=== PATIENT | male | born 1940 | race Caucasian/White ===

== ENCOUNTER 2016-06-04 16:02 | Inpatient (IN) | payer MEDICARE, OTHER ==
[2016-06-04 17:02] LABS: Glucose,Whole Blood 306 mg/dL (75-99)
[2016-06-04 17:02] LABS: Basophils # (A) 0.1 k/uL (0-0.2); Basophils % (A) 1 %; CH 31.4; CHCM 34.2; Eosinophils # (A) 0.1 k/uL (0-0.7); Eosinophils % (A) 1 %; HDW 2.76; HGB 11.5 gm/dL (13.0-17.5); Luc # (Auto) 0.08; Luc % (Auto) 2; Lymphocytes # (A) 1.4 k/uL (1.0-4.8); Lymphocytes % (A) 27 %; MCH 30.3 pg (25.0-35.0); MCHC 32.9 g/dL (31.0-37.0); MCV 92.1 fL (80.0-100.0); Mean Platelet Volume 7.9; Monocytes # (A) 0.3 k/uL (0-1.0); Monocytes % (A) 6 %; Neutrophils # (A) 3.3 k/uL (1.3-7.7); Neutrophils % (A) 63 %; RBC 3.79 m/uL (4.30-5.90); RDW 14.4 % (11.5-15.5); WBC 5.3 k/uL (3.8-10.6); WBC (Perox) 5.52
--- NOTE | 2016-06-04 17:07 | XR ---
EXAMINATION TYPE: XR chest 1V portable DATE OF EXAM: 06/04/2016 5:02 PM COMPARISON: 05/07/2016 HISTORY: Altered mental status TECHNIQUE: Single frontal view of the chest is obtained. FINDINGS: The heart is enlarged and there is postoperative change and cardiac device. Tiny left effu oli suspected. No pneumothorax or interstitial edema. Arthropathy of the shoulders noted. IMPRESSION: 1. Tiny left pleural effusion.
[2016-06-04 17:13] LABS: Calcium 9.6 mg/dL (8.4-10.2); Potassium 4.7 mmol/L (3.5-5.1); Total Bilirubin 0.5 mg/dL (0.2-1.3)
[2016-06-04] MEDS ORDERED: SODIUM CHLORIDE 0.9% 1,000 ML IV ONE ×3 (17:23→19:10)
[2016-06-04] MEDS ORDERED: LEVOFLOXACIN 750MG-D5W PMX 750 MG in DEXTROSE/WATER 1 150ML.BAG IVPB STA (17:25)
[2016-06-04 18:54] LABS: Appearance,Urine Clear (Clear); Bilirubin,Urine Negative (Negative); Glucose,Urine (UA) 2+ (Negative); Ketones,Urine Negative (Negative); Leukocyte Esterase,Urine Negative (Negative); Nitrite,Urine Negative (Negative); PH, Urine 7.5 (5.0-8.0); Protein,Urine Negative (Negative); Specific Gravity,Urine 1.007 (1.001-1.035); UA Billing (MACRO vs. MICRO) CHEM; Urobilinogen,Urine <2.0 mg/dL (<2.0)
[2016-06-04] MEDS ORDERED: NALOXONE 0.4 MG/ML 1 ML VIAL IV PRN (20:14)
[2016-06-04] MEDS ORDERED: ACETAMINOPHEN TAB 325 MG TAB PO PRN ×2 (20:14→20:17)
--- NOTE | 2016-06-04 20:51 | ED ---
Altered Mental Status HPI - General Chief Complaint: Altered Mental Status Stated Complaint: ALTERED MENTAL STATUS Time Seen by Provider: 06/04/16 16:35 Source: EMS Mode of arrival: EMS Limitations: altered mental status (There is some underlying dementia) - History of Present Illness Initial Comments: This patient is 76-year-old man brought in to be evaluated by his . She states that he has seemed to be somewhat agitated and this is been going on for nearly 24 hours. She states that he has not been sleeping. She could not get the patient to eat anything or drink much in way of liquid at all today. She states that the last time he was like this he had an infection. The patient is denying any complaints. When asked how he is feeling, he states he feels well and that he just wants to go home to see his dog. MD Complaint: altered mental status Onset/Timin -: days(s) - Related Data Home Medications Medication Instructions Recorded Confirmed Montelukast [Singulair] 10 mg PO HS 11/07/14 06/04/16 Tamsulosin [Flomax] 0.4 mg PO DAILY 10/04/15 06/04/16 Albuterol Inhaler [Ventolin Hfa 2 puff INHALATION RT-Q4H PRN 11/15/15 06/04/16 Inhaler] Apixaban [Eliquis] 5 mg PO BID 11/15/15 06/04/16 Digoxin [Digitek] 125 mcg PO DAILY 11/15/15 06/04/16 Mirtazapine [Remeron] 7.5 mg PO HS 11/15/15 06/04/16 Memantine [Namenda] 5 mg PO DAILY 02/10/16 06/04/16 Atorvastatin [Lipitor] 40 mg PO HS 05/07/16 06/04/16 Clopidogrel [Plavix] 75 mg PO DAILY 05/07/16 06/04/16 Furosemide [Lasix] 20 mg PO TID 05/07/16 06/04/16 Insuln Asp Prt/Insulin Aspart 10 unit SQ BID 05/07/16 06/04/16 [NovoLOG MIX 70-30 VIAL] Spironolactone [Aldactone] 25 mg PO DAILY 05/07/16 06/04/16 ALPRAZolam [Xanax] 0.25 mg PO TID PRN 06/04/16 06/04/16 Acetaminophen Tab [Tylenol Tab] 650 mg PO Q4H PRN 06/04/16 06/04/16 Aspirin 81 mg PO DAILY 06/04/16 06/04/16 Collagenase [Santyl] 1 applic TOPICAL HS 06/04/16 06/04/16 Lisinopril [Zestril] 2.5 mg PO HS 06/04/16 06/04/16 Previous Rx's Medication Instructions Recorded ALPRAZolam [Xanax] 0.25 mg PO BID #60 tab 05/10/16 Metoprolol Tartrate [Lopressor] 25 mg PO HS tab 05/10/16 Metoprolol Tartrate [Lopressor] 50 mg PO DAILY tab 05/10/16 Allergies Allergy/AdvReac Type Severity Reaction Status Date / Time No Known Allergies Allergy Verified 06/04/16 16:22 Review of Systems ROS Statement: Those systems with pertinent positive or pertinent negative responses have been documented in the HPI. ROS Other: All systems not noted in ROS Statement are negative. Limitations: ROS unobtainable due to patients medical condition (Some underlying dementia) Constitutional: Denies: fever Respiratory: Denies: cough, dyspnea Cardiovascular: Denies: chest pain, syncope Gastrointestinal: Denies: abdominal pain, vomiting Genitourinary: Denies: hematuria Musculoskeletal: Denies: back pain Skin: Denies: rash Neurological: Denies: headache, weakness Psychiatric: Reports: anxiety Past Medical History Past Medical History: Atrial Fibrillation, Asthma, Coronary Artery Disease (CAD) , Heart Failure, COPD, Dementia, Diabetes Mellitus, Deep Vein Thrombosis (DVT), Hyperlipidemia, Hypertension, Myocardial Infarction (ND), Osteoarthritis (OA), Renal Disease, Respiratory Disorder, Sleep Apnea/CPAP/BIPAP, Vascular Disorder Additional Past Medical History / Comment(s): metabolic encephalopathy, DVT L leg 2007, PAD, bronchitis, MAY no device, neuropathy bilateral feet, BPH, Chronic kidney disease diverticulosis. Last Myocardial Infarction Date:: unknown History of Any Multi-Drug Resistant Organisms: MRSA Date of last positivie culture/infection: august 2015 per from [facility] MDRO Source:: foot Past Surgical History: Coronary Bypass/CABG, Heart Catheterization, Orthopedic Surgery, Pacemaker Additional Past Surgical History / Comment(s): AICD 2007, DFT 2014, CABG-2 vessel 2000, L wrist surgery, R foot hammer toe repair, bilateral great toenails removed, bunionectomies bilateral feet, arch/aortagram, L femoral artery thromboendartectomy, Ccaths x possible 2, cataract removal bilaterally, colonoscopy, circumcism. R great toe amputation Past Anesthesia/Blood Transfusion Reactions: No Reported Reaction Type of Cardiac Device: AICD Device Placement Date:: 2007 Past Psychological History: Depression Additional Psychological History / Comment(s): Pt resides with his spouse. She has a walker that he uses if he is going to walk far. He does not drive-his spouse is his electronic specialist and she drives him. He is a . He has memory problems. Smoking Status: Never smoker Past Alcohol Use History: None Reported Additional Past Alcohol Use History / Comment(s): Pt smoked cigars starting in 1962 and quit in 1999. Past Drug Use History: None Reported - Past Family History Mother Family Medical History: Myocardial Infarction (ND) Additional Family Medical History / Comment(s): Mother of a ND in her 50's Brother(s) Family Medical History: Deep Vein Thrombosis (DVT) Additional Family Medical History / Comment(s): POSS DVT. Father Family Medical History: CVA/TIA Additional Family Medical History / Comment(s): Father of a CVA at unknown age. General Exam Limitations: altered mental status General appearance: alert, in no apparent distress Head exam: Present: atraumatic, normocephalic Eye exam: Present: normal appearance ENT exam: Present: mucous membranes dry Neck exam: Present: normal inspection Respiratory exam: Present: normal lung sounds bilaterally. Absent: respiratory distress, wheezes, rales, rhonchi, stridor Cardiovascular Exam: Present: irregular rhythm, normal heart sounds. Absent: systolic murmur, diastolic murmur, rubs, gallop GI/Abdominal exam: Present: soft. Absent: tenderness, guarding, rebound Extremities exam: Present: normal inspection, normal capillary refill, other ( Patient does have right great toe amputation. The surgical site looks relatively clean. There is no drainage. There is no warmth. There is a trace of erythema at 1 and of the incision but this looks like only some local inflammation and does not look like recurrent wound infection.). Absent: tenderness, pedal edema, calf tenderness Back exam: Present: normal inspection. Absent: CVA tenderness (R), CVA tenderness (L) Neurological exam: Present: alert, normal gait. Absent: oriented X3 (Patient is oriented to person and recognizes he is at the hospital, does not know the date), motor sensory deficit Psychiatric exam: Present: anxious Skin exam: Present: warm, dry, normal color, other (See extremity exam) Course Vital Signs 06/04/16 06/04/16 06/04/16 16:03 17:39 19:16 Temperature 96.9 F L Pulse Rate 51 L 83 77 Respiratory 18 18 18 Rate Blood Pressure 116/60 107/56 112/58 O2 Sat by Pulse 96 100 99 Oximetry 06/04/16 19:56 Temperature 96.9 F L Pulse Rate 72 Respiratory 18 Rate Blood Pressure 137/65 O2 Sat by Pulse 100 Oximetry Medical Decision Making - Medical Decision Making Patient is 76-year-old man with underlying dementia brought in for was reported being altered mental status. He does look mildly dehydrated by the exam. The labs do show an elevation of his lactic acid level. Case discussed with Dr. Honeycutt who is on-call for his physician. The patient be admitted for rehydration and to discuss a long-term placement. Cultures are pending. - Lab Data Result diagrams: 06/04/16 16:20 06/04/16 16:20 Lab Results 06/04/16 06/04/16 06/04/16 Range/Units 16:20 16:20 16:20 WBC 5.3 (3.8-10.6) k/uL RBC 3.79 L (4.30-5.90) m/uL Hgb 11.5 L (13.0-17.5) gm/dL Hct 35.0 L (39.0-53.0) % MCV 92.1 (80.0-100.0) fL MCH 30.3 (25.0-35.0) pg MCHC 32.9 (31.0-37.0) g/dL RDW 14.4 (11.5-15.5) % Plt Count 163 (150-450) k/uL Neutrophils % 63 % Lymphocytes % 27 % Monocytes % 6 % Eosinophils % 1 % Basophils % 1 % Neutrophils # 3.3 (1.3-7.7) k/uL Lymphocytes # 1.4 (1.0-4.8) k/uL Monocytes # 0.3 (0-1.0) k/uL Eosinophils # 0.1 (0-0.7) k/uL Basophils # 0.1 (0-0.2) k/uL Sodium 138 (137-145) mmol/L Potassium 4.7 (3.5-5.1) mmol/L Chloride 99 (98-107) mmol/L Carbon Dioxide 22 (22-30) mmol/L Anion Gap 17 mmol/L BUN 25 H (9-20) mg/dL Creatinine 1.58 H (0.66-1.25) mg/dL Est GFR (MDRD) Af Amer 52 (>60 ml/min/1.73 sqM) Est GFR (MDRD) Non-Af 43 (>60 ml/min/1.73 sqM) Glucose 298 H (74-99) mg/dL POC Glucose (mg/dL) (75-99) mg/dL POC Glu Braille Coder ID Plasma Lactic Acid Amol (0.7-2.0) mmol/L Calcium 9.6 (8.4-10.2) mg/dL Total Bilirubin 0.5 (0.2-1.3) mg/dL AST 19 (17-59) U/L ALT 27 (21-72) U/L Alkaline Phosphatase 96 (38-126) U/L Troponin I 0.013 (0.000-0.034) ng/mL Total Protein 7.0 (6.3-8.2) g/dL Albumin 4.1 (3.5-5.0) g/dL Urine Color Urine Appearance (Clear) Urine pH (5.0-8.0) Ur Specific Lyndon (1.001-1.035) Urine Protein (Negative) Urine Glucose (UA) (Negative) Urine Ketones (Negative) Urine Blood (Negative) Urine Nitrate (Negative) Urine Bilirubin (Negative) Urine Urobilinogen (<2.0) mg/dL Ur Leukocyte Esterase (Negative) 06/04/16 06/04/16 06/04/16 Range/Units 16:20 17:01 18:45 WBC (3.8-10.6) k/uL RBC (4.30-5.90) m/uL Hgb (13.0-17.5) gm/dL Hct (39.0-53.0) % MCV (80.0-100.0) fL MCH (25.0-35.0) pg MCHC (31.0-37.0) g/dL RDW (11.5-15.5) % Plt Count (150-450) k/uL Neutrophils % % Lymphocytes % % Monocytes % % Eosinophils % % Basophils % % Neutrophils # (1.3-7.7) k/uL Lymphocytes # (1.0-4.8) k/uL Monocytes # (0-1.0) k/uL Eosinophils # (0-0.7) k/uL Basophils # (0-0.2) k/uL Sodium (137-145) mmol/L Potassium (3.5-5.1) mmol/L Chloride (98-107) mmol/L Carbon Dioxide (22-30) mmol/L Anion Gap mmol/L BUN (9-20) mg/dL Creatinine (0.66-1.25) mg/dL Est GFR (MDRD) Af Amer (>60 ml/min/1.73 sqM) Est GFR (MDRD) Non-Af (>60 ml/min/1.73 sqM) Glucose (74-99) mg/dL POC Glucose (mg/dL) 306 H (75-99) mg/dL POC Glu Braille Coder ID Vera Harris Plasma Lactic Acid Amol 3.6 H* (0.7-2.0) mmol/L Calcium (8.4-10.2) mg/dL Total Bilirubin (0.2-1.3) mg/dL AST (17-59) U/L ALT (21-72) U/L Alkaline Phosphatase (38-126) U/L Troponin I (0.000-0.034) ng/mL Total Protein (6.3-8.2) g/dL Albumin (3.5-5.0) g/dL Urine Color Yellow Urine Appearance Clear (Clear) Urine pH 7.5 (5.0-8.0) Ur Specific Lyndon 1.007 (1.001-1.035) Urine Protein Negative (Negative) Urine Glucose (UA) 2+ H (Negative) Urine Ketones Negative (Negative) Urine Blood Negative (Negative) Urine Nitrate Negative (Negative) Urine Bilirubin Negative (Negative) Urine Urobilinogen <2.0 (<2.0) mg/dL Ur Leukocyte Esterase Negative (Negative) 01/12/17 Range/Units 19:20 WBC (3.8-10.6) k/uL RBC (4.30-5.90) m/uL Hgb (13.0-17.5) gm/dL Hct (39.0-53.0) % MCV (80.0-100.0) fL MCH (25.0-35.0) pg MCHC (31.0-37.0) g/dL RDW (11.5-15.5) % Plt Count (150-450) k/uL Neutrophils % % Lymphocytes % % Monocytes % % Eosinophils % % Basophils % % Neutrophils # (1.3-7.7) k/uL Lymphocytes # (1.0-4.8) k/uL Monocytes # (0-1.0) k/uL Eosinophils # (0-0.7) k/uL Basophils # (0-0.2) k/uL Sodium (137-145) mmol/L Potassium (3.5-5.1) mmol/L Chloride (98-107) mmol/L Carbon Dioxide (22-30) mmol/L Anion Gap mmol/L BUN (9-20) mg/dL Creatinine (0.66-1.25) mg/dL Est GFR (MDRD) Af Amer (>60 ml/min/1.73 sqM) Est GFR (MDRD) Non-Af (>60 ml/min/1.73 sqM) Glucose (74-99) mg/dL POC Glucose (mg/dL) (75-99) mg/dL POC Glu Braille Coder ID Plasma Lactic Acid Amol 2.4 H* (0.7-2.0) mmol/L Calcium (8.4-10.2) mg/dL Total Bilirubin (0.2-1.3) mg/dL AST (17-59) U/L ALT (21-72) U/L Alkaline Phosphatase (38-126) U/L Troponin I (0.000-0.034) ng/mL Total Protein (6.3-8.2) g/dL Albumin (3.5-5.0) g/dL Urine Color Urine Appearance (Clear) Urine pH (5.0-8.0) Ur Specific Lyndon (1.001-1.035) Urine Protein (Negative) Urine Glucose (UA) (Negative) Urine Ketones (Negative) Urine Blood (Negative) Urine Nitrate (Negative) Urine Bilirubin (Negative) Urine Urobilinogen (<2.0) mg/dL Ur Leukocyte Esterase (Negative) Disposition Clinical Impression: Dementia, Lactic acidosis, Hyperglycemia, Dehydration Disposition: ADMITTED IP TO THIS HOSP Condition: Poor Referrals: Neville Miles MD [Primary Care Provider] - 1-2 days
[2016-06-04] MEDS ORDERED: LORazepam 2 MG/ML SYRINGE IV STA (20:55)
[2016-06-04] MEDS ORDERED: HEPARIN SODIUM,PORCINE 5,000 UNIT/ML 1 ML VIAL SQ SCH (21:00)
[2016-06-04 21:07] LABS: Hemoglobin A1C 6.4 % (4.2-6.1)
[2016-06-04 22:38] LABS: Glucose,Whole Blood 152 mg/dL (75-99)
[2016-06-04] MEDS: SODIUM CHLORIDE 0.9% 1,000 ML IV SCH (22:38)
[2016-06-04] MEDS: INSULN ASP PRT/INSULIN ASPART 100 UNIT/ML 10 ML VIAL SQ SCH (22:39)
[2016-06-04 23:22] VITALS: BMI 25.7
[2016-06-04] MEDS: MIRTAZAPINE 15 MG TAB PO SCH (23:26)
[2016-06-04] MEDS: MONTELUKAST 10 MG TAB PO SCH (23:26)
[2016-06-04] MEDS: ATORVASTATIN 40 MG TAB PO SCH (23:26)
[2016-06-04] MEDS: LISINOPRIL 2.5 MG TAB PO SCH (23:27)
[2016-06-04] MEDS: METOPROLOL TARTRATE 25 MG TAB PO SCH (23:27)
[2016-06-04] MEDS: INSULIN LISPRO (humaLOG) 300 UNIT/3 ML VIAL SQ SCH (23:27)
[2016-06-04] MEDS: APIXABAN 5 MG TAB PO SCH (23:27)
[2016-06-05 07:38] LABS: Basophils % (A) 1 %; CH 31.2; CHCM 34.3; Eosinophils # (A) 0.1 k/uL (0-0.7); Eosinophils % (A) 1 %; HCT 30.6 % (39.0-53.0); HDW 2.84; HGB 10.1 gm/dL (13.0-17.5); Luc # (Auto) 0.07; Luc % (Auto) 1; Lymphocytes # (A) 1.2 k/uL (1.0-4.8); Lymphocytes % (A) 19 %; MCH 30.2 pg (25.0-35.0); MCHC 33.1 g/dL (31.0-37.0); MCV 91.2 fL (80.0-100.0); Mean Platelet Volume 7.5; Monocytes # (A) 0.4 k/uL (0-1.0); Monocytes % (A) 7 %; Neutrophils # (A) 4.6 k/uL (1.3-7.7); Neutrophils % (A) 72 %; RBC 3.36 m/uL (4.30-5.90); RDW 14.4 % (11.5-15.5); WBC 6.4 k/uL (3.8-10.6); WBC (Perox) 6.94
[2016-06-05 07:50] LABS: Glucose,Whole Blood 111 mg/dL (75-99)
[2016-06-05 08:05] LABS: Anion Gap 12 mmol/L; Blood Urea Nitrogen 16 mg/dL (9-20); Calcium 8.6 mg/dL (8.4-10.2); Carbon Dioxide 20 mmol/L (22-30); Chloride 110 mmol/L (98-107); Glucose 110 mg/dL (74-99); Non-African American GFR(MDRD) 57 (>60 ml/min/1.73 sqM); Potassium 4.1 mmol/L (3.5-5.1); Sodium 142 mmol/L (137-145)
[2016-06-05] MEDS: INSULIN LISPRO (humaLOG) 300 UNIT/3 ML VIAL SQ SCH ×4 (08:44→20:16)
[2016-06-05] MEDS: APIXABAN 5 MG TAB PO SCH ×2 (08:49→20:03)
[2016-06-05] MEDS: ASPIRIN 81 MG CHEW PO SCH (08:57)
[2016-06-05] MEDS: INSULN ASP PRT/INSULIN ASPART 100 UNIT/ML 10 ML VIAL SQ SCH ×2 (08:57→20:20)
[2016-06-05] MEDS: ALPRAZolam 0.25 MG TAB PO PRN ×2 (11:50→20:16)
[2016-06-05] MEDS: CLOPIDOGREL 75 MG TAB PO SCH (11:50)
[2016-06-05] MEDS: MEMANTINE 5 MG TAB PO SCH (11:50)
[2016-06-05] MEDS: DIGOXIN 125 MCG TAB PO SCH (11:50)
[2016-06-05] MEDS: SPIRONOLACTONE 25 MG TAB PO SCH (11:51)
[2016-06-05] MEDS: METOPROLOL TARTRATE 50 MG TAB PO SCH (11:51)
[2016-06-05] MEDS: TAMSULOSIN 0.4 MG CAP.ER.24H PO SCH (11:51)
[2016-06-05 12:11] LABS: Glucose,Whole Blood 108 mg/dL (75-99)
[2016-06-05] MEDS ORDERED: ALBUTEROL NEBULIZED 2.5 MG/3 ML INHALATION PRN (14:38)
--- NOTE | 2016-06-05 14:45 | P.HPIM ---
<Felisha Hernandez A - Last Filed: 06/05/16 14:35> History of Present Illness H&P Date: 06/05/16 Chief Complaint: Altered mental status This is a 76-year-old male patient of Dr. Miles with medical history significant for coronary artery disease status post coronary artery bypass graft for 2 vessels in 1999 with ischemic cardiomyopathy status post AICD, chronic atrial fibrillation, chronic kidney disease stage II, benign prostatic hypertrophy, diabetes mellitus type 2 insulin requiring, hypertension and hypertensive cardiovascular disease, hyperlipidemia, vascular dementia, history of DVT in the past, history of PAD, infection to the right groin following heart catheterization for which he was treated at [facility] in 2016, osteomyelitis of the right great toe status post amputation in October [address] Simon. He has had frequent admissions for sepsis, wound infections, metabolic encephalopathy. He was brought in to the hospital by EMS. His gives history that the patient was having difficulty most of this week. He was awake all Wednesday night and did not allow her to get any sleep. He then started to not eat or drink anything and did not have anything yesterday at all. He has been very antsy and crying out when he goes to the bathroom. She also states that his dementia worsened and he was more confused. He barely did not have any abdominal pain. She contacted Dr. Miles's office and attempts were made to call her back but there was no answer. Patient was then brought into [facility] emergency center for evaluation. Chest x-ray showed tiny left pleural effusion. Urinalysis was clear, nitrite and leukoesterase negative. Initial blood sugar was 298, BUN 25 and creatinine 1.58, WBC 5.3 and hemoglobin 11.5. Hemoglobin A1c 6.4. Initial lactic acid was 3.6. Repeat lactic acid 2.4 and 2.2. Patient was admitted to the hospital for lactic acidosis, hyperglycemia and dehydration. Staff state that they did see some blood on his brief when he was changed earlier today. Patient and do not know about any rectal bleeding. Review of Systems All systems: negative Constitutional: Denies chills, Denies fever Eyes: denies blurred vision, denies pain Ears, nose, mouth and throat: Denies headache, Denies sore throat Cardiovascular: Denies chest pain, Denies shortness of breath Respiratory: Denies cough Gastrointestinal: Denies abdominal pain, Denies diarrhea, Denies nausea, Denies vomiting Musculoskeletal: Denies myalgias Integumentary: Denies pruritus, Denies rash Neurological: Reports confusion, Denies numbness, Denies weakness Psychiatric: Denies anxiety, Denies depression Endocrine: Denies fatigue, Denies weight change Past Medical History Past Medical History: Atrial Fibrillation, Asthma, Coronary Artery Disease (CAD) , Heart Failure, COPD, Dementia, Diabetes Mellitus, Deep Vein Thrombosis (DVT), Hyperlipidemia, Hypertension, Myocardial Infarction (CT), Osteoarthritis (OA), Renal Disease, Respiratory Disorder, Sleep Apnea/CPAP/BIPAP, Vascular Disorder Additional Past Medical History / Comment(s): metabolic encephalopathy, DVT L leg 2008, PAD, bronchitis, MAY no device, neuropathy bilateral feet, BPH, Chronic kidney disease diverticulosis. Last Myocardial Infarction Date:: unknown History of Any Multi-Drug Resistant Organisms: MRSA Date of last positivie culture/infection: august 2015 per from [facility] MDRO Source:: foot Past Surgical History: Coronary Bypass/CABG, Heart Catheterization, Orthopedic Surgery, Pacemaker Additional Past Surgical History / Comment(s): AICD 2007, DFT 2014, CABG-2 vessel 1999, L wrist surgery, R foot hammer toe repair, bilateral great toenails removed, bunionectomies bilateral feet, arch/aortagram, L femoral artery thromboendartectomy, Ccaths x possible 2, cataract removal bilaterally, colonoscopy, circumcism. R great toe amputation Past Anesthesia/Blood Transfusion Reactions: No Reported Reaction Type of Cardiac Device: AICD Device Placement Date:: 2007 Past Psychological History: Depression Additional Psychological History / Comment(s): Pt resides with his spouse. She has a walker that he uses if he is going to walk far. He does not drive-his spouse is his address change clerk and she drives him. He is a . He has memory problems. Smoking Status: Never smoker Past Alcohol Use History: None Reported Additional Past Alcohol Use History / Comment(s): Pt smoked cigars starting in 2 and quit in 1999. Past Drug Use History: None Reported - Past Family History Mother Family Medical History: Myocardial Infarction (CT) Additional Family Medical History / Comment(s): Mother of a CT in her 50's Brother(s) Family Medical History: Deep Vein Thrombosis (DVT) Additional Family Medical History / Comment(s): POSS DVT. Father Family Medical History: CVA/TIA Additional Family Medical History / Comment(s): Father of a CVA at unknown age. Medications and Allergies Home Medications Medication Instructions Recorded Confirmed Type Montelukast [Singulair] 10 mg PO HS 11/07/14 06/04/16 History Tamsulosin [Flomax] 0.4 mg PO DAILY 10/04/15 06/04/16 History Albuterol Inhaler [Ventolin Hfa 2 puff INHALATION RT-Q4H PRN 11/15/15 06/04/16 History Inhaler] Apixaban [Eliquis] 5 mg PO BID 11/15/15 06/04/16 History Digoxin [Digitek] 125 mcg PO DAILY 11/15/15 06/04/16 History Mirtazapine [Remeron] 7.5 mg PO HS 11/15/15 06/04/16 History Memantine [Namenda] 5 mg PO DAILY 02/10/16 06/04/16 History Atorvastatin [Lipitor] 40 mg PO HS 05/07/16 06/04/16 History Clopidogrel [Plavix] 75 mg PO DAILY 05/07/16 06/04/16 History Furosemide [Lasix] 20 mg PO TID 05/07/16 06/04/16 History Insuln Asp Prt/Insulin Aspart 10 unit SQ BID 05/07/16 06/04/16 History [NovoLOG MIX 70-30 VIAL] Spironolactone [Aldactone] 25 mg PO DAILY 05/07/16 06/04/16 History ALPRAZolam [Xanax] 0.25 mg PO TID PRN 06/04/16 06/04/16 History Acetaminophen Tab [Tylenol Tab] 650 mg PO Q4H PRN 06/04/16 06/04/16 History Aspirin 81 mg PO DAILY 06/04/16 06/04/16 History Collagenase [Santyl] 1 applic TOPICAL HS 06/04/16 06/04/16 History Lisinopril [Zestril] 2.5 mg PO HS 06/04/16 06/04/16 History Allergies Allergy/AdvReac Type Severity Reaction Status Date / Time No Known Allergies Allergy Verified 06/04/16 16:22 Physical Exam Vitals: Vital Signs Temp Pulse Pulse Resp BP BP Pulse Ox 06/05/16 08:00 54 L 06/05/16 07:00 97.5 F L 93 18 120/91 92 L 06/04/16 22:20 96.6 F L 54 L 17 110/53 100 06/04/16 21:33 98.0 F 85 18 135/67 97 Intake and Output 06/04/16 06/05/16 06/05/16 22:59 06:59 14:59 Intake Total 260 Output Total 243 Balance 17 Intake: IV 160 Sodium Chloride 0.9% 1, 160 000 ml @ 20 mls/hr IV . Q24H [facility] Rx#:[id number] Oral 100 Output: Urine 200 Post Void Residual 43 Other: Voiding Method Diaper Diaper Incontinent Incontinent Weight 83.915 kg General appearance: average body habitus, cooperative, no acute distress - EENT Eyes: Reports anicteric sclerae, Reports EOMI, Reports PERRLA, Reports dentition normal ENT: Reports hearing grossly normal, Reports NA/AT, Reports normal oropharynx - Neck Neck: Reports normal ROM, Denies lymphadenopathy, Denies other, Denies rigidity , Denies stridor, Denies thyromegaly Thyroid: bilateral: normal size - Respiratory Respiratory: bilateral: CTA, diminished - Cardiovascular Rhythm: irregular Heart sounds: normal: S1, S2, systolic murmur - Gastrointestinal General gastrointestinal: Reports normal bowel sounds, Reports soft - Integumentary Integumentary: Reports normal, Reports normal turgor - Neurologic Neurologic: CNII-XII intact - Musculoskeletal Musculoskeletal: Reports strength equal bilaterally. Healing wound to the right great toe amputation site, no significant erythema, drainage, swelling. Eschar to the distal second toe. - Psychiatric Psychiatric: Reports A&O x's2, at baseline, Reports appropriate affect, Reports intact judgment & insight (Short-term memory loss) Results CBC & Chem 7: 06/05/16 07:16 06/05/16 07:16 Labs: Abnormal Lab Results - Last 24 Hours (Table) 06/04/16 06/04/16 06/05/16 Range/Units 22:36 23:59 07:15 RBC (4.30-5.90) m/uL Hgb (13.0-17.5) gm/dL Hct (39.0-53.0) % Plt Count (150-450) k/uL Chloride (98-107) mmol/L Carbon Dioxide (22-30) mmol/L Glucose (74-99) mg/dL POC Glucose (mg/dL) 152 H 111 H (75-99) mg/dL Plasma Lactic Acid Amol 2.2 H* (0.7-2.0) mmol/L 06/05/16 06/05/16 06/05/16 Range/Units 07:16 07:16 12:00 RBC 3.36 L (4.30-5.90) m/uL Hgb 10.1 L (13.0-17.5) gm/dL Hct 30.6 L (39.0-53.0) % Plt Count 123 L (150-450) k/uL Chloride 110 H (98-107) mmol/L Carbon Dioxide 20 L (22-30) mmol/L Glucose 110 H (74-99) mg/dL POC Glucose (mg/dL) 108 H (75-99) mg/dL Plasma Lactic Acid Amol (0.7-2.0) mmol/L Thrombosis Risk Factor Assmnt - DVT/VTE Prophylaxis DVT/VTE Prophylaxis: Pharmacologic Prophylaxis ordered - Choose All That Apply Any of the Below Risk Factors Present?: Yes Each Factor Represents 1 point: Abnormal pulmonary function (COPD), Obesity ( BMI >25) Other Risk Factors: Yes Each Risk Factor Represents 2 Points: Age 61-74 years Thrombosis Risk Factor Assessment Total Risk Factor Score: 4 Thrombosis Risk Factor Assessment Level: Moderate Risk Assessment and Plan Plan: 1. Metabolic encephalopathy and dehydration with elevated lactic acid without signs of infection. Chest x-ray did not show any infiltrate. Urinalysis negative. No skin or wound infections noted. On salt with Dr. Scruggs for history of wound infection and lactic acidosis. Lasix is currently on hold. Resume Lasix tomorrow. 2. Chronic wound to the right foot and at site of great toe amputation. No signs of active infection. Consult with Dr. Scruggs. Patient did receive dose of Levaquin in the emergency center. Continue Santyl dressing. 3. Chronic A. fib. Continue eliquis and Lopressor 50 mg the morning 25 mg in the evening, digoxin 125 g daily. 4. COPD, stable without exacerbation: Continue inhaler. 5. Advanced ischemic cardiomyopathy post AICD. Continue Lipitor, eliquis, Plavix, Lanoxin, lisinopril, Lopressor, Aldactone. 6. Severe PAD status post right great toe amputation with history of MRSA. 7. BPH. Continue tamsulosin 0.4 mg daily. 8. Hyperlipidemia. Continue Lipitor 40 mg daily. 9. Diabetes mellitus type II, insulin requiring. Continue NovoLog 70 3010 units twice daily and Humalog scale before meals and at bedtime. 10. Vascular dementia. No longer on Namenda and Remeron. 11. Chronic kidney disease stage III with history of acute kidney injury 12. GI prophylaxis: On Pepcid 20 mg daily. 13. DVT prophylaxis. Patient is on eliquis. CODE STATUS: Full code. Discharge plan: Return home with homecare Impression and plan of care have been directed as dictated by the signing physician. Felisha Hernandez nurse practitioner acting as scribe for signing physician. Time with Patient: Greater than 30 <Jacques Honeycutt - Last Filed: 06/07/16 07:52> Physical Exam Vitals: Vital Signs Temp Pulse Resp BP Pulse Ox 06/06/16 22:35 97.1 F L 55 L 18 118/62 100 06/06/16 15:00 98 F 61 122/60 98 Intake and Output 06/06/16 06/07/16 06/07/16 22:59 06:59 14:59 Other: Voiding Method Diaper Diaper # Voids 1 1 # Bowel Movements 1 Results CBC & Chem 7: 06/06/16 07:26 06/06/16 07:26 Labs: Abnormal Lab Results - Last 24 Hours (Table) 06/06/16 06/06/16 06/06/16 Range/Units 07:26 07:26 20:05 RBC 3.28 L (4.30-5.90) m/uL Hgb 10.0 L (13.0-17.5) gm/dL Hct 30.7 L (39.0-53.0) % Plt Count 132 L (150-450) k/uL Chloride 110 H (98-107) mmol/L Carbon Dioxide 20 L (22-30) mmol/L POC Glucose (mg/dL) 100 H (75-99) mg/dL AST 15 L (17-59) U/L Total Protein 5.7 L (6.3-8.2) g/dL Albumin 3.0 L (3.5-5.0) g/dL Microbiology - Last 24 Hours (Table) 06/05/16 12:32 Blood Culture - Preliminary Blood No Growth after 24 hours Assessment and Plan Plan: change on salt to consult
--- NOTE | 2016-06-05 14:53 | P.CONS ---
History of Present Illness - Reason for Consult Consult date: 06/05/16 History of wound infection, lactic acidosis - History of Present Illness 76-year-old male known to infectious disease. Earlier last year he has significant difficulty with his right groin area. He had undergone cardiac catheterization and developed a significant infection to his right groin. Record transfer to outside hospital for further surgical intervention with concerns to a necrotizing infection. Fortunately he improved. He continued to have severe peripheral vascular disease. On November 17, Dr. Simon performed the right great toe amputation. Since that time it's been an ongoing ulceration was followed in the wound healing center with Dr. Simon. He is currently at home with his and local wound care is in the form of Santyl. Patient has had ongoing difficulties this week according to his . He was awake all Wednesday night and did not allow her to get any sleep. He then left eating and drinking and did not have intake yesterday at all. He has been very antsy and crying out when he goes to the bathroom. She also states that his dementia worsened and he was more confused. He did not have any abdominal pain. Patient was brought into [facility] emergency center for evaluation. Chest x-ray showed tiny left pleural effusion. Urinalysis was clear, nitrite and leukoesterase negative. Initial blood sugar was 298, BUN 25 and creatinine 1.58, WBC 5.3 and hemoglobin 11.5. Hemoglobin A1c 6.4. Initial lactic acid was 3.6. Repeat lactic acid 2.4 and 2.2. Patient was admitted to the hospital for lactic acidosis, hyperglycemia and dehydration. Staff state that they did see some blood on his brief when he was changed earlier today. Patient and do not know about any rectal bleeding. Patient's mental status appears to be back to baseline. Patient did receive 1 dose of Levaquin in the emergency center. Review of Systems All systems: negative Constitutional: Reports weakness, Denies chills, Denies fever Eyes: denies blurred vision, denies pain Ears, nose, mouth and throat: Denies headache, Denies sore throat Cardiovascular: Denies chest pain, Denies shortness of breath Respiratory: Denies cough Gastrointestinal: Denies abdominal pain, Denies diarrhea, Denies nausea, Denies vomiting Musculoskeletal: Denies myalgias Integumentary: Denies pruritus, Denies rash Neurological: Reports confusion, Denies numbness, Denies weakness Psychiatric: Denies anxiety, Denies depression Endocrine: Denies fatigue, Denies weight change Past Medical History Past Medical History: Atrial Fibrillation, Asthma, Coronary Artery Disease (CAD) , Heart Failure, COPD, Dementia, Diabetes Mellitus, Deep Vein Thrombosis (DVT), Hyperlipidemia, Hypertension, Myocardial Infarction (IA), Osteoarthritis (OA), Renal Disease, Respiratory Disorder, Sleep Apnea/CPAP/BIPAP, Vascular Disorder Additional Past Medical History / Comment(s): metabolic encephalopathy, DVT L leg 2008, PAD, bronchitis, MAY no device, neuropathy bilateral feet, BPH, Chronic kidney disease diverticulosis. Last Myocardial Infarction Date:: unknown History of Any Multi-Drug Resistant Organisms: MRSA Year Discovered:: august 2015 per from [facility] MDRO Source:: foot Past Surgical History: Coronary Bypass/CABG, Heart Catheterization, Orthopedic Surgery, Pacemaker Additional Past Surgical History / Comment(s): AICD 2007, DFT 2014, CABG-2 vessel 1999, L wrist surgery, R foot hammer toe repair, bilateral great toenails removed, bunionectomies bilateral feet, arch/aortagram, L femoral artery thromboendartectomy, Ccaths x possible 2, cataract removal bilaterally, colonoscopy, circumcism. R great toe amputation Past Anesthesia/Blood Transfusion Reactions: No Reported Reaction Type of Cardiac Device: AICD Device Placement Date:: 2007 Past Psychological History: Depression Additional Psychological History / Comment(s): Pt resides with his spouse. She has a walker that he uses if he is going to walk far. He does not drive-his spouse is his flake drier and she drives him. He is a . He has memory problems. Smoking Status: Never smoker Past Alcohol Use History: None Reported Additional Past Alcohol Use History / Comment(s): Pt smoked cigars starting in 1962 and quit in 1999. Past Drug Use History: None Reported - Past Family History Mother Family Medical History: Myocardial Infarction (IA) Additional Family Medical History / Comment(s): Mother of a IA in her 50's Brother(s) Family Medical History: Deep Vein Thrombosis (DVT) Additional Family Medical History / Comment(s): POSS DVT. Father Family Medical History: CVA/TIA Additional Family Medical History / Comment(s): Father of a CVA at unknown age. Medications and Allergies Home Medications Medication Instructions Recorded Confirmed Type RX: Montelukast [Singulair] 10 mg PO HS 11/07/14 06/04/16 History RX: Tamsulosin [Flomax] 0.4 mg PO DAILY 10/04/15 06/04/16 History RX: Albuterol Inhaler [Ventolin 2 puff INHALATION RT-Q4H PRN 11/15/15 06/04/16 History Hfa Inhaler] RX: Apixaban [Eliquis] 5 mg PO BID 11/15/15 06/04/16 History RX: Digoxin [Digitek] 125 mcg PO DAILY 11/15/15 06/04/16 History RX: Mirtazapine [Remeron] 7.5 mg PO HS 11/15/15 06/04/16 History RX: Memantine [Namenda] 5 mg PO DAILY 02/10/16 06/04/16 History RX: Atorvastatin [Lipitor] 40 mg PO HS 05/07/16 06/04/16 History RX: Clopidogrel [Plavix] 75 mg PO DAILY 05/07/16 06/04/16 History RX: Furosemide [Lasix] 20 mg PO TID 05/07/16 06/04/16 History RX: Insuln Asp Prt/Insulin Aspart 10 unit SQ BID 05/07/16 06/04/16 History [NovoLOG MIX 70-30 VIAL] RX: Spironolactone [Aldactone] 25 mg PO DAILY 05/07/16 06/04/16 History Acetaminophen Tab [Tylenol Tab] 650 mg PO Q4H PRN 06/04/16 06/04/16 History RX: ALPRAZolam [Xanax] 0.25 mg PO TID PRN 06/04/16 06/04/16 History RX: Aspirin 81 mg PO DAILY 06/04/16 06/04/16 History RX: Collagenase [Santyl] 1 applic TOPICAL HS 06/04/16 06/04/16 History RX: Lisinopril [Zestril] 2.5 mg PO HS 06/04/16 06/04/16 History Allergies Allergy/AdvReac Type Severity Reaction Status Date / Time No Known Allergies Allergy Verified 06/04/16 16:22 Physical Exam Vitals: Vital Signs Temp Pulse Pulse Resp BP BP Pulse Ox 06/05/16 08:00 54 L 06/05/16 07:00 97.5 F L 93 18 120/91 92 L 06/04/16 22:20 96.6 F L 54 L 17 110/53 100 06/04/16 21:33 98.0 F 85 18 135/67 97 Intake and Output 06/04/16 06/05/16 06/05/16 22:59 06:59 14:59 Intake Total 260 160 Output Total 243 Balance 17 160 Intake: IV 160 160 Sodium Chloride 0.9% 1, 160 160 000 ml @ 20 mls/hr IV . Q24H [facility] Rx#:[id number] Oral 100 Output: Urine 200 Post Void Residual 43 Other: Voiding Method Diaper Diaper Incontinent Incontinent Weight 83.915 kg General appearance: average body habitus, cooperative, no acute distress - EENT Eyes: Reports anicteric sclerae, Reports EOMI, Reports PERRLA, Reports dentition normal ENT: Reports hearing grossly normal, Reports NA/AT, Reports normal oropharynx - Neck Neck: Reports normal ROM, Denies lymphadenopathy, Denies other, Denies rigidity , Denies stridor, Denies thyromegaly Thyroid: bilateral: normal size - Respiratory Respiratory: bilateral: CTA, diminished - Cardiovascular Rhythm: irregular Heart sounds: normal: S1, S2, systolic murmur - Gastrointestinal General gastrointestinal: Reports normal bowel sounds, Reports soft - Integumentary Integumentary: Reports normal, Reports normal turgor - Neurologic Neurologic: CNII-XII intact - Musculoskeletal Musculoskeletal: Reports strength equal bilaterally. Healing wound to the right great toe amputation site, no significant erythema, drainage, swelling. Eschar to the distal second toe. Superficial wounds noted to the left hand at the second proximal phalanx, third proximal phalanx and fourth proximal phalanx. - Psychiatric Psychiatric: Reports A&O x's2, at baseline, Reports appropriate affect, Denies intact judgment & insight (Short-term memory loss) Results Results: Laboratory Results WBC 6.4 k/uL (3.8-10.6) 06/05/16 07:16 RBC 3.36 m/uL (4.30-5.90) L 06/05/16 07:16 Hgb 10.1 gm/dL (13.0-17.5) L 06/05/16 07:16 Hct 30.6 % (39.0-53.0) L 06/05/16 07:16 MCV 91.2 fL (80.0-100.0) 06/05/16 07:16 MCH 30.2 pg (25.0-35.0) 06/05/16 07:16 MCHC 33.1 g/dL (31.0-37.0) 06/05/16 07:16 RDW 14.4 % (11.5-15.5) 06/05/16 07:16 Plt Count 123 k/uL (150-450) L 06/05/16 07:16 Neutrophils % 72 % 06/05/16 07:16 Lymphocytes % 19 % 06/05/16 07:16 Monocytes % 7 % 06/05/16 07:16 Eosinophils % 1 % 06/05/16 07:16 Basophils % 1 % 06/05/16 07:16 Neutrophils # 4.6 k/uL (1.3-7.7) 06/05/16 07:16 Lymphocytes # 1.2 k/uL (1.0-4.8) 06/05/16 07:16 Monocytes # 0.4 k/uL (0-1.0) 06/05/16 07:16 Eosinophils # 0.1 k/uL (0-0.7) 06/05/16 07:16 Basophils # 0.0 k/uL (0-0.2) 06/05/16 07:16 Sodium 142 mmol/L (137-145) 06/05/16 07:16 Potassium 4.1 mmol/L (3.5-5.1) 06/05/16 07:16 Chloride 110 mmol/L (98-107) H 06/05/16 07:16 Carbon Dioxide 20 mmol/L (22-30) L 06/05/16 07:16 Anion Gap 12 mmol/L 06/05/16 07:16 BUN 16 mg/dL (9-20) 06/05/16 07:16 Creatinine 1.24 mg/dL (0.66-1.25) 06/05/16 07:16 Est GFR (MDRD) Af Amer >60 (>60 ml/min/1.73 sqM) 06/05/16 07:16 Est GFR (MDRD) Non-Af 57 (>60 ml/min/1.73 sqM) 06/05/16 07:16 Glucose 110 mg/dL (74-99) H 06/05/16 07:16 POC Glucose (mg/dL) 108 mg/dL (75-99) H 06/05/16 12:00 POC Glu Dry Charge Process Attendant ID Simin Larson 06/05/16 12:[address] Glu mg/dL 137 mg/dL 06/04/16 16:20 Hemoglobin A1c 6.4 % (4.2-6.1) H 06/04/16 16:20 Plasma Lactic Acid Amol 2.2 mmol/L (0.7-2.0) H* 06/04/16 23:59 Calcium 8.6 mg/dL (8.4-10.2) 06/05/16 07:16 Total Bilirubin 0.5 mg/dL (0.2-1.3) 06/04/16 16:20 AST 19 U/L (17-59) 06/04/16 16:20 ALT 27 U/L (21-72) 06/04/16 16:20 Alkaline Phosphatase 96 U/L (38-126) 06/04/16 16:20 Troponin I 0.013 ng/mL (0.000-0.034) 06/04/16 16:20 Total Protein 7.0 g/dL (6.3-8.2) 06/04/16 16:20 Albumin 4.1 g/dL (3.5-5.0) 06/04/16 16:20 Urine Color Yellow 06/04/16 18:45 Urine Appearance Clear (Clear) 06/04/16 18:45 Urine pH 7.5 (5.0-8.0) 06/04/16 18:45 Ur Specific [place] 1.007 (1.001-1.035) 06/04/16 18:45 Urine Protein Negative (Negative) 06/04/16 18:45 Urine Glucose (UA) 2+ (Negative) H 06/04/16 18:45 Urine Ketones Negative (Negative) 06/04/16 18:45 Urine Blood Negative (Negative) 06/04/16 18:45 Urine Nitrate Negative (Negative) 06/04/16 18:45 Urine Bilirubin Negative (Negative) 06/04/16 18:45 Urine Urobilinogen <2.0 mg/dL (<2.0) 06/04/16 18:45 Ur Leukocyte Esterase Negative (Negative) 06/04/16 18:45 CBC & Chem 7: 06/08/16 07:00 06/08/16 07:00 Labs: Abnormal Lab Results - Last 24 Hours (Table) 06/04/16 06/04/16 06/05/16 Range/Units 22:36 23:59 07:15 RBC (4.30-5.90) m/uL Hgb (13.0-17.5) gm/dL Hct (39.0-53.0) % Plt Count (150-450) k/uL Chloride (98-107) mmol/L Carbon Dioxide (22-30) mmol/L Glucose (74-99) mg/dL POC Glucose (mg/dL) 152 H 111 H (75-99) mg/dL Plasma Lactic Acid Amol 2.2 H* (0.7-2.0) mmol/L 06/05/16 06/05/16 06/05/16 Range/Units 07:16 07:16 12:00 RBC 3.36 L (4.30-5.90) m/uL Hgb 10.1 L (13.0-17.5) gm/dL Hct 30.6 L (39.0-53.0) % Plt Count 123 L (150-450) k/uL Chloride 110 H (98-107) mmol/L Carbon Dioxide 20 L (22-30) mmol/L Glucose 110 H (74-99) mg/dL POC Glucose (mg/dL) 108 H (75-99) mg/dL Plasma Lactic Acid Amol (0.7-2.0) mmol/L Assessment and Plan Plan: This is a 76-year-old male who is well-known to ID services. He presented to the hospital with dehydration and mental status changes and lactic acidosis of unclear etiology. Chest x-ray was negative for infiltrate. Urinalysis was negative for UTI. Urine culture in process. Wound is healing with no signs of infection at this time. Continue local wound care with Santyl. Superficial wounds noted to the left hand and local wound care will be addressed. Initial blood cultures showing gram-positive cocci in clusters. Repeat blood culture has been requested. Continue supportive care. Further recommendations as patient progresses. The above dictated assessment and findings were discussed with Dr. Scruggs. The impression and plan of care have been directed as dictated. Felisha Hernandez nurse practitioner acting as scribe for Dr. Scruggs. Time with Patient: Greater than 30
[2016-06-05 17:30] LABS: Glucose,Whole Blood 91 mg/dL (75-99)
[2016-06-05] MEDS: ATORVASTATIN 40 MG TAB PO SCH (20:03)
[2016-06-05] MEDS: LISINOPRIL 2.5 MG TAB PO SCH (20:03)
[2016-06-05 20:10] LABS: Glucose,Whole Blood 98 mg/dL (75-99)
[2016-06-05] MEDS: COLLAGENASE 250 UNIT/GM OINTMENT 30 GM TUBE TOPICAL SCH (20:16)
[2016-06-05] MEDS: MONTELUKAST 10 MG TAB PO SCH (20:16)
[2016-06-05] MEDS: MIRTAZAPINE 15 MG TAB PO SCH (20:16)
[2016-06-05] MEDS: METOPROLOL TARTRATE 25 MG TAB PO SCH (20:17)
--- NOTE | 2016-06-05 21:45 | P.CON ---
Consult Note - . Consult date: 06/05/16 Assessment/Plan:: 76-year-old male known to infectious disease. Earlier last year he has significant difficulty with his right groin area. He had undergone cardiac catheterization and developed a significant infection to his right groin. Record transfer to outside hospital for further surgical intervention with concerns to a necrotizing infection. Fortunately he improved. He continued to have severe peripheral vascular disease. On November 17, Dr. Simon performed the right great toe amputation. Since that time it's been an ongoing ulceration was followed in the wound healing center with Dr. Simon. He is currently at home with his and local wound care is in the form of Santyl. Patient has had ongoing difficulties this week according to his . He was awake all Wednesday night and did not allow her to get any sleep. He then left eating and drinking and did not have intake yesterday at all. He has been very antsy and crying out when he goes to the bathroom. She also states that his dementia worsened and he was more confused. He did not have any abdominal pain. Patient was brought into [facility] emergency center for evaluation. Chest x-ray showed tiny left pleural effusion. Urinalysis was clear, nitrite and leukoesterase negative. Initial blood sugar was 298, BUN 25 and creatinine 1.58, WBC 5.3 and hemoglobin 11.5. Hemoglobin A1c 6.4. Initial lactic acid was 3.6. Repeat lactic acid 2.4 and 2.2. Patient was admitted to the hospital for lactic acidosis, hyperglycemia and dehydration. Staff state that they did see some blood on his brief when he was changed earlier today. Patient and do not know about any rectal bleeding. Patient's mental status appears to be back to baseline. Patient did receive 1 dose of Levaquin in the emergency center. Is definitely with some ongoing agitation. Please see the consult note as dictated by nurse practitioner Mrs. Felisha Hernandez. Exam reveals this 72-year-old gentleman and with advanced dementia who is agitated. He believes his has not been present although she is left recently. He continues to be concerned that she is coming to visit him and she is off doing fun things without him. He wants to go home. When asked where he lives in what his address is he is not able to relate what it is. For this, walking the streets until he finds is home. At this time the patient cannot be reasoned with. The exam that was quite benign. We will follow lactic acid to make sure normalizes. If he normalizes with current therapy with complete a week's worth of therapy. If lactic acid remains elevated he would then need a computed tomography scan of his abdomen and pelvis with the findings with elevated lactic acid with concerns to a bowel source for infection or bleeding even potentially from a ischemic colitis. The patient is such a poor historian and is very difficult to obtain full history. I agree with evaluation, assessment and plan as dictated by nurse practitioner Mrs. Felisha Hernandez.
[2016-06-05] MEDS: FUROSEMIDE 20 MG TAB PO SCH (23:13)
[2016-06-06 07:17] LABS: Glucose,Whole Blood 85 mg/dL (75-99)
[2016-06-06 08:19] LABS: ALT 26 U/L (21-72); AST 15 U/L (17-59); Alkaline Phosphatase 93 U/L (38-126); Anion Gap 12 mmol/L; Blood Urea Nitrogen 12 mg/dL (9-20); Calcium 8.6 mg/dL (8.4-10.2); Carbon Dioxide 20 mmol/L (22-30); Chloride 110 mmol/L (98-107); Glucose 82 mg/dL (74-99); Non-African American GFR(MDRD) >60 (>60 ml/min/1.73 sqM); Sodium 142 mmol/L (137-145); Total Bilirubin 0.7 mg/dL (0.2-1.3); Total Protein 5.7 g/dL (6.3-8.2)
[2016-06-06 08:37] LABS: CH 30.8; HCT 30.7 % (39.0-53.0); HDW 2.81; MCH 30.6 pg (25.0-35.0); MCHC 32.6 g/dL (31.0-37.0); MCV 93.7 fL (80.0-100.0); Mean Platelet Volume 7.1; RBC 3.28 m/uL (4.30-5.90); WBC 7.4 k/uL (3.8-10.6)
[2016-06-06] MEDS: SODIUM CHLORIDE 0.9% 1,000 ML IV SCH (09:36)
[2016-06-06] MEDS: INSULIN LISPRO (humaLOG) 300 UNIT/3 ML VIAL SQ SCH ×4 (09:38→20:45)
[2016-06-06] MEDS: ASPIRIN 81 MG CHEW PO SCH (09:39)
[2016-06-06] MEDS: FUROSEMIDE 20 MG TAB PO SCH ×3 (09:39→23:46)
[2016-06-06] MEDS: SPIRONOLACTONE 25 MG TAB PO SCH (09:40)
[2016-06-06] MEDS: MEMANTINE 5 MG TAB PO SCH (09:40)
[2016-06-06] MEDS: TAMSULOSIN 0.4 MG CAP.ER.24H PO SCH (09:40)
[2016-06-06] MEDS: DIGOXIN 125 MCG TAB PO SCH (09:40)
[2016-06-06] MEDS: APIXABAN 5 MG TAB PO SCH ×2 (09:41→20:44)
[2016-06-06] MEDS: CLOPIDOGREL 75 MG TAB PO SCH (09:41)
[2016-06-06] MEDS: METOPROLOL TARTRATE 50 MG TAB PO SCH (09:42)
[2016-06-06] MEDS: ALPRAZolam 0.25 MG TAB PO PRN ×2 (09:46→20:46)
[2016-06-06] MEDS: INSULN ASP PRT/INSULIN ASPART 100 UNIT/ML 10 ML VIAL SQ SCH ×2 (09:46→20:45)
[2016-06-06 11:33] LABS: Glucose,Whole Blood 82 mg/dL (75-99)
[2016-06-06] MEDS ORDERED: IV VANCOMYCIN PER PHARMACY 1 EACH MISC MISCELLANE PRN (15:25)
[2016-06-06] MEDS ORDERED: VANCOMYCIN 1,500 MG in SODIUM CHLORIDE 0.9% 250 ML IVPB STA (15:30)
[2016-06-06] MEDS: CEFTAROLINE FOSAMIL 600 MG in SODIUM CHLORIDE 0.9% 250 ML IVPB SCH ×2 (16:12→23:46)
--- NOTE | 2016-06-06 16:46 | P.PN ---
Subjective This is a 76-year-old male patient of Dr. Miles with medical history significant for coronary artery disease status post coronary artery bypass graft for 2 vessels in 1999 with ischemic cardiomyopathy status post AICD, chronic atrial fibrillation, chronic kidney disease stage II, benign prostatic hypertrophy, diabetes mellitus type 2 insulin requiring, hypertension and hypertensive cardiovascular disease, hyperlipidemia, vascular dementia, history of DVT in the past, history of PAD, infection to the right groin following heart catheterization for which he was treated at [facility] in 2015, osteomyelitis of the right great toe status post amputation in October [address] Simon. He has had frequent admissions for sepsis, wound infections, metabolic encephalopathy. He was brought in to the hospital by EMS. His gives history that the patient was having difficulty most of this week. He was awake all Wednesday night and did not allow her to get any sleep. He then started to not eat or drink anything and did not have anything yesterday at all. He has been very antsy and crying out when he goes to the bathroom. She also states that his dementia worsened and he was more confused. He barely did not have any abdominal pain. She contacted Dr. Miles's office and attempts were made to call her back but there was no answer. Patient was then brought into [facility] emergency center for evaluation. Chest x-ray showed tiny left pleural effusion. Urinalysis was clear, nitrite and leukoesterase negative. Initial blood sugar was 298, BUN 25 and creatinine 1.58, WBC 5.3 and hemoglobin 11.5. Hemoglobin A1c 6.4. Initial lactic acid was 3.6. Repeat lactic acid 2.4 and 2.2. Patient was admitted to the hospital for lactic acidosis, hyperglycemia and dehydration. Staff state that they did see some blood on his brief when he was changed earlier today. Patient and do not know about any rectal bleeding. 06/06:. Blood cultures are called in to be presumptive MRSA. Vancomycin was started. Dr. Scruggs has been made aware. Patient remains to be pleasantly confused as his usual baseline he always wanted to go home to be with the . Objective - Vital Signs Vital signs: Vital Signs Temp 97.4 F L 06/06/16 07:00 Pulse 59 L 06/06/16 07:00 Resp 18 06/06/16 07:00 BP 120/64 06/06/16 07:00 Pulse Ox 100 06/06/16 07:00 Intake & Output 06/05/16 06/06/16 06/06/16 18:59 06:59 18:59 Intake Total 160 160 160 Balance 160 160 160 Intake: IV 160 160 160 Sodium Chloride 0.9% 1, 160 160 160 000 ml @ 20 mls/hr IV . Q24H [facility] Rx#:[id number] Other: Voiding Method Diaper Diaper Diaper Incontinent Incontinent # Voids 0 - Constitutional General appearance: Present: average body habitus, cooperative, no acute distress - EENT Eyes: Present: anicteric sclerae, EOMI, fundus normal, scleral icterus ENT: Present: hearing grossly normal, NA/AT, normal oropharynx - Neck Neck: Present: normal ROM. Absent: lymphadenopathy, other, rigidity, stridor, thyromegaly - Respiratory Respiratory: bilateral: CTA, negative: diminished, dullness, rales, rhonchi, wheezing - Cardiovascular Rhythm: regular Heart sounds: normal: S1, S2 Abnormal Heart Sounds: Absent: systolic murmur, diastolic murmur, rub, S3 Gallop , S4 Gallop, click, other - Gastrointestinal General gastrointestinal: Present: normal bowel sounds, soft - Integumentary Integumentary: Present: normal, normal turgor - Neurologic Neurologic: Present: CNII-XII intact - Musculoskeletal Musculoskeletal: Present: strength equal bilaterally - Psychiatric Psychiatric: Present: A&O x's 3 (axox2), appropriate affect - Labs CBC & Chem 7: 06/06/16 07:26 06/06/16 07:26 Labs: Abnormal Lab Results - Last 24 Hours (Table) 06/05/16 06/06/16 06/06/16 Range/Units 21:52 07:26 07:26 RBC 3.28 L (4.30-5.90) m/uL Hgb 10.0 L (13.0-17.5) gm/dL Hct 30.7 L (39.0-53.0) % Plt Count 132 L (150-450) k/uL Chloride 110 H (98-107) mmol/L Carbon Dioxide 20 L (22-30) mmol/L Plasma Lactic Acid Amol 2.5 H* (0.7-2.0) mmol/L AST 15 L (17-59) U/L Total Protein 5.7 L (6.3-8.2) g/dL Albumin 3.0 L (3.5-5.0) g/dL Microbiology - Last 24 Hours (Table) 06/05/16 12:32 Blood Culture - Preliminary Blood No Growth after 24 hours Microbiology 06/05/16 12:32 Blood Blood Culture - Preliminary No Growth after 24 hours 06/04/16 16:20 Blood Blood Culture - Preliminary 06/04/16 16:20 Blood Blood Culture Gram Stain - Preliminary 06/04/16 16:20 Blood Blood Culture - Preliminary Presumptive MRSA 06/04/16 18:45 Urine,Clean Catch Urine Culture - Preliminary Assessment and Plan Plan: 1. Metabolic encephalopathy and dehydration with elevated lactic acid. Presumptive MRSA noted on blood cultures. IV antibiotics started vancomycin with repeat blood cultures Chest x-ray did not show any infiltrate. Urinalysis negative. No skin or wound infections noted. On salt with Dr. Scruggs for history of wound infection and lactic acidosis. Lasix is currently on hold. Resume Lasix tomorrow. 2. Chronic wound to the right foot and at site of great toe amputation, 4 areas identified today, dorsum shallow ulcer of the foot, the fissure in the toe amputation dehiscence, right lateral metatarsals shallow ulcer, and second toe tip gangrene. No signs of active infection. Consult with Dr. Scruggs. Patient did receive dose of Levaquin in the emergency center. Continue Santyl dressing. 3. Chronic A. fib. Continue eliquis and Lopressor 50 mg the morning 25 mg in the evening, digoxin 125 g daily. 4. COPD, stable without exacerbation: Continue inhaler. 5. Advanced ischemic cardiomyopathy post AICD. Continue Lipitor, eliquis, Plavix, Lanoxin, lisinopril, Lopressor, Aldactone. 6. Severe PAD status post right great toe amputation with history of MRSA. 7. BPH. Continue tamsulosin 0.4 mg daily. 8. Hyperlipidemia. Continue Lipitor 40 mg daily. 9. Diabetes mellitus type II, insulin requiring. Continue NovoLog 70 3010 units twice daily and Humalog scale before meals and at bedtime. 10. Vascular dementia. No longer on Namenda and Remeron. 11. Chronic kidney disease stage III with history of acute kidney injury 12. Bacteremia with presumptive MRSA, sepsis 12. GI prophylaxis: On Pepcid 20 mg daily. 13. DVT prophylaxis. Patient is on eliquis. CODE STATUS: Full code. Discharge plan: Return home with homecare
[2016-06-06 17:17] LABS: Glucose,Whole Blood 92 mg/dL (75-99)
[2016-06-06 20:32] LABS: Glucose,Whole Blood 100 mg/dL (75-99)
[2016-06-06] MEDS: METOPROLOL TARTRATE 25 MG TAB PO SCH (20:44)
[2016-06-06] MEDS: ATORVASTATIN 40 MG TAB PO SCH (20:44)
[2016-06-06] MEDS: MONTELUKAST 10 MG TAB PO SCH (20:44)
[2016-06-06] MEDS: MIRTAZAPINE 15 MG TAB PO SCH (20:45)
[2016-06-06] MEDS: LISINOPRIL 2.5 MG TAB PO SCH (20:45)
[2016-06-06] MEDS: COLLAGENASE 250 UNIT/GM OINTMENT 30 GM TUBE TOPICAL SCH (20:47)
--- NOTE | 2016-06-06 22:43 | P.PN ---
Subjective Principal diagnosis: altered mental status and fev 76-year-old male known to infectious disease. Earlier last year he has significant difficulty with his right groin area. He had undergone cardiac catheterization and developed a significant infection to his right groin. Record transfer to outside hospital for further surgical intervention with concerns to a necrotizing infection. Fortunately he improved. He continued to have severe peripheral vascular disease. On November 17, Dr. Simon performed the right great toe amputation. Since that time it's been an ongoing ulceration was followed in the wound healing center with Dr. Simon. He is currently at home with his and local wound care is in the form of Santyl. Patient has had ongoing difficulties this week according to his . He was awake all Wednesday night and did not allow her to get any sleep. He then left eating and drinking and did not have intake yesterday at all. He has been very antsy and crying out when he goes to the bathroom. She also states that his dementia worsened and he was more confused. He did not have any abdominal pain. Patient was brought into [facility] emergency center for evaluation. Chest x-ray showed tiny left pleural effusion. Urinalysis was clear, nitrite and leukoesterase negative. Initial blood sugar was 298, BUN 25 and creatinine 1.58, WBC 5.3 and hemoglobin 11.5. Hemoglobin A1c 6.4. Initial lactic acid was 3.6. Repeat lactic acid 2.4 and 2.2. Patient was admitted to the hospital for lactic acidosis, hyperglycemia and dehydration. Staff state that they did see some blood on his brief when he was changed earlier today. Patient and do not know about any rectal bleeding. Patient's mental status appears to be back to baseline. Patient did receive 1 dose of Levaquin in the emergency center. the patient is much more calm today Much less agitated. Laboratories called positive blood culture Objective - Vital Signs Vital signs: Vital Signs Temp 97.1 F L 06/06/16 22:35 Pulse 55 L 06/06/16 22:35 Resp 18 06/06/16 22:35 BP 118/62 06/06/16 22:35 Pulse Ox 100 06/06/16 22:35 Intake & Output 06/06/16 06/06/16 06/07/16 06:59 18:59 06:59 Intake Total 160 160 Balance 160 160 Intake: IV 160 160 Sodium Chloride 0.9% 1, 160 160 000 ml @ 20 mls/hr IV . Q24H [facility] Rx#:[id number] Other: Voiding Method Diaper Diaper Incontinent # Voids 0 1 # Bowel Movements 1 - Exam General appearance: average body habitus, cooperative, no acute distress - EENT Eyes: Reports anicteric sclerae, Reports EOMI, Reports PERRLA, Reports dentition normal ENT: Reports hearing grossly normal, Reports NA/AT, Reports normal oropharynx - Neck Neck: Reports normal ROM, Denies lymphadenopathy, Denies other, Denies rigidity , Denies stridor, Denies thyromegaly Thyroid: bilateral: normal size - Respiratory Respiratory: bilateral: CTA, diminished - Cardiovascular Rhythm: irregular Heart sounds: normal: S1, S2, systolic murmur - Gastrointestinal General gastrointestinal: Reports normal bowel sounds, Reports soft - Integumentary Integumentary: Reports normal, Reports normal turgor - Neurologic Neurologic: CNII-XII intact - Musculoskeletal Musculoskeletal: Reports strength equal bilaterally. Healing wound to the right great toe amputation site, no significant erythema, drainage, swelling. Eschar to the distal second toe. Superficial wounds noted to the left hand at the second proximal phalanx, third proximal phalanx and fourth proximal phalanx. - Psychiatric Psychiatric: A&O x's2, at baseline, - Labs CBC & Chem 7: 06/06/16 07:26 06/06/16 07:26 Labs: Abnormal Lab Results - Last 24 Hours (Table) 06/05/16 06/06/16 06/06/16 Range/Units 21:52 07:26 07:26 RBC 3.28 L (4.30-5.90) m/uL Hgb 10.0 L (13.0-17.5) gm/dL Hct 30.7 L (39.0-53.0) % Plt Count 132 L (150-450) k/uL Chloride 110 H (98-107) mmol/L Carbon Dioxide 20 L (22-30) mmol/L POC Glucose (mg/dL) (75-99) mg/dL Plasma Lactic Acid Amol 2.5 H* (0.7-2.0) mmol/L AST 15 L (17-59) U/L Total Protein 5.7 L (6.3-8.2) g/dL Albumin 3.0 L (3.5-5.0) g/dL 06/06/16 Range/Units 20:05 RBC (4.30-5.90) m/uL Hgb (13.0-17.5) gm/dL Hct (39.0-53.0) % Plt Count (150-450) k/uL Chloride (98-107) mmol/L Carbon Dioxide (22-30) mmol/L POC Glucose (mg/dL) 100 H (75-99) mg/dL Plasma Lactic Acid Amol (0.7-2.0) mmol/L AST (17-59) U/L Total Protein (6.3-8.2) g/dL Albumin (3.5-5.0) g/dL Microbiology - Last 24 Hours (Table) 06/05/16 12:32 Blood Culture - Preliminary Blood No Growth after 24 hours Assessment and Plan (1) Lactic acidosis Narrative/Plan: 76-year-old male with a long-standing history of dementia who presented hospital with some altered mental status and fever. Initial evaluations were negative. On examination yesterday was concerns to be a potential abdominal process given his lack of symptoms. We however her positive blood culture likely staph. Antibiotic therapy has been ordered to [facility] and is receiving some fluid. He is not hypotensive. There are many potential sources of his bacteremia including his skin especially with the injuries that is received lower extremity into his hand. Local wound care is being applied antibiotic ointment to the hand and Santyl to the toes. Continue to elevate his feet at rest. He is much less agitated today. Follow blood cultures have been requested. Status: Acute (2) Fever Status: Acute (3) Bacteremia Status: Acute
[2016-06-07] MEDS ORDERED: VANCOMYCIN 1,500 MG in SODIUM CHLORIDE 0.9% 250 ML IVPB SCH (06:00)
[2016-06-07 08:04] LABS: Glucose,Whole Blood 113 mg/dL (75-99)
[2016-06-07] MEDS: CEFTAROLINE FOSAMIL 600 MG in SODIUM CHLORIDE 0.9% 250 ML IVPB SCH ×2 (08:49→20:00)
[2016-06-07] MEDS: SODIUM CHLORIDE 0.9% 1,000 ML IV SCH ×2 (08:49→20:03)
[2016-06-07] MEDS: SPIRONOLACTONE 25 MG TAB PO SCH (08:51)
[2016-06-07] MEDS: FUROSEMIDE 20 MG TAB PO SCH ×3 (08:51→22:10)
[2016-06-07] MEDS: METOPROLOL TARTRATE 50 MG TAB PO SCH (08:51)
[2016-06-07] MEDS: INSULIN LISPRO (humaLOG) 300 UNIT/3 ML VIAL SQ SCH ×4 (08:51→20:04)
[2016-06-07] MEDS: TAMSULOSIN 0.4 MG CAP.ER.24H PO SCH (08:52)
[2016-06-07] MEDS: CLOPIDOGREL 75 MG TAB PO SCH (08:52)
[2016-06-07] MEDS: DIGOXIN 125 MCG TAB PO SCH (08:52)
[2016-06-07] MEDS: MEMANTINE 5 MG TAB PO SCH (08:52)
[2016-06-07] MEDS: ASPIRIN 81 MG CHEW PO SCH (08:52)
[2016-06-07] MEDS: APIXABAN 5 MG TAB PO SCH ×2 (08:52→20:02)
[2016-06-07] MEDS: INSULN ASP PRT/INSULIN ASPART 100 UNIT/ML 10 ML VIAL SQ SCH ×2 (09:01→20:04)
[2016-06-07 11:54] LABS: Glucose,Whole Blood 180 mg/dL (75-99)
--- NOTE | 2016-06-07 15:01 | P.PN ---
Subjective Principal diagnosis: altered mental status and fever 76-year-old male known to infectious disease. Earlier last year he has significant difficulty with his right groin area. He had undergone cardiac catheterization and developed a significant infection to his right groin. Record transfer to outside hospital for further surgical intervention with concerns to a necrotizing infection. Fortunately he improved. He continued to have severe peripheral vascular disease. On November 17, Dr. Simon performed the right great toe amputation. Since that time it's been an ongoing ulceration was followed in the wound healing center with Dr. Simon. He is currently at home with his and local wound care is in the form of Santyl. Patient has had ongoing difficulties this week according to his . He was awake all Wednesday night and did not allow her to get any sleep. He then left eating and drinking and did not have intake yesterday at all. He has been very antsy and crying out when he goes to the bathroom. She also states that his dementia worsened and he was more confused. He did not have any abdominal pain. Patient was brought into [facility] emergency center for evaluation. Chest x-ray showed tiny left pleural effusion. Urinalysis was clear, nitrite and leukoesterase negative. Initial blood sugar was 298, BUN 25 and creatinine 1.58, WBC 5.3 and hemoglobin 11.5. Hemoglobin A1c 6.4. Initial lactic acid was 3.6. Repeat lactic acid 2.4 and 2.2. Patient was admitted to the hospital for lactic acidosis, hyperglycemia and dehydration. Staff state that they did see some blood on his brief when he was changed earlier today. Patient and do not know about any rectal bleeding. Patient's mental status appears to be back to baseline. Patient did receive 1 dose of Levaquin in the emergency center. the patient is much more calm today Much less agitated. Laboratories do have evidence of the blood cultures that are positive for several bacteria. Objective - Vital Signs Vital signs: Vital Signs Temp 97.4 F L 06/07/16 07:00 Pulse 108 H 06/07/16 07:00 Resp 18 06/07/16 07:00 BP 108/61 06/07/16 07:00 Pulse Ox 100 06/07/16 07:00 Intake & Output 06/06/16 06/07/16 06/07/16 18:59 06:59 18:59 Intake Total 160 Balance 160 Intake: IV 160 Sodium Chloride 0.9% 1, 160 000 ml @ 20 mls/hr IV . Q24H [facility] Rx#:[id number] Other: Voiding Method Diaper Diaper Diaper # Voids 1 1 # Bowel Movements 1 1 - Exam General appearance: average body habitus, cooperative, no acute distress - EENT Eyes: Reports anicteric sclerae, Reports EOMI, Reports PERRLA, Reports dentition normal ENT: Reports hearing grossly normal, Reports NA/AT, Reports normal oropharynx - Neck Neck: Reports normal ROM, Denies lymphadenopathy, Denies other, Denies rigidity , Denies stridor, Denies thyromegaly Thyroid: bilateral: normal size - Respiratory Respiratory: bilateral: CTA, diminished - Cardiovascular Rhythm: irregular Heart sounds: normal: S1, S2, systolic murmur - Gastrointestinal General gastrointestinal: Reports normal bowel sounds, Reports soft - Integumentary Integumentary: Reports normal, Reports normal turgor - Neurologic Neurologic: CNII-XII intact - Musculoskeletal Musculoskeletal: Reports strength equal bilaterally. Healing wound to the right great toe amputation site, no significant erythema, drainage, swelling. Eschar to the distal second toe. Superficial wounds noted to the left hand at the second proximal phalanx, third proximal phalanx and fourth proximal phalanx. - Psychiatric Psychiatric: A&O x's2, at baseline, - Labs CBC & Chem 7: 06/06/16 07:26 06/06/16 07:26 Labs: Abnormal Lab Results - Last 24 Hours (Table) 06/06/16 06/07/16 06/07/16 Range/Units 20:05 07:30 11:51 POC Glucose (mg/dL) 100 H 113 H 180 H (75-99) mg/dL Microbiology - Last 24 Hours (Table) 06/05/16 12:32 Blood Culture - Preliminary Blood No Growth after 48 hours Laboratory Results WBC 7.4 k/uL (3.8-10.6) 06/06/16 07:26 RBC 3.28 m/uL (4.30-5.90) L 06/06/16 07:26 Hgb 10.0 gm/dL (13.0-17.5) L 06/06/16 07:26 Hct 30.7 % (39.0-53.0) L 06/06/16 07:26 MCV 93.7 fL (80.0-100.0) 06/06/16 07:26 MCH 30.6 pg (25.0-35.0) 06/06/16 07:26 MCHC 32.6 g/dL (31.0-37.0) 06/06/16 07:26 RDW 14.0 % (11.5-15.5) 06/06/16 07:26 Plt Count 132 k/uL (150-450) L 06/06/16 07:26 Neutrophils % 72 % 06/05/16 07:16 Lymphocytes % 19 % 06/05/16 07:16 Monocytes % 7 % 06/05/16 07:16 Eosinophils % 1 % 06/05/16 07:16 Basophils % 1 % 06/05/16 07:16 Neutrophils # 4.6 k/uL (1.3-7.7) 06/05/16 07:16 Lymphocytes # 1.2 k/uL (1.0-4.8) 06/05/16 07:16 Monocytes # 0.4 k/uL (0-1.0) 06/05/16 07:16 Eosinophils # 0.1 k/uL (0-0.7) 06/05/16 07:16 Basophils # 0.0 k/uL (0-0.2) 06/05/16 07:16 Sodium 142 mmol/L (137-145) 06/06/16 07:26 Potassium 4.0 mmol/L (3.5-5.1) 06/06/16 07:26 Chloride 110 mmol/L (98-107) H 06/06/16 07:26 Carbon Dioxide 20 mmol/L (22-30) L 06/06/16 07:26 Anion Gap 12 mmol/L 06/06/16 07:26 BUN 12 mg/dL (9-20) 06/06/16 07:26 Creatinine 1.04 mg/dL (0.66-1.25) 06/06/16 07:26 Est GFR (MDRD) Af Amer >60 (>60 ml/min/1.73 sqM) 06/06/16 07:26 Est GFR (MDRD) Non-Af >60 (>60 ml/min/1.73 sqM) 06/06/16 07:26 Glucose 82 mg/dL (74-99) 06/06/16 07:26 POC Glucose (mg/dL) 180 mg/dL (75-99) H 06/07/16 11:51 POC Glu [employer] ID Simin Larson 06/07/16 11:[address] Glu mg/dL 137 mg/dL 06/04/16 16:20 Hemoglobin A1c 6.4 % (4.2-6.1) H 06/04/16 16:20 Plasma Lactic Acid Amol 2.5 mmol/L (0.7-2.0) H* 06/05/16 21:52 Calcium 8.6 mg/dL (8.4-10.2) 06/06/16 07:26 Total Bilirubin 0.7 mg/dL (0.2-1.3) 06/06/16 07:26 AST 15 U/L (17-59) L 06/06/16 07:26 ALT 26 U/L (21-72) 06/06/16 07:26 Alkaline Phosphatase 93 U/L (38-126) 06/06/16 07:26 Troponin I 0.013 ng/mL (0.000-0.034) 06/04/16 16:20 Total Protein 5.7 g/dL (6.3-8.2) L 06/06/16 07:26 Albumin 3.0 g/dL (3.5-5.0) L 06/06/16 07:26 Urine Color Yellow 06/04/16 18:45 Urine Appearance Clear (Clear) 06/04/16 18:45 Urine pH 7.5 (5.0-8.0) 06/04/16 18:45 Ur Specific [place] 1.007 (1.001-1.035) 06/04/16 18:45 Urine Protein Negative (Negative) 06/04/16 18:45 Urine Glucose (UA) 2+ (Negative) H 06/04/16 18:45 Urine Ketones Negative (Negative) 06/04/16 18:45 Urine Blood Negative (Negative) 06/04/16 18:45 Urine Nitrate Negative (Negative) 06/04/16 18:45 Urine Bilirubin Negative (Negative) 06/04/16 18:45 Urine Urobilinogen <2.0 mg/dL (<2.0) 06/04/16 18:45 Ur Leukocyte Esterase Negative (Negative) 06/04/16 18:45 Vancomycin Trough <5.0 ug/mL 06/07/16 06:59 Microbiology 06/05/16 12:32 Blood Blood Culture - Preliminary No Growth after 48 hours 06/04/16 16:20 Blood Blood Culture Gram Stain - Final 06/04/16 16:20 Blood Blood Culture - Final Methicillin resist S. aureus Alpha Hemolytic Streptococcus Diphtheroid species 06/04/16 18:45 Urine,Clean Catch Urine Culture - Final Enterococcus gallinarum 06/04/16 16:20 Blood Blood Culture - Preliminary Assessment and Plan (1) Lactic acidosis Narrative/Plan: 76-year-old male with a long-standing history of dementia who presented hospital with some altered mental status and fever. Initial evaluations were negative. On examination yesterday was concerns to be a potential abdominal process given his lack of symptoms. Blood cultures have now come back as positive for several pathogen including MRSA, also strep and diphtheroids. Blood cultures are showing similar findings. Likely will be contamination. The great concern when MRSA is found and it but culture. Antibiotic therapy has been ordered to [facility] and is receiving some fluid. He is not hypotensive. There are many potential sources of his bacteremia including his skin especially with the injuries that is received lower extremity into his hand. Urine culture is evidence of enterococcus gallinarum although vancomycin resistant is not unusual. His urinalysis is negative he has no urine symptoms this is a colonization and will not need further treatment. Local wound care is being applied antibiotic ointment to the hand and Santyl to the toes. Continue to elevate his feet at rest. He is much less agitated today. Follow blood cultures have been requested and are negative so far. Status: Acute (2) Fever Status: Acute (3) Bacteremia Status: Acute
[2016-06-07 17:25] LABS: Glucose,Whole Blood 90 mg/dL (75-99)
[2016-06-07] MEDS: MIRTAZAPINE 15 MG TAB PO SCH (20:00)
[2016-06-07] MEDS: ATORVASTATIN 40 MG TAB PO SCH (20:02)
[2016-06-07] MEDS: MONTELUKAST 10 MG TAB PO SCH (20:02)
[2016-06-07] MEDS: METOPROLOL TARTRATE 25 MG TAB PO SCH (20:02)
[2016-06-07] MEDS: COLLAGENASE 250 UNIT/GM OINTMENT 30 GM TUBE TOPICAL SCH (20:03)
[2016-06-07] MEDS: LISINOPRIL 2.5 MG TAB PO SCH (20:03)
[2016-06-07 20:09] LABS: Glucose,Whole Blood 130 mg/dL (75-99)
--- NOTE | 2016-06-07 20:41 | P.PN ---
Subjective Principal diagnosis: Bacteremia with pressure MRSA This is a 76-year-old male patient of Dr. Miles with medical history significant for coronary artery disease status post coronary artery bypass graft for 2 vessels in 1999 with ischemic cardiomyopathy status post AICD, chronic atrial fibrillation, chronic kidney disease stage II, benign prostatic hypertrophy, diabetes mellitus type 2 insulin requiring, hypertension and hypertensive cardiovascular disease, hyperlipidemia, vascular dementia, history of DVT in the past, history of PAD, infection to the right groin following heart catheterization for which he was treated at [facility] in 2015, osteomyelitis of the right great toe status post amputation in October [address] Simon. He has had frequent admissions for sepsis, wound infections, metabolic encephalopathy. He was brought in to the hospital by EMS. His gives history that the patient was having difficulty most of this week. He was awake all Wednesday night and did not allow her to get any sleep. He then started to not eat or drink anything and did not have anything yesterday at all. He has been very antsy and crying out when he goes to the bathroom. She also states that his dementia worsened and he was more confused. He barely did not have any abdominal pain. She contacted Dr. Miles's office and attempts were made to call her back but there was no answer. Patient was then brought into [facility] emergency center for evaluation. Chest x-ray showed tiny left pleural effusion. Urinalysis was clear, nitrite and leukoesterase negative. Initial blood sugar was 298, BUN 25 and creatinine 1.58, WBC 5.3 and hemoglobin 11.5. Hemoglobin A1c 6.4. Initial lactic acid was 3.6. Repeat lactic acid 2.4 and 2.2. Patient was admitted to the hospital for lactic acidosis, hyperglycemia and dehydration. Staff state that they did see some blood on his brief when he was changed earlier today. Patient and do not know about any rectal bleeding. 06/06:. Blood cultures are called in to be presumptive MRSA. Vancomycin was started. Dr. Scruggs has been made aware. Patient remains to be pleasantly confused as his usual baseline he always wanted to go home to be with the . 06/07: Patient's mentation and patient remained to be stable at baseline he is basically confused interacts with people and pleasant patient is noncombative no ing symptoms. Vancomycin was readjusted by infectious disease to blood cultures growing MRSA and alpha hemolytic Streptococcus diphtheroids species him a urine culture growing enterococcus gallinarium Objective - Vital Signs Vital signs: Vital Signs Temp 97.8 F 06/07/16 15:00 Pulse 82 06/07/16 15:00 Resp 18 06/07/16 15:00 BP 123/62 06/07/16 15:00 Pulse Ox 100 06/07/16 15:00 Intake & Output 06/07/16 06/07/16 06/08/16 06:59 18:59 06:59 Intake Total 160 Balance 160 Intake: IV 160 Sodium Chloride 0.9% 1, 160 000 ml @ 20 mls/hr IV . Q24H [facility] Rx#:[id number] Other: Voiding Method Diaper Diaper # Voids 1 1 # Bowel Movements 1 1 - Constitutional General appearance: Present: average body habitus, cooperative, no acute distress - EENT Eyes: Present: anicteric sclerae, EOMI, PERRLA, dentition normal, normal appearance ENT: Present: NA/AT, normal oropharynx - Neck Neck: Present: normal ROM. Absent: lymphadenopathy, other, rigidity, stridor, thyromegaly - Respiratory Respiratory: bilateral: CTA, diminished, negative: dullness, rales, rhonchi, wheezing - Cardiovascular Rhythm: regular Abnormal Heart Sounds: Absent: systolic murmur, diastolic murmur, rub, S3 Gallop , S4 Gallop, click, other - Gastrointestinal General gastrointestinal: Present: normal bowel sounds, soft - Integumentary Integumentary: Present: decreased turgor, normal, normal turgor, ulcer (left 4th knuckle new shallow ulcers with scab, others include prox phalynx dorsum) - Psychiatric Psychiatric: Present: A&O x's 3 (x1) - Labs CBC & Chem 7: 06/06/16 07:26 06/06/16 07:26 Labs: Abnormal Lab Results - Last 24 Hours (Table) 06/06/16 06/07/16 06/07/16 Range/Units 20:05 07:30 11:51 POC Glucose (mg/dL) 100 H 113 H 180 H (75-99) mg/dL Microbiology - Last 24 Hours (Table) 06/05/16 12:32 Blood Culture - Preliminary Blood No Growth after 48 hours Microbiology 06/05/16 12:32 Blood Blood Culture - Preliminary No Growth after 48 hours 06/04/16 16:20 Blood Blood Culture Gram Stain - Final 06/04/16 16:20 Blood Blood Culture - Final Methicillin resist S. aureus Alpha Hemolytic Streptococcus Diphtheroid species 06/04/16 18:45 Urine,Clean Catch Urine Culture - Final Enterococcus gallinarum 06/04/16 16:20 Blood Blood Culture - Preliminary Assessment and Plan Plan: 1. Metabolic encephalopathy and dehydration with elevated lactic acid suspected sepsis secondary to MRSA alpha hemolytic strep and diphtheroids species. Urine growing enterococcus gallinarium unknown whether this is a pathogen or not as there is no microscopic evaluation on urinalysis Presumptive MRSA noted on blood cultures. IV antibiotics started vancomycin with repeat blood cultures Chest x-ray did not show any infiltrate. Urinalysis negative. No skin or wound infections noted. On salt with Dr. Scruggs for history of wound infection and lactic acidosis. Lasix is resumed 2. Chronic wound to the right foot and at site of great toe amputation, 4 areas identified today, dorsum shallow ulcer of the foot, the fissure in the toe amputation dehiscence, right lateral metatarsals shallow ulcer, and second toe tip gangrene. No signs of active infection. Consult with Dr. Scruggs. Patient did receive dose of Levaquin in the emergency center. Continue Santyl dressing. 3. Chronic A. fib. Continue eliquis and Lopressor 50 mg the morning 25 mg in the evening, digoxin 125 g daily. 4. COPD, stable without exacerbation: Continue inhaler. 5. Advanced ischemic cardiomyopathy post AICD. Continue Lipitor, eliquis, Plavix, Lanoxin, lisinopril, Lopressor, Aldactone. 6. Severe PAD status post right great toe amputation with history of MRSA. 7. BPH. Continue tamsulosin 0.4 mg daily. 8. Hyperlipidemia. Continue Lipitor 40 mg daily. 9. Diabetes mellitus type II, insulin requiring. Continue NovoLog 70 3010 units twice daily and Humalog scale before meals and at bedtime. 10. Vascular dementia. No longer on Namenda and Remeron. 11. Chronic kidney disease stage III with history of acute kidney injury 12. Bacteremia with presumptive MRSA, sepsis 12. GI prophylaxis: On Pepcid 20 mg daily. 13. DVT prophylaxis. Patient is on eliquis. CODE STATUS: Full code. Discharge plan: Return home with homecare
[2016-06-08 07:35] LABS: Basophils % (A) 1 %; CH 31.1; Eosinophils # (A) 0.2 k/uL (0-0.7); Eosinophils % (A) 3 %; HCT 30.2 % (39.0-53.0); HDW 2.91; HGB 9.9 gm/dL (13.0-17.5); Luc # (Auto) 0.05; Luc % (Auto) 1; Lymphocytes # (A) 1.1 k/uL (1.0-4.8); Lymphocytes % (A) 22 %; MCH 30.1 pg (25.0-35.0); MCHC 32.8 g/dL (31.0-37.0); MCV 91.7 fL (80.0-100.0); Mean Platelet Volume 7.4; Monocytes # (A) 0.4 k/uL (0-1.0); Monocytes % (A) 7 %; Neutrophils # (A) 3.5 k/uL (1.3-7.7); Neutrophils % (A) 67 %; RBC 3.29 m/uL (4.30-5.90); RDW 14.3 % (11.5-15.5); WBC 5.2 k/uL (3.8-10.6); WBC (Perox) 5.51
[2016-06-08 07:37] LABS: Anion Gap 11 mmol/L; Blood Urea Nitrogen 14 mg/dL (9-20); Calcium 8.1 mg/dL (8.4-10.2); Carbon Dioxide 21 mmol/L (22-30); Chloride 109 mmol/L (98-107); Glucose 101 mg/dL (74-99); Non-African American GFR(MDRD) 58 (>60 ml/min/1.73 sqM); Potassium 3.7 mmol/L (3.5-5.1); Sodium 141 mmol/L (137-145)
[2016-06-08 08:03] LABS: Glucose,Whole Blood 109 mg/dL (75-99)
[2016-06-08] MEDS: INSULIN LISPRO (humaLOG) 300 UNIT/3 ML VIAL SQ SCH ×4 (10:45→20:45)
[2016-06-08] MEDS: APIXABAN 5 MG TAB PO SCH (10:47)
[2016-06-08] MEDS: ASPIRIN 81 MG CHEW PO SCH (10:48)
[2016-06-08] MEDS: CLOPIDOGREL 75 MG TAB PO SCH (10:48)
[2016-06-08] MEDS: DIGOXIN 125 MCG TAB PO SCH (10:48)
[2016-06-08] MEDS: FUROSEMIDE 20 MG TAB PO SCH ×3 (10:49→20:44)
[2016-06-08] MEDS: MEMANTINE 5 MG TAB PO SCH (10:49)
[2016-06-08] MEDS: TAMSULOSIN 0.4 MG CAP.ER.24H PO SCH (10:50)
[2016-06-08] MEDS: SPIRONOLACTONE 25 MG TAB PO SCH (10:50)
[2016-06-08] MEDS: INSULN ASP PRT/INSULIN ASPART 100 UNIT/ML 10 ML VIAL SQ SCH ×2 (10:54→23:08)
[2016-06-08] MEDS: METOPROLOL TARTRATE 50 MG TAB PO SCH (11:01)
[2016-06-08 11:41] LABS: Glucose,Whole Blood 126 mg/dL (75-99)
[2016-06-08] MEDS: CEFTAROLINE FOSAMIL 600 MG in SODIUM CHLORIDE 0.9% 250 ML IVPB SCH ×2 (12:24→20:42)
--- NOTE | 2016-06-08 14:30 | P.PN ---
Subjective This is a 76-year-old male patient of Dr. Miles with medical history significant for coronary artery disease status post coronary artery bypass graft for 2 vessels in 1999 with ischemic cardiomyopathy status post AICD, chronic atrial fibrillation, chronic kidney disease stage II, benign prostatic hypertrophy, diabetes mellitus type 2 insulin requiring, hypertension and hypertensive cardiovascular disease, hyperlipidemia, vascular dementia, history of DVT in the past, history of PAD, infection to the right groin following heart catheterization for which he was treated at [facility] in 2015, osteomyelitis of the right great toe status post amputation in October [address] Simon. He has had frequent admissions for sepsis, wound infections, metabolic encephalopathy. He was brought in to the hospital by EMS. His gives history that the patient was having difficulty most of this week. He was awake all Wednesday night and did not allow her to get any sleep. He then started to not eat or drink anything and did not have anything yesterday at all. He has been very antsy and crying out when he goes to the bathroom. She also states that his dementia worsened and he was more confused. He barely did not have any abdominal pain. She contacted Dr. Miles's office and attempts were made to call her back but there was no answer. Patient was then brought into [facility] emergency center for evaluation. Chest x-ray showed tiny left pleural effusion. Urinalysis was clear, nitrite and leukoesterase negative. Initial blood sugar was 298, BUN 25 and creatinine 1.58, WBC 5.3 and hemoglobin 11.5. Hemoglobin A1c 6.4. Initial lactic acid was 3.6. Repeat lactic acid 2.4 and 2.2. Patient was admitted to the hospital for lactic acidosis, hyperglycemia and dehydration. Staff state that they did see some blood on his brief when he was changed earlier today. Patient and do not know about any rectal bleeding. 06/06:. Blood cultures are called in to be presumptive MRSA. Vancomycin was started. Dr. Scruggs has been made aware. Patient remains to be pleasantly confused as his usual baseline he always wanted to go home to be with the . 06/07: Patient's mentation and patient remained to be stable at baseline he is basically confused interacts with people and pleasant patient is noncombative no ing symptoms. Vancomycin was readjusted by infectious disease to blood cultures growing MRSA and alpha hemolytic Streptococcus diphtheroids species him a urine culture growing enterococcus gallinarium 06/08: Patient's /guardian is agreeable to PICC line placed and IV antibiotics. She knows that his insurance does not cover at home. metal worker is following for placement to [facility] for subacute rehab and IV antibiotic. PICC line is ordered which will be placed in 2 days after eliquis is offered 48 hours. Objective - Vital Signs Vital signs: Vital Signs Temp 97.9 F 06/08/16 07:00 Pulse 80 06/08/16 07:00 Resp 16 06/08/16 07:00 BP 103/54 06/08/16 07:00 Pulse Ox 99 06/08/16 07:00 Intake & Output 06/07/16 06/08/16 06/08/16 18:59 06:59 18:59 Intake Total 160 370 Balance 160 370 Intake: IV 160 60 Sodium Chloride 0.9% 1, 160 60 000 ml @ 20 mls/hr IV . Q24H [facility] Rx#:[id number] Intake, IV Titration 250 Amount Ceftaroline Fosamil 600 250 mg In Sodium Chloride 0.9 % 250 ml @ 250 mls/hr IVPB Q12HR [facility] Rx#: [id number] Oral 60 Other: Voiding Method Diaper Diaper # Voids 1 1 # Bowel Movements 1 1 - Exam General appearance: Present: average body habitus, cooperative, no acute distress - EENT Eyes: Present: anicteric sclerae, EOMI, PERRLA, dentition normal, normal appearance ENT: Present: NA/AT, normal oropharynx - Neck Neck: Present: normal ROM. Absent: lymphadenopathy, other, rigidity, stridor, thyromegaly - Respiratory Respiratory: bilateral: CTA, diminished, negative: dullness, rales, rhonchi, wheezing - Cardiovascular Rhythm: regular Abnormal Heart Sounds: Absent: systolic murmur, diastolic murmur, rub, S3 Gallop , S4 Gallop, click, other - Gastrointestinal General gastrointestinal: Present: normal bowel sounds, soft - Integumentary Integumentary: Present: decreased turgor, normal, normal turgor, ulcer (left 4th knuckle new shallow ulcers with scab, others include prox phalynx dorsum) - Psychiatric Psychiatric: Present: A&O x's 1) - Labs CBC & Chem 7: 01/16/17 07:00 06/08/16 07:00 Labs: Abnormal Lab Results - Last 24 Hours (Table) 06/07/16 06/07/16 06/08/16 Range/Units 11:51 19:57 07:00 RBC 3.29 L (4.30-5.90) m/uL Hgb 9.9 L (13.0-17.5) gm/dL Hct 30.2 L (39.0-53.0) % Plt Count 136 L (150-450) k/uL Chloride (98-107) mmol/L Carbon Dioxide (22-30) mmol/L Glucose (74-99) mg/dL POC Glucose (mg/dL) 180 H 130 H (75-99) mg/dL Calcium (8.4-10.2) mg/dL 06/08/16 06/08/16 Range/Units 07:00 07:37 RBC (4.30-5.90) m/uL Hgb (13.0-17.5) gm/dL Hct (39.0-53.0) % Plt Count (150-450) k/uL Chloride 109 H (98-107) mmol/L Carbon Dioxide 21 L (22-30) mmol/L Glucose 101 H (74-99) mg/dL POC Glucose (mg/dL) 109 H (75-99) mg/dL Calcium 8.1 L (8.4-10.2) mg/dL Microbiology - Last 24 Hours (Table) 06/07/16 06:59 Blood Culture - Preliminary Blood No Growth after 24 hours 06/05/16 12:32 Blood Culture - Preliminary Blood No Growth after 48 hours Assessment and Plan Plan: 1. Metabolic encephalopathy and dehydration with elevated lactic acid suspected sepsis secondary to septicemia and bacteremia with MRSA alpha hemolytic strep and diphtheroids species. 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 Consult with Dr. Scruggs for history of wound infection and lactic acidosis. Lasix is resumed. IV antibiotics 2. Chronic wound to the right foot and at site of great toe amputation, 4 areas identified today, dorsum shallow ulcer of the foot, the fissure in the toe amputation dehiscence, right lateral metatarsals shallow ulcer, and second toe tip gangrene. No signs of active infection. Consult with Dr. Scruggs. Patient did receive dose of Levaquin in the emergency center. Continue Santyl dressing. 3. Chronic A. fib. Continue eliquis and Lopressor 50 mg the morning 25 mg in the evening, digoxin 125 g daily. 4. COPD, stable without exacerbation: Continue inhaler. 5. Advanced ischemic cardiomyopathy post AICD. Continue Lipitor, eliquis, Plavix, Lanoxin, lisinopril, Lopressor, Aldactone. 6. Severe PAD status post right great toe amputation with history of MRSA. 7. BPH. Continue tamsulosin 0.4 mg daily. 8. Hyperlipidemia. Continue Lipitor 40 mg daily. 9. Diabetes mellitus type II, insulin requiring. Continue NovoLog 70 3010 units twice daily and Humalog scale before meals and at bedtime. 10. Vascular dementia. No longer on Namenda and Remeron. 11. Chronic kidney disease stage III with history of acute kidney injury 12. Bacteremia with MRSA, sepsis 12. GI prophylaxis: On Pepcid 20 mg daily. 13. DVT prophylaxis. Patient is on eliquis. CODE STATUS: Full code. Discharge plan: [facility] Impression and plan of care have been directed as dictated by the signing physician. Felisha Hernandez nurse practitioner acting as scribe for signing physician. Time with Patient: Greater than 30
[2016-06-08 17:25] LABS: Glucose,Whole Blood 103 mg/dL (75-99)
[2016-06-08 20:13] LABS: Glucose,Whole Blood 110 mg/dL (75-99)
[2016-06-08] MEDS: SODIUM CHLORIDE 0.9% 1,000 ML IV SCH (20:42)
[2016-06-08] MEDS: ATORVASTATIN 40 MG TAB PO SCH (20:43)
[2016-06-08] MEDS: MIRTAZAPINE 15 MG TAB PO SCH (20:44)
[2016-06-08] MEDS: LISINOPRIL 2.5 MG TAB PO SCH (20:44)
[2016-06-08] MEDS: MONTELUKAST 10 MG TAB PO SCH (20:45)
[2016-06-08] MEDS: METOPROLOL TARTRATE 25 MG TAB PO SCH (20:45)
[2016-06-08] MEDS: COLLAGENASE 250 UNIT/GM OINTMENT 30 GM TUBE TOPICAL SCH (21:43)
--- NOTE | 2016-06-08 22:25 | P.PN ---
Subjective Principal diagnosis: altered mental status and fever 76-year-old male known to infectious disease. Earlier last year he has significant difficulty with his right groin area. He had undergone cardiac catheterization and developed a significant infection to his right groin. Record transfer to outside hospital for further surgical intervention with concerns to a necrotizing infection. Fortunately he improved. He continued to have severe peripheral vascular disease. On November 17, Dr. Simon performed the right great toe amputation. Since that time it's been an ongoing ulceration was followed in the wound healing center with Dr. Simon. He is currently at home with his and local wound care is in the form of Santyl. Patient has had ongoing difficulties this week according to his . He was awake all Wednesday night and did not allow her to get any sleep. He then left eating and drinking and did not have intake yesterday at all. He has been very antsy and crying out when he goes to the bathroom. She also states that his dementia worsened and he was more confused. He did not have any abdominal pain. Patient was brought into [facility] emergency center for evaluation. Chest x-ray showed tiny left pleural effusion. Urinalysis was clear, nitrite and leukoesterase negative. Initial blood sugar was 298, BUN 25 and creatinine 1.58, WBC 5.3 and hemoglobin 11.5. Hemoglobin A1c 6.4. Initial lactic acid was 3.6. Repeat lactic acid 2.4 and 2.2. Patient was admitted to the hospital for lactic acidosis, hyperglycemia and dehydration. Staff state that they did see some blood on his brief when he was changed earlier today. Patient and do not know about any rectal bleeding. Patient's mental status appears to be back to baseline. Patient did receive 1 dose of Levaquin in the emergency center. the patient is much more calm today Much less agitated. Laboratories do have evidence of the blood cultures that are positive for several bacteria.Several are positive Objective - Vital Signs Vital signs: Vital Signs Temp 97.7 F 06/08/16 15:00 Pulse 51 L 06/08/16 15:00 Resp 16 06/08/16 15:00 BP 102/55 06/08/16 15:00 Pulse Ox 99 06/08/16 15:00 Intake & Output 06/08/16 06/08/16 06/09/16 06:59 18:59 06:59 Intake Total 370 Balance 370 Intake: IV 60 Sodium Chloride 0.9% 1, 60 000 ml @ 20 mls/hr IV . Q24H [facility] Rx#:[id number] Intake, IV Titration 250 Amount Ceftaroline Fosamil 600 250 mg In Sodium Chloride 0.9 % 250 ml @ 250 mls/hr IVPB Q12HR [facility] Rx#: [id number] Oral 60 Other: Voiding Method Diaper Diaper # Voids 1 3 # Bowel Movements 1 - Exam General appearance: average body habitus, cooperative, no acute distress - EENT Eyes: Reports anicteric sclerae, Reports EOMI, Reports PERRLA, Reports dentition normal ENT: Reports hearing grossly normal, Reports NA/AT, Reports normal oropharynx - Neck Neck: Reports normal ROM, Denies lymphadenopathy, Denies other, Denies rigidity , Denies stridor, Denies thyromegaly Thyroid: bilateral: normal size - Respiratory Respiratory: bilateral: CTA, diminished - Cardiovascular Rhythm: irregular Heart sounds: normal: S1, S2, systolic murmur - Gastrointestinal General gastrointestinal: Reports normal bowel sounds, Reports soft - Integumentary Integumentary: Reports normal, Reports normal turgor - Neurologic Neurologic: CNII-XII intact - Musculoskeletal Musculoskeletal: Reports strength equal bilaterally. Healing wound to the right great toe amputation site, no significant erythema, drainage, swelling. Eschar to the distal second toe. Superficial wounds noted to the left hand at the second proximal phalanx, third proximal phalanx and fourth proximal phalanx. - Psychiatric Psychiatric: A&O x's2, at baseline, - Labs CBC & Chem 7: 06/08/16 07:00 06/08/16 07:00 Labs: Abnormal Lab Results - Last 24 Hours (Table) 06/08/16 06/08/16 06/08/16 Range/Units 07:00 07:00 07:37 RBC 3.29 L (4.30-5.90) m/uL Hgb 9.9 L (13.0-17.5) gm/dL Hct 30.2 L (39.0-53.0) % Plt Count 136 L (150-450) k/uL Chloride 109 H (98-107) mmol/L Carbon Dioxide 21 L (22-30) mmol/L Glucose 101 H (74-99) mg/dL POC Glucose (mg/dL) 109 H (75-99) mg/dL Calcium 8.1 L (8.4-10.2) mg/dL 06/08/16 06/08/16 06/08/16 Range/Units 11:32 17:13 20:04 RBC (4.30-5.90) m/uL Hgb (13.0-17.5) gm/dL Hct (39.0-53.0) % Plt Count (150-450) k/uL Chloride (98-107) mmol/L Carbon Dioxide (22-30) mmol/L Glucose (74-99) mg/dL POC Glucose (mg/dL) 126 H 103 H 110 H (75-99) mg/dL Calcium (8.4-10.2) mg/dL Microbiology - Last 24 Hours (Table) 06/05/16 12:32 Blood Culture - Preliminary Blood No Growth after 72 hours 06/07/16 06:59 Blood Culture - Preliminary Blood No Growth after 24 hours Laboratory Results WBC 5.2 k/uL (3.8-10.6) 06/08/16 07:00 RBC 3.29 m/uL (4.30-5.90) L 06/08/16 07:00 Hgb 9.9 gm/dL (13.0-17.5) L 06/08/16 07:00 Hct 30.2 % (39.0-53.0) L 06/08/16 07:00 MCV 91.7 fL (80.0-100.0) 06/08/16 07:00 MCH 30.1 pg (25.0-35.0) 06/08/16 07:00 MCHC 32.8 g/dL (31.0-37.0) 06/08/16 07:00 RDW 14.3 % (11.5-15.5) 06/08/16 07:00 Plt Count 136 k/uL (150-450) L 06/08/16 07:00 Neutrophils % 67 % 06/08/16 07:00 Lymphocytes % 22 % 06/08/16 07:00 Monocytes % 7 % 06/08/16 07:00 Eosinophils % 3 % 06/08/16 07:00 Basophils % 1 % 06/08/16 07:00 Neutrophils # 3.5 k/uL (1.3-7.7) 06/08/16 07:00 Lymphocytes # 1.1 k/uL (1.0-4.8) 06/08/16 07:00 Monocytes # 0.4 k/uL (0-1.0) 06/08/16 07:00 Eosinophils # 0.2 k/uL (0-0.7) 06/08/16 07:00 Basophils # 0.0 k/uL (0-0.2) 06/08/16 07:00 Sodium 141 mmol/L (137-145) 06/08/16 07:00 Potassium 3.7 mmol/L (3.5-5.1) 06/08/16 07:00 Chloride 109 mmol/L (98-107) H 06/08/16 07:00 Carbon Dioxide 21 mmol/L (22-30) L 06/08/16 07:00 Anion Gap 11 mmol/L 06/08/16 07:00 BUN 14 mg/dL (9-20) 06/08/16 07:00 Creatinine 1.22 mg/dL (0.66-1.25) 06/08/16 07:00 Est GFR (MDRD) Af Amer >60 (>60 ml/min/1.73 sqM) 06/08/16 07:00 Est GFR (MDRD) Non-Af 58 (>60 ml/min/1.73 sqM) 06/08/16 07:00 Glucose 101 mg/dL (74-99) H 06/08/16 07:00 POC Glucose (mg/dL) 110 mg/dL (75-99) H 06/08/16 20:04 POC Glu Claims Technician Carolyne Chauhan 06/08/16 20:[address] Glu mg/dL 137 mg/dL 06/04/16 16:20 Hemoglobin A1c 6.4 % (4.2-6.1) H 06/04/16 16:20 Plasma Lactic Acid Amol 2.5 mmol/L (0.7-2.0) H* 06/05/16 21:52 Calcium 8.1 mg/dL (8.4-10.2) L 06/08/16 07:00 Total Bilirubin 0.7 mg/dL (0.2-1.3) 06/06/16 07:26 AST 15 U/L (17-59) L 06/06/16 07:26 ALT 26 U/L (21-72) 06/06/16 07:26 Alkaline Phosphatase 93 U/L (38-126) 06/06/16 07:26 Troponin I 0.013 ng/mL (0.000-0.034) 06/04/16 16:20 Total Protein 5.7 g/dL (6.3-8.2) L 06/06/16 07:26 Albumin 3.0 g/dL (3.5-5.0) L 06/06/16 07:26 Urine Color Yellow 06/04/16 18:45 Urine Appearance Clear (Clear) 06/04/16 18:45 Urine pH 7.5 (5.0-8.0) 06/04/16 18:45 Ur Specific Dubois 1.007 (1.001-1.035) 06/04/16 18:45 Urine Protein Negative (Negative) 06/04/16 18:45 Urine Glucose (UA) 2+ (Negative) H 06/04/16 18:45 Urine Ketones Negative (Negative) 06/04/16 18:45 Urine Blood Negative (Negative) 06/04/16 18:45 Urine Nitrate Negative (Negative) 06/04/16 18:45 Urine Bilirubin Negative (Negative) 06/04/16 18:45 Urine Urobilinogen <2.0 mg/dL (<2.0) 06/04/16 18:45 Ur Leukocyte Esterase Negative (Negative) 06/04/16 18:45 Vancomycin Trough <5.0 ug/mL 06/07/16 06:59 Microbiology 06/05/16 12:32 Blood Blood Culture - Preliminary No Growth after 72 hours 06/07/16 06:59 Blood Blood Culture - Preliminary No Growth after 24 hours 06/04/16 16:20 Blood Blood Culture Gram Stain - Final 06/04/16 16:20 Blood Blood Culture - Final Methicillin resist S. aureus Alpha Hemolytic Streptococcus Diphtheroid species 06/04/16 18:45 Urine,Clean Catch Urine Culture - Final Enterococcus gallinarum 06/04/16 16:20 Blood Blood Culture - Preliminary Assessment and Plan (1) Lactic acidosis Narrative/Plan: 76-year-old male with a long-standing history of dementia who presented hospital with some altered mental status and fever. Initial evaluations were negative. On examination yesterday was concerns to be a potential abdominal process given his lack of symptoms. Blood cultures have now come back as positive for several pathogen including MRSA, also strep and diphtheroids. Blood cultures are showing similar findings. Likely will be contamination. The great concern when MRSA is found and it but culture. Antibiotic therapy has been ordered with Ceftaroline, now change to vancomycin for 2 weeks He is not hypotensive. There are many potential sources of his bacteremia including his skin especially with the injuries that is received lower extremity into his hand. WIll have PICC placed Urine culture is evidence of enterococcus gallinarum although vancomycin resistant is not unusual. His urinalysis is negative he has no urine symptoms this is a colonization and will not need further treatment. Local wound care is being applied antibiotic ointment to the hand and Santyl to the toes. Continue to elevate his feet at rest. He is much less agitated today. Follow blood cultures have been requested and are negative so far. Status: Acute (2) Fever Status: Acute (3) Bacteremia Status: Acute
[2016-06-08] MEDS: VANCOMYCIN 1,500 MG in SODIUM CHLORIDE 0.9% 250 ML IVPB SCH (23:08)
[2016-06-09] MEDS ORDERED: IV VANCOMYCIN PER PHARMACY 1 EACH MISC MISCELLANE PRN (07:00)
[2016-06-09 08:05] LABS: Basophils % (A) 1 %; CH 31.3; Eosinophils # (A) 0.2 k/uL (0-0.7); Eosinophils % (A) 4 %; HCT 31.5 % (39.0-53.0); HDW 2.98; HGB 10.4 gm/dL (13.0-17.5); Luc # (Auto) 0.11; Luc % (Auto) 3; Lymphocytes # (A) 1.4 k/uL (1.0-4.8); Lymphocytes % (A) 33 %; MCH 30.4 pg (25.0-35.0); MCHC 32.9 g/dL (31.0-37.0); MCV 92.4 fL (80.0-100.0); Mean Platelet Volume 7.5; Monocytes # (A) 0.3 k/uL (0-1.0); Monocytes % (A) 7 %; Neutrophils # (A) 2.3 k/uL (1.3-7.7); Neutrophils % (A) 53 %; RBC 3.41 m/uL (4.30-5.90); RDW 14.3 % (11.5-15.5); WBC 4.3 k/uL (3.8-10.6); WBC (Perox) 4.11
[2016-06-09 08:15] LABS: Glucose,Whole Blood 86 mg/dL (75-99)
[2016-06-09 08:16] LABS: Anion Gap 11 mmol/L; Blood Urea Nitrogen 13 mg/dL (9-20); Calcium 8.2 mg/dL (8.4-10.2); Carbon Dioxide 19 mmol/L (22-30); Chloride 110 mmol/L (98-107); Glucose 80 mg/dL (74-99); Non-African American GFR(MDRD) >60 (>60 ml/min/1.73 sqM); Potassium 3.8 mmol/L (3.5-5.1); Sodium 140 mmol/L (137-145)
[2016-06-09] MEDS: INSULIN LISPRO (humaLOG) 300 UNIT/3 ML VIAL SQ SCH ×4 (08:27→21:10)
[2016-06-09] MEDS: DIGOXIN 125 MCG TAB PO SCH (09:34)
[2016-06-09] MEDS: CLOPIDOGREL 75 MG TAB PO SCH (09:34)
[2016-06-09] MEDS: METOPROLOL TARTRATE 50 MG TAB PO SCH (09:34)
[2016-06-09] MEDS: MEMANTINE 5 MG TAB PO SCH (09:35)
[2016-06-09] MEDS: SPIRONOLACTONE 25 MG TAB PO SCH (09:35)
[2016-06-09] MEDS: ASPIRIN 81 MG CHEW PO SCH (09:35)
[2016-06-09] MEDS: FUROSEMIDE 20 MG TAB PO SCH ×3 (09:35→21:09)
[2016-06-09] MEDS: TAMSULOSIN 0.4 MG CAP.ER.24H PO SCH (09:35)
[2016-06-09] MEDS: ALPRAZolam 0.25 MG TAB PO PRN (09:37)
[2016-06-09] MEDS: INSULN ASP PRT/INSULIN ASPART 100 UNIT/ML 10 ML VIAL SQ SCH ×2 (09:39→21:10)
[2016-06-09 13:02] LABS: Glucose,Whole Blood 90 mg/dL (75-99)
--- NOTE | 2016-06-09 14:53 | P.PN ---
Subjective This is a 76-year-old male patient of Dr. Miles with medical history significant for coronary artery disease status post coronary artery bypass graft for 2 vessels in 1999 with ischemic cardiomyopathy status post AICD, chronic atrial fibrillation, chronic kidney disease stage II, benign prostatic hypertrophy, diabetes mellitus type 2 insulin requiring, hypertension and hypertensive cardiovascular disease, hyperlipidemia, vascular dementia, history of DVT in the past, history of PAD, infection to the right groin following heart catheterization for which he was treated at [facility] in 2015, osteomyelitis of the right great toe status post amputation in October [address] Simon. He has had frequent admissions for sepsis, wound infections, metabolic encephalopathy. He was brought in to the hospital by EMS. His gives history that the patient was having difficulty most of this week. He was awake all Wednesday night and did not allow her to get any sleep. He then started to not eat or drink anything and did not have anything yesterday at all. He has been very antsy and crying out when he goes to the bathroom. She also states that his dementia worsened and he was more confused. He barely did not have any abdominal pain. She contacted Dr. Miles's office and attempts were made to call her back but there was no answer. Patient was then brought into [facility] emergency center for evaluation. Chest x-ray showed tiny left pleural effusion. Urinalysis was clear, nitrite and leukoesterase negative. Initial blood sugar was 298, BUN 25 and creatinine 1.58, WBC 5.3 and hemoglobin 11.5. Hemoglobin A1c 6.4. Initial lactic acid was 3.6. Repeat lactic acid 2.4 and 2.2. Patient was admitted to the hospital for lactic acidosis, hyperglycemia and dehydration. Staff state that they did see some blood on his brief when he was changed earlier today. Patient and do not know about any rectal bleeding. 06/06:. Blood cultures are called in to be presumptive MRSA. Vancomycin was started. Dr. Scruggs has been made aware. Patient remains to be pleasantly confused as his usual baseline he always wanted to go home to be with the . 06/07: Patient's mentation and patient remained to be stable at baseline he is basically confused interacts with people and pleasant patient is noncombative no ing symptoms. Vancomycin was readjusted by infectious disease to blood cultures growing MRSA and alpha hemolytic Streptococcus diphtheroids species him a urine culture growing enterococcus gallinarium 06/08: Patient's /guardian is agreeable to PICC line placed and IV antibiotics. She knows that his insurance does not cover at home. material worker is following for placement to [facility] for subacute rehab and IV antibiotic. PICC line is ordered which will be placed in 2 days after eliquis is offered 48 hours. 06/09: Patient is somewhat agitated today as his is not at the bedside. He is to be scheduled for PICC line tomorrow and he will be discharged to [facility] once everything is complete. Dr. Scruggs has recommended vancomycin for 2 weeks. Objective - Vital Signs Vital signs: Vital Signs Temp 97.9 F 06/08/16 07:00 Pulse 80 06/08/16 07:00 Resp 16 06/08/16 07:00 BP 103/54 06/08/16 07:00 Pulse Ox 99 06/08/16 07:00 Intake & Output 06/07/16 06/08/16 06/08/16 18:59 06:59 18:59 Intake Total 160 370 Balance 160 370 Intake: IV 160 60 Sodium Chloride 0.9% 1, 160 60 000 ml @ 20 mls/hr IV . Q24H [facility] Rx#:[id number] Intake, IV Titration 250 Amount Ceftaroline Fosamil 600 250 mg In Sodium Chloride 0.9 % 250 ml @ 250 mls/hr IVPB Q12HR [facility] Rx#: [id number] Oral 60 Other: Voiding Method Diaper Diaper # Voids 1 1 # Bowel Movements 1 1 - Exam General appearance: Present: average body habitus, cooperative, no acute distress - EENT Eyes: Present: anicteric sclerae, EOMI, PERRLA, dentition normal, normal appearance ENT: Present: NA/AT, normal oropharynx - Neck Neck: Present: normal ROM. Absent: lymphadenopathy, other, rigidity, stridor, thyromegaly - Respiratory Respiratory: bilateral: CTA, diminished, negative: dullness, rales, rhonchi, wheezing - Cardiovascular Rhythm: regular Abnormal Heart Sounds: Absent: systolic murmur, diastolic murmur, rub, S3 Gallop , S4 Gallop, click, other - Gastrointestinal General gastrointestinal: Present: normal bowel sounds, soft - Integumentary Integumentary: Present: decreased turgor, normal, normal turgor, ulcer (left 4th knuckle new shallow ulcers with scab, others include prox phalynx dorsum) - Psychiatric Psychiatric: Present: A&O x's 1) - Labs CBC & Chem 7: 06/09/16 07:36 06/09/16 07:36 Labs: Abnormal Lab Results - Last 24 Hours (Table) 06/07/16 06/08/16 06/08/16 Range/Units 19:57 07:00 07:00 RBC 3.29 L (4.30-5.90) m/uL Hgb 9.9 L (13.0-17.5) gm/dL Hct 30.2 L (39.0-53.0) % Plt Count 136 L (150-450) k/uL Chloride 109 H (98-107) mmol/L Carbon Dioxide 21 L (22-30) mmol/L Glucose 101 H (74-99) mg/dL POC Glucose (mg/dL) 130 H (75-99) mg/dL Calcium 8.1 L (8.4-10.2) mg/dL 06/08/16 06/08/16 Range/Units 07:37 11:32 RBC (4.30-5.90) m/uL Hgb (13.0-17.5) gm/dL Hct (39.0-53.0) % Plt Count (150-450) k/uL Chloride (98-107) mmol/L Carbon Dioxide (22-30) mmol/L Glucose (74-99) mg/dL POC Glucose (mg/dL) 109 H 126 H (75-99) mg/dL Calcium (8.4-10.2) mg/dL Microbiology - Last 24 Hours (Table) 06/05/16 12:32 Blood Culture - Preliminary Blood No Growth after 72 hours 06/07/16 06:59 Blood Culture - Preliminary Blood No Growth after 24 hours Assessment and Plan Plan: 1. Metabolic encephalopathy and dehydration with elevated lactic acid suspected sepsis secondary to septicemia and bacteremia with MRSA alpha hemolytic strep and diphtheroids species. 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 Consult with Dr. Scruggs for history of wound infection and lactic acidosis. Lasix is resumed. IV antibiotics with vancomycin 2. Chronic wound to the right foot and at site of great toe amputation, 4 areas identified today, dorsum shallow ulcer of the foot, the fissure in the toe amputation dehiscence, right lateral metatarsals shallow ulcer, and second toe tip gangrene. No signs of active infection. Consult with Dr. Scruggs. Patient did receive dose of Levaquin in the emergency center. Continue Santyl dressing. 3. Chronic A. fib. Continue eliquis and Lopressor 50 mg the morning 25 mg in the evening, digoxin 125 g daily. 4. COPD, stable without exacerbation: Continue inhaler. 5. Advanced ischemic cardiomyopathy post AICD. Continue Lipitor, eliquis, Plavix, Lanoxin, lisinopril, Lopressor, Aldactone. 6. Severe PAD status post right great toe amputation with history of MRSA. 7. BPH. Continue tamsulosin 0.4 mg daily. 8. Hyperlipidemia. Continue Lipitor 40 mg daily. 9. Diabetes mellitus type II, insulin requiring. Continue NovoLog 70 3010 units twice daily and Humalog scale before meals and at bedtime. 10. Vascular dementia. No longer on Namenda and Remeron. 11. Chronic kidney disease stage III with history of acute kidney injury 12. Bacteremia with MRSA, sepsis 12. GI prophylaxis: On Pepcid 20 mg daily. 13. DVT prophylaxis. Patient is on eliquis. CODE STATUS: Full code. Discharge plan: [facility] on Wednesday once PICC line is placed Impression and plan of care have been directed as dictated by the signing physician. Felisha Hernandez nurse practitioner acting as scribe for signing physician. Time with Patient: Greater than 30
--- NOTE | 2016-06-09 14:55 | P.DS ---
Providers Date of admission: 06/04/16 20:15 Expected date of discharge: 06/10/16 Attending physician: Jacques Honeycutt Primary care physician: [facility] Course: This is a 76-year-old male patient of Dr. Miles with medical history significant for coronary artery disease status post coronary artery bypass graft for 2 vessels in 1999 with ischemic cardiomyopathy status post AICD, chronic atrial fibrillation, chronic kidney disease stage II, benign prostatic hypertrophy, diabetes mellitus type 2 insulin requiring, hypertension and hypertensive cardiovascular disease, hyperlipidemia, vascular dementia, history of DVT in the past, history of PAD, infection to the right groin following heart catheterization for which he was treated at [facility] in 2015, osteomyelitis of the right great toe status post amputation in October [address] Simon. He has had frequent admissions for sepsis, wound infections, metabolic encephalopathy. He was brought in to the hospital by EMS. His gives history that the patient was having difficulty most of this week. He was awake all Wednesday night and did not allow her to get any sleep. He then started to not eat or drink anything and did not have anything yesterday at all. He has been very antsy and crying out when he goes to the bathroom. She also states that his dementia worsened and he was more confused. He barely did not have any abdominal pain. She contacted Dr. Miles's office and attempts were made to call her back but there was no answer. Patient was then brought into [facility] emergency center for evaluation. Chest x-ray showed tiny left pleural effusion. Urinalysis was clear, nitrite and leukoesterase negative. Initial blood sugar was 298, BUN 25 and creatinine 1.58, WBC 5.3 and hemoglobin 11.5. Hemoglobin A1c 6.4. Initial lactic acid was 3.6. Repeat lactic acid 2.4 and 2.2. Patient was admitted to the hospital for lactic acidosis, hyperglycemia and dehydration. Staff state that they did see some blood on his brief when he was changed earlier today. Patient and do not know about any rectal bleeding. 06/06:. Blood cultures are called in to be presumptive MRSA. Vancomycin was started. Dr. Scruggs has been made aware. Patient remains to be pleasantly confused as his usual baseline he always wanted to go home to be with the . 06/07: Patient's mentation and patient remained to be stable at baseline he is basically confused interacts with people and pleasant patient is noncombative no sundowning symptoms. Vancomycin was readjusted by infectious disease to blood cultures growing MRSA and alpha hemolytic Streptococcus diphtheroids species him a urine culture growing enterococcus gallinarium 06/08: Patient's /guardian is agreeable to PICC line placed and IV antibiotics. She knows that his insurance does not cover at home. 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 PICC line is ordered which will be placed in 2 days after eliquis is offered 48 hours. 06/09:06/09: Patient is somewhat agitated today as his is not at the bedside. He is to be scheduled for PICC line tomorrow and he will be discharged to [facility] once everything is complete. Dr. Scruggs has recommended vancomycin for 2 weeks. Patient will be discharged to [facility] in stable condition. Discharge Diagnoses: 1. Metabolic encephalopathy and dehydration with elevated lactic acid suspected sepsis secondary to septicemia and bacteremia with MRSA, alpha hemolytic strep and diphtheroids species. 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 2. Chronic wound to the right foot and at site of great toe amputation 3. Chronic A. fib. 4. COPD, stable without exacerbation 5. Advanced ischemic cardiomyopathy post AICD. 6. Severe PAD status post right great toe amputation with history of MRSA. 7. BPH. 8. Hyperlipidemia. 9. Diabetes mellitus type II, insulin requiring. 10. Vascular dementia. 11. Chronic kidney disease stage III with history of acute kidney injury 12. Bacteremia with MRSA, sepsis Discharge plan: [facility] Impression and plan of care have been directed as dictated by the signing physician. Felisha Hernandez nurse practitioner acting as scribe for signing physician. Patient Condition at Discharge: Good Plan - Discharge Summary New Discharge Prescriptions: ALPRAZolam [Xanax] 0.25 mg PO TID PRN #90 tab PRN Reason: Anxiety Discharge Medication List Montelukast [Singulair] 10 mg PO HS 11/07/14 [History] Tamsulosin [Flomax] 0.4 mg PO DAILY 10/04/15 [History] Albuterol Inhaler [Ventolin Hfa Inhaler] 2 puff INHALATION RT-Q4H PRN 11/15/15 [ History] Apixaban [Eliquis] 5 mg PO BID 11/15/15 [History] Digoxin [Digitek] 125 mcg PO DAILY 11/15/15 [History] Mirtazapine [Remeron] 7.5 mg PO HS 11/15/15 [History] Memantine [Namenda] 5 mg PO DAILY 02/10/16 [History] Atorvastatin [Lipitor] 40 mg PO HS 05/07/16 [History] Clopidogrel [Plavix] 75 mg PO DAILY 05/07/16 [History] Furosemide [Lasix] 20 mg PO TID 05/07/16 [History] Insuln Asp Prt/Insulin Aspart [NovoLOG MIX 70-30 VIAL] 10 unit SQ BID 05/07/16 [ History] Spironolactone [Aldactone] 25 mg PO DAILY 05/07/16 [History] Metoprolol Tartrate [Lopressor] 25 mg PO HS tab 05/10/16 [Rx] Metoprolol Tartrate [Lopressor] 50 mg PO DAILY tab 05/10/16 [Rx] Acetaminophen Tab [Tylenol] 650 mg PO Q4H PRN 06/04/16 [History] Aspirin 81 mg PO DAILY 06/04/16 [History] Collagenase [Santyl] 1 applic TOPICAL HS 06/04/16 [History] Lisinopril [Zestril] 2.5 mg PO HS 06/04/16 [History] ALPRAZolam [Xanax] 0.25 mg PO TID PRN #90 tab 06/09/16 [Rx] Vancomycin 1,500 mg IVPB Q16H #21 vial 06/09/16 [Rx] Follow up Appointment(s)/Referral(s): Neville Miles MD [Primary Care Provider] - 1 Week (after discharge from [facility]) Discharge Disposition: TRANSFER TO SNF/ECF
[2016-06-09] MEDS: VANCOMYCIN 1,500 MG in SODIUM CHLORIDE 0.9% 250 ML IVPB SCH (15:42)
[2016-06-09 17:52] LABS: Glucose,Whole Blood 136 mg/dL (75-99)
[2016-06-09 20:55] LABS: Glucose,Whole Blood 140 mg/dL (75-99)
[2016-06-09] MEDS: LISINOPRIL 2.5 MG TAB PO SCH (21:08)
[2016-06-09] MEDS: COLLAGENASE 250 UNIT/GM OINTMENT 30 GM TUBE TOPICAL SCH (21:09)
[2016-06-09] MEDS: ATORVASTATIN 40 MG TAB PO SCH (21:09)
[2016-06-09] MEDS: METOPROLOL TARTRATE 25 MG TAB PO SCH (21:09)
[2016-06-09] MEDS: MONTELUKAST 10 MG TAB PO SCH (21:09)
[2016-06-09] MEDS: MIRTAZAPINE 15 MG TAB PO SCH (21:09)
[2016-06-09] MEDS: SODIUM CHLORIDE 0.9% 1,000 ML IV SCH (22:00)
--- NOTE | 2016-06-09 22:11 | P.PN ---
Subjective Principal diagnosis: altered mental status and fever 76-year-old male known to infectious disease. Earlier last year he has significant difficulty with his right groin area. He had undergone cardiac catheterization and developed a significant infection to his right groin. Record transfer to outside hospital for further surgical intervention with concerns to a necrotizing infection. Fortunately he improved. He continued to have severe peripheral vascular disease. On November 17, Dr. Simon performed the right great toe amputation. Since that time it's been an ongoing ulceration was followed in the wound healing center with Dr. Simon. He is currently at home with his and local wound care is in the form of Santyl. Patient has had ongoing difficulties this week according to his . He was awake all Wednesday night and did not allow her to get any sleep. He then left eating and drinking and did not have intake yesterday at all. He has been very antsy and crying out when he goes to the bathroom. She also states that his dementia worsened and he was more confused. He did not have any abdominal pain. Patient was brought into [facility] emergency center for evaluation. Chest x-ray showed tiny left pleural effusion. Urinalysis was clear, nitrite and leukoesterase negative. Initial blood sugar was 298, BUN 25 and creatinine 1.58, WBC 5.3 and hemoglobin 11.5. Hemoglobin A1c 6.4. Initial lactic acid was 3.6. Repeat lactic acid 2.4 and 2.2. Patient was admitted to the hospital for lactic acidosis, hyperglycemia and dehydration. Staff state that they did see some blood on his brief when he was changed earlier today. Patient and do not know about any rectal bleeding. Patient's mental status appears to be back to baseline. Patient did receive 1 dose of Levaquin in the emergency center. the patient is much more calm today Much less agitated. Laboratories do have evidence of the blood cultures that are positive for several bacteria.Several are positive Objective - Vital Signs Vital signs: Vital Signs Temp 98.4 F 06/09/16 15:00 Pulse 55 L 06/09/16 16:00 Resp 14 06/09/16 16:00 BP 119/57 06/09/16 15:00 Pulse Ox 99 06/09/16 15:00 Intake & Output 06/09/16 06/09/16 06/10/16 06:59 18:59 06:59 Intake Total 240 Balance 240 Intake: Oral 240 Other: Voiding Method Diaper Diaper # Voids 1 4 - Exam General appearance: average body habitus, cooperative, no acute distress - EENT Eyes: Reports anicteric sclerae, Reports EOMI, Reports PERRLA, Reports dentition normal ENT: Reports hearing grossly normal, Reports NA/AT, Reports normal oropharynx - Neck Neck: Reports normal ROM, Denies lymphadenopathy, Denies other, Denies rigidity , Denies stridor, Denies thyromegaly Thyroid: bilateral: normal size - Respiratory Respiratory: bilateral: CTA, diminished - Cardiovascular Rhythm: irregular Heart sounds: normal: S1, S2, systolic murmur - Gastrointestinal General gastrointestinal: Reports normal bowel sounds, Reports soft - Integumentary Integumentary: Reports normal, Reports normal turgor - Neurologic Neurologic: CNII-XII intact - Musculoskeletal Musculoskeletal: Reports strength equal bilaterally. Healing wound to the right great toe amputation site, no significant erythema, drainage, swelling. Eschar to the distal second toe. Superficial wounds noted to the left hand at the second proximal phalanx, third proximal phalanx and fourth proximal phalanx. - Psychiatric Psychiatric: A&O x's2, at baseline, - Labs CBC & Chem 7: 06/09/16 07:36 06/09/16 07:36 Labs: Abnormal Lab Results - Last 24 Hours (Table) 06/09/16 06/09/16 06/09/16 Range/Units 07:36 07:36 17:27 RBC 3.41 L (4.30-5.90) m/uL Hgb 10.4 L (13.0-17.5) gm/dL Hct 31.5 L (39.0-53.0) % Plt Count 135 L (150-450) k/uL Chloride 110 H (98-107) mmol/L Carbon Dioxide 19 L (22-30) mmol/L POC Glucose (mg/dL) 136 H (75-99) mg/dL Calcium 8.2 L (8.4-10.2) mg/dL 06/09/16 Range/Units 20:54 RBC (4.30-5.90) m/uL Hgb (13.0-17.5) gm/dL Hct (39.0-53.0) % Plt Count (150-450) k/uL Chloride (98-107) mmol/L Carbon Dioxide (22-30) mmol/L POC Glucose (mg/dL) 140 H (75-99) mg/dL Calcium (8.4-10.2) mg/dL Microbiology - Last 24 Hours (Table) 06/05/16 12:32 Blood Culture - Preliminary Blood No Growth after 96 hours 06/07/16 06:59 Blood Culture - Preliminary Blood No Growth after 48 hours Laboratory Results WBC 4.3 k/uL (3.8-10.6) 06/09/16 07:36 RBC 3.41 m/uL (4.30-5.90) L 06/09/16 07:36 Hgb 10.4 gm/dL (13.0-17.5) L 06/09/16 07:36 Hct 31.5 % (39.0-53.0) L 06/09/16 07:36 MCV 92.4 fL (80.0-100.0) 06/09/16 07:36 MCH 30.4 pg (25.0-35.0) 06/09/16 07:36 MCHC 32.9 g/dL (31.0-37.0) 06/09/16 07:36 RDW 14.3 % (11.5-15.5) 06/09/16 07:36 Plt Count 135 k/uL (150-450) L 06/09/16 07:36 Neutrophils % 53 % 06/09/16 07:36 Lymphocytes % 33 % 06/09/16 07:36 Monocytes % 7 % 06/09/16 07:36 Eosinophils % 4 % 06/09/16 07:36 Basophils % 1 % 06/09/16 07:36 Neutrophils # 2.3 k/uL (1.3-7.7) 06/09/16 07:36 Lymphocytes # 1.4 k/uL (1.0-4.8) 06/09/16 07:36 Monocytes # 0.3 k/uL (0-1.0) 06/09/16 07:36 Eosinophils # 0.2 k/uL (0-0.7) 06/09/16 07:36 Basophils # 0.0 k/uL (0-0.2) 06/09/16 07:36 Sodium 140 mmol/L (137-145) 06/09/16 07:36 Potassium 3.8 mmol/L (3.5-5.1) 06/09/16 07:36 Chloride 110 mmol/L (98-107) H 06/09/16 07:36 Carbon Dioxide 19 mmol/L (22-30) L 06/09/16 07:36 Anion Gap 11 mmol/L 06/09/16 07:36 BUN 13 mg/dL (9-20) 06/09/16 07:36 Creatinine 1.13 mg/dL (0.66-1.25) 06/09/16 07:36 Est GFR (MDRD) Af Amer >60 (>60 ml/min/1.73 sqM) 06/09/16 07:36 Est GFR (MDRD) Non-Af >60 (>60 ml/min/1.73 sqM) 06/09/16 07:36 Glucose 80 mg/dL (74-99) 06/09/16 07:36 POC Glucose (mg/dL) 140 mg/dL (75-99) H 06/09/16 20:54 POC Glu [facility] Super[employer] ID Basilia Landry 06/09/16 20:[address] Glu mg/dL 137 mg/dL 06/04/16 16:20 Hemoglobin A1c 6.4 % (4.2-6.1) H 06/04/16 16:20 Plasma Lactic Acid Amol 2.5 mmol/L (0.7-2.0) H* 06/05/16 21:52 Calcium 8.2 mg/dL (8.4-10.2) L 06/09/16 07:36 Total Bilirubin 0.7 mg/dL (0.2-1.3) 06/06/16 07:26 AST 15 U/L (17-59) L 06/06/16 07:26 ALT 26 U/L (21-72) 06/06/16 07:26 Alkaline Phosphatase 93 U/L (38-126) 06/06/16 07:26 Troponin I 0.013 ng/mL (0.000-0.034) 06/04/16 16:20 Total Protein 5.7 g/dL (6.3-8.2) L 06/06/16 07:26 Albumin 3.0 g/dL (3.5-5.0) L 06/06/16 07:26 Urine Color Yellow 06/04/16 18:45 Urine Appearance Clear (Clear) 06/04/16 18:45 Urine pH 7.5 (5.0-8.0) 06/04/16 18:45 Ur Specific [place] 1.007 (1.001-1.035) 06/04/16 18:45 Urine Protein Negative (Negative) 06/04/16 18:45 Urine Glucose (UA) 2+ (Negative) H 06/04/16 18:45 Urine Ketones Negative (Negative) 06/04/16 18:45 Urine Blood Negative (Negative) 06/04/16 18:45 Urine Nitrate Negative (Negative) 06/04/16 18:45 Urine Bilirubin Negative (Negative) 06/04/16 18:45 Urine Urobilinogen <2.0 mg/dL (<2.0) 06/04/16 18:45 Ur Leukocyte Esterase Negative (Negative) 06/04/16 18:45 Vancomycin Trough <5.0 ug/mL 06/07/16 06:59 Microbiology 06/05/16 12:32 Blood Blood Culture - Preliminary No Growth after 96 hours 06/07/16 06:59 Blood Blood Culture - Preliminary No Growth after 48 hours 06/04/16 16:20 Blood Blood Culture Gram Stain - Final 06/04/16 16:20 Blood Blood Culture - Final Methicillin resist S. aureus Alpha Hemolytic Streptococcus Diphtheroid species 06/04/16 18:45 Urine,Clean Catch Urine Culture - Final Enterococcus gallinarum 06/04/16 16:20 Blood Blood Culture - Preliminary Assessment and Plan (1) Lactic acidosis Narrative/Plan: 76-year-old male with a long-standing history of dementia who presented hospital with some altered mental status and fever. Initial evaluations were negative. On examination yesterday was concerns to be a potential abdominal process given his lack of symptoms. Blood cultures have now come back as positive for several pathogen including MRSA, also strep and diphtheroids. Blood cultures are showing similar findings. Likely will be contamination. The great concern when MRSA is found and it but culture. Antibiotic therapy has been ordered with Ceftaroline, now change to vancomycin for 2 weeks He is not hypotensive. There are many potential sources of his bacteremia including his skin especially with the injuries that is received lower extremity into his hand. WIll have PICC placed once theelaquis effect reduced Urine culture is evidence of enterococcus gallinarum although vancomycin resistant is not unusual. His urinalysis is negative he has no urine symptoms this is a colonization and will not need further treatment. Local wound care is being applied antibiotic ointment to the hand and Santyl to the toes. Continue to elevate his feet at rest. He is much less agitated today. Follow blood cultures have been requested and are negative so far. Status: Acute (2) Fever Status: Acute (3) Bacteremia Status: Acute
[2016-06-10] MEDS: CLOPIDOGREL 75 MG TAB PO SCH (07:24)
[2016-06-10] MEDS: VANCOMYCIN 1,500 MG in SODIUM CHLORIDE 0.9% 250 ML IVPB SCH ×2 (07:44→23:23)
[2016-06-10] MEDS: METOPROLOL TARTRATE 50 MG TAB PO SCH (07:44)
[2016-06-10 07:46] LABS: Glucose,Whole Blood 85 mg/dL (75-99)
[2016-06-10] MEDS: INSULIN LISPRO (humaLOG) 300 UNIT/3 ML VIAL SQ SCH ×4 (07:47→20:41)
[2016-06-10] MEDS: MEMANTINE 5 MG TAB PO SCH (07:48)
[2016-06-10] MEDS: ASPIRIN 81 MG CHEW PO SCH (07:48)
[2016-06-10] MEDS: SPIRONOLACTONE 25 MG TAB PO SCH (07:48)
[2016-06-10] MEDS: DIGOXIN 125 MCG TAB PO SCH (07:48)
[2016-06-10] MEDS: TAMSULOSIN 0.4 MG CAP.ER.24H PO SCH (07:48)
[2016-06-10] MEDS: FUROSEMIDE 20 MG TAB PO SCH ×3 (07:48→20:42)
[2016-06-10 07:53] LABS: Basophils % (A) 1 %; CH 31.4; CHCM 34.5; Eosinophils # (A) 0.1 k/uL (0-0.7); Eosinophils % (A) 2 %; HCT 31.5 % (39.0-53.0); HDW 3.05; HGB 10.6 gm/dL (13.0-17.5); Luc # (Auto) 0.11; Luc % (Auto) 3; Lymphocytes # (A) 1.5 k/uL (1.0-4.8); Lymphocytes % (A) 35 %; MCH 30.7 pg (25.0-35.0); MCHC 33.6 g/dL (31.0-37.0); MCV 91.4 fL (80.0-100.0); Mean Platelet Volume 7.6; Monocytes # (A) 0.4 k/uL (0-1.0); Monocytes % (A) 9 %; Neutrophils # (A) 2.2 k/uL (1.3-7.7); Neutrophils % (A) 51 %; RBC 3.45 m/uL (4.30-5.90); RDW 14.2 % (11.5-15.5); WBC 4.3 k/uL (3.8-10.6); WBC (Perox) 4.34
[2016-06-10] MEDS: INSULN ASP PRT/INSULIN ASPART 100 UNIT/ML 10 ML VIAL SQ SCH ×2 (07:53→20:40)
[2016-06-10] MEDS ORDERED: LIDOCAINE 2% INJ 20 MG/ML SQ ONE (10:08)
[2016-06-10 12:07] LABS: Glucose,Whole Blood 132 mg/dL (75-99)
--- NOTE | 2016-06-10 14:10 | IR ---
EXAMINATION TYPE: IR cvc insert >=5 years DATE OF EXAM: 06/10/2016 10:21 AM COMPARISON: NONE CLINICAL HISTORY: Infection Needs long-term intravenous access for antibiotics. PROCEDURE: After informed consent, the skin overlying the upper extremity vein was localized with ultrasound and noted to be compressible and patent. An ultrasound image was obtained and submitted on the patient' s chart. The overlying skin was prepped and draped and Lidocaine was used for local anesthesia. A s kin mauricio was made with a scalpel. Access was gained to the vein under ultrasound guidance with a 21 gauge needle and a 0.018 inch wire was advanced. Access site was dilated with Peel-Away sheath and c atheter tailored to the appropriate length and advanced such that the distal tip is at the cavoatrial junction. Spot image was obtained verifying placement. Catheter was fixed to the skin with suture and a sterile dressing was placed following hemostasis. Catheter was aspirated and flushed with sali ne. Patient was discharged in stable condition without complication. Maximal barrier technique is ut ilized. Ultrasound image is documented on the chart. Ultrasound used with sterile technique. Fluoro time and fluoroscopic images submitted to document procedure: 0.6 minutes fluoroscopy time, 16 8 intraoperative C-arm images document the procedure IMPRESSION: STATUS POST ULTRASOUND AND FLUOROSCOPIC GUIDED PICC LINE PLACEMENT, READY FOR USE. THIS PROCEDURE WAS PERFORMED BY THE UNDERSIGNED.
[2016-06-10 20:12] LABS: Glucose,Whole Blood 138 mg/dL (75-99)
[2016-06-10] MEDS: COLLAGENASE 250 UNIT/GM OINTMENT 30 GM TUBE TOPICAL SCH (20:41)
[2016-06-10] MEDS: ATORVASTATIN 40 MG TAB PO SCH (20:42)
[2016-06-10] MEDS: METOPROLOL TARTRATE 25 MG TAB PO SCH (20:42)
[2016-06-10] MEDS: MIRTAZAPINE 15 MG TAB PO SCH (20:43)
[2016-06-10] MEDS: MONTELUKAST 10 MG TAB PO SCH (20:43)
[2016-06-10] MEDS: LISINOPRIL 2.5 MG TAB PO SCH (20:43)
[2016-06-10] MEDS: ALPRAZolam 0.25 MG TAB PO PRN (20:58)
--- NOTE | 2016-06-10 21:43 | P.PN ---
Subjective Principal diagnosis: altered mental status and fever 76-year-old male known to infectious disease. Earlier last year he has significant difficulty with his right groin area. He had undergone cardiac catheterization and developed a significant infection to his right groin. Record transfer to outside hospital for further surgical intervention with concerns to a necrotizing infection. Fortunately he improved. He continued to have severe peripheral vascular disease. On November 17, Dr. Simon performed the right great toe amputation. Since that time it's been an ongoing ulceration was followed in the wound healing center with Dr. Simon. He is currently at home with his and local wound care is in the form of Santyl. Patient has had ongoing difficulties this week according to his . He was awake all Wednesday night and did not allow her to get any sleep. He then left eating and drinking and did not have intake yesterday at all. He has been very antsy and crying out when he goes to the bathroom. She also states that his dementia worsened and he was more confused. He did not have any abdominal pain. Patient was brought into [facility] emergency center for evaluation. Chest x-ray showed tiny left pleural effusion. Urinalysis was clear, nitrite and leukoesterase negative. Initial blood sugar was 298, BUN 25 and creatinine 1.58, WBC 5.3 and hemoglobin 11.5. Hemoglobin A1c 6.4. Initial lactic acid was 3.6. Repeat lactic acid 2.4 and 2.2. Patient was admitted to the hospital for lactic acidosis, hyperglycemia and dehydration. Staff state that they did see some blood on his brief when he was changed earlier today. Patient and do not know about any rectal bleeding. Patient's mental status appears to be back to baseline. Patient did receive 1 dose of Levaquin in the emergency center. the patient is much more calm today Much less agitated. Laboratories do have evidence of the blood cultures that are positive for several bacteria.Several are positive and follow blood cultures are negative. PICC line placed today. Objective - Vital Signs Vital signs: Vital Signs Temp 97.3 F L 06/10/16 07:00 Pulse 72 06/09/16 23:00 Resp 16 06/10/16 07:00 BP 97/56 06/10/16 07:00 Pulse Ox 99 06/10/16 07:00 Intake & Output 01/06/10/16 06/11/16 06:59 18:59 06:59 Intake Total 400 360 Output Total 400 Balance 0 360 Intake: IV 160 160 Sodium Chloride 0.9% 1, 160 160 000 ml @ 20 mls/hr IV . Q24H [facility] Rx#:[id number] Oral 240 200 Output: Urine 400 Other: Voiding Method Diaper Diaper # Voids 3 2 - Exam General appearance: average body habitus, cooperative, no acute distress - EENT Eyes: Reports anicteric sclerae, Reports EOMI, Reports PERRLA, Reports dentition normal ENT: Reports hearing grossly normal, Reports NA/AT, Reports normal oropharynx - Neck Neck: Reports normal ROM, Denies lymphadenopathy, Denies other, Denies rigidity , Denies stridor, Denies thyromegaly Thyroid: bilateral: normal size - Respiratory Respiratory: bilateral: CTA, diminished - Cardiovascular Rhythm: irregular Heart sounds: normal: S1, S2, systolic murmur - Gastrointestinal General gastrointestinal: Reports normal bowel sounds, Reports soft - Integumentary Integumentary: Reports normal, Reports normal turgor - Neurologic Neurologic: CNII-XII intact - Musculoskeletal Musculoskeletal: Reports strength equal bilaterally. Healing wound to the right great toe amputation site, no significant erythema, drainage, swelling. Eschar to the distal second toe. Superficial wounds noted to the left hand at the second proximal phalanx, third proximal phalanx and fourth proximal phalanx. - Psychiatric Psychiatric: A&O x's2, at baseline, - Labs CBC & Chem 7: 06/10/16 07:36 06/09/16 07:36 Labs: Abnormal Lab Results - Last 24 Hours (Table) 06/10/16 06/10/16 06/10/16 Range/Units 07:36 11:47 20:10 RBC 3.45 L (4.30-5.90) m/uL Hgb 10.6 L (13.0-17.5) gm/dL Hct 31.5 L (39.0-53.0) % Plt Count 136 L (150-450) k/uL POC Glucose (mg/dL) 132 H 138 H (75-99) mg/dL Microbiology - Last 24 Hours (Table) 06/05/16 12:32 Blood Culture - Preliminary Blood No Growth after 120 hours 06/07/16 06:59 Blood Culture - Preliminary Blood No Growth after 72 hours Laboratory Results WBC 4.3 k/uL (3.8-10.6) 06/10/16 07:36 RBC 3.45 m/uL (4.30-5.90) L 06/10/16 07:36 Hgb 10.6 gm/dL (13.0-17.5) L 06/10/16 07:36 Hct 31.5 % (39.0-53.0) L 06/10/16 07:36 MCV 91.4 fL (80.0-100.0) 06/10/16 07:36 MCH 30.7 pg (25.0-35.0) 06/10/16 07:36 MCHC 33.6 g/dL (31.0-37.0) 06/10/16 07:36 RDW 14.2 % (11.5-15.5) 06/10/16 07:36 Plt Count 136 k/uL (150-450) L 06/10/16 07:36 Neutrophils % 51 % 06/10/16 07:36 Lymphocytes % 35 % 06/10/16 07:36 Monocytes % 9 % 06/10/16 07:36 Eosinophils % 2 % 06/10/16 07:36 Basophils % 1 % 06/10/16 07:36 Neutrophils # 2.2 k/uL (1.3-7.7) 06/10/16 07:36 Lymphocytes # 1.5 k/uL (1.0-4.8) 06/10/16 07:36 Monocytes # 0.4 k/uL (0-1.0) 06/10/16 07:36 Eosinophils # 0.1 k/uL (0-0.7) 06/10/16 07:36 Basophils # 0.0 k/uL (0-0.2) 06/10/16 07:36 Sodium 140 mmol/L (137-145) 06/09/16 07:36 Potassium 3.8 mmol/L (3.5-5.1) 06/09/16 07:36 Chloride 110 mmol/L (98-107) H 06/09/16 07:36 Carbon Dioxide 19 mmol/L (22-30) L 06/09/16 07:36 Anion Gap 11 mmol/L 06/09/16 07:36 BUN 13 mg/dL (9-20) 06/09/16 07:36 Creatinine 1.13 mg/dL (0.66-1.25) 06/09/16 07:36 Est GFR (MDRD) Af Amer >60 (>60 ml/min/1.73 sqM) 06/09/16 07:36 Est GFR (MDRD) Non-Af >60 (>60 ml/min/1.73 sqM) 06/09/16 07:36 Glucose 80 mg/dL (74-99) 06/09/16 07:36 POC Glucose (mg/dL) 138 mg/dL (75-99) H 06/10/16 20:10 POC Glu Director Learning And Development ID Basilia Landry 06/10/16 20:[address] Glu mg/dL 137 mg/dL 06/04/16 16:20 Hemoglobin A1c 6.4 % (4.2-6.1) H 06/04/16 16:20 Plasma Lactic Acid Amol 2.5 mmol/L (0.7-2.0) H* 06/05/16 21:52 Calcium 8.2 mg/dL (8.4-10.2) L 06/09/16 07:36 Total Bilirubin 0.7 mg/dL (0.2-1.3) 06/06/16 07:26 AST 15 U/L (17-59) L 06/06/16 07:26 ALT 26 U/L (21-72) 06/06/16 07:26 Alkaline Phosphatase 93 U/L (38-126) 06/06/16 07:26 Troponin I 0.013 ng/mL (0.000-0.034) 06/04/16 16:20 Total Protein 5.7 g/dL (6.3-8.2) L 06/06/16 07:26 Albumin 3.0 g/dL (3.5-5.0) L 06/06/16 07:26 Urine Color Yellow 06/04/16 18:45 Urine Appearance Clear (Clear) 06/04/16 18:45 Urine pH 7.5 (5.0-8.0) 06/04/16 18:45 Ur Specific [place] 1.007 (1.001-1.035) 06/04/16 18:45 Urine Protein Negative (Negative) 01/12/17 18:45 Urine Glucose (UA) 2+ (Negative) H 06/04/16 18:45 Urine Ketones Negative (Negative) 06/04/16 18:45 Urine Blood Negative (Negative) 06/04/16 18:45 Urine Nitrate Negative (Negative) 06/04/16 18:45 Urine Bilirubin Negative (Negative) 06/04/16 18:45 Urine Urobilinogen <2.0 mg/dL (<2.0) 06/04/16 18:45 Ur Leukocyte Esterase Negative (Negative) 06/04/16 18:45 Vancomycin Trough <5.0 ug/mL 06/07/16 06:59 Microbiology 06/05/16 12:32 Blood Blood Culture - Preliminary No Growth after 120 hours 06/07/16 06:59 Blood Blood Culture - Preliminary No Growth after 72 hours 06/04/16 16:20 Blood Blood Culture Gram Stain - Final 06/04/16 16:20 Blood Blood Culture - Final Methicillin resist S. aureus Alpha Hemolytic Streptococcus Diphtheroid species 06/04/16 18:45 Urine,Clean Catch Urine Culture - Final Enterococcus gallinarum 06/04/16 16:20 Blood Blood Culture - Preliminary Assessment and Plan (1) Lactic acidosis Narrative/Plan: 76-year-old male with a long-standing history of dementia who presented hospital with some altered mental status and fever. Initial evaluations were negative. On examination yesterday was concerns to be a potential abdominal process given his lack of symptoms. Blood cultures have now come back as positive for several pathogen including MRSA, also strep and diphtheroids. Blood cultures are showing similar findings. Likely will be contamination. The great concern when MRSA is found and it but culture. Antibiotic therapy has been ordered with Ceftaroline, now change to vancomycin for 2 weeks He is not hypotensive. There are many potential sources of his bacteremia including his skin especially with the injuries that is received lower extremity into his hand. WIll have PICC placed once the elaquis effect reduced Urine culture is evidence of enterococcus gallinarum although vancomycin resistant is not unusual. His urinalysis is negative he has no urine symptoms this is a colonization and will not need further treatment. Local wound care is being applied antibiotic ointment to the hand and Santyl to the toes. Continue to elevate his feet at rest. He is much less agitated today. Follow blood cultures have been requested and are negative so far. Status: Acute (2) Fever Status: Acute (3) Bacteremia Status: Acute
[2016-06-11] MEDS: SODIUM CHLORIDE 0.9% 1,000 ML IV SCH (06:13)
[2016-06-11] MEDS: INSULIN LISPRO (humaLOG) 300 UNIT/3 ML VIAL SQ SCH (09:00)
[2016-06-11 09:11] LABS: Glucose,Whole Blood 95 mg/dL (75-99)
[2016-06-11] MEDS: FUROSEMIDE 20 MG TAB PO SCH (09:41)
[2016-06-11] MEDS: DIGOXIN 125 MCG TAB PO SCH (09:42)
[2016-06-11] MEDS: CLOPIDOGREL 75 MG TAB PO SCH (09:42)
[2016-06-11] MEDS: ASPIRIN 81 MG CHEW PO SCH (09:42)
[2016-06-11] MEDS: SPIRONOLACTONE 25 MG TAB PO SCH (09:43)
[2016-06-11] MEDS: METOPROLOL TARTRATE 50 MG TAB PO SCH (09:44)
[2016-06-11] MEDS: MEMANTINE 5 MG TAB PO SCH (09:44)
[2016-06-11] MEDS: TAMSULOSIN 0.4 MG CAP.ER.24H PO SCH (09:44)
[2016-06-11] MEDS: INSULN ASP PRT/INSULIN ASPART 100 UNIT/ML 10 ML VIAL SQ SCH (09:46)
[2016-06-11 09:52] VITALS: BP 128/76; PULSE 53; RESP 16; TEMP 97.9
[2016-06-11] MEDS ORDERED: VANCOMYCIN TROUGH DUE 1 EACH MISC MISCELLANE ONE (14:00)
== END 2016-06-11 10:20 | DRG 871 ==
LOC: EC 16:02 → 5MS5E 20:15
PROVIDERS: ADMIT Internal Medicine; ATTEND Internal Medicine
PROC: B5181ZA Fluoroscopy of Superior Vena Cava using Low Osmolar Contrast, Guidance (ICD-10-PCS; principal; 2016-06-10 09:38)
PROC: 02HV33Z Insertion of Infusion Device into Superior Vena Cava, Percutaneous Approach (ICD-10-PCS; principal; 2016-06-10 09:38)
PROC: B548ZZA Ultrasonography of Superior Vena Cava, Guidance (ICD-10-PCS; principal; 2016-06-10 09:38)
DX: A41.02 Sepsis due to Methicillin resistant Staphylococcus aureus (principal); G93.41 Metabolic encephalopathy; E87.2 Acidosis; I13.0 Hypertensive heart and chronic kidney disease with heart failure and stage 1 through stage 4 chronic kidney disease, or unspecified chronic kidney disease; E11.22 Type 2 diabetes mellitus with diabetic chronic kidney disease; E11.65 Type 2 diabetes mellitus with hyperglycemia; I48.2 Chronic atrial fibrillation; I50.9 Heart failure, unspecified; E86.0 Dehydration; E78.5 Hyperlipidemia, unspecified; F01.50 Vascular dementia, unspecified severity, without behavioral disturbance, psychotic disturbance, mood disturbance, and anxiety; F32.9 Major depressive disorder, single episode, unspecified; G47.33 Obstructive sleep apnea (adult) (pediatric); I25.10 Atherosclerotic heart disease of native coronary artery without angina pectoris; I25.2 Old myocardial infarction; I25.5 Ischemic cardiomyopathy; I73.9 Peripheral vascular disease, unspecified; J44.9 Chronic obstructive pulmonary disease, unspecified; J45.909 Unspecified asthma, uncomplicated; M19.90 Unspecified osteoarthritis, unspecified site; N18.3 Chronic kidney disease, stage 3 (moderate); N40.0 Benign prostatic hyperplasia without lower urinary tract symptoms; Z79.4 Long term (current) use of insulin; Z79.82 Long term (current) use of aspirin; Z82.49 Family history of ischemic heart disease and other diseases of the circulatory system; Z86.718 Personal history of other venous thrombosis and embolism; Z89.411 Acquired absence of right great toe; Z95.1 Presence of aortocoronary bypass graft; Z95.810 Presence of automatic (implantable) cardiac defibrillator; Z79.899 Other long term (current) drug therapy
CPT/HCPCS: 36415; 36569; 71010; 76937; 77001; 80048; 80053; 80202; 81003; 83036; 83605; 84484; 85025; 85027; 87040; 87077; 87086; 87186; 93005; 94760; 96361; 96365; 96366; 96375; 99285

== ENCOUNTER 2016-06-16 18:00 | Inpatient (IN) | payer MEDICARE, OTHER ==
[2016-06-16] MEDS ORDERED: SODIUM CHLORIDE 0.9% 500 ML IV STA (18:30)
[2016-06-16] MEDS ORDERED: SODIUM CHLORIDE 0.9% 1,000 ML IV STA (18:30)
[2016-06-16 18:47] LABS: Basophils # (A) 0.1 k/uL (0-0.2); Basophils % (A) 1 %; CH 31.5; CHCM 35.4; Eosinophils # (A) 0.2 k/uL (0-0.7); Eosinophils % (A) 2 %; HCT 31.1 % (39.0-53.0); HDW 2.96; HGB 10.7 gm/dL (13.0-17.5); Luc # (Auto) 0.09; Luc % (Auto) 1; Lymphocytes # (A) 1.4 k/uL (1.0-4.8); Lymphocytes % (A) 21 %; MCH 30.8 pg (25.0-35.0); MCHC 34.5 g/dL (31.0-37.0); MCV 89.4 fL (80.0-100.0); Mean Platelet Volume 7.5; Monocytes # (A) 0.4 k/uL (0-1.0); Monocytes % (A) 6 %; Neutrophils # (A) 4.5 k/uL (1.3-7.7); Neutrophils % (A) 69 %; RBC 3.48 m/uL (4.30-5.90); RDW 14.5 % (11.5-15.5); WBC 6.6 k/uL (3.8-10.6)
[2016-06-16 18:56] LABS: INR 1.2 (<1.1); Partial Thromboplastin Time 26.8 sec (22.0-30.0); Prothrombin Time 11.8 sec (9.0-12.0)
[2016-06-16 19:05] LABS: Calcium 8.7 mg/dL (8.4-10.2); Potassium 4.2 mmol/L (3.5-5.1); Total Bilirubin 0.7 mg/dL (0.2-1.3); Total Protein 6.2 g/dL (6.3-8.2)
--- NOTE | 2016-06-16 19:41 | XR ---
EXAMINATION TYPE: XR chest 2V DATE OF EXAM: 06/16/2016 7:32 PM COMPARISON: 06/04/2016 HISTORY: Weakness TECHNIQUE: Frontal and lateral views of the chest are obtained. FINDINGS: There is no heart failure nor confluent pneumonic infiltrate. Heart size is normal. There is previous cardiac surgery. There is a left axillary pacemaker with the lead tips in the right ventr icle. There is no pleural effusion. IMPRESSION: No active cardiopulmonary disease. Normal heart. No change.
--- NOTE | 2016-06-16 20:02 | ED ---
General Adult HPI - General Chief complaint: Recheck/Abnormal Lab/Rx Stated complaint: Abnormal Lab Time Seen by Provider: 06/16/16 18:20 Source: EMS Mode of arrival: EMS Limitations: no limitations - History of Present Illness Initial comments: This 76-year-old white male presents with the complaint of abnormal lab values. He's presenting from the [facility] by EMS. He apparently has been dealing with a right foot infection. He's been receiving some vancomycin and his vancomycin trough level has been significantly increasing. He currently is at 53.1 earlier today. His creatinine also has significantly elevated and is at 5.04 today. He has had a chronic right foot infection treated to the wound care clinic. He is been seeing Dr. Scruggs from infectious disease as well as Dr. Dasilva from vascular surgery. They apparently evaluated his wound yesterday and were happy with the healing process. He does have a history of diabetes. He apparently was diagnosed with MRSA bacteremia recently. He has had some decrease in his fluid intake. The patient does have dementia so much of history is obtained per . No other complaints or modifying factors. - Related Data Home Medications Medication Instructions Recorded Confirmed Tamsulosin [Flomax] 0.4 mg PO HS 10/04/15 06/16/16 Albuterol Inhaler [Ventolin Hfa 2 puff INHALATION RT-Q4H PRN 11/15/15 06/16/16 Inhaler] Apixaban [Eliquis] 5 mg PO BID@0900,2100 11/15/15 06/16/16 Digoxin [Digitek] 125 mcg PO DAILY 11/15/15 06/16/16 Mirtazapine [Remeron] 7.5 mg PO HS 11/15/15 06/16/16 Memantine [Namenda] 5 mg PO DAILY 02/10/16 06/16/16 Atorvastatin [Lipitor] 40 mg PO HS 05/07/16 06/16/16 Clopidogrel [Plavix] 75 mg PO DAILY 05/07/16 06/16/16 Furosemide [Lasix] 20 mg PO TID@0600,0900,1200 05/07/16 06/16/16 Insuln Asp Prt/Insulin Aspart 10 unit SQ BID 05/07/16 06/16/16 [NovoLOG MIX 70-30 VIAL] Spironolactone [Aldactone] 25 mg PO DAILY 05/07/16 06/16/16 Acetaminophen Tab [Tylenol] 650 mg PO Q4H PRN 06/04/16 06/16/16 Collagenase [Santyl] 1 applic TOPICAL HS 06/04/16 06/16/16 Lisinopril [Zestril] 2.5 mg PO HS 06/04/16 06/16/16 Montelukast Sodium [Singulair] 10 mg PO HS 06/15/16 06/16/16 Dimethicone/Zinc Oxide [Inzo Zinc 1 applic TOPICAL DAILY 06/16/16 06/16/16 Oxide Barrier Cream] Vancomycin 750 mg IVPB BID@0900,2100 06/16/16 06/16/16 Previous Rx's Medication Instructions Recorded Metoprolol Tartrate [Lopressor] 25 mg PO HS tab 05/10/16 Metoprolol Tartrate [Lopressor] 50 mg PO DAILY tab 05/10/16 ALPRAZolam [Xanax] 0.25 mg PO TID PRN #90 tab 06/09/16 Allergies Allergy/AdvReac Type Severity Reaction Status Date / Time No Known Allergies Allergy Verified 06/16/16 19:11 Review of Systems ROS Statement: Those systems with pertinent positive or pertinent negative responses have been documented in the HPI. ROS Other: All systems not noted in ROS Statement are negative. Past Medical History Past Medical History: Atrial Fibrillation, Asthma, Coronary Artery Disease (CAD) , Heart Failure, COPD, Dementia, Diabetes Mellitus, Deep Vein Thrombosis (DVT), Hyperlipidemia, Hypertension, Myocardial Infarction ([place]), Osteoarthritis (OA), Renal Disease, Respiratory Disorder, Sleep Apnea/CPAP/BIPAP, Vascular Disorder Additional Past Medical History / Comment(s): metabolic encephalopathy, DVT L leg 2007, PAD, bronchitis, MAY no device, neuropathy bilateral feet, BPH, Chronic kidney disease diverticulosis. Last Myocardial Infarction Date:: unknown History of Any Multi-Drug Resistant Organisms: MRSA Date of last positivie culture/infection: 06/04/16 MDRO Source:: Blood Past Surgical History: Coronary Bypass/CABG, Heart Catheterization, Orthopedic Surgery, Pacemaker Additional Past Surgical History / Comment(s): AICD 2007, DFT 2014, CABG-2 vessel 2000, L wrist surgery, R foot hammer toe repair, bilateral great toenails removed, bunionectomies bilateral feet, arch/aortagram, L femoral artery thromboendartectomy, Ccaths x possible 2, cataract removal bilaterally, colonoscopy, circumcism. R great toe amputation Past Anesthesia/Blood Transfusion Reactions: No Reported Reaction Type of Cardiac Device: AICD Device Placement Date:: 2007 Past Psychological History: Depression Additional Psychological History / Comment(s): Pt resides with his spouse. She has a walker that he uses if he is going to walk far. He does not drive-his spouse is his bed operator and she drives him. He is a . He has memory problems. Smoking Status: Never smoker Past Alcohol Use History: None Reported Additional Past Alcohol Use History / Comment(s): Pt smoked cigars starting in 1962 and quit in 1999. Past Drug Use History: None Reported - Past Family History Mother Family Medical History: Myocardial Infarction ([place]) Additional Family Medical History / Comment(s): Mother of a [place] in her 50's Brother(s) Family Medical History: Deep Vein Thrombosis (DVT) Additional Family Medical History / Comment(s): POSS DVT. Father Family Medical History: CVA/TIA Additional Family Medical History / Comment(s): Father of a CVA at unknown age. General Exam - General Exam Comments Initial Comments: GENERAL: The patient is well nourished and well hydrated. VITAL SIGNS: Heart rate, blood pressure, respiratory rate reviewed as recorded in nurse's notes. EYES: Pupils are round and reactive. Extraocular movements are intact. No conjunctival / lid redness or swelling. ENT: No external evidence of injury, swelling, or ecchymosis. Airway is patent. Throat is clear. NECK: Nontender. No swelling or evidence of injury. No subcutaneous emphysema. Trachea is midline. No thyroid mass. HEART: Regular rate and rhythm. Good peripheral pulses. LUNGS/CHEST: Breath sounds clear and equal bilaterally. No rales, rhonchi, or wheezes. No ecchymosis, subcutaneous emphysema, or tenderness. ABDOMEN: Abdomen soft without tenderness. No palpable masses or organomegaly. No peritoneal signs. No abdominal wall swelling or ecchymosis. EXTREMITIES: There is a complex dressing noted to the right foot and ankle. There is a smaller dressing noted to the left foot. Normal muscle tone and function. No thoracolumbar tenderness. NEUROLOGIC: Sensation is grossly intact. Cranial nerve exam reveals face is symmetrical, tongue is midline, speech is clear. SKIN: No abrasions or ecchymosis is noted. No induration or masses noted. PSYCHIATRIC: Alert and pleasant, no apparent distress. Demented. Limitations: no limitations Course Vital Signs 06/16/16 06/16/16 06/16/16 18:04 18:13 19:40 Temperature 97.1 F L 97.0 F L Pulse Rate 51 L 67 Pulse Rate [ 53 L Reservationist ] Respiratory 16 18 Rate Blood Pressure 103/51 132/70 O2 Sat by Pulse 100 95 Oximetry Medical Decision Making - Medical Decision Making The patient was seen and examined. All diagnostics were reviewed. Laboratory was reviewed. His vancomycin level is quite high at 53.1 with a normal being 10 -20. His creatinine is also significantly elevated at 5.04 which apparently is significantly increased for him. He is mildly anemic with hemoglobin of 10.7. The chest x-ray was done and there is no acute process identified. Is felt that he is in acute renal failure at this time and would require admission. He also has some vancomycin toxicity. Vancomycin will be held for now. The case is discussed with Dr. Miles and he is agreeable in regard to admission with nephrology and infectious disease to consult. - Lab Data Result diagrams: 06/16/16 18:10 06/16/16 18:10 Lab Results 06/16/16 06/16/16 06/16/16 Range/Units 18:10 18:10 18:10 WBC 6.6 (3.8-10.6) k/uL RBC 3.48 L (4.30-5.90) m/uL Hgb 10.7 L (13.0-17.5) gm/dL Hct 31.1 L (39.0-53.0) % MCV 89.4 (80.0-100.0) fL MCH 30.8 (25.0-35.0) pg MCHC 34.5 (31.0-37.0) g/dL RDW 14.5 (11.5-15.5) % Plt Count 134 L (150-450) k/uL Neutrophils % 69 % Lymphocytes % 21 % Monocytes % 6 % Eosinophils % 2 % Basophils % 1 % Neutrophils # 4.5 (1.3-7.7) k/uL Lymphocytes # 1.4 (1.0-4.8) k/uL Monocytes # 0.4 (0-1.0) k/uL Eosinophils # 0.2 (0-0.7) k/uL Basophils # 0.1 (0-0.2) k/uL PT 11.8 (9.0-12.0) sec INR 1.2 (<1.1) APTT 26.8 (22.0-30.0) sec Sodium 139 (137-145) mmol/L Potassium 4.2 (3.5-5.1) mmol/L Chloride 104 (98-107) mmol/L Carbon Dioxide 19 L (22-30) mmol/L Anion Gap 16 mmol/L BUN 43 H (9-20) mg/dL Creatinine 5.04 H* (0.66-1.25) mg/dL Est GFR (MDRD) Af Amer 14 (>60 ml/min/1.73 sqM) Est GFR (MDRD) Non-Af 11 (>60 ml/min/1.73 sqM) Glucose 116 H (74-99) mg/dL Calcium 8.7 (8.4-10.2) mg/dL Total Bilirubin 0.7 (0.2-1.3) mg/dL AST 16 L (17-59) U/L ALT 21 (21-72) U/L Alkaline Phosphatase 98 (38-126) U/L Total Protein 6.2 L (6.3-8.2) g/dL Albumin 3.3 L (3.5-5.0) g/dL Disposition Clinical Impression: Chronic wound of extremity, Acute kidney injury, Accidental vancomycin overdose , Anemia, Diabetes, Skin infection, Dementia Disposition: ADMITTED IP TO THIS [facility] Condition: Fair Time of Disposition: 20:02 Decision Date: 06/16/16 Decision Time: 20:02
[2016-06-16] MEDS ORDERED: NALOXONE 0.4 MG/ML 1 ML VIAL IV PRN (20:03)
[2016-06-16] MEDS ORDERED: ONDANSETRON 4 MG/2 ML VIAL IVP PRN (20:03)
[2016-06-16] MEDS ORDERED: ALBUTEROL NEBULIZED 2.5 MG/3 ML INHALATION PRN (20:06)
[2016-06-16 20:40] LABS: Glucose,Whole Blood 315 mg/dL (75-99)
[2016-06-16] MEDS ORDERED: LISINOPRIL 2.5 MG TAB PO SCH (21:00)
[2016-06-17] MEDS: COLLAGENASE 250 UNIT/GM OINTMENT 30 GM TUBE TOPICAL SCH ×2 (00:22→20:17)
[2016-06-17 00:23] LABS: Glucose,Whole Blood 108 mg/dL (75-99)
[2016-06-17] MEDS: APIXABAN 5 MG TAB PO SCH ×2 (00:23→08:35)
[2016-06-17] MEDS: MONTELUKAST 10 MG TAB PO SCH ×2 (00:23→20:18)
[2016-06-17] MEDS: MIRTAZAPINE 15 MG TAB PO SCH ×2 (00:23→20:17)
[2016-06-17] MEDS: ATORVASTATIN 40 MG TAB PO SCH ×2 (00:23→20:17)
[2016-06-17] MEDS: TAMSULOSIN 0.4 MG CAP.ER.24H PO SCH ×2 (00:23→20:18)
[2016-06-17] MEDS: INSULN ASP PRT/INSULIN ASPART 100 UNIT/ML 10 ML VIAL SQ SCH ×3 (00:26→17:39)
[2016-06-17] MEDS: ALPRAZolam 0.25 MG TAB PO PRN ×2 (01:19→23:04)
[2016-06-17 02:20] LABS: Glucose,Whole Blood 104 mg/dL (75-99)
[2016-06-17] MEDS: METOPROLOL TARTRATE 25 MG TAB PO SCH ×2 (03:07→20:17)
[2016-06-17] MEDS: FUROSEMIDE 20 MG TAB PO SCH ×3 (06:27→12:52)
[2016-06-17 07:28] LABS: Glucose,Whole Blood 104 mg/dL (75-99)
[2016-06-17] MEDS: CLOPIDOGREL 75 MG TAB PO SCH (08:35)
[2016-06-17] MEDS: DIGOXIN 125 MCG TAB PO SCH (08:35)
[2016-06-17] MEDS: MEMANTINE 5 MG TAB PO SCH (08:36)
[2016-06-17] MEDS: METOPROLOL TARTRATE 50 MG TAB PO SCH (08:36)
[2016-06-17] MEDS: ZINC OXIDE 20% OINT 28.4 GM TUBE TOPICAL SCH (08:37)
[2016-06-17] MEDS: PANTOPRAZOLE 40 MG/10 ML VIAL IV SCH (08:37)
[2016-06-17] MEDS: SPIRONOLACTONE 25 MG TAB PO SCH (08:37)
[2016-06-17 08:53] LABS: Basophils % (A) 1 %; CH 31.2; Eosinophils # (A) 0.2 k/uL (0-0.7); Eosinophils % (A) 3 %; HCT 29.4 % (39.0-53.0); HDW 2.87; HGB 9.8 gm/dL (13.0-17.5); Luc # (Auto) 0.06; Luc % (Auto) 1; Lymphocytes # (A) 1.2 k/uL (1.0-4.8); Lymphocytes % (A) 21 %; MCH 30.6 pg (25.0-35.0); MCHC 33.2 g/dL (31.0-37.0); MCV 92.2 fL (80.0-100.0); Mean Platelet Volume 7.5; Monocytes # (A) 0.4 k/uL (0-1.0); Monocytes % (A) 6 %; Neutrophils % (A) 69 %; RBC 3.19 m/uL (4.30-5.90); RDW 14.5 % (11.5-15.5); WBC 5.8 k/uL (3.8-10.6); WBC (Perox) 6.09
[2016-06-17 09:04] LABS: Calcium 8.1 mg/dL (8.4-10.2)
--- NOTE | 2016-06-17 10:31 | P.NPCON ---
History of Present Illness - Reason for Consult acute renal failure - History of Present Illness Reason for consultation: Acute kidney injury History of present illness: Patient is a 76-year-old male seen in renal consultation for acute kidney injury. His baseline creatinine is near 1 and was elevated at 5.0 for the time of admission yesterday and is up to 5.27 today. Patient has a right foot wound for which she's been maintained on IV vancomycin as an outpatient. He also follows at wound clinic with Dr. Scruggs. His vancomycin level has been gradually increasing and was up to 53.1 as of June 16. His urinalysis from 06/04/2016 was benign. Patient denies any vomiting or diarrhea. Denies use of NSAIDs at home. Denies any chest pain or shortness of breath. Currently feels quite sleepy. He has been voiding. Denies hematuria or dysuria. No other complaints at this time. Vital signs are stable. General: The patient appeared well nourished and normally developed. HEENT: Head exam is unremarkable. Neck is without jugular venous distension. LUNGS: Lungs are clear to auscultation and percussion. Breath sounds decreased. HEART: Rate and Rhythm are regular. First and second heart sounds normal. No murmurs, rubs or gallops. ABDOMEN: Abdominal exam reveals normal bowel sounds. Non-tender and non- distended. No evidence of peritonitis. EXTREMITITES: No clubbing, cyanosis, or edema. Past Medical History Past Medical History: Atrial Fibrillation, Asthma, Coronary Artery Disease (CAD) , Heart Failure, COPD, Dementia, Diabetes Mellitus, Deep Vein Thrombosis (DVT), Hyperlipidemia, Hypertension, Myocardial Infarction ([place]), Osteoarthritis (OA), Renal Disease, Respiratory Disorder, Sleep Apnea/CPAP/BIPAP, Vascular Disorder Additional Past Medical History / Comment(s): metabolic encephalopathy, DVT L leg 2008, PAD, bronchitis, MAY no device, neuropathy bilateral feet, BPH, Chronic kidney disease diverticulosis. Last Myocardial Infarction Date:: unknown History of Any Multi-Drug Resistant Organisms: MRSA Date of last positivie culture/infection: 06/04/16 MDRO Source:: Blood Past Surgical History: Coronary Bypass/CABG, Heart Catheterization, Orthopedic Surgery, Pacemaker Additional Past Surgical History / Comment(s): AICD 2007, DFT 2014, CABG-2 vessel 1999, L wrist surgery, R foot hammer toe repair, bilateral great toenails removed, bunionectomies bilateral feet, arch/aortagram, L femoral artery thromboendartectomy, Ccaths x possible 2, cataract removal bilaterally, colonoscopy, circumcism. R great toe amputation Past Anesthesia/Blood Transfusion Reactions: No Reported Reaction Type of Cardiac Device: AICD Device Placement Date:: 2007 Past Psychological History: Depression Additional Psychological History / Comment(s): Pt resides with his spouse. She has a walker that he uses if he is going to walk far. He does not drive-his spouse is his clinical molecular geneticist and she drives him. He is a . He has memory problems. Smoking Status: Never smoker Past Alcohol Use History: None Reported Additional Past Alcohol Use History / Comment(s): Pt smoked cigars starting in 1962 and quit in 1999. Past Drug Use History: None Reported - Past Family History Mother Family Medical History: Myocardial Infarction ([place]) Additional Family Medical History / Comment(s): Mother of a [place] in her 50's Brother(s) Family Medical History: Deep Vein Thrombosis (DVT) Additional Family Medical History / Comment(s): POSS DVT. Father Family Medical History: CVA/TIA Additional Family Medical History / Comment(s): Father of a CVA at unknown age. Medications and Allergies Home Medications Medication Instructions Recorded Confirmed Type Tamsulosin [Flomax] 0.4 mg PO HS 10/04/15 06/16/16 History Albuterol Inhaler [Ventolin Hfa 2 puff INHALATION RT-Q4H PRN 11/15/15 06/16/16 History Inhaler] Apixaban [Eliquis] 5 mg PO BID@0900,2100 11/15/15 06/16/16 History Digoxin [Digitek] 125 mcg PO DAILY 11/15/15 06/16/16 History Mirtazapine [Remeron] 7.5 mg PO HS 11/15/15 06/16/16 History Memantine [Namenda] 5 mg PO DAILY 02/10/16 06/16/16 History Atorvastatin [Lipitor] 40 mg PO HS 05/07/16 06/16/16 History Clopidogrel [Plavix] 75 mg PO DAILY 05/07/16 06/16/16 History Furosemide [Lasix] 20 mg PO TID@0600,0900,1200 05/07/16 06/16/16 History Insuln Asp Prt/Insulin Aspart 10 unit SQ BID 05/07/16 06/16/16 History [NovoLOG MIX 70-30 VIAL] Spironolactone [Aldactone] 25 mg PO DAILY 05/07/16 06/16/16 History Acetaminophen Tab [Tylenol] 650 mg PO Q4H PRN 06/04/16 06/16/16 History Collagenase [Santyl] 1 applic TOPICAL HS 06/04/16 06/16/16 History Lisinopril [Zestril] 2.5 mg PO HS 06/04/16 06/16/16 History Montelukast Sodium [Singulair] 10 mg PO HS 06/15/16 06/16/16 History Dimethicone/Zinc Oxide [Inzo Zinc 1 applic TOPICAL DAILY 06/16/16 06/16/16 History Oxide Barrier Cream] Vancomycin 750 mg IVPB BID@0900,2100 06/16/16 06/16/16 History Allergies Allergy/AdvReac Type Severity Reaction Status Date / Time No Known Allergies Allergy Verified 06/16/16 19:11 Physical Exam Vitals: Vital Signs Temp Pulse Pulse Resp BP BP Pulse Ox 06/17/16 07:00 96.8 F L 55 L 20 87/51 99 06/16/16 23:00 97.6 F 51 L 16 135/65 100 06/16/16 20:31 97.0 F L 54 L 16 165/63 100 Intake and Output 06/16/16 06/17/16 06/17/16 22:59 06:59 14:59 Intake Total 0 Balance 0 Intake: Oral 0 Other: # Voids 1 # Bowel Movements 1 Results - Lab Results Most recent lab results Calcium 8.1 mg/dL (8.4-10.2) L 06/17/16 08:00 06/17/16 08:00 06/17/16 08:00 Assessment and Plan Plan: Assessment: #1. Nonoliguric acute kidney injury secondary to nephrotoxic ATN secondary to vancomycin toxicity. Vancomycin level LIII.1 as of 06/16/2016. Urinalysis from 06/04/2016 benign. #2. Right foot wound as well as recent MRSA bacteremia. #3. Anemia. Rule out iron deficiency. #4. Metabolic acidosis secondary to acute kidney injury. #5. Insulin-dependent diabetes mellitus. #6. Hypertension. Labile. Plan: Check urinalysis and a renal ultrasound. Next line check urine eosinophils. Vancomycin is currently held. Check iron studies. Avoid nephrotoxic agents and hypotensive episodes. Discontinue lisinopril for now. Hold diuretics Hold antihypertensives for systolic blood pressure less than 120. Maintain IV hydration. Currently on normal saline running at 75 mL an hour. Repeat electrolytes in the morning. Start oral sodium bicarbonate supplementation. Thank you for the consultation. I will continue to follow the patient with you during his hospital stay.
[2016-06-17 11:37] LABS: % Iron Saturation 20.3 % (20-50)
--- NOTE | 2016-06-17 11:47 | US ---
EXAMINATION TYPE: US kidneys/renal and bladder DATE OF EXAM: 06/17/2016 10:25 AM COMPARISON: NONE CLINICAL HISTORY: ollie. In-patient with abnormal labs EXAM MEASUREMENTS: Right Kidney: 13.3 x 5.1 x 5.2 cm Left Kidney: 11.5 x 4.9 x 4.8 cm TECHNOLOGIST IMPRESSION: Right Kidney: Appeared wnl Left Kidney: Appeared wnl Bladder: Irregular posterior wall, otherwise appeared wnl, there may be trabeculated wall of the blad zeus. Bilateral Jets seen: Only right jet visualized There is no evidence for hydronephrosis at this point in time. No nephrolithiasis is seen. No evette s are identified. The urinary bladder is anechoic. Cortical medullary differentiation is maintained. IMPRESSION: Findings in the bladder as described possibly related to chronic outlet obstruction.
[2016-06-17 11:53] LABS: Amorphous Sediment,Urine Occasional /hpf; Appearance,Urine Cloudy (Clear); Bilirubin,Urine Negative (Negative); Glucose,Urine (UA) Negative (Negative); Ketones,Urine Negative (Negative); Leukocyte Esterase,Urine Negative (Negative); Mucus,Urine Occasional /hpf; Nitrite,Urine Negative (Negative); Particle Count 5675; Protein,Urine Negative (Negative); Specific Gravity,Urine 1.006 (1.001-1.035); UA Billing (MACRO vs. MICRO) MICRO; Urobilinogen,Urine <2.0 mg/dL (<2.0); WBC,Urine 1 /hpf (0-5)
[2016-06-17 12:03] LABS: Glucose,Whole Blood 99 mg/dL (75-99)
[2016-06-17] MEDS: SODIUM BICARBONATE TAB 650 MG TAB PO SCH ×2 (12:53→20:18)
[2016-06-17] MEDS: SODIUM CHLORIDE 0.9% 1,000 ML IV SCH (12:55)
--- NOTE | 2016-06-17 14:55 | P.CONS ---
History of Present Illness - Reason for Consult Consult date: 06/17/16 Right foot infection - History of Present Illness 76-year-old male known to infectious disease. Earlier last year he has significant difficulty with his right groin area. He had undergone cardiac catheterization and developed a significant infection to his right groin. Record transfer to outside hospital for further surgical intervention with concerns to a necrotizing infection. Fortunately he improved. He continued to have severe peripheral vascular disease. On November 17, Dr. Simon performed the right great toe amputation. Since that time it's been an ongoing ulceration was followed in the wound healing center with Dr. Simon. He is currently at home with his and local wound care is in the form of Santyl. She was recently hospitalized June 04 through June 10 and then was discharged to [facility]. He was treated for bacteremia with MRSA, alphahemolytic strep and diphtheroids species and was placed on vancomycin for 2 week course. Patient is having regular lab work done at the halfway and on June 15 his BUN was 35 and creatinine 3.7. He was sent into [facility] because of this. Repeat BUN was 43 and 5.04 and this morning 44 and 5.27. Also vancomycin level on June 12 was 31.4 and repeat on June 16 is 53.1. Dig level was 1.4. He has been afebrile. Chest x-ray showed no acute process. He was admitted to the [facility] floor. Vancomycin has been on hold. Nephrology is following Review of Systems ROS unobtainable: due to mental status All systems: negative Constitutional: Denies chills, Denies fever Eyes: denies blurred vision, denies pain Ears, nose, mouth and throat: Denies headache, Denies sore throat Cardiovascular: Denies chest pain, Denies shortness of breath Respiratory: Denies cough Gastrointestinal: Denies abdominal pain, Denies diarrhea, Denies nausea, Denies vomiting Musculoskeletal: Denies myalgias Integumentary: Denies pruritus, Denies rash Neurological: Denies numbness, Denies weakness Psychiatric: Denies anxiety, Denies depression Endocrine: Denies fatigue, Denies weight change Past Medical History Past Medical History: Atrial Fibrillation, Asthma, Coronary Artery Disease (CAD) , Heart Failure, COPD, Dementia, Diabetes Mellitus, Deep Vein Thrombosis (DVT), Hyperlipidemia, Hypertension, Myocardial Infarction ([place]), Osteoarthritis (OA), Renal Disease, Respiratory Disorder, Sleep Apnea/CPAP/BIPAP, Vascular Disorder Additional Past Medical History / Comment(s): metabolic encephalopathy, DVT L leg 2008, PAD, bronchitis, MAY no device, neuropathy bilateral feet, BPH, Chronic kidney disease diverticulosis. Last Myocardial Infarction Date:: unknown History of Any Multi-Drug Resistant Organisms: MRSA Year Discovered:: 06/04/16 MDRO Source:: Blood Past Surgical History: Coronary Bypass/CABG, Heart Catheterization, Orthopedic Surgery, Pacemaker Additional Past Surgical History / Comment(s): AICD 2007, DFT 2014, CABG-2 vessel 1999, L wrist surgery, R foot hammer toe repair, bilateral great toenails removed, bunionectomies bilateral feet, arch/aortagram, L femoral artery thromboendartectomy, Ccaths x possible 2, cataract removal bilaterally, colonoscopy, circumcism. R great toe amputation Past Anesthesia/Blood Transfusion Reactions: No Reported Reaction Type of Cardiac Device: AICD Device Placement Date:: 2007 Past Psychological History: Depression Additional Psychological History / Comment(s): Pt resides with his spouse. She has a walker that he uses if he is going to walk far. He does not drive-his spouse is his perfect binder operator and she drives him. He is a . He has memory problems. Smoking Status: Never smoker Past Alcohol Use History: None Reported Additional Past Alcohol Use History / Comment(s): Pt smoked cigars starting in 1961 and quit in 1999. Past Drug Use History: None Reported - Past Family History Mother Family Medical History: Myocardial Infarction ([place]) Additional Family Medical History / Comment(s): Mother of a [place] in her 50's Brother(s) Family Medical History: Deep Vein Thrombosis (DVT) Additional Family Medical History / Comment(s): POSS DVT. Father Family Medical History: CVA/TIA Additional Family Medical History / Comment(s): Father of a CVA at unknown age. Medications and Allergies Home Medications Medication Instructions Recorded Confirmed Type Tamsulosin [Flomax] 0.4 mg PO HS 10/04/15 06/16/16 History Albuterol Inhaler [Ventolin Hfa 2 puff INHALATION RT-Q4H PRN 11/15/15 06/16/16 History Inhaler] Apixaban [Eliquis] 5 mg PO BID@0900,2100 11/15/15 06/16/16 History Digoxin [Digitek] 125 mcg PO DAILY 11/15/15 06/16/16 History Mirtazapine [Remeron] 7.5 mg PO HS 11/15/15 06/16/16 History Memantine [Namenda] 5 mg PO DAILY 02/10/16 06/16/16 History Atorvastatin [Lipitor] 40 mg PO HS 05/07/16 06/16/16 History Clopidogrel [Plavix] 75 mg PO DAILY 05/07/16 06/16/16 History Furosemide [Lasix] 20 mg PO TID@0600,0900,1200 05/07/16 06/16/16 History Insuln Asp Prt/Insulin Aspart 10 unit SQ BID 05/07/16 06/16/16 History [NovoLOG MIX 70-30 VIAL] Spironolactone [Aldactone] 25 mg PO DAILY 05/07/16 06/16/16 History Acetaminophen Tab [Tylenol] 650 mg PO Q4H PRN 06/04/16 06/16/16 History Collagenase [Santyl] 1 applic TOPICAL HS 06/04/16 06/16/16 History Lisinopril [Zestril] 2.5 mg PO HS 06/04/16 06/16/16 History Montelukast Sodium [Singulair] 10 mg PO HS 06/15/16 06/16/16 History Dimethicone/Zinc Oxide [Inzo Zinc 1 applic TOPICAL DAILY 06/16/16 06/16/16 History Oxide Barrier Cream] Vancomycin 750 mg IVPB BID@0900,2100 06/16/16 06/16/16 History Allergies Allergy/AdvReac Type Severity Reaction Status Date / Time No Known Allergies Allergy Verified 06/16/16 19:11 Physical Exam Vitals: Vital Signs Temp Pulse Pulse Resp BP BP Pulse Ox 06/17/16 07:00 96.8 F L 55 L 20 87/51 99 06/16/16 23:00 97.6 F 51 L 16 135/65 100 06/16/16 20:31 97.0 F L 54 L 16 165/63 100 Intake and Output 06/16/16 06/17/16 06/17/16 22:59 06:59 14:59 Intake Total 0 Balance 0 Intake: Oral 0 Other: # Voids 1 # Bowel Movements 1 General appearance: average body habitus, cooperative, no acute distress - EENT Eyes: Reports anicteric sclerae, Reports EOMI, Reports PERRLA, Reports dentition normal ENT: Reports hearing grossly normal, Reports NA/AT, Reports normal oropharynx - Neck Neck: Reports normal ROM, Denies lymphadenopathy, Denies other, Denies rigidity , Denies stridor, Denies thyromegaly Thyroid: bilateral: normal size - Respiratory Respiratory: bilateral: CTA, diminished - Cardiovascular Rhythm: irregular Heart sounds: normal: S1, S2, systolic murmur - Gastrointestinal General gastrointestinal: Reports normal bowel sounds, Reports soft - Integumentary Integumentary: Reports normal, Reports normal turgor - Neurologic Neurologic: CNII-XII intact - Musculoskeletal Musculoskeletal: Reports strength equal bilaterally. Healing wound to the right great toe amputation site, no significant erythema, drainage, swelling. Eschar to the distal second toe may be slightly increased from last hospitalization. - Psychiatric Psychiatric: Reports A&O x's1, Reports appropriate affect, Denies intact judgment & insight (Short-term memory loss) Results Results: Laboratory Results WBC 5.8 k/uL (3.8-10.6) 06/17/16 08:00 RBC 3.19 m/uL (4.30-5.90) L 06/17/16 08:00 Hgb 9.8 gm/dL (13.0-17.5) L 06/17/16 08:00 Hct 29.4 % (39.0-53.0) L 06/17/16 08:00 MCV 92.2 fL (80.0-100.0) 06/17/16 08:00 MCH 30.6 pg (25.0-35.0) 06/17/16 08:00 MCHC 33.2 g/dL (31.0-37.0) 06/17/16 08:00 RDW 14.5 % (11.5-15.5) 06/17/16 08:00 Plt Count 122 k/uL (150-450) L 06/17/16 08:00 Neutrophils % 69 % 06/17/16 08:00 Lymphocytes % 21 % 06/17/16 08:00 Monocytes % 6 % 06/17/16 08:00 Eosinophils % 3 % 06/17/16 08:00 Basophils % 1 % 06/17/16 08:00 Neutrophils # 4.0 k/uL (1.3-7.7) 06/17/16 08:00 Lymphocytes # 1.2 k/uL (1.0-4.8) 06/17/16 08:00 Monocytes # 0.4 k/uL (0-1.0) 06/17/16 08:00 Eosinophils # 0.2 k/uL (0-0.7) 06/17/16 08:00 Basophils # 0.0 k/uL (0-0.2) 06/17/16 08:00 PT 11.8 sec (9.0-12.0) 06/16/16 18:10 INR 1.2 (<1.1) 06/16/16 18:10 APTT 26.8 sec (22.0-30.0) 06/16/16 18:10 Sodium 142 mmol/L (137-145) 06/17/16 08:00 Potassium 4.0 mmol/L (3.5-5.1) 06/17/16 08:00 Chloride 109 mmol/L (98-107) H 06/17/16 08:00 Carbon Dioxide 19 mmol/L (22-30) L 06/17/16 08:00 Anion Gap 14 mmol/L 06/17/16 08:00 BUN 44 mg/dL (9-20) H 06/17/16 08:00 Creatinine 5.27 mg/dL (0.66-1.25) H* 06/17/16 08:00 Est GFR (MDRD) Af Amer 13 (>60 ml/min/1.73 sqM) 06/17/16 08:00 Est GFR (MDRD) Non-Af 11 (>60 ml/min/1.73 sqM) 06/17/16 08:00 Glucose 89 mg/dL (74-99) 06/17/16 08:00 POC Glucose (mg/dL) 104 mg/dL (75-99) H 06/17/16 07:25 POC Glu Set Up Operator HUSSAIN Svetlana Felton 06/17/16 07:25 Calcium 8.1 mg/dL (8.4-10.2) L 06/17/16 08:00 Total Bilirubin 0.7 mg/dL (0.2-1.3) 06/16/16 18:10 AST 16 U/L (17-59) L 06/16/16 18:10 ALT 21 U/L (21-72) 06/16/16 18:10 Alkaline Phosphatase 98 U/L (38-126) 06/16/16 18:10 Total Protein 6.2 g/dL (6.3-8.2) L 06/16/16 18:10 Albumin 3.3 g/dL (3.5-5.0) L 06/16/16 18:10 Digoxin 1.4 ng/mL 06/16/16 18:10 CBC & Chem 7: 06/17/16 08:00 06/17/16 08:00 Labs: Abnormal Lab Results - Last 24 Hours (Table) 06/16/16 06/17/16 06/17/16 Range/Units 20:38 00:22 02:18 RBC (4.30-5.90) m/uL Hgb (13.0-17.5) gm/dL Hct (39.0-53.0) % Plt Count (150-450) k/uL Chloride (98-107) mmol/L Carbon Dioxide (22-30) mmol/L BUN (9-20) mg/dL Creatinine (0.66-1.25) mg/dL POC Glucose (mg/dL) 315 H 108 H 104 H (75-99) mg/dL Calcium (8.4-10.2) mg/dL 06/17/16 06/17/16 06/17/16 Range/Units 07:25 08:00 08:00 RBC 3.19 L (4.30-5.90) m/uL Hgb 9.8 L (13.0-17.5) gm/dL Hct 29.4 L (39.0-53.0) % Plt Count 122 L (150-450) k/uL Chloride 109 H (98-107) mmol/L Carbon Dioxide 19 L (22-30) mmol/L BUN 44 H (9-20) mg/dL Creatinine 5.27 H* (0.66-1.25) mg/dL POC Glucose (mg/dL) 104 H (75-99) mg/dL Calcium 8.1 L (8.4-10.2) mg/dL Assessment and Plan Plan: This is a 76-year-old male who is well-known to ID services. He presented to acute kidney injury and toxic level on vancomycin. Vancomycin is currently on hold. Local wound care to the wound right foot will be addressed. Continue supportive care. Further recommendations as patient progresses. The above dictated assessment and findings were discussed with Dr. Scruggs. The impression and plan of care have been directed as dictated. Felisha Hernandez nurse practitioner acting as scribe for Dr. Scruggs. Time with Patient: Greater than 30
[2016-06-17] MEDS: ACETAMINOPHEN TAB 325 MG TAB PO PRN ×2 (16:22→23:04)
[2016-06-17 17:00] LABS: Glucose,Whole Blood 168 mg/dL (75-99)
[2016-06-17 20:43] LABS: Glucose,Whole Blood 142 mg/dL (75-99)
[2016-06-17] MEDS ORDERED: APIXABAN 2.5 MG TABLET PO SCH (21:00)
[2016-06-17] MEDS ORDERED: APIXABAN 5 MG TAB PO SCH (21:00)
--- NOTE | 2016-06-17 21:54 | P.CON ---
Consult Note - . Consult date: 06/17/16 Assessment/Plan:: 76-year-old male known to infectious disease. Earlier last year he has significant difficulty with his right groin area. He had undergone cardiac catheterization and developed a significant infection to his right groin. Record transfer to outside hospital for further surgical intervention with concerns to a necrotizing infection. Fortunately he improved. He continued to have severe peripheral vascular disease. On November 17, Dr. Simon performed the right great toe amputation. Since that time it's been an ongoing ulceration was followed in the wound healing center with Dr. Simon. He is currently at home with his and local wound care is in the form of Santyl. She was recently hospitalized June 04 through June 10 and then was discharged to [facility]. He was treated for bacteremia with MRSA, alphahemolytic strep and diphtheroids species and was placed on vancomycin for 2 week course. Patient is having regular lab work done at the assisted and on June 15 his BUN was 35 and creatinine 3.7. He was sent into [facility] because of this. Repeat BUN was 43 and 5.04 and this morning 44 and 5.27. Also vancomycin level on June 12 was 31.4 and repeat on June 16 is 53.1. Dig level was 1.4. He has been afebrile. Chest x-ray showed no acute process. He was admitted to the [facility] floor. Vancomycin has been on hold. Nephrology is following Please see the consult note as dictated by nurse practitioner Felisha Eppersonjuvenal. This pleasant gentleman who has dementia was recently hospitalized with evidence of polymicrobial bacteremia and sepsis. He was discharged with vancomycin therapy with pharmacy dosing. The patient has rapidly developed acute renal failure and increasing vancomycin levels. On 112 his creatinine was 1.58 and after hydration improved to 1.04. On 117 at the time of his discharge his creatinine was 1.13. It is noted that on the increased to 3.4 and the increased to 3.90 and 5.27 most recent reading. At this time the patient has evidence of renal failure that is multifactorial in its nature. Including his recent renal failure, dehydration, and vancomycin toxicity. Vancomycin is on hold. Once levels decrease in her no longer therapeutic will still need to be treated with antimicrobial therapy to complete his course of treatment for his recent sepsis which was polymicrobial. Likely will be daptomycin to complete his 2 week total course of therapy. Nephrology is following. I agree with evaluation, assessment and plan as dictated by nurse practitioner Mrs. Felisha Hernandez.
--- NOTE | 2016-06-17 22:58 | P.HPIM ---
History of Present Illness H&P Date: 06/17/16 Chief Complaint: Acute kidney injury, chronic vestibulitis on IV antibiotic, CAD , COPD 76-year-old male one of my office patient with multiple medical problem who was in the hospital last in 06/04/2016 and was sent to [facility] on leg after his hospitalization. 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 Scruggs remain on vancomycin orally for it still seen at the wound clinic. Patient ended up and [facility] on Vanco IV and wound care as well. His Vanco level on the came back quite bit high at 56 with slightly declining kidney function. Repeat kidney function and Vanco level on the came back with creatinine above 5 BUN in the 80s patient has been in acute renal failure his Vanco level still significantly high in the mid 30 despite not been on Vanco at this point. The patient was transferred to the emergency department at [facility] and admitted to the hospital for acute kidney failure, Osborne catheter was placed and IV fluid with hydration and watch his urine output on regular basis. Review of Systems Constitutional: Reports anorexia, Reports fatigue, Reports lethargy, Reports malaise, Reports poor appetite, Reports weakness, Reports weight loss, Denies as per HPI, Denies chills, Denies chronic headaches, Denies chronic pain, Denies daytime sleepiness, Denies fever, Denies night sweats, Denies sweats, Denies weight gain Eyes: bilateral as per HPI Ears: bilateral: decreased hearing Ears, nose, mouth and throat: Reports ant. neck pain, Reports nasal discharge, Reports sinus pain, Reports sinus pressure, Denies as per HPI, Denies bleeding gums, Denies dental pain, Denies dysphagia, Denies epistaxis, Denies headache, Denies hoarseness, Denies mouth pain, Denies nasal congestion, Denies neck fullness/pressure, Denies neck lump, Denies nose pain, Denies odynophagia, Denies post-nasal drip, Denies swelling in mouth, Denies swelling in throat, Denies sore throat, Denies vertigo, Denies voice changes Cardiovascular: Reports chest pain, Reports decreased exercise tolerance, Reports dyspnea on exertion, Reports irregular heart beat, Reports paroxysmal nocturnal dyspnea, Reports rapid heart beat, Denies as per HPI, Denies claudication, Denies edema, Denies high blood pressure, Denies leg edema, Denies lightheadedness, Denies orthopnea, Denies palpitations, Denies phlebitis , Denies shortness of breath, Denies syncope Respiratory: Reports congestion, Reports dyspnea, Denies as per HPI, Denies cough, Denies cough with sputum, Denies excessive sputum, Denies hemoptysis, Denies home oxygen, Denies pain, Denies pain on inspiration, Denies pleurisy, Denies respiratory infections, Denies sleep apnea, Denies snoring, Denies wheezing Gastrointestinal: Reports abdominal pain, Reports bloating, Reports early satiety, Reports indigestion, Reports nausea, Denies as per HPI, Denies belching , Denies BRBPR, Denies change in bowel habits, Denies coffee ground emesis, Denies constipation, Denies diarrhea, Denies dyspepsia, Denies excessive gas, Denies heartburn, Denies hematemesis, Denies hematochezia, Denies jaundice, Denies lactose intolerance, Denies loss of appetite, Denies melena, Denies vomiting Genitourinary: Reports urinary hesitancy, Reports urinary retention, Denies as per HPI, Denies decreased libido, Denies difficulties fathering child, Denies discharge, Denies dysuria, Denies erectile dysfunction, Denies flank pain, Denies genital pain, Denies genital sores, Denies hematuria, Denies impotence, Denies incontinence, Denies kidney stones, Denies nocturia, Denies polyuria, Denies testicular lump, Denies testicular pain, Denies urinary frequency Musculoskeletal: Reports arm numbness/tingling, Reports frequent falls, Reports leg numbness/tingling, Reports limitation of motion, Reports myalgias, Reports neck pain, Reports neck stiffness, Denies as per HPI, Denies atrophy, Denies fractures, Denies gait dysfunction, Denies hot joints, Denies loss of height, Denies low back pain, Denies morning stiffness, Denies muscle cramps, Denies muscle weakness, Denies prior amputations, Denies redness of joints, Denies shooting arm pain, Denies shooting leg pain Integumentary: Reports color changes, Reports darkening of skin, Reports dryness , Reports rash, Denies as per HPI, Denies acne, Denies boils, Denies brittle nails, Denies change in hair/nails, Denies depigmentation, Denies foot/leg ulcers, Denies growths, Denies hirsutism, Denies lesions, Denies onychomycosis, Denies pruritus, Denies sores, Denies striae, Denies unusual bruising, Denies wounds Neurological: Reports numbness, Reports paresthesias, Reports tingling, Reports weakness, Denies as per HPI, Denies aphasia, Denies ataxia, Denies balance difficulties, Denies burning pain, Denies change in mentation, Denies change in smell/taste, Denies change in speech, Denies confusion, Denies convulsions, Denies double vision, Denies gait dysfunction, Denies head injury, Denies headaches, Denies hearing difficulties, Denies lack of coordination, Denies loss of vision, Denies memory loss, Denies migraines, Denies motor disturbance, Denies paralysis, Denies seizures, Denies sensory deficit, Denies spasticity, Denies syncope, Denies tic, Denies transient paralysis, Denies tremors, Denies vertigo, Denies visual changes Psychiatric: Reports anhedonia, Reports anxiety, Reports depression, Reports memory loss, Reports mood swings, Denies as per HPI, Denies anxiety attacks, Denies change in appetite, Denies change in libido, Denies change in sleep habits, Denies confusion, Denies difficulty concentrating, Denies disorientation , Denies hallucinations, Denies hopelessness, Denies hypersomnia, Denies insomnia, Denies irritability, Denies paranoia, Denies sadness/tearfulness, Denies sleep disturbances, Denies suicidal ideation Endocrine: Reports cold intolerance, Reports fatigue, Reports polyuria, Denies as per HPI, Denies deepening of the voice, Denies excessive sweating, Denies excessive thirst, Denies flushing, Denies heat intolerance, Denies high blood sugars, Denies increase in ring/shoe/hat size, Denies low blood sugars, Denies nocturia, Denies palpitations, Denies polydipsia, Denies polyphagia, Denies proptosis, Denies recent glucocorticoid use, Denies thyroid mass, Denies weight change Hematologic/Lymphatic: Reports easy bruising, Denies as per HPI, Denies easy bleeding, Denies lymphadenopathy, Denies lymphedema, Denies thrombophilia Allergic/Immunologic: Denies as per HPI, Denies allergic rhinitis, Denies anaphylaxis, Denies angioedema, Denies gluten intolerance, Denies persistent infections, Denies seasonal allergies, Denies urticaria, Denies wheezing Past Medical History Past Medical History: Atrial Fibrillation, Asthma, Coronary Artery Disease (CAD) , Heart Failure, COPD, Dementia, Diabetes Mellitus, Deep Vein Thrombosis (DVT), Hyperlipidemia, Hypertension, Myocardial Infarction (NV), Osteoarthritis (OA), Renal Disease, Respiratory Disorder, Sleep Apnea/CPAP/BIPAP, Vascular Disorder Additional Past Medical History / Comment(s): metabolic encephalopathy, DVT L leg 2008, PAD, bronchitis, MAY no device, neuropathy bilateral feet, BPH, Chronic kidney disease diverticulosis. Last Myocardial Infarction Date:: unknown History of Any Multi-Drug Resistant Organisms: MRSA Date of last positivie culture/infection: 06/04/16 MDRO Source:: Blood Past Surgical History: Coronary Bypass/CABG, Heart Catheterization, Orthopedic Surgery, Pacemaker Additional Past Surgical History / Comment(s): AICD 2007, DFT 2014, CABG-2 vessel 1999, L wrist surgery, R foot hammer toe repair, bilateral great toenails removed, bunionectomies bilateral feet, arch/aortagram, L femoral artery thromboendartectomy, Ccaths x possible 2, cataract removal bilaterally, colonoscopy, circumcism. R great toe amputation Past Anesthesia/Blood Transfusion Reactions: No Reported Reaction Type of Cardiac Device: AICD Device Placement Date:: 2007 Past Psychological History: Depression Additional Psychological History / Comment(s): Pt resides with his spouse. She has a walker that he uses if he is going to walk far. 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 He is a . He has memory problems. Smoking Status: Never smoker Past Alcohol Use History: None Reported Additional Past Alcohol Use History / Comment(s): Pt smoked cigars starting in 1962 and quit in 1999. Past Drug Use History: None Reported - Past Family History Mother Family Medical History: Myocardial Infarction (NV) Additional Family Medical History / Comment(s): Mother of a NV in her 50's Brother(s) Family Medical History: Deep Vein Thrombosis (DVT) Additional Family Medical History / Comment(s): POSS DVT. Father Family Medical History: CVA/TIA Additional Family Medical History / Comment(s): Father of a CVA at unknown age. Medications and Allergies Home Medications Medication Instructions Recorded Confirmed Type Tamsulosin [Flomax] 0.4 mg PO HS 10/04/15 06/16/16 History Albuterol Inhaler [Ventolin Hfa 2 puff INHALATION RT-Q4H PRN 11/15/15 06/16/16 History Inhaler] Apixaban [Eliquis] 5 mg PO BID@0900,2100 11/15/15 06/16/16 History Digoxin [Digitek] 125 mcg PO DAILY 11/15/15 06/16/16 History Mirtazapine [Remeron] 7.5 mg PO HS 11/15/15 06/16/16 History Memantine [Namenda] 5 mg PO DAILY 02/10/16 06/16/16 History Atorvastatin [Lipitor] 40 mg PO HS 05/07/16 06/16/16 History Clopidogrel [Plavix] 75 mg PO DAILY 05/07/16 06/16/16 History Furosemide [Lasix] 20 mg PO TID@0600,0900,1200 05/07/16 06/16/16 History Insuln Asp Prt/Insulin Aspart 10 unit SQ BID 05/07/16 06/16/16 History [NovoLOG MIX 70-30 VIAL] Spironolactone [Aldactone] 25 mg PO DAILY 05/07/16 06/16/16 History Acetaminophen Tab [Tylenol] 650 mg PO Q4H PRN 06/04/16 06/16/16 History Collagenase [Santyl] 1 applic TOPICAL HS 06/04/16 06/16/16 History Lisinopril [Zestril] 2.5 mg PO HS 06/04/16 06/16/16 History Montelukast Sodium [Singulair] 10 mg PO HS 06/15/16 06/16/16 History Dimethicone/Zinc Oxide [Inzo Zinc 1 applic TOPICAL DAILY 06/16/16 06/16/16 History Oxide Barrier Cream] Vancomycin 750 mg IVPB BID@0900,2100 06/16/16 06/16/16 History Allergies Allergy/AdvReac Type Severity Reaction Status Date / Time No Known Allergies Allergy Verified 06/16/16 19:11 Physical Exam Vitals: Vital Signs Temp Pulse Pulse Resp BP BP Pulse Ox 06/17/16 07:00 96.8 F L 55 L 20 87/51 99 06/16/16 23:00 97.6 F 51 L 16 135/65 100 06/16/16 20:31 97.0 F L 54 L 16 165/63 100 Intake and Output 06/16/16 06/17/16 06/17/16 22:59 06:59 14:59 Intake Total 600 Balance 600 Intake: Intake, IV Titration 600 Amount Sodium Chloride 0.9% 1, 600 000 ml @ 75 mls/hr IV . [id number] COUNTS INCLUDE 234 BEDS AT THE [facility] Rx#:[id number] Oral 0 Other: # Voids 1 # Bowel Movements 1 - Constitutional General appearance: no average body habitus, cooperative, disheveled, no mild distress, no morbidly obese, no acute distress, no obese, no severe distress, thin - EENT Eyes: no abnormal pupil, no anicteric sclerae, no disc margins sharp, no edentulous, no EOMI, no PERRLA, no fundus normal, no photophobia, no dentition normal, no poor dentition, no ptosis, no scleral icterus, normal appearance ENT: hard of hearing, no hearing grossly normal, no NA/AT, normal oropharynx, no other, no pharyngeal erythema, no thrush, no tonsillar exudates, no tonsillar swelling Ears: bilateral: normal - Neck Neck: no lymphadenopathy, no normal ROM, no other, no rigidity, no stridor, no thyromegaly Carotids: bilateral: upstroke normal Thyroid: bilateral: normal size - Respiratory Respiratory: bilateral: CTA, diminished - Cardiovascular Rhythm: regular Heart sounds: normal: S1, S2 Abnormal Heart Sounds: systolic murmur, no diastolic murmur, no rub, S3 Gallop, no S4 Gallop, no click, no other - Gastrointestinal General gastrointestinal: no absent bowel sounds, no decreased bowel sounds, distended, no hepatomegaly, no hyperactive bowel sounds, normal bowel sounds, no organomegaly, no rigid, no scaphoid, soft, no splenomegaly, tenderness, no umbilical hernia, no ventral hernia - Integumentary Left big toe post amputation second toe had mild gangrenous with dry skin. Integumentary: cellulitis, cyanotic, flushed, pale, rash, ulcer - Neurologic Neurologic: CNII-XII intact - Musculoskeletal Musculoskeletal: no gait normal, generalized weakness, no strength equal bilaterally, no right sided weakness, no left sided weakness - Psychiatric Psychiatric: A&O x's 3, no appropriate affect, no intact judgment & insight Results CBC & Chem 7: 06/17/16 08:00 06/17/16 08:00 Labs: Abnormal Lab Results - Last 24 Hours (Table) 06/16/16 06/17/16 06/17/16 Range/Units 20:38 00:22 02:18 RBC (4.30-5.90) m/uL Hgb (13.0-17.5) gm/dL Hct (39.0-53.0) % Plt Count (150-450) k/uL Chloride (98-107) mmol/L Carbon Dioxide (22-30) mmol/L BUN (9-20) mg/dL Creatinine (0.66-1.25) mg/dL POC Glucose (mg/dL) 315 H 108 H 104 H (75-99) mg/dL Calcium (8.4-10.2) mg/dL TIBC (261-462) ug/dL Amorphous Sediment (None) /hpf Urine Mucus (None) /hpf 06/17/16 06/17/16 06/17/16 Range/Units 07:25 08:00 08:00 RBC 3.19 L (4.30-5.90) m/uL Hgb 9.8 L (13.0-17.5) gm/dL Hct 29.4 L (39.0-53.0) % Plt Count 122 L (150-450) k/uL Chloride 109 H (98-107) mmol/L Carbon Dioxide 19 L (22-30) mmol/L BUN 44 H (9-20) mg/dL Creatinine 5.27 H* (0.66-1.25) mg/dL POC Glucose (mg/dL) 104 H (75-99) mg/dL Calcium 8.1 L (8.4-10.2) mg/dL TIBC (261-462) ug/dL Amorphous Sediment (None) /hpf Urine Mucus (None) /hpf 06/17/16 06/17/16 Range/Units 08:00 10:55 RBC (4.30-5.90) m/uL Hgb (13.0-17.5) gm/dL Hct (39.0-53.0) % Plt Count (150-450) k/uL Chloride (98-107) mmol/L Carbon Dioxide (22-30) mmol/L BUN (9-20) mg/dL Creatinine (0.66-1.25) mg/dL POC Glucose (mg/dL) (75-99) mg/dL Calcium (8.4-10.2) mg/dL TIBC 241 L (261-462) ug/dL Amorphous Sediment Occasional H (None) /hpf Urine Mucus Occasional H (None) /hpf Thrombosis Risk Factor Assmnt - DVT/VTE Prophylaxis DVT/VTE Prophylaxis: Pharmacologic Prophylaxis ordered, Mechanical Prophylaxis ordered - Choose All That Apply Any of the Below Risk Factors Present?: Yes Each Factor Represents 1 point: Abnormal pulmonary function (COPD), Medical pt on bed rest Other Risk Factors: Yes Each Risk Factor Represents 2 Points: Age 61-74 years Other congenital or acquired thrombophilia - If yes, enter type in comment: No Thrombosis Risk Factor Assessment Total Risk Factor Score: 4 Thrombosis Risk Factor Assessment Level: Moderate Risk Assessment and Plan Plan: 1 acute kidney injury: Most likely ATN, this is most likely caused by the vancomycin with a high dose of vancomycin currently. Patient will be off Vanco continue hydration and to watch his urine output closely ultrasound of the kidney will be done as well repeat BUN/creatinine and daily basis. 2 chronic wound on the right foot post a great toe amputation with residual dry gangrene on the fourth toe has been on conservative management continue wound care either wound clinic and on IV antibiotic will consult Dr. scruggs as well. 3 chronic A. fib: Patient has been on Ahlquist on Lopressor continue medication. 4 COPD: Stable no exacerbation lately remain on DuoNeb and Pulmicort along with O2. 5 advance ischemic cardiomyopathy post AICD has been stable. 6 severe PAD: Has been seen Dr. Simon patient had MRSA infection the great toe has been treated. 7 BPH still on tamsulosin 0.4 mg daily. 8 diabetes type 2: Patient has been on 7030 10 units twice a day continue Accu- Chek with sliding scales. 9 vascular dementia: Patient has been off Remeron and Namenda for now. DVT prophylaxis: Patient is on Eliquis. GI prophylaxis: Patient remain on Pepcid 20 mg daily. CODE STATUS: Full code. Expectation from this admission: Patient be in the hospital for more than 2 nights.
[2016-06-18] MEDS: SODIUM CHLORIDE 0.9% 1,000 ML IV SCH ×2 (01:30→15:32)
[2016-06-18 07:27] LABS: Glucose,Whole Blood 96 mg/dL (75-99)
[2016-06-18] MEDS: METOPROLOL TARTRATE 50 MG TAB PO SCH (09:04)
[2016-06-18] MEDS: DIGOXIN 125 MCG TAB PO SCH (09:04)
[2016-06-18] MEDS: ALPRAZolam 0.25 MG TAB PO PRN (09:05)
[2016-06-18] MEDS: SODIUM BICARBONATE TAB 650 MG TAB PO SCH ×2 (09:05→21:53)
[2016-06-18] MEDS: SPIRONOLACTONE 25 MG TAB PO SCH (09:05)
[2016-06-18] MEDS: CLOPIDOGREL 75 MG TAB PO SCH (09:05)
[2016-06-18] MEDS: MEMANTINE 5 MG TAB PO SCH (09:05)
[2016-06-18] MEDS: ACETAMINOPHEN TAB 325 MG TAB PO PRN (09:05)
[2016-06-18] MEDS: PANTOPRAZOLE 40 MG/10 ML VIAL IV SCH (09:05)
[2016-06-18 09:07] LABS: Calcium 8.1 mg/dL (8.4-10.2)
[2016-06-18] MEDS: ZINC OXIDE 20% OINT 28.4 GM TUBE TOPICAL SCH (09:12)
[2016-06-18] MEDS: INSULN ASP PRT/INSULIN ASPART 100 UNIT/ML 10 ML VIAL SQ SCH ×2 (09:57→18:16)
--- NOTE | 2016-06-18 10:49 | P.PN ---
Subjective Patient is seen in follow-up for acute kidney injury. Baseline creatinine is near 1 and was elevated at 3.7 on admission and continues to worsen with 5.39 today. Patient was recently diagnosed with MRSA bacteremia as well as a foot infection and was maintained on IV vancomycin as an outpatient. His vancomycin level on June 16 was 53.1. Currently resting in bed. Appetite is poor. He is nonoliguric. No vomiting or diarrhea. Vital signs are stable. General: The patient appeared well nourished and normally developed. HEENT: Head exam is unremarkable. Neck is without jugular venous distension. LUNGS: Lungs are clear to auscultation and percussion. Breath sounds decreased. HEART: Rate and Rhythm are regular. First and second heart sounds normal. No murmurs, rubs or gallops. ABDOMEN: Abdominal exam reveals normal bowel sounds. Non-tender and non- distended. No evidence of peritonitis. EXTREMITITES: No clubbing, cyanosis, or edema. Objective - Vital Signs Vital signs: Vital Signs Temp 96.8 F L 06/18/16 07:00 Pulse 50 L 06/18/16 07:00 Resp 18 06/18/16 07:00 BP 102/51 06/18/16 07:00 Pulse Ox 99 06/18/16 07:00 Intake & Output 06/17/16 06/18/16 06/18/16 18:59 06:59 18:59 Intake Total 840 Output Total 600 850 Balance 240 -850 Weight 76 kg Intake: Intake, IV Titration 600 Amount Sodium Chloride 0.9% 1, 600 000 ml @ 75 mls/hr IV . [id number] [facility] Rx#:[id number] Oral 240 Output: Urine 600 850 Other: Voiding Method Indwelling Catheter Indwelling Catheter # Bowel Movements 1 - Labs CBC & Chem 7: 06/17/16 08:00 06/18/16 07:49 Labs: Abnormal Lab Results - Last 24 Hours (Table) 06/17/16 06/17/16 06/17/16 Range/Units 08:00 10:55 16:46 Chloride (98-107) mmol/L Carbon Dioxide (22-30) mmol/L BUN (9-20) mg/dL Creatinine (0.66-1.25) mg/dL POC Glucose (mg/dL) 168 H (75-99) mg/dL Calcium (8.4-10.2) mg/dL TIBC 241 L (261-462) ug/dL Amorphous Sediment Occasional H (None) /hpf Urine Mucus Occasional H (None) /hpf 06/17/16 06/18/16 Range/Units 20:42 07:49 Chloride 110 H (98-107) mmol/L Carbon Dioxide 18 L (22-30) mmol/L BUN 45 H (9-20) mg/dL Creatinine 5.39 H* (0.66-1.25) mg/dL POC Glucose (mg/dL) 142 H (75-99) mg/dL Calcium 8.1 L (8.4-10.2) mg/dL TIBC (261-462) ug/dL Amorphous Sediment (None) /hpf Urine Mucus (None) /hpf Microbiology - Last 24 Hours (Table) 06/17/16 10:55 Urine Culture - Preliminary Urine,Catheterized Assessment and Plan Plan: Assessment: #1. Nonoliguric acute kidney injury secondary to nephrotoxic ATN secondary to vancomycin toxicity. Vancomycin level 53.1 as of 06/16/2016. Urinalysis benign. Renal ultrasound benign. Renal function continues to worsen with creatinine is 5.39 today. Urine eosinophils negative. #2. Right foot wound as well as recent MRSA bacteremia. #3. Anemia. Iron deficiency present. #4. Metabolic acidosis secondary to acute kidney injury. #5. Insulin-dependent diabetes mellitus. #6. Hypertension. Controlled. Plan: Vancomycin is currently held. Ferrlecit 125 mg IV 2 doses. Avoid nephrotoxic agents and hypotensive episodes. Lisinopril held. Hold diuretics Hold antihypertensives for systolic blood pressure less than 120. Maintain IV hydration. Currently on normal saline running at 75 mL an hour. Repeat electrolytes in the morning. Maintain oral sodium bicarbonate supplementation. No urgent need for renal replacement therapy at this time. Continue to monitor renal function and urine output.
[2016-06-18] MEDS: SODIUM FERRIC GLUCONAT-SUCROSE 125 MG in SODIUM CHLORIDE 0.9% 100 ML IVPB SCH (10:52)
[2016-06-18 12:33] LABS: Glucose,Whole Blood 88 mg/dL (75-99)
[2016-06-18] MEDS ORDERED: LIDOCAINE 4% CREAM 5 GM TUBE TOPICAL PRN (14:01)
--- NOTE | 2016-06-18 14:03 | P.PN ---
Subjective 76-year-old male one of my office patient with multiple medical problem who was in the hospital last in 06/04/2016 and was sent to [facility] on leg after his hospitalization. 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 Scruggs remain on vancomycin orally for it still seen at the wound clinic. Patient ended up and [facility] on Vanco IV and wound care as well. His Vanco level on the came back quite bit high at 56 with slightly declining kidney function. Repeat kidney function and Vanco level on the came back with creatinine above 5 BUN in the 80s patient has been in acute renal failure his Vanco level still significantly high in the mid 30 despite not been on Vanco at this point. The patient was transferred to the emergency department at [facility] and admitted to the hospital for acute kidney failure, Osborne catheter was placed and IV fluid with hydration and watch his urine output on regular basis. 06/18: Renal ultrasound showed possible chronic outlet obstruction of the bladder. No evidence of hydronephrosis. Repeat BUN 45 and creatinine 5.39. Patient remains with slight mental status changes. He is complaining of right lower anterior rib pain. Lidocaine patch will be ordered and rib x-rays Objective - Vital Signs Vital signs: Vital Signs Temp 96.8 F L 06/18/16 07:00 Pulse 50 L 06/18/16 07:00 Resp 18 06/18/16 07:00 BP 102/51 06/18/16 07:00 Pulse Ox 99 06/18/16 07:00 Intake & Output 06/17/16 06/18/16 06/18/16 18:59 06:59 18:59 Intake Total 840 Output Total 600 850 Balance 240 -850 Weight 76 kg Intake: Intake, IV Titration 600 Amount Sodium Chloride 0.9% 1, 600 000 ml @ 75 mls/hr IV . [id number] SAMREEN Rx#:[id number] Oral 240 Output: Urine 600 850 Other: Voiding Method Indwelling Catheter Indwelling Catheter # Bowel Movements 1 - Exam General appearance: no average body habitus, cooperative, disheveled, no mild distress, no morbidly obese, no acute distress, no obese, no severe distress, thin - EENT Eyes: no abnormal pupil, no anicteric sclerae, no disc margins sharp, no edentulous, no EOMI, no PERRLA, no fundus normal, no photophobia, no dentition normal, no poor dentition, no ptosis, no scleral icterus, normal appearance ENT: hard of hearing, no hearing grossly normal, no NA/AT, normal oropharynx, no other, no pharyngeal erythema, no thrush, no tonsillar exudates, no tonsillar swelling Ears: bilateral: normal - Neck Neck: no lymphadenopathy, no normal ROM, no other, no rigidity, no stridor, no thyromegaly Carotids: bilateral: upstroke normal Thyroid: bilateral: normal size - Respiratory Respiratory: bilateral: CTA, diminished, right anterior lower rib tenderness. No bruising noted - Cardiovascular Rhythm: regular Heart sounds: normal: S1, S2 Abnormal Heart Sounds: systolic murmur, no diastolic murmur, no rub, S3 Gallop, no S4 Gallop, no click, no other - Gastrointestinal General gastrointestinal: no absent bowel sounds, no decreased bowel sounds, distended, no hepatomegaly, no hyperactive bowel sounds, normal bowel sounds, no organomegaly, no rigid, no scaphoid, soft, no splenomegaly, tenderness, no umbilical hernia, no ventral hernia - Integumentary Left big toe post amputation second toe had mild gangrenous with dry skin. Integumentary: cellulitis, cyanotic, flushed, pale, rash, ulcer - Neurologic Neurologic: CNII-XII intact - Musculoskeletal Musculoskeletal: no gait normal, generalized weakness, no strength equal bilaterally, no right sided weakness, no left sided weakness - Psychiatric Psychiatric: A&O x's 3, no appropriate affect, no intact judgment & insight - Labs CBC & Chem 7: 06/17/16 08:00 06/18/16 07:49 Labs: Abnormal Lab Results - Last 24 Hours (Table) 06/17/16 06/17/16 06/17/16 Range/Units 08:00 10:55 16:46 Chloride (98-107) mmol/L Carbon Dioxide (22-30) mmol/L BUN (9-20) mg/dL Creatinine (0.66-1.25) mg/dL POC Glucose (mg/dL) 168 H (75-99) mg/dL Calcium (8.4-10.2) mg/dL TIBC 241 L (261-462) ug/dL Amorphous Sediment Occasional H (None) /hpf Urine Mucus Occasional H (None) /hpf 06/17/16 06/18/16 Range/Units 20:42 07:49 Chloride 110 H (98-107) mmol/L Carbon Dioxide 18 L (22-30) mmol/L BUN 45 H (9-20) mg/dL Creatinine 5.39 H* (0.66-1.25) mg/dL POC Glucose (mg/dL) 142 H (75-99) mg/dL Calcium 8.1 L (8.4-10.2) mg/dL TIBC (261-462) ug/dL Amorphous Sediment (None) /hpf Urine Mucus (None) /hpf Microbiology - Last 24 Hours (Table) 06/17/16 10:55 Urine Culture - Preliminary Urine,Catheterized Assessment and Plan Plan: 1 acute kidney injury with chronic kidney disease stage II: Most likely ATN, this is most likely caused by the vancomycin. Patient will be off Vanco continue hydration and to watch his urine output closely ultrasound of the kidney will be done as well repeat BUN/creatinine and daily basis. 2 chronic wound on the right foot post a great toe amputation with residual dry gangrene on the fourth toe has been on conservative management continue wound care either wound clinic and on IV antibiotic will consult Dr. scruggs as well. 3 chronic A. fib: Patient has been on Ahlquist on Lopressor continue medication. 4 COPD: Stable no exacerbation lately remain on DuoNeb and Pulmicort along with O2. 5 advance ischemic cardiomyopathy post AICD has been stable. 6 severe PAD: Has been seen Dr. Simon patient had MRSA infection the great toe has been treated. 7 BPH still on tamsulosin 0.4 mg daily. 8 diabetes type 2: Patient has been on 7030 10 units twice a day continue Accu- Chek with sliding scales. 9 vascular dementia: Patient has been off Remeron and Namenda for now. DVT prophylaxis: Patient is on Eliquis. GI prophylaxis: Patient remain on Pepcid 20 mg daily. CODE STATUS: Full code. Discharge plan: Return to [facility] Impression and plan of care have been directed as dictated by the signing physician. Felisha Hernandez nurse practitioner acting as scribe for signing physician. Time with Patient: Greater than 30
--- NOTE | 2016-06-18 16:52 | XR ---
EXAMINATION TYPE: XR ribs RT DATE OF EXAM: 06/18/2016 4:42 PM COMPARISON: NONE HISTORY: Rib pain TECHNIQUE: 2 views right RIBS FINDINGS: No acute displaced fractures are evident. PICC line enters on the right with the tip in the proximal right atrium. No pneumothorax is evident. Sternotomy wires are present. IMPRESSION: 1. Normal right ribs
[2016-06-18 17:13] LABS: Glucose,Whole Blood 107 mg/dL (75-99)
[2016-06-18 21:32] LABS: Glucose,Whole Blood 115 mg/dL (75-99)
[2016-06-18] MEDS: ATORVASTATIN 40 MG TAB PO SCH (21:52)
[2016-06-18] MEDS: COLLAGENASE 250 UNIT/GM OINTMENT 30 GM TUBE TOPICAL SCH (21:52)
[2016-06-18] MEDS: TAMSULOSIN 0.4 MG CAP.ER.24H PO SCH (21:53)
[2016-06-18] MEDS: MONTELUKAST 10 MG TAB PO SCH (21:53)
[2016-06-18] MEDS: MIRTAZAPINE 15 MG TAB PO SCH (21:53)
[2016-06-18] MEDS: METOPROLOL TARTRATE 25 MG TAB PO SCH (21:55)
--- NOTE | 2016-06-18 22:14 | P.PN ---
Subjective 76-year-old male known to infectious disease. Earlier last year he has significant difficulty with his right groin area. He had undergone cardiac catheterization and developed a significant infection to his right groin. Record transfer to outside hospital for further surgical intervention with concerns to a necrotizing infection. Fortunately he improved. He continued to have severe peripheral vascular disease. On November 17, Dr. Simon performed the right great toe amputation. Since that time it's been an ongoing ulceration was followed in the wound healing center with Dr. Simon. He is currently at home with his and local wound care is in the form of Santyl. She was recently hospitalized June 04 through June 10 and then was discharged to [facility]. He was treated for bacteremia with MRSA, alphahemolytic strep and diphtheroids species and was placed on vancomycin for 2 week course. [facility] and on June 15 his BUN was 35 and creatinine 3.7. He was sent into [facility] because of this. Repeat BUN was 43 and 5.04 and this morning 44 and 5.27. Also vancomycin level on June 12 was 31.4 and repeat on June 16 is 53.1. Dig level was 1.4. He has been afebrile. Chest x-ray showed no acute process. He was admitted to the [facility] floor. Vancomycin has been on hold. Nephrology is following Patient is very calm which is really not his usual self. Denies new complaints. He is set up to have his lunch. Objective - Vital Signs Vital signs: Vital Signs Temp 97.0 F L 06/18/16 14:46 Pulse 56 L 06/18/16 21:58 Resp 18 06/18/16 16:00 BP 115/62 06/18/16 21:58 Pulse Ox 100 06/18/16 14:46 Intake & Output 06/18/16 06/18/16 06/19/16 06:59 18:59 06:59 Intake Total 120 Output Total 850 675 Balance -850 -555 Weight 76 kg Intake: Oral 120 Output: Urine 850 675 Other: Voiding Method Indwelling Catheter Indwelling Catheter # Bowel Movements 0 - Exam General appearance: average body habitus, cooperative, no acute distress - EENT Eyes: Reports anicteric sclerae, Reports EOMI, Reports PERRLA, Reports dentition normal ENT: Reports hearing grossly normal, Reports NA/AT, Reports normal oropharynx - Neck Neck: Reports normal ROM, Denies lymphadenopathy, Denies other, Denies rigidity , Denies stridor, Denies thyromegaly Thyroid: bilateral: normal size - Respiratory Respiratory: bilateral: CTA, diminished - Cardiovascular Rhythm: irregular Heart sounds: normal: S1, S2, systolic murmur - Gastrointestinal General gastrointestinal: Reports normal bowel sounds, Reports soft - Integumentary Integumentary: Reports normal, Reports normal turgor - Neurologic Neurologic: Awake and alert. He is calm comfortable no acute gross focal sensory motor deficits - Musculoskeletal Musculoskeletal: Reports strength equal bilaterally. Healing wound to the right great toe amputation site, no significant erythema, drainage, swelling. Eschar to the distal second toe may be slightly increased from last hospitalization. - Psychiatric Psychiatric: Reports A&O x's1, Reports appropriate affect, Denies intact judgment & insight (Short-term memory loss) - Labs CBC & Chem 7: 06/17/16 08:00 06/18/16 07:49 Labs: Abnormal Lab Results - Last 24 Hours (Table) 06/18/16 06/18/16 06/18/16 Range/Units 07:49 17:12 21:27 Chloride 110 H (98-107) mmol/L Carbon Dioxide 18 L (22-30) mmol/L BUN 45 H (9-20) mg/dL Creatinine 5.39 H* (0.66-1.25) mg/dL POC Glucose (mg/dL) 107 H 115 H (75-99) mg/dL Calcium 8.1 L (8.4-10.2) mg/dL Random Vancomycin 41.3 H* ug/mL Microbiology - Last 24 Hours (Table) 06/17/16 10:55 Urine Culture - Final Urine,Catheterized Laboratory Results WBC 5.8 k/uL (3.8-10.6) 06/17/16 08:00 RBC 3.19 m/uL (4.30-5.90) L 06/17/16 08:00 Hgb 9.8 gm/dL (13.0-17.5) L 06/17/16 08:00 Hct 29.4 % (39.0-53.0) L 06/17/16 08:00 MCV 92.2 fL (80.0-100.0) 06/17/16 08:00 MCH 30.6 pg (25.0-35.0) 06/17/16 08:00 MCHC 33.2 g/dL (31.0-37.0) 06/17/16 08:00 RDW 14.5 % (11.5-15.5) 06/17/16 08:00 Plt Count 122 k/uL (150-450) L 06/17/16 08:00 Neutrophils % 69 % 06/17/16 08:00 Lymphocytes % 21 % 06/17/16 08:00 Monocytes % 6 % 06/17/16 08:00 Eosinophils % 3 % 06/17/16 08:00 Basophils % 1 % 06/17/16 08:00 Neutrophils # 4.0 k/uL (1.3-7.7) 06/17/16 08:00 Lymphocytes # 1.2 k/uL (1.0-4.8) 06/17/16 08:00 Monocytes # 0.4 k/uL (0-1.0) 06/17/16 08:00 Eosinophils # 0.2 k/uL (0-0.7) 06/17/16 08:00 Basophils # 0.0 k/uL (0-0.2) 06/17/16 08:00 PT 11.8 sec (9.0-12.0) 06/16/16 18:10 INR 1.2 (<1.1) 06/16/16 18:10 APTT 26.8 sec (22.0-30.0) 06/16/16 18:10 Sodium 141 mmol/L (137-145) 06/18/16 07:49 Potassium 4.0 mmol/L (3.5-5.1) 06/18/16 07:49 Chloride 110 mmol/L (98-107) H 06/18/16 07:49 Carbon Dioxide 18 mmol/L (22-30) L 06/18/16 07:49 Anion Gap 13 mmol/L 06/18/16 07:49 BUN 45 mg/dL (9-20) H 06/18/16 07:49 Creatinine 5.39 mg/dL (0.66-1.25) H* 06/18/16 07:49 Est GFR (MDRD) Af Amer 13 (>60 ml/min/1.73 sqM) 06/18/16 07:49 Est GFR (MDRD) Non-Af 10 (>60 ml/min/1.73 sqM) 06/18/16 07:49 Glucose 87 mg/dL (74-99) 06/18/16 07:49 POC Glucose (mg/dL) 115 mg/dL (75-99) H 06/18/16 21:27 POC Glu Jailer ID 06/18/16 21:27 Calcium 8.1 mg/dL (8.4-10.2) L 06/18/16 07:49 Iron 49 ug/dL (49-181) 06/17/16 08:00 TIBC 241 ug/dL (261-462) L 06/17/16 08:00 % Saturation 20.3 % (20-50) 06/17/16 08:00 Ferritin 46 ng/mL (18-464) 06/17/16 08:00 Total Bilirubin 0.7 mg/dL (0.2-1.3) 06/16/16 18:10 AST 16 U/L (17-59) L 06/16/16 18:10 ALT 21 U/L (21-72) 06/16/16 18:10 Alkaline Phosphatase 98 U/L (38-126) 06/16/16 18:10 Total Protein 6.2 g/dL (6.3-8.2) L 06/16/16 18:10 Albumin 3.3 g/dL (3.5-5.0) L 06/16/16 18:10 Urine Color Light Yellow 06/17/16 10:55 Urine Appearance Cloudy (Clear) 06/17/16 10:55 Urine pH 5.0 (5.0-8.0) 06/17/16 10:55 Ur Specific [place] 1.006 (1.001-1.035) 06/17/16 10:55 Urine Protein Negative (Negative) 06/17/16 10:55 Urine Glucose (UA) Negative (Negative) 06/17/16 10:55 Urine Ketones Negative (Negative) 06/17/16 10:55 Urine Blood Negative (Negative) 06/17/16 10:55 Urine Nitrate Negative (Negative) 06/17/16 10:55 Urine Bilirubin Negative (Negative) 06/17/16 10:55 Urine Urobilinogen <2.0 mg/dL (<2.0) 06/17/16 10:55 Ur Leukocyte Esterase Negative (Negative) 06/17/16 10:55 Urine WBC 1 /hpf (0-5) 06/17/16 10:55 Amorphous Sediment Occasional /hpf (None) H 06/17/16 10:55 Urine Mucus Occasional /hpf (None) H 06/17/16 10:55 Urine Eosinophils % 06/17/16 10:55 Random Vancomycin 41.3 ug/mL H* 06/18/16 07:49 Digoxin 1.4 ng/mL 06/16/16 18:10 Microbiology 06/16/16 18:10 Blood Blood Culture - Preliminary No Growth after 48 hours 06/17/16 10:55 Urine,Catheterized Urine Culture - Final Assessment and Plan (1) Acute kidney injury Status: Acute (2) Sepsis Narrative/Plan: This pleasant gentleman who has dementia was recently hospitalized with evidence of polymicrobial bacteremia and sepsis. He was discharged with vancomycin therapy with pharmacy dosing. The patient has rapidly developed acute renal failure and increasing vancomycin levels. On 112 his creatinine was 1.58 and after hydration improved to 1.04. On 117 at the time of his discharge his creatinine was 1.13. It is noted that on the increased to 3.[address] increased to 3.90 and 5.27 most recent reading. At this time the patient has evidence of renal failure that is multifactorial in its nature. Including his recent renal failure, dehydration, and vancomycin toxicity. Vancomycin is on hold. Level has now decreased to 41.3. Once levels decrease in her no longer therapeutic will still need to be treated with antimicrobial therapy to complete his course of treatment for his recent sepsis which was polymicrobial. Likely will be daptomycin to complete his 2 week total course of therapy. Nephrology is following. Status: Acute
[2016-06-19 02:25] LABS: Glucose,Whole Blood 111 mg/dL (75-99)
[2016-06-19] MEDS: SODIUM CHLORIDE 0.9% 1,000 ML IV SCH ×2 (05:31→21:22)
[2016-06-19 07:32] LABS: Glucose,Whole Blood 85 mg/dL (75-99)
--- NOTE | 2016-06-19 09:14 | P.PN ---
Subjective Patient is seen in follow-up for acute kidney injury. Baseline creatinine is near 1 and was elevated at 3.7 on admission and 5.39 as of yesterday. Patient was recently diagnosed with MRSA bacteremia as well as a foot infection and was maintained on IV vancomycin as an outpatient. His vancomycin level on June 16 was 53.1 and 41.3 from June 18. Currently resting in bed. Appetite is poor. He is nonoliguric. No vomiting or diarrhea. Vital signs are stable. General: The patient appeared well nourished and normally developed. HEENT: Head exam is unremarkable. Neck is without jugular venous distension. LUNGS: Lungs are clear to auscultation and percussion. Breath sounds decreased. HEART: Rate and Rhythm are regular. First and second heart sounds normal. No murmurs, rubs or gallops. ABDOMEN: Abdominal exam reveals normal bowel sounds. Non-tender and non- distended. No evidence of peritonitis. EXTREMITITES: No clubbing, cyanosis, or edema. Objective - Vital Signs Vital signs: Vital Signs Temp 97.2 F L 06/19/16 07:00 Pulse 54 L 06/19/16 07:00 Resp 16 06/19/16 07:00 BP 129/71 06/19/16 07:00 Pulse Ox 98 06/19/16 07:00 Intake & Output 06/18/16 06/19/16 06/19/16 18:59 06:59 18:59 Intake Total 120 Output Total 675 1650 Balance -555 -1650 Intake: Oral 120 Output: Urine 675 1650 Stool 0 Other: Voiding Method Indwelling Catheter Indwelling Catheter # Bowel Movements 0 - Labs CBC & Chem 7: 06/17/16 08:00 06/18/16 07:49 Labs: Abnormal Lab Results - Last 24 Hours (Table) 06/18/16 06/18/16 06/18/16 Range/Units 07:49 17:12 21:27 Chloride 110 H (98-107) mmol/L Carbon Dioxide 18 L (22-30) mmol/L BUN 45 H (9-20) mg/dL Creatinine 5.39 H* (0.66-1.25) mg/dL POC Glucose (mg/dL) 107 H 115 H (75-99) mg/dL Calcium 8.1 L (8.4-10.2) mg/dL Random Vancomycin 41.3 H* ug/mL 06/19/16 Range/Units 02:16 Chloride (98-107) mmol/L Carbon Dioxide (22-30) mmol/L BUN (9-20) mg/dL Creatinine (0.66-1.25) mg/dL POC Glucose (mg/dL) 111 H (75-99) mg/dL Calcium (8.4-10.2) mg/dL Random Vancomycin ug/mL Microbiology - Last 24 Hours (Table) 06/17/16 10:55 Urine Culture - Final Urine,Catheterized Assessment and Plan Plan: Assessment: #1. Nonoliguric acute kidney injury secondary to nephrotoxic ATN secondary to vancomycin toxicity. Vancomycin level 53.1 as of 06/16/2016 and 41.3 from June 18. Urinalysis benign. Renal ultrasound benign. Creatinine 5.39 as of yesterday. Urine eosinophils negative. #2. Right foot wound as well as recent MRSA bacteremia. #3. Anemia. Iron deficiency present. #4. Metabolic acidosis secondary to acute kidney injury. #5. Insulin-dependent diabetes mellitus. #6. Hypertension. Controlled. Plan: Vancomycin is currently held. Ferrlecit 125 mg IV 2 doses. Avoid nephrotoxic agents and hypotensive episodes. Lisinopril held. Hold diuretics Hold antihypertensives for systolic blood pressure less than 120. Maintain IV hydration. Currently on normal saline running at 75 mL an hour. Repeat electrolytes in the morning. Maintain oral sodium bicarbonate supplementation. No urgent need for renal replacement therapy at this time. Continue to monitor renal function and urine output. Follow-up morning labs.
[2016-06-19] MEDS: MEMANTINE 5 MG TAB PO SCH (09:29)
[2016-06-19] MEDS: METOPROLOL TARTRATE 50 MG TAB PO SCH (09:29)
[2016-06-19] MEDS: SODIUM BICARBONATE TAB 650 MG TAB PO SCH ×2 (09:29→20:25)
[2016-06-19] MEDS: CLOPIDOGREL 75 MG TAB PO SCH (09:29)
[2016-06-19] MEDS: SODIUM FERRIC GLUCONAT-SUCROSE 125 MG in SODIUM CHLORIDE 0.9% 100 ML IVPB SCH (09:29)
[2016-06-19] MEDS: INSULN ASP PRT/INSULIN ASPART 100 UNIT/ML 10 ML VIAL SQ SCH ×2 (09:29→17:11)
[2016-06-19] MEDS: PANTOPRAZOLE 40 MG/10 ML VIAL IV SCH (09:29)
[2016-06-19] MEDS: ZINC OXIDE 20% OINT 28.4 GM TUBE TOPICAL SCH (09:29)
[2016-06-19 09:39] LABS: Calcium 8.1 mg/dL (8.4-10.2); Potassium 4.1 mmol/L (3.5-5.1)
[2016-06-19] MEDS: ALPRAZolam 0.25 MG TAB PO PRN ×2 (10:55→21:21)
[2016-06-19 12:14] LABS: Glucose,Whole Blood 93 mg/dL (75-99)
--- NOTE | 2016-06-19 14:43 | P.PN ---
Subjective 76-year-old male one of my office patient with multiple medical problem who was in the hospital last in 06/04/2016 and was sent to [facility] on leg after his hospitalization. 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 Scruggs remain on vancomycin orally for it still seen at the wound clinic. Patient ended up and [facility] on Vanco IV and wound care as well. His Vanco level on the came back quite bit high at 56 with slightly declining kidney function. Repeat kidney function and Vanco level on the came back with creatinine above 5 BUN in the 80s patient has been in acute renal failure his Vanco level still significantly high in the mid 30 despite not been on Vanco at this point. The patient was transferred to the emergency department at [facility] and admitted to the hospital for acute kidney failure, Osborne catheter was placed and IV fluid with hydration and watch his urine output on regular basis. 06/18: Renal ultrasound showed possible chronic outlet obstruction of the bladder. No evidence of hydronephrosis. Repeat BUN 45 and creatinine 5.39. Patient remains with slight mental status changes. He is complaining of right lower anterior rib pain. Lidocaine patch will be ordered and rib x-rays 06/19: Repeat BUN 42 and creatinine 5.66. No plan for immediate hemodialysis. Patient remains slightly lethargic from his baseline with continued confusion. Patient's is at the bedside and all her questions were answered. Objective - Vital Signs Vital signs: Vital Signs Temp 97.2 F L 06/19/16 07:00 Pulse 54 L 06/19/16 07:00 Resp 16 06/19/16 08:00 BP 129/71 06/19/16 07:00 Pulse Ox 98 06/19/16 07:00 Intake & Output 06/18/16 06/19/16 06/19/16 18:59 06:59 18:59 Intake Total 120 Output Total 675 1650 Balance -555 -1650 Intake: Oral 120 Output: Urine 675 1650 Stool 0 Other: Voiding Method Indwelling Catheter Indwelling Catheter Indwelling Catheter # Bowel Movements 0 - Exam General appearance: no average body habitus, cooperative, disheveled, no mild distress, no morbidly obese, no acute distress, no obese, no severe distress, thin - EENT Eyes: no abnormal pupil, no anicteric sclerae, no disc margins sharp, no edentulous, no EOMI, no PERRLA, no fundus normal, no photophobia, no dentition normal, no poor dentition, no ptosis, no scleral icterus, normal appearance ENT: hard of hearing, no hearing grossly normal, no NA/AT, normal oropharynx, no other, no pharyngeal erythema, no thrush, no tonsillar exudates, no tonsillar swelling Ears: bilateral: normal - Neck Neck: no lymphadenopathy, no normal ROM, no other, no rigidity, no stridor, no thyromegaly Carotids: bilateral: upstroke normal Thyroid: bilateral: normal size - Respiratory Respiratory: bilateral: CTA, diminished, right anterior lower rib tenderness. No bruising noted - Cardiovascular Rhythm: regular Heart sounds: normal: S1, S2 Abnormal Heart Sounds: systolic murmur, no diastolic murmur, no rub, S3 Gallop, no S4 Gallop, no click, no other - Gastrointestinal General gastrointestinal: no absent bowel sounds, no decreased bowel sounds, distended, no hepatomegaly, no hyperactive bowel sounds, normal bowel sounds, no organomegaly, no rigid, no scaphoid, soft, no splenomegaly, tenderness, no umbilical hernia, no ventral hernia - Integumentary Left big toe post amputation second toe had mild gangrenous with dry skin. Integumentary: cellulitis, cyanotic, flushed, pale, rash, ulcer - Neurologic Neurologic: CNII-XII intact - Musculoskeletal Musculoskeletal: no gait normal, generalized weakness, no strength equal bilaterally, no right sided weakness, no left sided weakness - Psychiatric Psychiatric: A&O x's 3, no appropriate affect, no intact judgment & insight - Labs CBC & Chem 7: 06/17/16 08:00 06/19/16 08:32 Labs: Abnormal Lab Results - Last 24 Hours (Table) 06/18/16 06/18/16 06/18/16 Range/Units 07:49 17:12 21:27 Chloride 110 H (98-107) mmol/L Carbon Dioxide 18 L (22-30) mmol/L BUN 45 H (9-20) mg/dL Creatinine 5.39 H* (0.66-1.25) mg/dL POC Glucose (mg/dL) 107 H 115 H (75-99) mg/dL Calcium 8.1 L (8.4-10.2) mg/dL Random Vancomycin 41.3 H* ug/mL 06/19/16 06/19/16 Range/Units 02:16 08:32 Chloride 112 H (98-107) mmol/L Carbon Dioxide 19 L (22-30) mmol/L BUN 42 H (9-20) mg/dL Creatinine 5.66 H* (0.66-1.25) mg/dL POC Glucose (mg/dL) 111 H (75-99) mg/dL Calcium 8.1 L (8.4-10.2) mg/dL Random Vancomycin ug/mL Microbiology - Last 24 Hours (Table) 06/17/16 10:55 Urine Culture - Final Urine,Catheterized Assessment and Plan Plan: 1 acute kidney injury with chronic kidney disease stage II: Most likely ATN, this is most likely caused by the vancomycin. Patient will be off Vanco continue hydration and to watch his urine output closely ultrasound of the kidney will be done as well repeat BUN/creatinine and daily basis. 2 chronic wound on the right foot post a great toe amputation with residual dry gangrene on the fourth toe has been on conservative management continue wound care either wound clinic and on IV antibiotic will consult Dr. scruggs as well. 3 chronic A. fib: Patient has been on Ahlquist on Lopressor continue medication. 4 COPD: Stable no exacerbation lately remain on DuoNeb and Pulmicort along with O2. 5 advance ischemic cardiomyopathy post AICD has been stable. 6 severe PAD: Has been seen Dr. Simon patient had MRSA infection the great toe has been treated. 7 BPH still on tamsulosin 0.4 mg daily. 8 diabetes type 2: Patient has been on 7030 10 units twice a day continue Accu- Chek with sliding scales. 9 vascular dementia: Patient has been off Remeron and Namenda for now. DVT prophylaxis: Patient is on Eliquis. GI prophylaxis: Patient remain on Pepcid 20 mg daily. CODE STATUS: Full code. Discharge plan: Return to [facility] Impression and plan of care have been directed as dictated by the signing physician. Felisha Hernandez nurse practitioner acting as scribe for signing physician. Time with Patient: Greater than 30
[2016-06-19] MEDS: DIGOXIN 125 MCG TAB PO SCH (15:12)
[2016-06-19 17:06] LABS: Glucose,Whole Blood 103 mg/dL (75-99)
[2016-06-19 20:22] LABS: Glucose,Whole Blood 117 mg/dL (75-99)
[2016-06-19] MEDS: ATORVASTATIN 40 MG TAB PO SCH (20:23)
[2016-06-19] MEDS: COLLAGENASE 250 UNIT/GM OINTMENT 30 GM TUBE TOPICAL SCH (20:23)
[2016-06-19] MEDS: METOPROLOL TARTRATE 25 MG TAB PO SCH (20:24)
[2016-06-19] MEDS: TAMSULOSIN 0.4 MG CAP.ER.24H PO SCH (20:25)
[2016-06-19] MEDS: MONTELUKAST 10 MG TAB PO SCH (20:25)
[2016-06-19] MEDS: MIRTAZAPINE 15 MG TAB PO SCH (20:25)
--- NOTE | 2016-06-19 22:50 | P.PN ---
Subjective 76-year-old male known to infectious disease. Earlier last year he has significant difficulty with his right groin area. He had undergone cardiac catheterization and developed a significant infection to his right groin. Record transfer to outside hospital for further surgical intervention with concerns to a necrotizing infection. Fortunately he improved. He continued to have severe peripheral vascular disease. On November 17, Dr. Simon performed the right great toe amputation. Since that time it's been an ongoing ulceration was followed in the wound healing center with Dr. Simon. He is currently at home with his and local wound care is in the form of Santyl. She was recently hospitalized June 04 through June 10 and then was discharged to [facility]. He was treated for bacteremia with MRSA, alphahemolytic strep and diphtheroids species and was placed on vancomycin for 2 week course. [facility] and on June 15 his BUN was 35 and creatinine 3.7. He was sent into [facility] because of this. Repeat BUN was 43 and 5.04 and this morning 44 and 5.27. Also vancomycin level on June 12 was 31.4 and repeat on June 16 is 53.1. Dig level was 1.4. He has been afebrile. Chest x-ray showed no acute process. He was admitted to the [facility]Sur floor. Vancomycin has been on hold. Nephrology is following Patient is very calm which is really not his usual self. Denies new complaints. He is set up to have his lunch. Objective - Vital Signs Vital signs: Vital Signs Temp 97.3 F L 06/19/16 22:16 Pulse 50 L 06/19/16 22:16 Resp 16 06/19/16 22:16 BP 122/51 06/19/16 22:16 Pulse Ox 97 06/19/16 22:16 Intake & Output 06/19/16 06/19/16 06/20/16 06:59 18:59 06:59 Intake Total 125 Output Total 1650 475 Balance -1650 -350 Intake: Oral 125 Output: Urine 1650 475 Stool 0 Other: Voiding Method Indwelling Catheter Indwelling Catheter Indwelling Catheter # Bowel Movements 1 - Exam General appearance: average body habitus, cooperative, no acute distress - EENT Eyes: Reports anicteric sclerae, Reports EOMI, Reports PERRLA, Reports dentition normal ENT: Reports hearing grossly normal, Reports NA/AT, Reports normal oropharynx - Neck Neck: Reports normal ROM, Denies lymphadenopathy, Denies other, Denies rigidity , Denies stridor, Denies thyromegaly Thyroid: bilateral: normal size - Respiratory Respiratory: bilateral: CTA, diminished - Cardiovascular Rhythm: irregular Heart sounds: normal: S1, S2, systolic murmur - Gastrointestinal General gastrointestinal: Reports normal bowel sounds, Reports soft - Integumentary Integumentary: Reports normal, Reports normal turgor - Neurologic Neurologic: Awake and alert. He is calm comfortable no acute gross focal sensory motor deficits - Musculoskeletal Musculoskeletal: Reports strength equal bilaterally. Healing wound to the right great toe amputation site, no significant erythema, drainage, swelling. Eschar to the distal second toe may be slightly increased from last hospitalization. - Psychiatric Psychiatric: Reports A&O x's1, Reports appropriate affect, Denies intact judgment & insight (Short-term memory loss) - Labs CBC & Chem 7: 06/17/16 08:00 06/19/16 08:32 Labs: Abnormal Lab Results - Last 24 Hours (Table) 06/19/16 06/19/16 06/19/16 Range/Units 02:16 08:32 16:49 Chloride 112 H (98-107) mmol/L Carbon Dioxide 19 L (22-30) mmol/L BUN 42 H (9-20) mg/dL Creatinine 5.66 H* (0.66-1.25) mg/dL POC Glucose (mg/dL) 111 H 103 H (75-99) mg/dL Calcium 8.1 L (8.4-10.2) mg/dL 06/19/16 Range/Units 20:20 Chloride (98-107) mmol/L Carbon Dioxide (22-30) mmol/L BUN (9-20) mg/dL Creatinine (0.66-1.25) mg/dL POC Glucose (mg/dL) 117 H (75-99) mg/dL Calcium (8.4-10.2) mg/dL Laboratory Results WBC 5.8 k/uL (3.8-10.6) 06/17/16 08:00 RBC 3.19 m/uL (4.30-5.90) L 06/17/16 08:00 Hgb 9.8 gm/dL (13.0-17.5) L 06/17/16 08:00 Hct 29.4 % (39.0-53.0) L 06/17/16 08:00 MCV 92.2 fL (80.0-100.0) 06/17/16 08:00 MCH 30.6 pg (25.0-35.0) 06/17/16 08:00 MCHC 33.2 g/dL (31.0-37.0) 06/17/16 08:00 RDW 14.5 % (11.5-15.5) 06/17/16 08:00 Plt Count 122 k/uL (150-450) L 06/17/16 08:00 Neutrophils % 69 % 06/17/16 08:00 Lymphocytes % 21 % 06/17/16 08:00 Monocytes % 6 % 06/17/16 08:00 Eosinophils % 3 % 06/17/16 08:00 Basophils % 1 % 06/17/16 08:00 Neutrophils # 4.0 k/uL (1.3-7.7) 06/17/16 08:00 Lymphocytes # 1.2 k/uL (1.0-4.8) 06/17/16 08:00 Monocytes # 0.4 k/uL (0-1.0) 06/17/16 08:00 Eosinophils # 0.2 k/uL (0-0.7) 06/17/16 08:00 Basophils # 0.0 k/uL (0-0.2) 06/17/16 08:00 PT 11.8 sec (9.0-12.0) 06/16/16 18:10 INR 1.2 (<1.1) 06/16/16 18:10 APTT 26.8 sec (22.0-30.0) 06/16/16 18:10 Sodium 143 mmol/L (137-145) 06/19/16 08:32 Potassium 4.1 mmol/L (3.5-5.1) 06/19/16 08:32 Chloride 112 mmol/L (98-107) H 06/19/16 08:32 Carbon Dioxide 19 mmol/L (22-30) L 06/19/16 08:32 Anion Gap 12 mmol/L 06/19/16 08:32 BUN 42 mg/dL (9-20) H 06/19/16 08:32 Creatinine 5.66 mg/dL (0.66-1.25) H* 06/19/16 08:32 Est GFR (MDRD) Af Amer 12 (>60 ml/min/1.73 sqM) 06/19/16 08:32 Est GFR (MDRD) Non-Af 10 (>60 ml/min/1.73 sqM) 06/19/16 08:32 Glucose 83 mg/dL (74-99) 06/19/16 08:32 POC Glucose (mg/dL) 117 mg/dL (75-99) H 06/19/16 20:20 POC Glu Senior Boiler Operator Citlalli Moody 06/19/16 20:20 Calcium 8.1 mg/dL (8.4-10.2) L 06/19/16 08:32 Iron 49 ug/dL (49-181) 06/17/16 08:00 TIBC 241 ug/dL (261-462) L 06/17/16 08:00 % Saturation 20.3 % (20-50) 06/17/16 08:00 Ferritin 46 ng/mL (18-464) 06/17/16 08:00 Total Bilirubin 0.7 mg/dL (0.2-1.3) 06/16/16 18:10 AST 16 U/L (17-59) L 06/16/16 18:10 ALT 21 U/L (21-72) 06/16/16 18:10 Alkaline Phosphatase 98 U/L (38-126) 06/16/16 18:10 Total Protein 6.2 g/dL (6.3-8.2) L 06/16/16 18:10 Albumin 3.3 g/dL (3.5-5.0) L 06/16/16 18:10 Urine Color Light Yellow 06/17/16 10:55 Urine Appearance Cloudy (Clear) 06/17/16 10:55 Urine pH 5.0 (5.0-8.0) 06/17/16 10:55 Ur Specific [place] 1.006 (1.001-1.035) 06/17/16 10:55 Urine Protein Negative (Negative) 06/17/16 10:55 Urine Glucose (UA) Negative (Negative) 06/17/16 10:55 Urine Ketones Negative (Negative) 06/17/16 10:55 Urine Blood Negative (Negative) 06/17/16 10:55 Urine Nitrate Negative (Negative) 06/17/16 10:55 Urine Bilirubin Negative (Negative) 06/17/16 10:55 Urine Urobilinogen <2.0 mg/dL (<2.0) 06/17/16 10:55 Ur Leukocyte Esterase Negative (Negative) 06/17/16 10:55 Urine WBC 1 /hpf (0-5) 06/17/16 10:55 Amorphous Sediment Occasional /hpf (None) H 06/17/16 10:55 Urine Mucus Occasional /hpf (None) H 06/17/16 10:55 Urine Eosinophils % 06/17/16 10:55 Random Vancomycin 37.1 ug/mL 06/19/16 08:32 Digoxin 1.4 ng/mL 06/16/16 18:10 Microbiology 06/16/16 18:10 Blood Blood Culture - Preliminary No Growth after 72 hours 06/17/16 10:55 Urine,Catheterized Urine Culture - Final Assessment and Plan (1) Acute kidney injury Status: Acute (2) Sepsis Narrative/Plan: This pleasant gentleman who has dementia was recently hospitalized with evidence of polymicrobial bacteremia and sepsis. He was discharged with vancomycin therapy with pharmacy dosing. The patient has rapidly developed acute renal failure and increasing vancomycin levels. On 112 his creatinine was 1.58 and after hydration improved to 1.04. On 117 at the time of his discharge his creatinine was 1.13. It is noted that on the increased to 3.[address] increased to 3.90 and 5.27 most recent reading. At this time the patient has evidence of renal failure that is multifactorial in its nature. Including his recent sepsis, dehydration, and vancomycin toxicity. Vancomycin is on hold. Level has now decreased to 35. Once levels decreases will no longer be therapeutic will still need to be treated with antimicrobial therapy to complete his course of treatment for his recent sepsis which was polymicrobial. Likely will be daptomycin to complete his 2 week total course of therapy. Nephrology is following. Status: Acute
[2016-06-20 01:58] LABS: Glucose,Whole Blood 91 mg/dL (75-99)
[2016-06-20 07:15] LABS: Glucose,Whole Blood 86 mg/dL (75-99)
[2016-06-20] MEDS: METOPROLOL TARTRATE 50 MG TAB PO SCH (08:28)
[2016-06-20] MEDS: INSULN ASP PRT/INSULIN ASPART 100 UNIT/ML 10 ML VIAL SQ SCH ×2 (08:29→18:13)
[2016-06-20] MEDS: SODIUM BICARBONATE TAB 650 MG TAB PO SCH ×2 (08:31→20:11)
[2016-06-20] MEDS: DIGOXIN 125 MCG TAB PO SCH (08:31)
[2016-06-20] MEDS: CLOPIDOGREL 75 MG TAB PO SCH (08:31)
[2016-06-20] MEDS: MEMANTINE 5 MG TAB PO SCH (08:31)
[2016-06-20] MEDS: PANTOPRAZOLE 40 MG TABLET PO SCH (08:31)
[2016-06-20] MEDS: ZINC OXIDE 20% OINT 28.4 GM TUBE TOPICAL SCH (08:32)
--- NOTE | 2016-06-20 09:23 | P.PN ---
Subjective 76-year-old male one of my office patient with multiple medical problem who was in the hospital last in 06/04/2016 and was sent to [facility] on leg after his hospitalization. 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 Scruggs remain on vancomycin orally for it still seen at the wound clinic. Patient ended up and [facility] on Vanco IV and wound care as well. His Vanco level on the came back quite bit high at 56 with slightly declining kidney function. Repeat kidney function and Vanco level on the came back with creatinine above 5 BUN in the 80s patient has been in acute renal failure his Vanco level still significantly high in the mid 30 despite not been on Vanco at this point. The patient was transferred to the emergency department at [facility] and admitted to the hospital for acute kidney failure, Osborne catheter was placed and IV fluid with hydration and watch his urine output on regular basis. 06/18: Renal ultrasound showed possible chronic outlet obstruction of the bladder. No evidence of hydronephrosis. Repeat BUN 45 and creatinine 5.39. Patient remains with slight mental status changes. He is complaining of right lower anterior rib pain. Lidocaine patch will be ordered and rib x-rays 06/19: Repeat BUN 42 and creatinine 5.66. No plan for immediate hemodialysis. Patient remains slightly lethargic from his baseline with continued confusion. Patient's is at the bedside and all her questions were answered. 06/20: Morning lab work remains pending. Patient remains somewhat lethargic and not back to his baseline. No new complaints. He denies pain to the right chest area Objective - Vital Signs Vital signs: Vital Signs Temp 97.2 F L 06/20/16 07:00 Pulse 50 L 06/20/16 07:00 Resp 16 06/20/16 07:00 BP 115/53 06/20/16 07:00 Pulse Ox 96 06/20/16 07:00 Intake & Output 06/19/16 06/20/16 06/20/16 18:59 06:59 18:59 Intake Total 125 Output Total 475 1100 Balance -350 -1100 Weight 77.5 kg Intake: Oral 125 Output: Urine 475 1100 Other: Voiding Method Indwelling Catheter Indwelling Catheter # Voids 1 # Bowel Movements 1 - Exam General appearance: no average body habitus, cooperative, disheveled, no mild distress, no morbidly obese, no acute distress, no obese, no severe distress, thin - EENT Eyes: no abnormal pupil, no anicteric sclerae, no disc margins sharp, no edentulous, no EOMI, no PERRLA, no fundus normal, no photophobia, no dentition normal, no poor dentition, no ptosis, no scleral icterus, normal appearance ENT: hard of hearing, no hearing grossly normal, no NA/AT, normal oropharynx, no other, no pharyngeal erythema, no thrush, no tonsillar exudates, no tonsillar swelling Ears: bilateral: normal - Neck Neck: no lymphadenopathy, no normal ROM, no other, no rigidity, no stridor, no thyromegaly Carotids: bilateral: upstroke normal Thyroid: bilateral: normal size - Respiratory Respiratory: bilateral: CTA, diminished, right anterior lower rib tenderness has resolved. No bruising noted - Cardiovascular Rhythm: regular Heart sounds: normal: S1, S2 Abnormal Heart Sounds: systolic murmur, no diastolic murmur, no rub, S3 Gallop, no S4 Gallop, no click, no other - Gastrointestinal General gastrointestinal: no absent bowel sounds, no decreased bowel sounds, distended, no hepatomegaly, no hyperactive bowel sounds, normal bowel sounds, no organomegaly, no rigid, no scaphoid, soft, no splenomegaly, tenderness, no umbilical hernia, no ventral hernia - Integumentary Left big toe post amputation second toe had mild gangrenous with dry skin. Integumentary: cellulitis, cyanotic, flushed, pale, rash, ulcer - Neurologic Neurologic: CNII-XII intact - Musculoskeletal Musculoskeletal: no gait normal, generalized weakness, no strength equal bilaterally, no right sided weakness, no left sided weakness - Psychiatric Psychiatric: A&O x's 3, no appropriate affect, no intact judgment & insight - Labs CBC & Chem 7: 06/17/16 08:00 06/19/16 08:32 Labs: Abnormal Lab Results - Last 24 Hours (Table) 06/19/16 06/19/16 06/19/16 Range/Units 08:32 16:49 20:20 Chloride 112 H (98-107) mmol/L Carbon Dioxide 19 L (22-30) mmol/L BUN 42 H (9-20) mg/dL Creatinine 5.66 H* (0.66-1.25) mg/dL POC Glucose (mg/dL) 103 H 117 H (75-99) mg/dL Calcium 8.1 L (8.4-10.2) mg/dL Assessment and Plan Plan: 1 acute kidney injury with chronic kidney disease stage II: Most likely ATN, this is most likely caused by the vancomycin. Patient will be off Vanco continue hydration and to watch his urine output closely ultrasound of the kidney will be done as well repeat BUN/creatinine and daily basis. 2 chronic wound on the right foot post a great toe amputation with residual dry gangrene on the fourth toe has been on conservative management continue wound care either wound clinic and on IV antibiotic will consult Dr. scruggs as well. 3 chronic A. fib: Patient has been on Ahlquist on Lopressor continue medication. 4 COPD: Stable no exacerbation lately remain on DuoNeb and Pulmicort along with O2. 5 advance ischemic cardiomyopathy post AICD has been stable. 6 severe PAD: Has been seen Dr. Simon patient had MRSA infection the great toe has been treated. 7 BPH still on tamsulosin 0.4 mg daily. 8 diabetes type 2: Patient has been on 7030 10 units twice a day continue Accu- Chek with sliding scales. 9 vascular dementia: Patient has been off Remeron and Namenda for now. DVT prophylaxis: Patient is on Eliquis. GI prophylaxis: Patient remain on Pepcid 20 mg daily. CODE STATUS: Full code. Discharge plan: Return to [facility] Impression and plan of care have been directed as dictated by the signing physician. Felisha Hernandez nurse practitioner acting as scribe for signing physician. Time with Patient: Greater than 30
--- NOTE | 2016-06-20 11:54 | P.PN ---
Subjective Patient is seen in follow-up for acute kidney injury. Baseline creatinine is near 1 and was elevated at 3.7 on admission and 5.66 as of yesterday. Patient was recently diagnosed with MRSA bacteremia as well as a foot infection and was maintained on IV vancomycin as an outpatient. His vancomycin level on June 16 was 53.1 and 41.3 from June 18 and 37.1 on June 19. Currently resting in bed. Appetite is poor. He is nonoliguric. No vomiting or diarrhea. Vital signs are stable. General: The patient appeared well nourished and normally developed. HEENT: Head exam is unremarkable. Neck is without jugular venous distension. LUNGS: Lungs are clear to auscultation and percussion. Breath sounds decreased. HEART: Rate and Rhythm are regular. First and second heart sounds normal. No murmurs, rubs or gallops. ABDOMEN: Abdominal exam reveals normal bowel sounds. Non-tender and non- distended. No evidence of peritonitis. EXTREMITITES: No clubbing, cyanosis, or edema. Objective - Vital Signs Vital signs: Vital Signs Temp 97.2 F L 06/20/16 07:00 Pulse 50 L 06/20/16 07:00 Resp 16 06/20/16 07:00 BP 115/53 06/20/16 07:00 Pulse Ox 96 06/20/16 07:00 Intake & Output 06/19/16 06/20/16 06/20/16 18:59 06:59 18:59 Intake Total 125 Output Total 475 1100 0 Balance -350 -1100 0 Weight 77.5 kg Intake: Oral 125 Output: Urine 475 1100 Stool 0 Other: Voiding Method Indwelling Catheter Indwelling Catheter Indwelling Catheter # Voids 1 # Bowel Movements 1 1 - Labs CBC & Chem 7: 06/17/16 08:00 06/19/16 08:32 Labs: Abnormal Lab Results - Last 24 Hours (Table) 06/19/16 06/19/16 Range/Units 16:49 20:20 POC Glucose (mg/dL) 103 H 117 H (75-99) mg/dL Assessment and Plan Plan: Assessment: #1. Nonoliguric acute kidney injury secondary to nephrotoxic ATN secondary to vancomycin toxicity. Vancomycin level 53.1 as of 06/16/2016 and 41.3 from June 18. 37.1 on June 19. Urinalysis benign. Renal ultrasound benign. Creatinine 5.66 as of yesterday. Urine eosinophils negative. #2. Right foot wound as well as recent MRSA bacteremia. #3. Anemia. Status post IV iron. #4. Metabolic acidosis secondary to acute kidney injury. #5. Insulin-dependent diabetes mellitus. #6. Hypertension. Controlled. Plan: Vancomycin is currently held. Avoid nephrotoxic agents and hypotensive episodes. Lisinopril held. Hold diuretics Hold antihypertensives for systolic blood pressure less than 120. Maintain IV hydration. Currently on normal saline running at 75 mL an hour. Repeat electrolytes in the morning. Maintain oral sodium bicarbonate supplementation. No urgent need for renal replacement therapy at this time. Continue to monitor renal function and urine output. Follow-up morning labs.
[2016-06-20 12:06] LABS: Calcium 8.2 mg/dL (8.4-10.2)
[2016-06-20] MEDS: SODIUM CHLORIDE 0.9% 1,000 ML IV SCH ×2 (12:13→20:13)
[2016-06-20] MEDS: ALPRAZolam 0.25 MG TAB PO PRN ×2 (12:14→20:11)
[2016-06-20 12:29] LABS: Glucose,Whole Blood 95 mg/dL (75-99)
--- NOTE | 2016-06-20 17:10 | P.PN ---
Subjective 76-year-old male known to infectious disease. Earlier last year he has significant difficulty with his right groin area. He had undergone cardiac catheterization and developed a significant infection to his right groin. Record transfer to outside hospital for further surgical intervention with concerns to a necrotizing infection. Fortunately he improved. He continued to have severe peripheral vascular disease. On November 17, Dr. Simon performed the right great toe amputation. Since that time it's been an ongoing ulceration was followed in the wound healing center with Dr. Simon. He is currently at home with his and local wound care is in the form of Santyl. She was recently hospitalized June 04 through June 10 and then was discharged to [facility]. He was treated for bacteremia with MRSA, alphahemolytic strep and diphtheroids species and was placed on vancomycin for 2 week course. Patient is having regular lab work done at the senior living and on June 15 his BUN was 35 and creatinine 3.7. He was sent into [facility] because of this. Repeat BUN was 43 and 5.04 and this morning 44 and 5.27. Also vancomycin level on June 12 was 31.4 and repeat on June 16 is 53.1. Dig level was 1.4. He has been afebrile. Chest x-ray showed no acute process. He was admitted to the Med[facility] floor. Vancomycin has been on hold. Nephrology is following Patient is very calm which is really not his usual self. Denies new complaints. Does state he like to go home. Objective - Vital Signs Vital signs: Vital Signs Temp 97.3 F L 06/20/16 14:48 Pulse 50 L 06/20/16 14:48 Resp 16 06/20/16 14:48 BP 148/63 06/20/16 14:48 Pulse Ox 98 06/20/16 14:48 Intake & Output 06/19/16 06/20/16 06/20/16 18:59 06:59 18:59 Intake Total 125 Output Total 475 1100 600 Balance -350 -1100 -600 Weight 77.5 kg Intake: Oral 125 Output: Urine 475 1100 600 Stool 0 Other: Voiding Method Indwelling Catheter Indwelling Catheter Indwelling Catheter # Voids 1 # Bowel Movements 1 1 - Exam General appearance: average body habitus, cooperative, no acute distress - EENT Eyes: Reports anicteric sclerae, Reports EOMI, Reports PERRLA, Reports dentition normal ENT: Reports hearing grossly normal, Reports NA/AT, Reports normal oropharynx - Neck Neck: Reports normal ROM, Denies lymphadenopathy, Denies other, Denies rigidity , Denies stridor, Denies thyromegaly Thyroid: bilateral: normal size - Respiratory Respiratory: bilateral: CTA, diminished - Cardiovascular Rhythm: irregular Heart sounds: normal: S1, S2, systolic murmur - Gastrointestinal General gastrointestinal: Reports normal bowel sounds, Reports soft - Integumentary Integumentary: Reports normal, Reports normal turgor - Neurologic Neurologic: Awake and alert. He is calm comfortable no acute gross focal sensory motor deficits - Musculoskeletal Musculoskeletal: Reports strength equal bilaterally. Healing wound to the right great toe amputation site, no significant erythema, drainage, swelling. Eschar to the distal second toe may be slightly increased from last hospitalization. - Psychiatric Psychiatric: Reports A&O x's1, Reports appropriate affect, Denies intact judgment & insight (Short-term memory loss) - Labs CBC & Chem 7: 06/17/16 08:00 06/20/16 11:02 Labs: Abnormal Lab Results - Last 24 Hours (Table) 06/19/16 06/20/16 Range/Units 20:20 11:02 Chloride 113 H (98-107) mmol/L Carbon Dioxide 19 L (22-30) mmol/L BUN 40 H (9-20) mg/dL Creatinine 5.00 H* (0.66-1.25) mg/dL POC Glucose (mg/dL) 117 H (75-99) mg/dL Calcium 8.2 L (8.4-10.2) mg/dL Laboratory Results WBC 5.8 k/uL (3.8-10.6) 06/17/16 08:00 RBC 3.19 m/uL (4.30-5.90) L 06/17/16 08:00 Hgb 9.8 gm/dL (13.0-17.5) L 06/17/16 08:00 Hct 29.4 % (39.0-53.0) L 06/17/16 08:00 MCV 92.2 fL (80.0-100.0) 06/17/16 08:00 MCH 30.6 pg (25.0-35.0) 06/17/16 08:00 MCHC 33.2 g/dL (31.0-37.0) 06/17/16 08:00 RDW 14.5 % (11.5-15.5) 06/17/16 08:00 Plt Count 122 k/uL (150-450) L 06/17/16 08:00 Neutrophils % 69 % 06/17/16 08:00 Lymphocytes % 21 % 06/17/16 08:00 Monocytes % 6 % 06/17/16 08:00 Eosinophils % 3 % 06/17/16 08:00 Basophils % 1 % 06/17/16 08:00 Neutrophils # 4.0 k/uL (1.3-7.7) 06/17/16 08:00 Lymphocytes # 1.2 k/uL (1.0-4.8) 06/17/16 08:00 Monocytes # 0.4 k/uL (0-1.0) 06/17/16 08:00 Eosinophils # 0.2 k/uL (0-0.7) 06/17/16 08:00 Basophils # 0.0 k/uL (0-0.2) 06/17/16 08:00 PT 11.8 sec (9.0-12.0) 06/16/16 18:10 INR 1.2 (<1.1) 06/16/16 18:10 APTT 26.8 sec (22.0-30.0) 06/16/16 18:10 Sodium 144 mmol/L (137-145) 06/20/16 11:02 Potassium 4.0 mmol/L (3.5-5.1) 06/20/16 11:02 Chloride 113 mmol/L (98-107) H 06/20/16 11:02 Carbon Dioxide 19 mmol/L (22-30) L 06/20/16 11:02 Anion Gap 12 mmol/L 06/20/16 11:02 BUN 40 mg/dL (9-20) H 06/20/16 11:02 Creatinine 5.00 mg/dL (0.66-1.25) H* 06/20/16 11:02 Est GFR (MDRD) Af Amer 14 (>60 ml/min/1.73 sqM) 06/20/16 11:02 Est GFR (MDRD) Non-Af 11 (>60 ml/min/1.73 sqM) 06/20/16 11:02 Glucose 89 mg/dL (74-99) 06/20/16 11:02 POC Glucose (mg/dL) 95 mg/dL (75-99) 06/20/16 12:01 POC Glu [employer]p Cutter ID Joyce Zaman 06/20/16 12:01 Calcium 8.2 mg/dL (8.4-10.2) L 06/20/16 11:02 Iron 49 ug/dL (49-181) 06/17/16 08:00 TIBC 241 ug/dL (261-462) L 06/17/16 08:00 % Saturation 20.3 % (20-50) 06/17/16 08:00 Ferritin 46 ng/mL (18-464) 06/17/16 08:00 Total Bilirubin 0.7 mg/dL (0.2-1.3) 06/16/16 18:10 AST 16 U/L (17-59) L 06/16/16 18:10 ALT 21 U/L (21-72) 06/16/16 18:10 Alkaline Phosphatase 98 U/L (38-126) 06/16/16 18:10 Total Protein 6.2 g/dL (6.3-8.2) L 06/16/16 18:10 Albumin 3.3 g/dL (3.5-5.0) L 06/16/16 18:10 Urine Color Light Yellow 06/17/16 10:55 Urine Appearance Cloudy (Clear) 06/17/16 10:55 Urine pH 5.0 (5.0-8.0) 06/17/16 10:55 Ur Specific [place] 1.006 (1.001-1.035) 06/17/16 10:55 Urine Protein Negative (Negative) 06/17/16 10:55 Urine Glucose (UA) Negative (Negative) 06/17/16 10:55 Urine Ketones Negative (Negative) 06/17/16 10:55 Urine Blood Negative (Negative) 06/17/16 10:55 Urine Nitrate Negative (Negative) 06/17/16 10:55 Urine Bilirubin Negative (Negative) 06/17/16 10:55 Urine Urobilinogen <2.0 mg/dL (<2.0) 06/17/16 10:55 Ur Leukocyte Esterase Negative (Negative) 06/17/16 10:55 Urine WBC 1 /hpf (0-5) 06/17/16 10:55 Amorphous Sediment Occasional /hpf (None) H 06/17/16 10:55 Urine Mucus Occasional /hpf (None) H 06/17/16 10:55 Urine Eosinophils % 06/17/16 10:55 Random Vancomycin 33.4 ug/mL 06/20/16 11:02 Digoxin 1.4 ng/mL 06/16/16 18:10 Microbiology 06/16/16 18:10 Blood Blood Culture - Preliminary No Growth after 72 hours 06/17/16 10:55 Urine,Catheterized Urine Culture - Final Assessment and Plan (1) Acute kidney injury Status: Acute (2) Sepsis Narrative/Plan: This pleasant gentleman who has dementia was recently hospitalized with evidence of polymicrobial bacteremia and sepsis. He was discharged with vancomycin therapy with pharmacy dosing. The patient has rapidly developed acute renal failure and increasing vancomycin levels. On 112 his creatinine was 1.58 and after hydration improved to 1.04. On 117 at the time of his discharge his creatinine was 1.13. It is noted that on the increased to 3.4 and the increased to 3.90 and 5.27 most recent reading. At this time the patient has evidence of renal failure that is multifactorial in its nature. Including his recent sepsis, dehydration, and vancomycin toxicity. Vancomycin is on hold. Level has now decreased to 33. Once levels decreases will no longer be therapeutic will still need to be treated with antimicrobial therapy to complete his course of treatment for his recent sepsis which was polymicrobial. Likely will be daptomycin to complete his 2 week total course of therapy. Nephrology is following. Status: Acute
[2016-06-20 17:18] LABS: Glucose,Whole Blood 102 mg/dL (75-99)
[2016-06-20] MEDS: MONTELUKAST 10 MG TAB PO SCH (20:11)
[2016-06-20] MEDS: MIRTAZAPINE 15 MG TAB PO SCH (20:11)
[2016-06-20] MEDS: TAMSULOSIN 0.4 MG CAP.ER.24H PO SCH (20:11)
[2016-06-20] MEDS: ATORVASTATIN 40 MG TAB PO SCH (20:11)
[2016-06-20] MEDS: METOPROLOL TARTRATE 25 MG TAB PO SCH (20:12)
[2016-06-20] MEDS: COLLAGENASE 250 UNIT/GM OINTMENT 30 GM TUBE TOPICAL SCH (20:32)
[2016-06-20 21:06] LABS: Glucose,Whole Blood 104 mg/dL (75-99)
[2016-06-21 02:11] LABS: Glucose,Whole Blood 99 mg/dL (75-99)
[2016-06-21 07:24] LABS: Glucose,Whole Blood 89 mg/dL (75-99)
[2016-06-21 09:29] LABS: Calcium 8.1 mg/dL (8.4-10.2); Potassium 3.9 mmol/L (3.5-5.1)
--- NOTE | 2016-06-21 10:58 | P.PN ---
Subjective Patient is seen in follow-up for acute kidney injury. Baseline creatinine is near 1 and peaked at 5.6 this admission down to 4.8 today. Patient was recently diagnosed with MRSA bacteremia as well as a foot infection and was maintained on IV vancomycin as an outpatient. His vancomycin level on June 16 was 53.1 and 41.3 from June 18 and 37.1 on June 19. Currently resting in bed. Appetite is poor. He is nonoliguric. No vomiting or diarrhea. Vital signs are stable. General: The patient appeared well nourished and normally developed. HEENT: Head exam is unremarkable. Neck is without jugular venous distension. LUNGS: Lungs are clear to auscultation and percussion. Breath sounds decreased. HEART: Rate and Rhythm are regular. First and second heart sounds normal. No murmurs, rubs or gallops. ABDOMEN: Abdominal exam reveals normal bowel sounds. Non-tender and non- distended. No evidence of peritonitis. EXTREMITITES: No clubbing, cyanosis, or edema. Objective - Vital Signs Vital signs: Vital Signs Temp 97.9 F 06/21/16 07:00 Pulse 54 L 06/21/16 07:00 Resp 16 06/21/16 07:00 BP 140/53 06/21/16 07:00 Pulse Ox 99 06/21/16 07:00 Intake & Output 06/20/16 06/21/16 06/21/16 18:59 06:59 18:59 Output Total 600 1100 Balance -600 -1100 Weight 79 kg Output: Urine 600 1100 Stool 0 Other: Voiding Method Indwelling Catheter Indwelling Catheter # Bowel Movements 1 - Labs CBC & Chem 7: 06/17/16 08:00 06/21/16 08:57 Labs: Abnormal Lab Results - Last 24 Hours (Table) 06/20/16 06/20/16 06/20/16 Range/Units 11:02 16:53 21:04 Chloride 113 H (98-107) mmol/L Carbon Dioxide 19 L (22-30) mmol/L BUN 40 H (9-20) mg/dL Creatinine 5.00 H* (0.66-1.25) mg/dL POC Glucose (mg/dL) 102 H 104 H (75-99) mg/dL Calcium 8.2 L (8.4-10.2) mg/dL 06/21/16 Range/Units 08:57 Chloride 113 H (98-107) mmol/L Carbon Dioxide 20 L (22-30) mmol/L BUN 36 H (9-20) mg/dL Creatinine 4.80 H (0.66-1.25) mg/dL POC Glucose (mg/dL) (75-99) mg/dL Calcium 8.1 L (8.4-10.2) mg/dL Assessment and Plan Plan: Assessment: #1. Nonoliguric acute kidney injury secondary to nephrotoxic ATN secondary to vancomycin toxicity. Vancomycin level 53.1 as of 06/16/2016 and 41.3 from June 18. 37.1 on June 19. Urinalysis benign. Renal ultrasound benign. Creatinine down to 4.8 today. Urine eosinophils negative. #2. Right foot wound as well as recent MRSA bacteremia. #3. Anemia. Status post IV iron. #4. Metabolic acidosis secondary to acute kidney injury. #5. Insulin-dependent diabetes mellitus. #6. Hypertension. Controlled. Plan: Vancomycin is currently held. Avoid nephrotoxic agents and hypotensive episodes. Lisinopril held. Hold diuretics Hold antihypertensives for systolic blood pressure less than 120. Maintain IV hydration. Currently on normal saline running at 75 mL an hour. Repeat electrolytes in the morning. Maintain oral sodium bicarbonate supplementation. No urgent need for renal replacement therapy at this time. Continue to monitor renal function and urine output.
[2016-06-21] MEDS: CLOPIDOGREL 75 MG TAB PO SCH (11:01)
[2016-06-21] MEDS: ALPRAZolam 0.25 MG TAB PO PRN ×2 (11:01→21:22)
[2016-06-21] MEDS: INSULN ASP PRT/INSULIN ASPART 100 UNIT/ML 10 ML VIAL SQ SCH ×2 (11:01→17:22)
[2016-06-21] MEDS: SODIUM BICARBONATE TAB 650 MG TAB PO SCH ×2 (11:01→21:21)
[2016-06-21] MEDS: MEMANTINE 5 MG TAB PO SCH (11:02)
[2016-06-21] MEDS: METOPROLOL TARTRATE 50 MG TAB PO SCH (11:02)
[2016-06-21] MEDS: DIGOXIN 125 MCG TAB PO SCH (11:02)
[2016-06-21] MEDS: PANTOPRAZOLE 40 MG TABLET PO SCH (11:03)
[2016-06-21] MEDS: ZINC OXIDE 20% OINT 28.4 GM TUBE TOPICAL SCH (11:03)
[2016-06-21 12:08] LABS: Glucose,Whole Blood 91 mg/dL (75-99)
[2016-06-21] MEDS: SODIUM CHLORIDE 0.9% 1,000 ML IV SCH ×3 (12:45→21:22)
--- NOTE | 2016-06-21 16:12 | P.PN ---
Subjective 76-year-old male known to infectious disease. Earlier last year he has significant difficulty with his right groin area. He had undergone cardiac catheterization and developed a significant infection to his right groin. Record transfer to outside hospital for further surgical intervention with concerns to a necrotizing infection. Fortunately he improved. He continued to have severe peripheral vascular disease. On November 17, Dr. Simon performed the right great toe amputation. Since that time it's been an ongoing ulceration was followed in the wound healing center with Dr. Simon. He is currently at home with his and local wound care is in the form of Santyl. She was recently hospitalized June 04 through June 10 and then was discharged to [facility]. He was treated for bacteremia with MRSA, alphahemolytic strep and diphtheroids species and was placed on vancomycin for 2 week course. Patient is having regular lab work done at the [facility] and on June 15 his BUN was 35 and creatinine 3.7. He was sent into [facility] because of this. Repeat BUN was 43 and 5.04 and this morning 36 and 4.8. Also vancomycin level on June 12 was 31.4 and repeat on June 16 is 53.1. Today is down to 28.8 He has been afebrile. Chest x-ray showed no acute process. He was admitted to the [facility] floor. Vancomycin has been on hold. Nephrology is following Patient is very calm which is really not his usual self. Denies new complaints. Does state he would like to go home. Objective - Vital Signs Vital signs: Vital Signs Temp 96.8 F L 06/21/16 15:00 Pulse 50 L 06/21/16 15:00 Resp 16 06/21/16 15:00 BP 124/58 06/21/16 15:00 Pulse Ox 99 06/21/16 15:00 Intake & Output 06/20/16 06/21/16 06/21/16 18:59 06:59 18:59 Output Total 600 1100 550 Balance -600 -1100 -550 Weight 79 kg Output: Urine 600 1100 550 Stool 0 Other: Voiding Method Indwelling Catheter Indwelling Catheter Indwelling Catheter # Bowel Movements 1 1 - Exam General appearance: average body habitus, cooperative, no acute distress - EENT Eyes: Reports anicteric sclerae, Reports EOMI, Reports PERRLA, Reports dentition normal ENT: Reports hearing grossly normal, Reports NA/AT, Reports normal oropharynx - Neck Neck: Reports normal ROM, Denies lymphadenopathy, Denies other, Denies rigidity , Denies stridor, Denies thyromegaly Thyroid: bilateral: normal size - Respiratory Respiratory: bilateral: CTA, diminished - Cardiovascular Rhythm: irregular Heart sounds: normal: S1, S2, systolic murmur - Gastrointestinal General gastrointestinal: Reports normal bowel sounds, Reports soft - Integumentary Integumentary: Reports normal, Reports normal turgor - Neurologic Neurologic: Awake and alert. He is calm comfortable no acute gross focal sensory motor deficits - Musculoskeletal Musculoskeletal: Reports strength equal bilaterally. Healing wound to the right great toe amputation site, no significant erythema, drainage, swelling. Eschar to the distal second toe may be slightly increased from last hospitalization. - Psychiatric Psychiatric: Reports A&O x's1, Reports appropriate affect, Denies intact judgment & insight (Short-term memory loss) - Labs CBC & Chem 7: 06/17/16 08:00 06/21/16 08:57 Labs: Abnormal Lab Results - Last 24 Hours (Table) 06/20/16 06/20/16 06/21/16 Range/Units 16:53 21:04 08:57 Chloride 113 H (98-107) mmol/L Carbon Dioxide 20 L (22-30) mmol/L BUN 36 H (9-20) mg/dL Creatinine 4.80 H (0.66-1.25) mg/dL POC Glucose (mg/dL) 102 H 104 H (75-99) mg/dL Calcium 8.1 L (8.4-10.2) mg/dL Laboratory Results WBC 5.8 k/uL (3.8-10.6) 06/17/16 08:00 RBC 3.19 m/uL (4.30-5.90) L 06/17/16 08:00 Hgb 9.8 gm/dL (13.0-17.5) L 06/17/16 08:00 Hct 29.4 % (39.0-53.0) L 06/17/16 08:00 MCV 92.2 fL (80.0-100.0) 06/17/16 08:00 MCH 30.6 pg (25.0-35.0) 06/17/16 08:00 MCHC 33.2 g/dL (31.0-37.0) 06/17/16 08:00 RDW 14.5 % (11.5-15.5) 06/17/16 08:00 Plt Count 122 k/uL (150-450) L 06/17/16 08:00 Neutrophils % 69 % 06/17/16 08:00 Lymphocytes % 21 % 06/17/16 08:00 Monocytes % 6 % 06/17/16 08:00 Eosinophils % 3 % 06/17/16 08:00 Basophils % 1 % 06/17/16 08:00 Neutrophils # 4.0 k/uL (1.3-7.7) 06/17/16 08:00 Lymphocytes # 1.2 k/uL (1.0-4.8) 06/17/16 08:00 Monocytes # 0.4 k/uL (0-1.0) 06/17/16 08:00 Eosinophils # 0.2 k/uL (0-0.7) 06/17/16 08:00 Basophils # 0.0 k/uL (0-0.2) 06/17/16 08:00 PT 11.8 sec (9.0-12.0) 06/16/16 18:10 INR 1.2 (<1.1) 06/16/16 18:10 APTT 26.8 sec (22.0-30.0) 06/16/16 18:10 Sodium 143 mmol/L (137-145) 06/21/16 08:57 Potassium 3.9 mmol/L (3.5-5.1) 06/21/16 08:57 Chloride 113 mmol/L (98-107) H 06/21/16 08:57 Carbon Dioxide 20 mmol/L (22-30) L 06/21/16 08:57 Anion Gap 10 mmol/L 06/21/16 08:57 BUN 36 mg/dL (9-20) H 06/21/16 08:57 Creatinine 4.80 mg/dL (0.66-1.25) H 06/21/16 08:57 Est GFR (MDRD) Af Amer 14 (>60 ml/min/1.73 sqM) 06/21/16 08:57 Est GFR (MDRD) Non-Af 12 (>60 ml/min/1.73 sqM) 06/21/16 08:57 Glucose 86 mg/dL (74-99) 06/21/16 08:57 POC Glucose (mg/dL) 91 mg/dL (75-99) 06/21/16 11:30 POC Glu Casing Builder ID Joyce Zaman 06/21/16 11:30 Calcium 8.1 mg/dL (8.4-10.2) L 06/21/16 08:57 Iron 49 ug/dL (49-181) 06/17/16 08:00 TIBC 241 ug/dL (261-462) L 06/17/16 08:00 % Saturation 20.3 % (20-50) 06/17/16 08:00 Ferritin 46 ng/mL (18-464) 06/17/16 08:00 Total Bilirubin 0.7 mg/dL (0.2-1.3) 06/16/16 18:10 AST 16 U/L (17-59) L 06/16/16 18:10 ALT 21 U/L (21-72) 06/16/16 18:10 Alkaline Phosphatase 98 U/L (38-126) 06/16/16 18:10 Total Protein 6.2 g/dL (6.3-8.2) L 06/16/16 18:10 Albumin 3.3 g/dL (3.5-5.0) L 06/16/16 18:10 Urine Color Light Yellow 06/17/16 10:55 Urine Appearance Cloudy (Clear) 06/17/16 10:55 Urine pH 5.0 (5.0-8.0) 06/17/16 10:55 Ur Specific [place] 1.006 (1.001-1.035) 06/17/16 10:55 Urine Protein Negative (Negative) 06/17/16 10:55 Urine Glucose (UA) Negative (Negative) 06/17/16 10:55 Urine Ketones Negative (Negative) 06/17/16 10:55 Urine Blood Negative (Negative) 06/17/16 10:55 Urine Nitrate Negative (Negative) 06/17/16 10:55 Urine Bilirubin Negative (Negative) 06/17/16 10:55 Urine Urobilinogen <2.0 mg/dL (<2.0) 06/17/16 10:55 Ur Leukocyte Esterase Negative (Negative) 06/17/16 10:55 Urine WBC 1 /hpf (0-5) 06/17/16 10:55 Amorphous Sediment Occasional /hpf (None) H 06/17/16 10:55 Urine Mucus Occasional /hpf (None) H 06/17/16 10:55 Urine Eosinophils % 06/17/16 10:55 Random Vancomycin 28.8 ug/mL 06/21/16 08:57 Digoxin 1.4 ng/mL 06/16/16 18:10 Microbiology 06/16/16 18:10 Blood Blood Culture - Preliminary No Growth after 96 hours 06/17/16 10:55 Urine,Catheterized Urine Culture - Final Assessment and Plan (1) Acute kidney injury Status: Acute (2) Sepsis Narrative/Plan: This pleasant gentleman who has dementia was recently hospitalized with evidence of polymicrobial bacteremia and sepsis. He was discharged with vancomycin therapy with pharmacy dosing. The patient has rapidly developed acute renal failure and increasing vancomycin levels. On 112 his creatinine was 1.58 and after hydration improved to 1.04. On 117 at the time of his discharge his creatinine was 1.13. It is noted that on the increased to 3.4 and the increased to 3.90 and 5.27 most recent reading. At this time the patient has evidence of renal failure that is multifactorial in its nature. Including his recent sepsis, dehydration, and vancomycin toxicity. Vancomycin is on hold. Level has now decreased to 28.8 Once levels decreases will no longer be therapeutic will still need to be treated with antimicrobial therapy to complete his course of treatment for his recent sepsis which was polymicrobial. Likely will be daptomycin to complete his 2 week total course of therapy. Nephrology is following. Status: Acute
[2016-06-21 17:52] LABS: Glucose,Whole Blood 105 mg/dL (75-99)
[2016-06-21 21:16] LABS: Glucose,Whole Blood 85 mg/dL (75-99)
[2016-06-21] MEDS: ATORVASTATIN 40 MG TAB PO SCH (21:20)
[2016-06-21] MEDS: MIRTAZAPINE 15 MG TAB PO SCH (21:21)
[2016-06-21] MEDS: MONTELUKAST 10 MG TAB PO SCH (21:21)
[2016-06-21] MEDS: COLLAGENASE 250 UNIT/GM OINTMENT 30 GM TUBE TOPICAL SCH (21:21)
[2016-06-21] MEDS: TAMSULOSIN 0.4 MG CAP.ER.24H PO SCH (21:21)
[2016-06-21] MEDS: METOPROLOL TARTRATE 25 MG TAB PO SCH ×2 (21:21→21:28)
--- NOTE | 2016-06-21 23:40 | P.PN ---
Subjective Principal diagnosis: Acute kidney injury, chronic vestibulitis on IV antibiotic, CAD, COPD 76-year-old male one of my office patient with multiple medical problem who was in the hospital last in 06/04/2016 and was sent to [facility] on leg after his hospitalization. 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 Scruggs remain on vancomycin orally for it still seen at the wound clinic. Patient ended up and [facility] on Vanco IV and wound care as well. His Vanco level on the came back quite bit high at 56 with slightly declining kidney function. Repeat kidney function and Vanco level on the came back with creatinine above 5 BUN in the 80s patient has been in acute renal failure his Vanco level still significantly high in the mid 30 despite not been on Vanco at this point. The patient was transferred to the emergency department at [facility] and admitted to the hospital for acute kidney failure, Osborne catheter was placed and IV fluid with hydration and watch his urine output on regular basis. 06/18: Renal ultrasound showed possible chronic outlet obstruction of the bladder. No evidence of hydronephrosis. Repeat BUN 45 and creatinine 5.39. Patient remains with slight mental status changes. He is complaining of right lower anterior rib pain. Lidocaine patch will be ordered and rib x-rays 06/19: Repeat BUN 42 and creatinine 5.66. No plan for immediate hemodialysis. Patient remains slightly lethargic from his baseline with continued confusion. Patient's is at the bedside and all her questions were answered. 06/20: Morning lab work remains pending. Patient remains somewhat lethargic and not back to his baseline. No new complaints. He denies pain to the right chest area 06/21 2016: Patient is doing much better his lab value has improved some patient is eating more interacting more. We'll continue hydration and possible return to [facility] in 24 hours. Objective - Vital Signs Vital signs: Vital Signs Temp 97.9 F 06/21/16 07:00 Pulse 54 L 06/21/16 07:00 Resp 16 06/21/16 07:00 BP 140/53 06/21/16 07:00 Pulse Ox 99 06/21/16 07:00 Intake & Output 06/20/16 06/21/16 06/21/16 18:59 06:59 18:59 Output Total 600 1100 Balance -600 -1100 Weight 79 kg Output: Urine 600 1100 Stool 0 Other: Voiding Method Indwelling Catheter Indwelling Catheter Indwelling Catheter # Bowel Movements 1 - Constitutional General appearance: Present: disheveled, no acute distress. Absent: average body habitus, cooperative, mild distress, morbidly obese, obese, severe distress , thin - EENT Eyes: Present: abnormal pupil, normal appearance. Absent: anicteric sclerae, disc margins sharp, edentulous, EOMI, PERRLA, fundus normal, photophobia, dentition normal, poor dentition, ptosis, scleral icterus ENT: Present: hard of hearing, normal oropharynx. Absent: NA/AT, other, pharyngeal erythema, thrush, tonsillar exudates, tonsillar swelling Ears: bilateral: normal - Neck Neck: Present: normal ROM. Absent: lymphadenopathy, other, rigidity, stridor, thyromegaly Carotids: bilateral: upstroke normal Thyroid: bilateral: normal size - Respiratory Respiratory: bilateral: CTA, diminished - Cardiovascular Rhythm: regular Heart sounds: normal: S1, S2 Abnormal Heart Sounds: Present: systolic murmur, S3 Gallop - Gastrointestinal General gastrointestinal: Present: decreased bowel sounds, normal bowel sounds, soft. Absent: absent bowel sounds, distended, hepatomegaly, hyperactive bowel sounds, organomegaly, rigid, scaphoid, splenomegaly, tenderness, umbilical hernia, ventral hernia - Integumentary Integumentary Comment(s): Right big toe amputation with the right second toe still have slight ulcerated area dry and better than before no drainage. Integumentary: Present: cellulitis, cyanotic, normal, pale, rash, ulcer. Absent : calor, decreased turgor, flushed, jaundiced, normal turgor - Neurologic Neurologic: Present: CNII-XII intact - Musculoskeletal Musculoskeletal: Present: gait normal, generalized weakness. Absent: strength equal bilaterally, right sided weakness, left sided weakness - Psychiatric Psychiatric: Present: A&O x's 3 - Labs CBC & Chem 7: 06/17/16 08:00 06/21/16 08:57 Labs: Abnormal Lab Results - Last 24 Hours (Table) 06/20/16 06/20/16 06/21/16 Range/Units 16:53 21:04 08:57 Chloride 113 H (98-107) mmol/L Carbon Dioxide 20 L (22-30) mmol/L BUN 36 H (9-20) mg/dL Creatinine 4.80 H (0.66-1.25) mg/dL POC Glucose (mg/dL) 102 H 104 H (75-99) mg/dL Calcium 8.1 L (8.4-10.2) mg/dL Assessment and Plan Plan: 1 acute kidney injury with chronic kidney disease stage II: Most likely ATN, this is most likely caused by the vancomycin. Patient will be off Vanco continue hydration and to watch his urine output closely ultrasound of the kidney will be done as well repeat BUN/creatinine and daily basis. Remain off vancomycin significant improvement in his kidney function continue current care still seen Dr. Jerez 2 chronic wound on the right foot post a great toe amputation with residual dry gangrene on the fourth toe has been on conservative management continue wound care either wound clinic and on IV antibiotic will consult Dr. scruggs as well. 3 chronic A. fib: Patient has been on Eliquis on Lopressor continue medication. 4 COPD: Stable no exacerbation lately remain on DuoNeb and Pulmicort along with O2. 5 advance ischemic cardiomyopathy post AICD has been stable. 6 severe PAD: Has been seen Dr. Simon patient had MRSA infection the great toe has been treated. 7 BPH still on tamsulosin 0.4 mg daily. 8 diabetes type 2: Patient has been on 7030 10 units twice a day continue Accu- Chek with sliding scales. 9 vascular dementia: Patient has been off Remeron and Namenda for now. DVT prophylaxis: Patient is on Eliquis. GI prophylaxis: Patient remain on Pepcid 20 mg daily. CODE STATUS: Full code. Discharge plan: Return to [facility] in 24-48 hours
[2016-06-22 02:41] LABS: Glucose,Whole Blood 78 mg/dL (75-99)
[2016-06-22 07:51] LABS: Glucose,Whole Blood 86 mg/dL (75-99)
[2016-06-22 08:27] LABS: Basophils % (A) 1 %; CH 31.2; CHCM 33.8; Eosinophils # (A) 0.2 k/uL (0-0.7); Eosinophils % (A) 4 %; HCT 28.2 % (39.0-53.0); HDW 3.04; HGB 9.5 gm/dL (13.0-17.5); Luc # (Auto) 0.06; Luc % (Auto) 1; Lymphocytes % (A) 19 %; MCH 31.3 pg (25.0-35.0); MCHC 33.8 g/dL (31.0-37.0); MCV 92.6 fL (80.0-100.0); Monocytes # (A) 0.3 k/uL (0-1.0); Monocytes % (A) 5 %; Neutrophils # (A) 3.7 k/uL (1.3-7.7); Neutrophils % (A) 71 %; RBC 3.04 m/uL (4.30-5.90); RDW 14.1 % (11.5-15.5); WBC 5.2 k/uL (3.8-10.6); WBC (Perox) 5.33
[2016-06-22 08:37] LABS: Potassium 3.8 mmol/L (3.5-5.1); Total Bilirubin 0.4 mg/dL (0.2-1.3); Total Protein 5.3 g/dL (6.3-8.2)
[2016-06-22] MEDS: SODIUM CHLORIDE 0.45% 1,000 ML IV SCH (10:34)
[2016-06-22] MEDS: PANTOPRAZOLE 40 MG TABLET PO SCH (10:36)
[2016-06-22] MEDS: DIGOXIN 125 MCG TAB PO SCH (10:36)
[2016-06-22] MEDS: INSULN ASP PRT/INSULIN ASPART 100 UNIT/ML 10 ML VIAL SQ SCH ×2 (10:36→17:51)
[2016-06-22] MEDS: SODIUM BICARBONATE TAB 650 MG TAB PO SCH ×2 (10:36→20:32)
[2016-06-22] MEDS: MEMANTINE 5 MG TAB PO SCH (10:36)
[2016-06-22] MEDS: CLOPIDOGREL 75 MG TAB PO SCH (10:36)
[2016-06-22] MEDS: METOPROLOL TARTRATE 50 MG TAB PO SCH (10:36)
[2016-06-22] MEDS: ZINC OXIDE 20% OINT 28.4 GM TUBE TOPICAL SCH (10:37)
--- NOTE | 2016-06-22 10:49 | P.PN ---
Subjective Patient is seen in follow-up for acute kidney injury. Baseline creatinine is near 1 and peaked at 5.6 this admission down to 4.64 today. Patient was recently diagnosed with MRSA bacteremia as well as a foot infection and was maintained on IV vancomycin as an outpatient. His vancomycin level on June 16 was 53.1 and 41.3 from June 18 and 37.1 on June 19. Currently resting in bed. Appetite is poor. He is nonoliguric. No vomiting or diarrhea. Vital signs are stable. General: The patient appeared well nourished and normally developed. HEENT: Head exam is unremarkable. Neck is without jugular venous distension. LUNGS: Lungs are clear to auscultation and percussion. Breath sounds decreased. HEART: Rate and Rhythm are regular. First and second heart sounds normal. No murmurs, rubs or gallops. ABDOMEN: Abdominal exam reveals normal bowel sounds. Non-tender and non- distended. No evidence of peritonitis. EXTREMITITES: No clubbing, cyanosis, or edema. Objective - Vital Signs Vital signs: Vital Signs Temp 98.2 F 06/22/16 07:00 Pulse 55 L 06/22/16 07:00 Resp 16 06/22/16 07:00 BP 149/65 06/22/16 07:00 Pulse Ox 96 06/22/16 07:00 Intake & Output 06/21/16 06/22/16 06/22/16 18:59 06:59 18:59 Output Total 550 700 Balance -550 -700 Weight 81.5 kg Output: Urine 550 700 Stool 0 Other: Voiding Method Indwelling Catheter Indwelling Catheter # Voids 400 # Bowel Movements 1 0 - Labs CBC & Chem 7: 06/22/16 07:54 06/22/16 07:54 Labs: Abnormal Lab Results - Last 24 Hours (Table) 06/21/16 06/22/16 06/22/16 Range/Units 17:08 07:54 07:54 RBC 3.04 L (4.30-5.90) m/uL Hgb 9.5 L (13.0-17.5) gm/dL Hct 28.2 L (39.0-53.0) % Plt Count 117 L (150-450) k/uL Sodium 147 H (137-145) mmol/L Chloride 113 H (98-107) mmol/L BUN 33 H (9-20) mg/dL Creatinine 4.64 H (0.66-1.25) mg/dL POC Glucose (mg/dL) 105 H (75-99) mg/dL Calcium 8.0 L (8.4-10.2) mg/dL AST 14 L (17-59) U/L Total Protein 5.3 L (6.3-8.2) g/dL Albumin 2.6 L (3.5-5.0) g/dL Assessment and Plan Plan: Assessment: #1. Nonoliguric acute kidney injury secondary to nephrotoxic ATN secondary to vancomycin toxicity. Vancomycin level 53.1 as of 06/16/2016 and 41.3 from June 18. 37.1 on June 19. Urinalysis benign. Renal ultrasound benign. Creatinine down to 4.64 today. Urine eosinophils negative. #2. Right foot wound as well as recent MRSA bacteremia. #3. Anemia. Status post IV iron. #4. Metabolic acidosis secondary to acute kidney injury. #5. Insulin-dependent diabetes mellitus. #6. Hypertension. Controlled. #7. Hypernatremia secondary to lack of oral water intake. Plan: Vancomycin is currently held. Avoid nephrotoxic agents and hypotensive episodes. Lisinopril held. Hold diuretics Hold antihypertensives for systolic blood pressure less than 120. Maintain IV hydration. I will change to half-normal saline to be run at 75 mL an hour. Repeat electrolytes in the morning. Maintain oral sodium bicarbonate supplementation. No urgent need for renal replacement therapy at this time. Continue to monitor renal function and urine output.
[2016-06-22 12:14] LABS: Glucose,Whole Blood 94 mg/dL (75-99)
[2016-06-22] MEDS: ALPRAZolam 0.25 MG TAB PO PRN ×2 (13:32→22:22)
--- NOTE | 2016-06-22 16:13 | P.PN ---
Subjective 76-year-old male one of my office patient with multiple medical problem who was in the hospital last in 06/04/2016 and was sent to [facility] on leg after his hospitalization. 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 Scruggs remain on vancomycin orally for it still seen at the wound clinic. Patient ended up and [facility] on Vanco IV and wound care as well. His Vanco level on the came back quite bit high at 56 with slightly declining kidney function. Repeat kidney function and Vanco level on the came back with creatinine above 5 BUN in the 80s patient has been in acute renal failure his Vanco level still significantly high in the mid despite not been on Vanco at this point. The patient was transferred to the emergency department at [facility] and admitted to the hospital for acute kidney failure, Osborne catheter was placed and IV fluid with hydration and watch his urine output on regular basis. 06/18: Renal ultrasound showed possible chronic outlet obstruction of the bladder. No evidence of hydronephrosis. Repeat BUN 45 and creatinine 5.39. Patient remains with slight mental status changes. He is complaining of right lower anterior rib pain. Lidocaine patch will be ordered and rib x-rays 06/19: Repeat BUN 42 and creatinine 5.66. No plan for immediate hemodialysis. Patient remains slightly lethargic from his baseline with continued confusion. Patient's is at the bedside and all her questions were answered. 06/20: Morning lab work remains pending. Patient remains somewhat lethargic and not back to his baseline. No new complaints. He denies pain to the right chest area 06/21 2016: Patient is doing much better his lab value has improved some patient is eating more interacting more. We'll continue hydration and possible return to [facility] in 24 hours. 06/22: Patient's kidney function has been improving over the weekend and currently a BUN of 33 and creatinine 4.64. Patient has had poor oral intake and decreased appetite and continues to be lethargic from his baseline. He is currently on half-normal saline at 75 mL per hour. Nephrology is following closely as well as infectious disease. Patient most likely will return to [facility] at the time of discharge. Objective - Vital Signs Vital signs: Vital Signs Temp 98.2 F 06/22/16 07:00 Pulse 55 L 06/22/16 07:00 Resp 16 06/22/16 07:00 BP 149/65 06/22/16 07:00 Pulse Ox 96 06/22/16 08:47 Intake & Output 06/21/16 06/22/16 06/22/16 18:59 06:59 18:59 Output Total 550 700 Balance -550 -700 Weight 81.5 kg Output: Urine 550 700 Stool 0 Other: Voiding Method Indwelling Catheter Indwelling Catheter Indwelling Catheter # Voids 400 # Bowel Movements 1 0 - Exam General appearance: no average body habitus, cooperative, disheveled, no mild distress, no morbidly obese, no acute distress, no obese, no severe distress, thin - EENT Eyes: no abnormal pupil, no anicteric sclerae, no disc margins sharp, no edentulous, no EOMI, no PERRLA, no fundus normal, no photophobia, no dentition normal, no poor dentition, no ptosis, no scleral icterus, normal appearance ENT: hard of hearing, no hearing grossly normal, no NA/AT, normal oropharynx, no other, no pharyngeal erythema, no thrush, no tonsillar exudates, no tonsillar swelling Ears: bilateral: normal - Neck Neck: no lymphadenopathy, no normal ROM, no other, no rigidity, no stridor, no thyromegaly Carotids: bilateral: upstroke normal Thyroid: bilateral: normal size - Respiratory Respiratory: bilateral: CTA, diminished, right anterior lower rib tenderness has resolved. No bruising noted - Cardiovascular Rhythm: regular Heart sounds: normal: S1, S2 Abnormal Heart Sounds: systolic murmur, no diastolic murmur, no rub, S3 Gallop, no S4 Gallop, no click, no other - Gastrointestinal General gastrointestinal: no absent bowel sounds, no decreased bowel sounds, distended, no hepatomegaly, no hyperactive bowel sounds, normal bowel sounds, no organomegaly, no rigid, no scaphoid, soft, no splenomegaly, tenderness, no umbilical hernia, no ventral hernia - Integumentary Left big toe post amputation second toe had mild gangrenous with dry skin. Integumentary: cellulitis, cyanotic, flushed, pale, rash, ulcer - Neurologic Neurologic: CNII-XII intact - Musculoskeletal Musculoskeletal: no gait normal, generalized weakness, no strength equal bilaterally, no right sided weakness, no left sided weakness - Psychiatric Psychiatric: A&O x's 3, no appropriate affect, no intact judgment & insight - Labs CBC & Chem 7: 06/22/16 07:54 06/22/16 07:54 Labs: Abnormal Lab Results - Last 24 Hours (Table) 06/21/16 06/22/16 06/22/16 Range/Units 17:08 07:54 07:54 RBC 3.04 L (4.30-5.90) m/uL Hgb 9.5 L (13.0-17.5) gm/dL Hct 28.2 L (39.0-53.0) % Plt Count 117 L (150-450) k/uL Sodium 147 H (137-145) mmol/L Chloride 113 H (98-107) mmol/L BUN 33 H (9-20) mg/dL Creatinine 4.64 H (0.66-1.25) mg/dL POC Glucose (mg/dL) 105 H (75-99) mg/dL Calcium 8.0 L (8.4-10.2) mg/dL AST 14 L (17-59) U/L Total Protein 5.3 L (6.3-8.2) g/dL Albumin 2.6 L (3.5-5.0) g/dL Assessment and Plan Plan: 1 acute kidney injury with chronic kidney disease stage II: Most likely ATN, this is most likely caused by the vancomycin. Patient will be off Vanco continue hydration and to watch his urine output closely ultrasound of the kidney will be done as well repeat BUN/creatinine and daily basis. 2 chronic wound on the right foot post a great toe amputation with residual dry gangrene on the fourth toe has been on conservative management continue wound care either wound clinic and on IV antibiotic will consult Dr. scruggs as well. 3 chronic A. fib: Patient has been on Ahlquist on Lopressor continue medication. 4 COPD: Stable no exacerbation lately remain on DuoNeb and Pulmicort along with O2. 5 advance ischemic cardiomyopathy post AICD has been stable. 6 severe PAD: Has been seen Dr. Simon patient had MRSA infection the great toe has been treated. 7 BPH still on tamsulosin 0.4 mg daily. 8 diabetes type 2: Patient has been on 7030 10 units twice a day continue Accu- Chek with sliding scales. 9 vascular dementia: Patient has been off Remeron and Namenda for now. DVT prophylaxis: Patient is on Eliquis. GI prophylaxis: Patient remain on Pepcid 20 mg daily. CODE STATUS: Full code. Discharge plan: Return to [facility] Impression and plan of care have been directed as dictated by the signing physician. Felisha Hernandez nurse practitioner acting as scribe for signing physician. Time with Patient: Greater than 30
[2016-06-22 17:30] LABS: Glucose,Whole Blood 122 mg/dL (75-99)
--- NOTE | 2016-06-22 19:17 | P.PN ---
Subjective 76-year-old male known to infectious disease. Earlier last year he has significant difficulty with his right groin area. He had undergone cardiac catheterization and developed a significant infection to his right groin. Record transfer to outside hospital for further surgical intervention with concerns to a necrotizing infection. Fortunately he improved. He continued to have severe peripheral vascular disease. On November 17, Dr. Simon performed the right great toe amputation. Since that time it's been an ongoing ulceration was followed in the wound healing center with Dr. Simon. He is currently at home with his and local wound care is in the form of Santyl. She was recently hospitalized June 04 through June 10 and then was discharged to [facility]. He was treated for bacteremia with MRSA, alphahemolytic strep and diphtheroids species and was placed on vancomycin for 2 week course. Patient is having regular lab work done at the snf and on June 15 his BUN was 35 and creatinine 3.7. He was sent into [facility] because of this. Repeat BUN was 43 and 5.04 and this morning 36 and 4.8. Also vancomycin level on June 12 was 31.4 and repeat on June 16 is 53.1. Today is down to 28.8 He has been afebrile. Chest x-ray showed no acute process. He was admitted to the [facility] floor. Vancomycin has been on hold. Nephrology is following Patient is very calm which is really not his usual self. Denies new complaints. Does state he would like to go home. Objective - Vital Signs Vital signs: Vital Signs Temp 98.5 F 06/22/16 15:00 Pulse 48 L 06/22/16 15:00 Resp 16 06/22/16 15:00 BP 140/60 06/22/16 15:00 Pulse Ox 97 06/22/16 15:00 Intake & Output 06/22/16 06/22/16 06/23/16 06:59 18:59 06:59 Output Total 700 1500 Balance -700 -1500 Weight 81.5 kg Output: Urine 700 1500 Stool 0 Other: Voiding Method Indwelling Catheter Indwelling Catheter # Voids 400 # Bowel Movements 0 0 - Exam General appearance: average body habitus, cooperative, no acute distress - EENT Eyes: Reports anicteric sclerae, Reports EOMI, Reports PERRLA, Reports dentition normal ENT: Reports hearing grossly normal, Reports NA/AT, Reports normal oropharynx - Neck Neck: Reports normal ROM, Denies lymphadenopathy, Denies other, Denies rigidity , Denies stridor, Denies thyromegaly Thyroid: bilateral: normal size - Respiratory Respiratory: bilateral: CTA, diminished - Cardiovascular Rhythm: irregular Heart sounds: normal: S1, S2, systolic murmur - Gastrointestinal General gastrointestinal: Reports normal bowel sounds, Reports soft - Integumentary Integumentary: Reports normal, Reports normal turgor - Neurologic Neurologic: Awake and alert. He is calm comfortable no acute gross focal sensory motor deficits - Musculoskeletal Musculoskeletal: Reports strength equal bilaterally. Healing wound to the right great toe amputation site, no significant erythema, drainage, swelling. Eschar to the distal second toe may be slightly increased from last hospitalization. - Psychiatric Psychiatric: Reports A&O x's1, Reports appropriate affect, Denies intact judgment & insight (Short-term memory loss) - Labs CBC & Chem 7: 06/22/16 07:54 06/22/16 07:54 Labs: Abnormal Lab Results - Last 24 Hours (Table) 06/22/16 06/22/16 06/22/16 Range/Units 07:54 07:54 17:04 RBC 3.04 L (4.30-5.90) m/uL Hgb 9.5 L (13.0-17.5) gm/dL Hct 28.2 L (39.0-53.0) % Plt Count 117 L (150-450) k/uL Sodium 147 H (137-145) mmol/L Chloride 113 H (98-107) mmol/L BUN 33 H (9-20) mg/dL Creatinine 4.64 H (0.66-1.25) mg/dL POC Glucose (mg/dL) 122 H (75-99) mg/dL Calcium 8.0 L (8.4-10.2) mg/dL AST 14 L (17-59) U/L Total Protein 5.3 L (6.3-8.2) g/dL Albumin 2.6 L (3.5-5.0) g/dL Laboratory Results WBC 5.2 k/uL (3.8-10.6) 06/22/16 07:54 RBC 3.04 m/uL (4.30-5.90) L 06/22/16 07:54 Hgb 9.5 gm/dL (13.0-17.5) L 06/22/16 07:54 Hct 28.2 % (39.0-53.0) L 06/22/16 07:54 MCV 92.6 fL (80.0-100.0) 06/22/16 07:54 MCH 31.3 pg (25.0-35.0) 06/22/16 07:54 MCHC 33.8 g/dL (31.0-37.0) 06/22/16 07:54 RDW 14.1 % (11.5-15.5) 06/22/16 07:54 Plt Count 117 k/uL (150-450) L 06/22/16 07:54 Neutrophils % 71 % 06/22/16 07:54 Lymphocytes % 19 % 06/22/16 07:54 Monocytes % 5 % 06/22/16 07:54 Eosinophils % 4 % 06/22/16 07:54 Basophils % 1 % 06/22/16 07:54 Neutrophils # 3.7 k/uL (1.3-7.7) 06/22/16 07:54 Lymphocytes # 1.0 k/uL (1.0-4.8) 06/22/16 07:54 Monocytes # 0.3 k/uL (0-1.0) 06/22/16 07:54 Eosinophils # 0.2 k/uL (0-0.7) 06/22/16 07:54 Basophils # 0.0 k/uL (0-0.2) 06/22/16 07:54 PT 11.8 sec (9.0-12.0) 06/16/16 18:10 INR 1.2 (<1.1) 06/16/16 18:10 APTT 26.8 sec (22.0-30.0) 06/16/16 18:10 Sodium 147 mmol/L (137-145) H 06/22/16 07:54 Potassium 3.8 mmol/L (3.5-5.1) 06/22/16 07:54 Chloride 113 mmol/L (98-107) H 06/22/16 07:54 Carbon Dioxide 22 mmol/L (22-30) 06/22/16 07:54 Anion Gap 12 mmol/L 06/22/16 07:54 BUN 33 mg/dL (9-20) H 06/22/16 07:54 Creatinine 4.64 mg/dL (0.66-1.25) H 06/22/16 07:54 Est GFR (MDRD) Af Amer 15 (>60 ml/min/1.73 sqM) 06/22/16 07:54 Est GFR (MDRD) Non-Af 12 (>60 ml/min/1.73 sqM) 06/22/16 07:54 Glucose 83 mg/dL (74-99) 06/22/16 07:54 POC Glucose (mg/dL) 122 mg/dL (75-99) H 06/22/16 17:04 POC Glu [employer] Operator ID Joyce Zaman 06/22/16 17:04 Calcium 8.0 mg/dL (8.4-10.2) L 06/22/16 07:54 Iron 49 ug/dL (49-181) 06/17/16 08:00 TIBC 241 ug/dL (261-462) L 06/17/16 08:00 % Saturation 20.3 % (20-50) 06/17/16 08:00 Ferritin 46 ng/mL (18-464) 06/17/16 08:00 Total Bilirubin 0.4 mg/dL (0.2-1.3) 06/22/16 07:54 AST 14 U/L (17-59) L 06/22/16 07:54 ALT 30 U/L (21-72) 06/22/16 07:54 Alkaline Phosphatase 89 U/L (38-126) 06/22/16 07:54 Total Protein 5.3 g/dL (6.3-8.2) L 06/22/16 07:54 Albumin 2.6 g/dL (3.5-5.0) L 06/22/16 07:54 Urine Color Light Yellow 06/17/16 10:55 Urine Appearance Cloudy (Clear) 06/17/16 10:55 Urine pH 5.0 (5.0-8.0) 06/17/16 10:55 Ur Specific [place] 1.006 (1.001-1.035) 06/17/16 10:55 Urine Protein Negative (Negative) 06/17/16 10:55 Urine Glucose (UA) Negative (Negative) 06/17/16 10:55 Urine Ketones Negative (Negative) 06/17/16 10:55 Urine Blood Negative (Negative) 06/17/16 10:55 Urine Nitrate Negative (Negative) 06/17/16 10:55 Urine Bilirubin Negative (Negative) 06/17/16 10:55 Urine Urobilinogen <2.0 mg/dL (<2.0) 06/17/16 10:55 Ur Leukocyte Esterase Negative (Negative) 06/17/16 10:55 Urine WBC 1 /hpf (0-5) 06/17/16 10:55 Amorphous Sediment Occasional /hpf (None) H 06/17/16 10:55 Urine Mucus Occasional /hpf (None) H 06/17/16 10:55 Urine Eosinophils % 06/17/16 10:55 Random Vancomycin 23.3 ug/mL 06/22/16 07:54 Digoxin 1.4 ng/mL 06/16/16 18:10 Microbiology 06/16/16 18:10 Blood Blood Culture - Preliminary No Growth after 120 hours 06/17/16 10:55 Urine,Catheterized Urine Culture - Final Assessment and Plan (1) Acute kidney injury Status: Acute (2) Sepsis Narrative/Plan: This pleasant gentleman who has dementia was recently hospitalized with evidence of polymicrobial bacteremia and sepsis. He was discharged with vancomycin therapy with pharmacy dosing. The patient has rapidly developed acute renal failure and increasing vancomycin levels. On 112 his creatinine was 1.58 and after hydration improved to 1.04. On 117 at the time of his discharge his creatinine was 1.13. It is noted that on the increased to 3.4 and the 23rd increased to 3.90 and 5.27 most recent reading. At this time the patient has evidence of renal failure that is multifactorial in its nature. Including his recent sepsis, dehydration, and vancomycin toxicity. Current creatinine is at 4.64 showing further improvement Vancomycin is on hold. Level has now decreased to 23.3 Once levels decreases will no longer be therapeutic will still need to be treated with antimicrobial therapy to complete his course of treatment for his recent sepsis which was polymicrobial. Likely will be daptomycin to complete his 2 week total course of therapy. Nephrology is following. Status: Acute
[2016-06-22 20:28] LABS: Glucose,Whole Blood 98 mg/dL (75-99)
[2016-06-22] MEDS: METOPROLOL TARTRATE 25 MG TAB PO SCH (20:30)
[2016-06-22] MEDS: COLLAGENASE 250 UNIT/GM OINTMENT 30 GM TUBE TOPICAL SCH (20:31)
[2016-06-22] MEDS: MONTELUKAST 10 MG TAB PO SCH (20:32)
[2016-06-22] MEDS: ATORVASTATIN 40 MG TAB PO SCH (20:32)
[2016-06-22] MEDS: MIRTAZAPINE 15 MG TAB PO SCH (20:32)
[2016-06-22] MEDS: TAMSULOSIN 0.4 MG CAP.ER.24H PO SCH (20:32)
[2016-06-22] MEDS: ACETAMINOPHEN TAB 325 MG TAB PO PRN (22:22)
[2016-06-23 02:07] LABS: Glucose,Whole Blood 95 mg/dL (75-99)
[2016-06-23] MEDS: SODIUM CHLORIDE 0.45% 1,000 ML IV SCH ×2 (02:07→12:55)
[2016-06-23 07:40] LABS: Glucose,Whole Blood 112 mg/dL (75-99)
[2016-06-23] MEDS: INSULN ASP PRT/INSULIN ASPART 100 UNIT/ML 10 ML VIAL SQ SCH ×2 (09:09→17:18)
[2016-06-23] MEDS: MIRTAZAPINE 15 MG TAB PO SCH ×2 (09:10→20:17)
[2016-06-23] MEDS: MEMANTINE 5 MG TAB PO SCH (09:10)
[2016-06-23] MEDS: DIGOXIN 125 MCG TAB PO SCH (09:11)
[2016-06-23] MEDS: ZINC OXIDE 20% OINT 28.4 GM TUBE TOPICAL SCH (09:11)
[2016-06-23] MEDS: PANTOPRAZOLE 40 MG TABLET PO SCH (09:11)
[2016-06-23] MEDS: SODIUM BICARBONATE TAB 650 MG TAB PO SCH ×2 (09:11→20:17)
[2016-06-23] MEDS: CLOPIDOGREL 75 MG TAB PO SCH (09:11)
[2016-06-23 10:19] LABS: Basophils % (A) 1 %; CHCM 33.2; Eosinophils # (A) 0.2 k/uL (0-0.7); Eosinophils % (A) 3 %; HCT 24.5 % (39.0-53.0); HDW 3.04; HGB 8.2 gm/dL (13.0-17.5); Luc % (Auto) 2; Lymphocytes # (A) 0.7 k/uL (1.0-4.8); Lymphocytes % (A) 13 %; MCH 31.4 pg (25.0-35.0); MCHC 33.5 g/dL (31.0-37.0); MCV 93.7 fL (80.0-100.0); Mean Platelet Volume 6.7; Monocytes # (A) 0.4 k/uL (0-1.0); Monocytes % (A) 7 %; Neutrophils # (A) 4.2 k/uL (1.3-7.7); Neutrophils % (A) 74 %; RBC 2.62 m/uL (4.30-5.90); WBC 5.6 k/uL (3.8-10.6); WBC (Perox) 5.74
[2016-06-23 10:26] LABS: Calcium 7.8 mg/dL (8.4-10.2); Potassium 3.7 mmol/L (3.5-5.1)
--- NOTE | 2016-06-23 10:42 | P.PN ---
Subjective Patient is seen in follow-up for acute kidney injury. Baseline creatinine is near 1 and peaked at 5.6 this admission and is down to 4.19 today. Patient was recently diagnosed with MRSA bacteremia as well as a foot infection and was maintained on IV vancomycin as an outpatient. His vancomycin level on June 16 was 53.1 and down to 23.3 as of yesterday. Currently resting in bed. Appetite is poor. He is nonoliguric. No vomiting or diarrhea Vital signs are stable. General: The patient appeared well nourished and normally developed. HEENT: Head exam is unremarkable. Neck is without jugular venous distension. LUNGS: Lungs are clear to auscultation and percussion. Breath sounds decreased. HEART: Rate and Rhythm are regular. First and second heart sounds normal. No murmurs, rubs or gallops. ABDOMEN: Abdominal exam reveals normal bowel sounds. Non-tender and non- distended. No evidence of peritonitis. EXTREMITITES: No clubbing, cyanosis, or edema. Objective - Vital Signs Vital signs: Vital Signs Temp 97.6 F 06/23/16 07:00 Pulse 50 L 06/23/16 07:00 Resp 16 06/23/16 07:00 BP 111/49 06/23/16 07:00 Pulse Ox 93 L 06/23/16 07:00 Intake & Output 06/22/16 06/23/16 06/23/16 18:59 06:59 18:59 Output Total 1500 600 Balance -1500 -600 Weight 81 kg Output: Urine 1500 600 Other: Voiding Method Indwelling Catheter Indwelling Catheter # Bowel Movements 0 - Labs CBC & Chem 7: 06/23/16 09:25 06/23/16 09:25 Labs: Abnormal Lab Results - Last 24 Hours (Table) 06/22/16 06/23/16 06/23/16 Range/Units 17:04 07:27 09:25 RBC 2.62 L (4.30-5.90) m/uL Hgb 8.2 L (13.0-17.5) gm/dL Hct 24.5 L (39.0-53.0) % Plt Count 104 L (150-450) k/uL Lymphocytes # 0.7 L (1.0-4.8) k/uL Chloride (98-107) mmol/L Carbon Dioxide (22-30) mmol/L BUN (9-20) mg/dL Creatinine (0.66-1.25) mg/dL POC Glucose (mg/dL) 122 H 112 H (75-99) mg/dL Calcium (8.4-10.2) mg/dL 06/23/16 Range/Units 09:25 RBC (4.30-5.90) m/uL Hgb (13.0-17.5) gm/dL Hct (39.0-53.0) % Plt Count (150-450) k/uL Lymphocytes # (1.0-4.8) k/uL Chloride 113 H (98-107) mmol/L Carbon Dioxide 20 L (22-30) mmol/L BUN 32 H (9-20) mg/dL Creatinine 4.19 H (0.66-1.25) mg/dL POC Glucose (mg/dL) (75-99) mg/dL Calcium 7.8 L (8.4-10.2) mg/dL Assessment and Plan Plan: Assessment: #1. Nonoliguric acute kidney injury secondary to nephrotoxic ATN secondary to vancomycin toxicity. Vancomycin level 53.1 as of 06/16/2016 and 41.3 from June 18. Down to 23.3 as of June 22. Urinalysis benign. Renal ultrasound benign. Creatinine down to 4.19 today. Urine eosinophils negative. #2. Right foot wound as well as recent MRSA bacteremia. #3. Anemia. Status post IV iron. #4. Metabolic acidosis secondary to acute kidney injury. #5. Insulin-dependent diabetes mellitus. #6. Hypertension. Controlled. #7. Hypernatremia secondary to lack of oral water intake. Improved. Plan: Vancomycin is currently held. Avoid nephrotoxic agents and hypotensive episodes. Lisinopril held. Hold diuretics Hold antihypertensives for systolic blood pressure less than 120. Maintain IV hydration. Continue half-normal saline to be run at 75 mL an hour. Repeat electrolytes in the morning. Maintain oral sodium bicarbonate supplementation. No urgent need for renal replacement therapy at this time. Continue to monitor renal function and urine output.
[2016-06-23 10:56] VITALS: BMI 27.9
[2016-06-23] MEDS: METOPROLOL TARTRATE 50 MG TAB PO SCH (11:15)
[2016-06-23 12:36] LABS: Glucose,Whole Blood 122 mg/dL (75-99)
--- NOTE | 2016-06-23 14:43 | P.PN ---
Subjective 76-year-old male one of my office patient with multiple medical problem who was in the hospital last in 06/04/2016 and was sent to [facility] on leg after his hospitalization. 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 Scruggs remain on vancomycin orally for it still seen at the wound clinic. Patient ended up and [facility] on Vanco IV and wound care as well. His Vanco level on the came back quite bit high at 56 with slightly declining kidney function. Repeat kidney function and Vanco level on the came back with creatinine above 5 BUN in the 80s patient has been in acute renal failure his Vanco level still significantly high in the mid despite not been on Vanco at this point. The patient was transferred to the emergency department at [facility] and admitted to the hospital for acute kidney failure, Osborne catheter was placed and IV fluid with hydration and watch his urine output on regular basis. 06/18: Renal ultrasound showed possible chronic outlet obstruction of the bladder. No evidence of hydronephrosis. Repeat BUN 45 and creatinine 5.39. Patient remains with slight mental status changes. He is complaining of right lower anterior rib pain. Lidocaine patch will be ordered and rib x-rays 06/19: Repeat BUN 42 and creatinine 5.66. No plan for immediate hemodialysis. Patient remains slightly lethargic from his baseline with continued confusion. Patient's is at the bedside and all her questions were answered. 06/20: Morning lab work remains pending. Patient remains somewhat lethargic and not back to his baseline. No new complaints. He denies pain to the right chest area 06/21 2016: Patient is doing much better his lab value has improved some patient is eating more interacting more. We'll continue hydration and possible return to [facility] in 24 hours. 06/22: Patient's kidney function has been improving over the weekend and currently a BUN of 33 and creatinine 4.64. Patient has had poor oral intake and decreased appetite and continues to be lethargic from his baseline. He is currently on half-normal saline at 75 mL per hour. Nephrology is following closely as well as infectious disease. Patient most likely will return to [facility] at the time of discharge. 06/23: patient's mental status is getting back to baseline. Patient is refusing to eat as he wants to go home and he will not eat for his , she takes them home. Remeron increased to 15 mg at bedtime. No plan for any artificial feeding at this time. Repeat creatinine is 4.19. Patient has been cleared by nephrology for discharge. Patient will be held for another 24-48 hours and monitor kidney function. Objective - Vital Signs Vital signs: Vital Signs Temp 97.6 F 06/23/16 07:00 Pulse 50 L 06/23/16 07:00 Resp 16 06/23/16 07:00 BP 111/49 06/23/16 07:00 Pulse Ox 93 L 06/23/16 07:00 Intake & Output 06/22/16 06/23/16 06/23/16 18:59 06:59 18:59 Output Total 1500 600 Balance -1500 -600 Weight 81 kg 81 kg Output: Urine 1500 600 Other: Voiding Method Indwelling Catheter Indwelling Catheter Indwelling Catheter # Bowel Movements 0 - Exam General appearance: no average body habitus, cooperative, disheveled, no mild distress, no morbidly obese, no acute distress, no obese, no severe distress, thin - EENT Eyes: no abnormal pupil, no anicteric sclerae, no disc margins sharp, no edentulous, no EOMI, no PERRLA, no fundus normal, no photophobia, no dentition normal, no poor dentition, no ptosis, no scleral icterus, normal appearance ENT: hard of hearing, no hearing grossly normal, no NA/AT, normal oropharynx, no other, no pharyngeal erythema, no thrush, no tonsillar exudates, no tonsillar swelling Ears: bilateral: normal - Neck Neck: no lymphadenopathy, no normal ROM, no other, no rigidity, no stridor, no thyromegaly Carotids: bilateral: upstroke normal Thyroid: bilateral: normal size - Respiratory Respiratory: bilateral: CTA, diminished, right anterior lower rib tenderness has resolved. No bruising noted - Cardiovascular Rhythm: regular Heart sounds: normal: S1, S2 Abnormal Heart Sounds: systolic murmur, no diastolic murmur, no rub, S3 Gallop, no S4 Gallop, no click, no other - Gastrointestinal General gastrointestinal: no absent bowel sounds, no decreased bowel sounds, distended, no hepatomegaly, no hyperactive bowel sounds, normal bowel sounds, no organomegaly, no rigid, no scaphoid, soft, no splenomegaly, tenderness, no umbilical hernia, no ventral hernia - Integumentary Left big toe post amputation second toe had mild gangrenous with dry skin. Integumentary: cellulitis, cyanotic, flushed, pale, rash, ulcer - Neurologic Neurologic: CNII-XII intact - Musculoskeletal Musculoskeletal: no gait normal, generalized weakness, no strength equal bilaterally, no right sided weakness, no left sided weakness - Psychiatric Psychiatric: A&O x's 1, no appropriate affect, no intact judgment & insight - Labs CBC & Chem 7: 06/23/16 09:25 06/23/16 09:25 Labs: Abnormal Lab Results - Last 24 Hours (Table) 06/22/16 06/23/16 06/23/16 Range/Units 17:04 07:27 09:25 RBC 2.62 L (4.30-5.90) m/uL Hgb 8.2 L (13.0-17.5) gm/dL Hct 24.5 L (39.0-53.0) % Plt Count 104 L (150-450) k/uL Lymphocytes # 0.7 L (1.0-4.8) k/uL Chloride (98-107) mmol/L Carbon Dioxide (22-30) mmol/L BUN (9-20) mg/dL Creatinine (0.66-1.25) mg/dL POC Glucose (mg/dL) 122 H 112 H (75-99) mg/dL Calcium (8.4-10.2) mg/dL 06/23/16 06/23/16 Range/Units 09:25 12:24 RBC (4.30-5.90) m/uL Hgb (13.0-17.5) gm/dL Hct (39.0-53.0) % Plt Count (150-450) k/uL Lymphocytes # (1.0-4.8) k/uL Chloride 113 H (98-107) mmol/L Carbon Dioxide 20 L (22-30) mmol/L BUN 32 H (9-20) mg/dL Creatinine 4.19 H (0.66-1.25) mg/dL POC Glucose (mg/dL) 122 H (75-99) mg/dL Calcium 7.8 L (8.4-10.2) mg/dL Assessment and Plan Plan: 1 acute kidney injury with chronic kidney disease stage II: Most likely ATN, this is most likely caused by the vancomycin. Patient will be off Vanco continue hydration and to watch his urine output closely ultrasound of the kidney will be done as well repeat BUN/creatinine and daily basis. 2 chronic wound on the right foot post a great toe amputation with residual dry gangrene on the fourth toe has been on conservative management continue wound care either wound clinic and on IV antibiotic will consult Dr. scruggs as well. 3 chronic A. fib: Patient has been on Ahlquist on Lopressor continue medication. 4 COPD: Stable no exacerbation lately remain on DuoNeb and Pulmicort along with O2. 5 advance ischemic cardiomyopathy post AICD has been stable. 6 severe PAD: Has been seen Dr. Simon patient had MRSA infection the great toe has been treated. 7 BPH still on tamsulosin 0.4 mg daily. 8 diabetes type 2: Patient has been on 7030 10 units twice a day continue Accu- Chek with sliding scales. 9 vascular dementia: Patient has been off Remeron and Namenda for now. DVT prophylaxis: Patient is on Eliquis. GI prophylaxis: Patient remain on Pepcid 20 mg daily. CODE STATUS: Full code. Discharge plan: Return to [facility] Impression and plan of care have been directed as dictated by the signing physician. Felisha Hernandez nurse practitioner acting as scribe for signing physician. Time with Patient: Greater than 30
[2016-06-23 17:26] LABS: Glucose,Whole Blood 129 mg/dL (75-99)
[2016-06-23] MEDS: ALPRAZolam 0.25 MG TAB PO PRN (20:17)
[2016-06-23] MEDS: TAMSULOSIN 0.4 MG CAP.ER.24H PO SCH (20:17)
[2016-06-23] MEDS: MONTELUKAST 10 MG TAB PO SCH (20:17)
[2016-06-23] MEDS: COLLAGENASE 250 UNIT/GM OINTMENT 30 GM TUBE TOPICAL SCH (20:17)
[2016-06-23] MEDS: METOPROLOL TARTRATE 25 MG TAB PO SCH (20:17)
[2016-06-23] MEDS: ATORVASTATIN 40 MG TAB PO SCH (20:17)
[2016-06-23 21:10] LABS: Glucose,Whole Blood 105 mg/dL (75-99)
--- NOTE | 2016-06-23 21:52 | P.PN ---
Subjective 76-year-old male known to infectious disease. Earlier last year he has significant difficulty with his right groin area. He had undergone cardiac catheterization and developed a significant infection to his right groin. Record transfer to outside hospital for further surgical intervention with concerns to a necrotizing infection. Fortunately he improved. He continued to have severe peripheral vascular disease. On November 17, Dr. Simon performed the right great toe amputation. Since that time it's been an ongoing ulceration was followed in the wound healing center with Dr. Simon. He is currently at home with his and local wound care is in the form of Santyl. She was recently hospitalized June 04 through June 10 and then was discharged to [facility]. He was treated for bacteremia with MRSA, alphahemolytic strep and diphtheroids species and was placed on vancomycin for 2 week course. Patient is having regular lab work done at the halfway and on June 15 his BUN was 35 and creatinine 3.7. He was sent into [facility] because of this. Repeat BUN was 43 and 5.04 and this morning 36 and 4.8. Also vancomycin level on June 12 was 31.4 and repeat on June 16 is 53.1. Today is down to 28.8 He has been afebrile. Chest x-ray showed no acute process. He was admitted to the [facility] floor. Vancomycin has been on hold. Nephrology is following Patient is very calm which is really not his usual self. Denies new complaints. Does state he would like to go home. Objective - Vital Signs Vital signs: Vital Signs Temp 97.8 F 06/23/16 15:00 Pulse 52 L 06/23/16 15:00 Resp 19 06/23/16 15:00 BP 125/53 06/23/16 15:00 Pulse Ox 98 06/23/16 15:00 Intake & Output 06/23/16 06/23/16 06/24/16 06:59 18:59 06:59 Output Total 600 400 Balance -600 -400 Weight 81 kg 81 kg Output: Urine 600 400 Other: Voiding Method Indwelling Catheter Indwelling Catheter # Voids 0 - Exam General appearance: average body habitus, cooperative, no acute distress - EENT Eyes: Reports anicteric sclerae, Reports EOMI, Reports PERRLA, Reports dentition normal ENT: Reports hearing grossly normal, Reports NA/AT, Reports normal oropharynx - Neck Neck: Reports normal ROM, Denies lymphadenopathy, Denies other, Denies rigidity , Denies stridor, Denies thyromegaly Thyroid: bilateral: normal size - Respiratory Respiratory: bilateral: CTA, diminished - Cardiovascular Rhythm: irregular Heart sounds: normal: S1, S2, systolic murmur - Gastrointestinal General gastrointestinal: Reports normal bowel sounds, Reports soft - Integumentary Integumentary: Reports normal, Reports normal turgor - Neurologic Neurologic: Awake and alert. He is calm comfortable no acute gross focal sensory motor deficits - Musculoskeletal Musculoskeletal: Reports strength equal bilaterally. Healing wound to the right great toe amputation site, no significant erythema, drainage, swelling. Eschar to the distal second toe may be slightly increased from last hospitalization. - Psychiatric Psychiatric: Reports A&O x's1, Reports appropriate affect, Denies intact judgment & insight (Short-term memory loss) - Labs CBC & Chem 7: 06/23/16 09:25 06/23/16 09:25 Labs: Abnormal Lab Results - Last 24 Hours (Table) 06/23/16 06/23/16 06/23/16 Range/Units 07:27 09:25 09:25 RBC 2.62 L (4.30-5.90) m/uL Hgb 8.2 L (13.0-17.5) gm/dL Hct 24.5 L (39.0-53.0) % Plt Count 104 L (150-450) k/uL Lymphocytes # 0.7 L (1.0-4.8) k/uL Chloride 113 H (98-107) mmol/L Carbon Dioxide 20 L (22-30) mmol/L BUN 32 H (9-20) mg/dL Creatinine 4.19 H (0.66-1.25) mg/dL POC Glucose (mg/dL) 112 H (75-99) mg/dL Calcium 7.8 L (8.4-10.2) mg/dL 06/23/16 06/23/16 06/23/16 Range/Units 12:24 17:18 21:08 RBC (4.30-5.90) m/uL Hgb (13.0-17.5) gm/dL Hct (39.0-53.0) % Plt Count (150-450) k/uL Lymphocytes # (1.0-4.8) k/uL Chloride (98-107) mmol/L Carbon Dioxide (22-30) mmol/L BUN (9-20) mg/dL Creatinine (0.66-1.25) mg/dL POC Glucose (mg/dL) 122 H 129 H 105 H (75-99) mg/dL Calcium (8.4-10.2) mg/dL Laboratory Results WBC 5.6 k/uL (3.8-10.6) 06/23/16 09:25 RBC 2.62 m/uL (4.30-5.90) L 06/23/16 09:25 Hgb 8.2 gm/dL (13.0-17.5) L 06/23/16 09:25 Hct 24.5 % (39.0-53.0) L 06/23/16 09:25 MCV 93.7 fL (80.0-100.0) 06/23/16 09:25 MCH 31.4 pg (25.0-35.0) 06/23/16 09:25 MCHC 33.5 g/dL (31.0-37.0) 06/23/16 09:25 RDW 14.0 % (11.5-15.5) 06/23/16 09:25 Plt Count 104 k/uL (150-450) L 06/23/16 09:25 Neutrophils % 74 % 06/23/16 09:25 Lymphocytes % 13 % 06/23/16 09:25 Monocytes % 7 % 06/23/16 09:25 Eosinophils % 3 % 06/23/16 09:25 Basophils % 1 % 06/23/16 09:25 Neutrophils # 4.2 k/uL (1.3-7.7) 06/23/16 09:25 Lymphocytes # 0.7 k/uL (1.0-4.8) L 06/23/16 09:25 Monocytes # 0.4 k/uL (0-1.0) 06/23/16 09:25 Eosinophils # 0.2 k/uL (0-0.7) 06/23/16 09:25 Basophils # 0.0 k/uL (0-0.2) 06/23/16 09:25 PT 11.8 sec (9.0-12.0) 06/16/16 18:10 INR 1.2 (<1.1) 06/16/16 18:10 APTT 26.8 sec (22.0-30.0) 06/16/16 18:10 Sodium 143 mmol/L (137-145) 06/23/16 09:25 Potassium 3.7 mmol/L (3.5-5.1) 06/23/16 09:25 Chloride 113 mmol/L (98-107) H 06/23/16 09:25 Carbon Dioxide 20 mmol/L (22-30) L 06/23/16 09:25 Anion Gap 10 mmol/L 06/23/16 09:25 BUN 32 mg/dL (9-20) H 06/23/16 09:25 Creatinine 4.19 mg/dL (0.66-1.25) H 06/23/16 09:25 Est GFR (MDRD) Af Amer 17 (>60 ml/min/1.73 sqM) 06/23/16 09:25 Est GFR (MDRD) Non-Af 14 (>60 ml/min/1.73 sqM) 06/23/16 09:25 Glucose 80 mg/dL (74-99) 06/23/16 09:25 POC Glucose (mg/dL) 105 mg/dL (75-99) H 06/23/16 21:08 POC Glu [place] HUSSAIN Yulisa Gandhi 06/23/16 21:08 Calcium 7.8 mg/dL (8.4-10.2) L 06/23/16 09:25 Iron 49 ug/dL (49-181) 06/17/16 08:00 TIBC 241 ug/dL (261-462) L 06/17/16 08:00 % Saturation 20.3 % (20-50) 06/17/16 08:00 Ferritin 46 ng/mL (18-464) 06/17/16 08:00 Total Bilirubin 0.4 mg/dL (0.2-1.3) 06/22/16 07:54 AST 14 U/L (17-59) L 06/22/16 07:54 ALT 30 U/L (21-72) 06/22/16 07:54 Alkaline Phosphatase 89 U/L (38-126) 06/22/16 07:54 Total Protein 5.3 g/dL (6.3-8.2) L 06/22/16 07:54 Albumin 2.6 g/dL (3.5-5.0) L 06/22/16 07:54 Urine Color Light Yellow 06/17/16 10:55 Urine Appearance Cloudy (Clear) 06/17/16 10:55 Urine pH 5.0 (5.0-8.0) 06/17/16 10:55 Ur Specific Barry 1.006 (1.001-1.035) 06/17/16 10:55 Urine Protein Negative (Negative) 06/17/16 10:55 Urine Glucose (UA) Negative (Negative) 06/17/16 10:55 Urine Ketones Negative (Negative) 06/17/16 10:55 Urine Blood Negative (Negative) 06/17/16 10:55 Urine Nitrate Negative (Negative) 06/17/16 10:55 Urine Bilirubin Negative (Negative) 06/17/16 10:55 Urine Urobilinogen <2.0 mg/dL (<2.0) 06/17/16 10:55 Ur Leukocyte Esterase Negative (Negative) 06/17/16 10:55 Urine WBC 1 /hpf (0-5) 06/17/16 10:55 Amorphous Sediment Occasional /hpf (None) H 06/17/16 10:55 Urine Mucus Occasional /hpf (None) H 06/17/16 10:55 Urine Eosinophils % 06/17/16 10:55 Random Vancomycin 23.3 ug/mL 06/22/16 07:54 Digoxin 1.4 ng/mL 06/16/16 18:10 Assessment and Plan (1) Acute kidney injury Status: Acute (2) Sepsis Narrative/Plan: This pleasant gentleman who has dementia was recently hospitalized with evidence of polymicrobial bacteremia and sepsis. He was discharged with vancomycin therapy with pharmacy dosing. The patient has rapidly developed acute renal failure and increasing vancomycin levels. On 112 his creatinine was 1.58 and after hydration improved to 1.04. On 117 at the time of his discharge his creatinine was 1.13. It is noted that on the increased to 3.4 and the increased to 3.90 and 5.27 most recent reading. At this time the patient has evidence of renal failure that is multifactorial in its nature. Including his recent sepsis, dehydration, and vancomycin toxicity. Current creatinine is at 4.19 showing further improvement Vancomycin is on hold. Vanco level is pending for the morning. If less than 15 we'll need to initiate daptomycin Once levels decreases will no longer be therapeutic will still need to be treated with antimicrobial therapy to complete his course of treatment for his recent sepsis which was polymicrobial. Likely will be daptomycin to complete his 2 week total course of therapy. Nephrology is following. Status: Acute
[2016-06-24 02:11] LABS: Glucose,Whole Blood 151 mg/dL (75-99)
[2016-06-24] MEDS: ACETAMINOPHEN TAB 325 MG TAB PO PRN (03:32)
[2016-06-24] MEDS: SODIUM CHLORIDE 0.45% 1,000 ML IV SCH ×2 (03:37→14:22)
[2016-06-24 07:44] LABS: Glucose,Whole Blood 133 mg/dL (75-99)
[2016-06-24] MEDS: INSULN ASP PRT/INSULIN ASPART 100 UNIT/ML 10 ML VIAL SQ SCH ×2 (07:50→17:30)
[2016-06-24] MEDS: METOPROLOL TARTRATE 25 MG TAB PO SCH ×2 (08:14→20:16)
[2016-06-24] MEDS: PANTOPRAZOLE 40 MG TABLET PO SCH (08:15)
[2016-06-24] MEDS: SODIUM BICARBONATE TAB 650 MG TAB PO SCH ×2 (08:15→20:15)
[2016-06-24] MEDS: DIGOXIN 125 MCG TAB PO SCH (08:15)
[2016-06-24] MEDS: CLOPIDOGREL 75 MG TAB PO SCH (08:16)
[2016-06-24] MEDS: MEMANTINE 5 MG TAB PO SCH (08:16)
[2016-06-24] MEDS: ZINC OXIDE 20% OINT 28.4 GM TUBE TOPICAL SCH (08:17)
[2016-06-24 08:57] LABS: Calcium 7.5 mg/dL (8.4-10.2); Potassium 3.4 mmol/L (3.5-5.1)
[2016-06-24 12:14] LABS: Glucose,Whole Blood 180 mg/dL (75-99)
[2016-06-24] MEDS: ALPRAZolam 0.25 MG TAB PO PRN (14:22)
--- NOTE | 2016-06-24 15:20 | PN ---
Patient is seen for followup for acute kidney injury. His renal function has been improving. Etiology of his acute kidney injury is vancomycin toxicity, baseline creatinine was about 1, it peaked at 5.6, today it is down to 3.8 mg/dL. Patient has had good urine output. He is asking to go home; however, he had not been eating much. He does have underlying dementia and he is maintained on IV fluids at 75 mL an hour. On examination, blood pressure is 110/42, heart rate 53 per minute. He is afebrile. Examination of the heart, S1 and S2. Examination of the lungs, bilateral breath sounds are heard. Abdomen is soft, nontender. Examination of lower extremities shows no significant edema. [employer] exam shows patient is moving all 4 extremities. Labs show sodium 142, potassium 3.4, chloride 112, BUN 30, serum creatinine 3.8. Vancomycin random level was 17.7. ASSESSMENT: 1. Acute kidney injury secondary to vancomycin toxicity, currently improving. Patient is maintained with good urine output. 2. Right foot wound as well as recent methicillin-resistant Staphylococcus aureus bacteremia. 3. Iron deficiency, status post IV iron. 4. Intravascular volume depletion, maintained on IV fluids. PLAN: Continue to encourage increased oral intake. Repeat labs in a.m.
[2016-06-24 17:20] LABS: Glucose,Whole Blood 160 mg/dL (75-99)
--- NOTE | 2016-06-24 17:25 | P.PN ---
Subjective 76-year-old male one of my office patient with multiple medical problem who was in the hospital last in 06/04/2016 and was sent to [facility] on leg after his hospitalization. 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 Scruggs remain on vancomycin orally for it still seen at the wound clinic. Patient ended up and [facility] on Vanco IV and wound care as well. His Vanco level on the came back quite bit high at 56 with slightly declining kidney function. Repeat kidney function and Vanco level on the came back with creatinine above 5 BUN in the 80s patient has been in acute renal failure his Vanco level still significantly high in the mid despite not been on Vanco at this point. The patient was transferred to the emergency department at [facility] and admitted to the hospital for acute kidney failure, Osborne catheter was placed and IV fluid with hydration and watch his urine output on regular basis. 06/18: Renal ultrasound showed possible chronic outlet obstruction of the bladder. No evidence of hydronephrosis. Repeat BUN 45 and creatinine 5.39. Patient remains with slight mental status changes. He is complaining of right lower anterior rib pain. Lidocaine patch will be ordered and rib x-rays 06/19: Repeat BUN 42 and creatinine 5.66. No plan for immediate hemodialysis. Patient remains slightly lethargic from his baseline with continued confusion. Patient's is at the bedside and all her questions were answered. 06/20: Morning lab work remains pending. Patient remains somewhat lethargic and not back to his baseline. No new complaints. He denies pain to the right chest area 06/21 2016: Patient is doing much better his lab value has improved some patient is eating more interacting more. We'll continue hydration and possible return to [facility] in 24 hours. 06/22: Patient's kidney function has been improving over the weekend and currently a BUN of 33 and creatinine 4.64. Patient has had poor oral intake and decreased appetite and continues to be lethargic from his baseline. He is currently on half-normal saline at 75 mL per hour. Nephrology is following closely as well as infectious disease. Patient most likely will return to [facility] at the time of discharge. 06/23: patient's mental status is getting back to baseline. Patient is refusing to eat as he wants to go home and he will not eat for his , she takes them home. Remeron increased to 15 mg at bedtime. No plan for any artificial feeding at this time. Repeat creatinine is 4.19. Patient has been cleared by nephrology for discharge. Patient will be held for another 24-48 hours and monitor kidney function. 06/24: Repeat BUN 30 and creatinine 3.88. Patient has Osborne catheter in place for urinary retention will be discontinued today. Nephrology has cleared him for discharge back to the [facility]. Patient will continue to be monitored here in the hospital as [facility]p will send him back with elevated kidney function. We will monitor and plan for discharge tomorrow. He has been eating better in the past [address] Scruggs is recommended daptomycin to complete his 2 week course of therapy but will be completed tomorrow. He is still therapeutic with Vancomycin. No need for antibiotics at the time of discharge. Objective - Vital Signs Vital signs: Vital Signs Temp 98.5 F 06/24/16 07:00 Pulse 53 L 06/24/16 07:00 Resp 17 06/24/16 07:00 BP 110/42 06/24/16 07:00 Pulse Ox 96 06/24/16 07:00 Intake & Output 06/23/16 06/24/16 06/24/16 18:59 06:59 18:59 Intake Total 0 Output Total 400 350 Balance -400 -350 Weight 81 kg 81.5 kg Intake: Oral 0 Output: Urine 400 350 Other: Voiding Method Indwelling Catheter Indwelling Catheter Indwelling Catheter # Voids 0 # Bowel Movements 1 - Exam General appearance: no average body habitus, cooperative, disheveled, no mild distress, no morbidly obese, no acute distress, no obese, no severe distress, thin - EENT Eyes: no abnormal pupil, no anicteric sclerae, no disc margins sharp, no edentulous, no EOMI, no PERRLA, no fundus normal, no photophobia, no dentition normal, no poor dentition, no ptosis, no scleral icterus, normal appearance ENT: hard of hearing, no hearing grossly normal, no NA/AT, normal oropharynx, no other, no pharyngeal erythema, no thrush, no tonsillar exudates, no tonsillar swelling Ears: bilateral: normal - Neck Neck: no lymphadenopathy, no normal ROM, no other, no rigidity, no stridor, no thyromegaly Carotids: bilateral: upstroke normal Thyroid: bilateral: normal size - Respiratory Respiratory: bilateral: CTA, diminished, right anterior lower rib tenderness has resolved. No bruising noted - Cardiovascular Rhythm: regular Heart sounds: normal: S1, S2 Abnormal Heart Sounds: systolic murmur, no diastolic murmur, no rub, S3 Gallop, no S4 Gallop, no click, no other - Gastrointestinal General gastrointestinal: no absent bowel sounds, no decreased bowel sounds, distended, no hepatomegaly, no hyperactive bowel sounds, normal bowel sounds, no organomegaly, no rigid, no scaphoid, soft, no splenomegaly, tenderness, no umbilical hernia, no ventral hernia - Integumentary Left big toe post amputation second toe had mild gangrenous with dry skin. Integumentary: cellulitis, cyanotic, flushed, pale, rash, ulcer - Neurologic Neurologic: CNII-XII intact - Musculoskeletal Musculoskeletal: no gait normal, generalized weakness, no strength equal bilaterally, no right sided weakness, no left sided weakness - Psychiatric Psychiatric: A&O x's 1, no appropriate affect, no intact judgment & insight - Labs CBC & Chem 7: 06/23/16 09:25 06/24/16 08:00 Labs: Abnormal Lab Results - Last 24 Hours (Table) 06/23/16 06/23/16 06/23/16 Range/Units 12:24 17:18 21:08 Potassium (3.5-5.1) mmol/L Chloride (98-107) mmol/L Carbon Dioxide (22-30) mmol/L BUN (9-20) mg/dL Creatinine (0.66-1.25) mg/dL Glucose (74-99) mg/dL POC Glucose (mg/dL) 122 H 129 H 105 H (75-99) mg/dL Calcium (8.4-10.2) mg/dL 06/24/16 06/24/16 06/24/16 Range/Units 02:09 07:33 08:00 Potassium 3.4 L (3.5-5.1) mmol/L Chloride 112 H (98-107) mmol/L Carbon Dioxide 21 L (22-30) mmol/L BUN 30 H (9-20) mg/dL Creatinine 3.88 H (0.66-1.25) mg/dL Glucose 117 H (74-99) mg/dL POC Glucose (mg/dL) 151 H 133 H (75-99) mg/dL Calcium 7.5 L (8.4-10.2) mg/dL Assessment and Plan Plan: 1 acute kidney injury with chronic kidney disease stage II: Most likely ATN, this is most likely caused by the vancomycin. Patient will be off Vanco continue hydration and to watch his urine output closely ultrasound of the kidney will be done as well repeat BUN/creatinine and daily basis. 2 chronic wound on the right foot post a great toe amputation with residual dry gangrene on the fourth toe has been on conservative management continue wound care either wound clinic and on IV antibiotic will consult Dr. scruggs as well. 3 chronic A. fib: Patient has been on Ahlquist on Lopressor continue medication. 4 COPD: Stable no exacerbation lately remain on DuoNeb and Pulmicort along with O2. 5 advance ischemic cardiomyopathy post AICD has been stable. 6 severe PAD: Has been seen Dr. Simon patient had MRSA infection the great toe has been treated. 7 BPH still on tamsulosin 0.4 mg daily. 8 diabetes type 2: Patient has been on 7030 10 units twice a day continue Accu- Chek with sliding scales. 9 vascular dementia: Patient has been off Remeron and Namenda for now. DVT prophylaxis: Patient is on Eliquis. GI prophylaxis: Patient remain on Pepcid 20 mg daily. CODE STATUS: Full code. Discharge plan: Return to [facility] Impression and plan of care have been directed as dictated by the signing physician. Felisha Hernandez nurse practitioner acting as scribe for signing physician. Time with Patient: Greater than 30
[2016-06-24] MEDS: MIRTAZAPINE 15 MG TAB PO SCH (20:15)
[2016-06-24] MEDS: TAMSULOSIN 0.4 MG CAP.ER.24H PO SCH (20:15)
[2016-06-24] MEDS: ATORVASTATIN 40 MG TAB PO SCH (20:15)
[2016-06-24] MEDS: MONTELUKAST 10 MG TAB PO SCH (20:15)
[2016-06-24] MEDS: COLLAGENASE 250 UNIT/GM OINTMENT 30 GM TUBE TOPICAL SCH (20:16)
[2016-06-24 20:59] LABS: Glucose,Whole Blood 121 mg/dL (75-99)
--- NOTE | 2016-06-24 23:25 | P.PN ---
Subjective 76-year-old male known to infectious disease. Earlier last year he has significant difficulty with his right groin area. He had undergone cardiac catheterization and developed a significant infection to his right groin. Record transfer to outside hospital for further surgical intervention with concerns to a necrotizing infection. Fortunately he improved. He continued to have severe peripheral vascular disease. On November 17, Dr. Simon performed the right great toe amputation. Since that time it's been an ongoing ulceration was followed in the wound healing center with Dr. Simon. He is currently at home with his and local wound care is in the form of Santyl. She was recently hospitalized June 04 through June 10 and then was discharged to [facility]. He was treated for bacteremia with MRSA, alphahemolytic strep and diphtheroids species and was placed on vancomycin for 2 week course. Patient is having regular lab work done at the longterm and on June 15 his BUN was 35 and creatinine 3.7. He was sent into [facility] because of this. Repeat cr 3.98 improved further Also vancomycin level on June 12 was 31.4 and repeat on June 16 is 53.1. Today is down to 17.7 He has been afebrile. Chest x-ray showed no acute process. He was admitted to the [facility] floor. Vancomycin has been on hold. Nephrology is following Patient is very calm which is really not his usual self. Denies new complaints. Does state he would like to go home. Objective - Vital Signs Vital signs: Vital Signs Temp 97.2 F L 06/24/16 14:44 Pulse 50 L 06/24/16 20:13 Resp 20 06/24/16 14:44 BP 123/53 06/24/16 14:44 Pulse Ox 100 06/24/16 14:44 Intake & Output 06/24/16 06/24/16 06/25/16 06:59 18:59 06:59 Intake Total 0 Output Total 350 Balance -350 Weight 81.5 kg Intake: Oral 0 Output: Urine 350 Other: Voiding Method Indwelling Catheter Indwelling Catheter Diaper # Voids 0 # Bowel Movements 1 0 - Exam General appearance: average body habitus, cooperative, no acute distress - EENT Eyes: Reports anicteric sclerae, Reports EOMI, Reports PERRLA, Reports dentition normal ENT: Reports hearing grossly normal, Reports NA/AT, Reports normal oropharynx - Neck Neck: Reports normal ROM, Denies lymphadenopathy, Denies other, Denies rigidity , Denies stridor, Denies thyromegaly Thyroid: bilateral: normal size - Respiratory Respiratory: bilateral: CTA, diminished - Cardiovascular Rhythm: irregular Heart sounds: normal: S1, S2, systolic murmur - Gastrointestinal General gastrointestinal: Reports normal bowel sounds, Reports soft - Integumentary Integumentary: Reports normal, Reports normal turgor - Neurologic Neurologic: Awake and alert. He is calm comfortable no acute gross focal sensory motor deficits - Musculoskeletal Musculoskeletal: Reports strength equal bilaterally. Healing wound to the right great toe amputation site, no significant erythema, drainage, swelling. Eschar to the distal second toe may be slightly increased from last hospitalization. - Psychiatric Psychiatric: Reports A&O x's1, Reports appropriate affect, Denies intact judgment & insight (Short-term memory loss) - Labs CBC & Chem 7: 06/23/16 09:25 06/24/16 08:00 Labs: Abnormal Lab Results - Last 24 Hours (Table) 06/24/16 06/24/16 06/24/16 Range/Units 02:09 07:33 08:00 Potassium 3.4 L (3.5-5.1) mmol/L Chloride 112 H (98-107) mmol/L Carbon Dioxide 21 L (22-30) mmol/L BUN 30 H (9-20) mg/dL Creatinine 3.88 H (0.66-1.25) mg/dL Glucose 117 H (74-99) mg/dL POC Glucose (mg/dL) 151 H 133 H (75-99) mg/dL Calcium 7.5 L (8.4-10.2) mg/dL 06/24/16 06/24/16 06/24/16 Range/Units 12:05 16:48 20:58 Potassium (3.5-5.1) mmol/L Chloride (98-107) mmol/L Carbon Dioxide (22-30) mmol/L BUN (9-20) mg/dL Creatinine (0.66-1.25) mg/dL Glucose (74-99) mg/dL POC Glucose (mg/dL) 180 H 160 H 121 H (75-99) mg/dL Calcium (8.4-10.2) mg/dL Laboratory Results WBC 5.6 k/uL (3.8-10.6) 06/23/16 09:25 RBC 2.62 m/uL (4.30-5.90) L 06/23/16 09:25 Hgb 8.2 gm/dL (13.0-17.5) L 06/23/16 09:25 Hct 24.5 % (39.0-53.0) L 06/23/16 09:25 MCV 93.7 fL (80.0-100.0) 06/23/16 09:25 MCH 31.4 pg (25.0-35.0) 06/23/16 09:25 MCHC 33.5 g/dL (31.0-37.0) 06/23/16 09:25 RDW 14.0 % (11.5-15.5) 06/23/16 09:25 Plt Count 104 k/uL (150-450) L 06/23/16 09:25 Neutrophils % 74 % 06/23/16 09:25 Lymphocytes % 13 % 06/23/16 09:25 Monocytes % 7 % 06/23/16 09:25 Eosinophils % 3 % 06/23/16 09:25 Basophils % 1 % 06/23/16 09:25 Neutrophils # 4.2 k/uL (1.3-7.7) 06/23/16 09:25 Lymphocytes # 0.7 k/uL (1.0-4.8) L 06/23/16 09:25 Monocytes # 0.4 k/uL (0-1.0) 06/23/16 09:25 Eosinophils # 0.2 k/uL (0-0.7) 06/23/16 09:25 Basophils # 0.0 k/uL (0-0.2) 06/23/16 09:25 PT 11.8 sec (9.0-12.0) 06/16/16 18:10 INR 1.2 (<1.1) 06/16/16 18:10 APTT 26.8 sec (22.0-30.0) 06/16/16 18:10 Sodium 142 mmol/L (137-145) 06/24/16 08:00 Potassium 3.4 mmol/L (3.5-5.1) L 06/24/16 08:00 Chloride 112 mmol/L (98-107) H 06/24/16 08:00 Carbon Dioxide 21 mmol/L (22-30) L 06/24/16 08:00 Anion Gap 9 mmol/L 06/24/16 08:00 BUN 30 mg/dL (9-20) H 06/24/16 08:00 Creatinine 3.88 mg/dL (0.66-1.25) H 06/24/16 08:00 Est GFR (MDRD) Af Amer 19 (>60 ml/min/1.73 sqM) 06/24/16 08:00 Est GFR (MDRD) Non-Af 15 (>60 ml/min/1.73 sqM) 06/24/16 08:00 Glucose 117 mg/dL (74-99) H 06/24/16 08:00 POC Glucose (mg/dL) 121 mg/dL (75-99) H 06/24/16 20:58 POC Glu Element Setter Carlita Amador 06/24/16 20:58 Calcium 7.5 mg/dL (8.4-10.2) L 06/24/16 08:00 Iron 49 ug/dL (49-181) 06/17/16 08:00 TIBC 241 ug/dL (261-462) L 06/17/16 08:00 % Saturation 20.3 % (20-50) 06/17/16 08:00 Ferritin 46 ng/mL (18-464) 06/17/16 08:00 Total Bilirubin 0.4 mg/dL (0.2-1.3) 06/22/16 07:54 AST 14 U/L (17-59) L 06/22/16 07:54 ALT 30 U/L (21-72) 06/22/16 07:54 Alkaline Phosphatase 89 U/L (38-126) 06/22/16 07:54 Total Protein 5.3 g/dL (6.3-8.2) L 06/22/16 07:54 Albumin 2.6 g/dL (3.5-5.0) L 06/22/16 07:54 Urine Color Light Yellow 06/17/16 10:55 Urine Appearance Cloudy (Clear) 06/17/16 10:55 Urine pH 5.0 (5.0-8.0) 06/17/16 10:55 Ur Specific Rutledge 1.006 (1.001-1.035) 06/17/16 10:55 Urine Protein Negative (Negative) 06/17/16 10:55 Urine Glucose (UA) Negative (Negative) 06/17/16 10:55 Urine Ketones Negative (Negative) 06/17/16 10:55 Urine Blood Negative (Negative) 06/17/16 10:55 Urine Nitrate Negative (Negative) 06/17/16 10:55 Urine Bilirubin Negative (Negative) 06/17/16 10:55 Urine Urobilinogen <2.0 mg/dL (<2.0) 06/17/16 10:55 Ur Leukocyte Esterase Negative (Negative) 06/17/16 10:55 Urine WBC 1 /hpf (0-5) 06/17/16 10:55 Amorphous Sediment Occasional /hpf (None) H 06/17/16 10:55 Urine Mucus Occasional /hpf (None) H 06/17/16 10:55 Urine Eosinophils % 06/17/16 10:55 Random Vancomycin 17.7 ug/mL 06/24/16 08:00 Digoxin 1.4 ng/mL 06/16/16 18:10 Microbiology 06/16/16 18:10 Blood Blood Culture - Final No Growth after 144 hours 06/17/16 10:55 Urine,Catheterized Urine Culture - Final Assessment and Plan (1) Acute kidney injury Status: Acute (2) Sepsis Narrative/Plan: This pleasant gentleman who has dementia was recently hospitalized with evidence of polymicrobial bacteremia and sepsis. He was discharged with vancomycin therapy with pharmacy dosing. The patient has rapidly developed acute renal failure and increasing vancomycin levels. On 112 his creatinine was 1.58 and after hydration improved to 1.04. On 117 at the time of his discharge his creatinine was 1.13. It is noted that on the increased to 3.4 and the increased to 3.90 and 5.27 most recent reading. At this time the patient has evidence of renal failure that is multifactorial in its nature. Including his recent sepsis, dehydration, and vancomycin toxicity. Current creatinine is at 4.19 showing further improvement Vancomycin is on hold. Vanco level is pending for the morning. If less than 15 we'll need to initiate daptomycin To king is last day of therapy and Vanco is still therapeutic so likely will not need further antibiotic Once levels decreases will no longer be therapeutic will still need to be treated with antimicrobial therapy to complete his course of treatment for his recent sepsis which was polymicrobial. Nephrology is following. Status: Acute
[2016-06-25 02:05] LABS: Glucose,Whole Blood 113 mg/dL (75-99)
[2016-06-25] MEDS: SODIUM CHLORIDE 0.45% 1,000 ML IV SCH (04:23)
[2016-06-25 07:11] LABS: Glucose,Whole Blood 106 mg/dL (75-99)
[2016-06-25] MEDS: INSULN ASP PRT/INSULIN ASPART 100 UNIT/ML 10 ML VIAL SQ SCH (07:24)
[2016-06-25] MEDS: CLOPIDOGREL 75 MG TAB PO SCH (09:04)
[2016-06-25] MEDS: DIGOXIN 125 MCG TAB PO SCH (09:05)
[2016-06-25] MEDS: MEMANTINE 5 MG TAB PO SCH (09:05)
[2016-06-25] MEDS: METOPROLOL TARTRATE 25 MG TAB PO SCH (09:05)
[2016-06-25] MEDS: PANTOPRAZOLE 40 MG TABLET PO SCH (09:06)
[2016-06-25] MEDS: ZINC OXIDE 20% OINT 28.4 GM TUBE TOPICAL SCH (09:06)
[2016-06-25] MEDS: SODIUM BICARBONATE TAB 650 MG TAB PO SCH (09:06)
[2016-06-25 09:53] LABS: Calcium 7.5 mg/dL (8.4-10.2); Potassium 3.4 mmol/L (3.5-5.1)
[2016-06-25 12:16] LABS: Glucose,Whole Blood 103 mg/dL (75-99)
[2016-06-25] MEDS ORDERED: POTASSIUM CHLORIDE ER 20 MEQ TAB.ER PO STA (12:41)
--- NOTE | 2016-06-25 14:37 | PN ---
Patient is seen for follow-up for acute kidney injury secondary to vancomycin toxicity, ( ) comfortable doing well. Serum creatinine continues to improve. The patient has good urine output. He is maintained on IV fluids as he was not having good oral intake. On examination, blood pressure is 110/64, heart rate 57 per minute, ( ) examination of the heart: S1 and S2, examination of the lungs: Bilateral breath sounds are heard. ABDOMEN: Soft, nontender. Examination of lower extremities shows no significant edema. Labs shows sodium 143, potassium 3.4, BUN 27, serum creatinine 3.46. ASSESSMENT: 1. Acute kidney injury secondary to vancomycin toxicity, currently improved. 2. Decreased oral intake, maintained on IV fluids. 3. Dementia. 4. Hypokalemia, status post replacement. 5. Right foot wound and bacteremia with Methicillin-resistant Staph aureus. 6. Iron deficiency, status post IV iron. PLAN: Continue to encourage increased oral intake.
[2016-06-25 15:09] VITALS: BP 149/77; PULSE 53; RESP 16; TEMP 96.3
--- NOTE | 2016-06-25 16:32 | P.DS ---
Providers Date of admission: 06/16/16 20:02 Expected date of discharge: 06/25/16 Attending physician: Neville Miles Consults: 06/16/16 20:04 Consult Physician Urgent Consulting Provider: Neville Scruggs Consult Reason/Comments: right foot infection Do you want consulting provider notified?: Yes Consult Physician Urgent Consulting Provider: Sima Spence Consult Reason/Comments: KILEY Do you want consulting provider notified?: Yes Primary care physician: Jacques Honeycutt Hospital Course: 76-year-old male one of my office patient with multiple medical problem who was in the hospital last in 06/04/2016 and was sent to [facility] on leg after his hospitalization. 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 Scruggs remain on vancomycin orally for it still seen at the wound clinic. Patient ended up and [facility] on Vanco IV and wound care as well. His Vanco level on the came back quite bit high at 56 with slightly declining kidney function. Repeat kidney function and Vanco level on the came back with creatinine above 5 BUN in the 80s patient has been in acute renal failure his Vanco level still significantly high in the mid 30 despite not been on Vanco at this point. The patient was transferred to the emergency department at [facility] and admitted to the hospital for acute kidney failure, Osborne catheter was placed and IV fluid with hydration and watch his urine output on regular basis. 06/18: Renal ultrasound showed possible chronic outlet obstruction of the bladder. No evidence of hydronephrosis. Repeat BUN 45 and creatinine 5.39. Patient remains with slight mental status changes. He is complaining of right lower anterior rib pain. Lidocaine patch will be ordered and rib x-rays 06/19: Repeat BUN 42 and creatinine 5.66. No plan for immediate hemodialysis. Patient remains slightly lethargic from his baseline with continued confusion. Patient's is at the bedside and all her questions were answered. 06/20: Morning lab work remains pending. Patient remains somewhat lethargic and not back to his baseline. No new complaints. He denies pain to the right chest area 06/21 2016: Patient is doing much better his lab value has improved some patient is eating more interacting more. We'll continue hydration and possible return to [facility] in 24 hours. 06/22: Patient's kidney function has been improving over the weekend and currently a BUN of 33 and creatinine 4.64. Patient has had poor oral intake and decreased appetite and continues to be lethargic from his baseline. He is currently on half-normal saline at 75 mL per hour. Nephrology is following closely as well as infectious disease. Patient most likely will return to [facility] at the time of discharge. 06/23: patient's mental status is getting back to baseline. Patient is refusing to eat as he wants to go home and he will not eat for his , she takes them home. Remeron increased to 15 mg at bedtime. No plan for any artificial feeding at this time. Repeat creatinine is 4.19. Patient has been cleared by nephrology for discharge. Patient will be held for another 24-48 hours and monitor kidney function. 06/24: Repeat BUN 30 and creatinine 3.88. Patient has Osborne catheter in place for urinary retention will be discontinued today. Nephrology has cleared him for discharge back to the [facility]. Patient will continue to be monitored here in the hospital as [facility] will send him back with elevated kidney function. We will monitor and plan for discharge tomorrow. He has been eating better in the past [address] Scruggs is recommended daptomycin to complete his 2 week course of therapy but will be completed tomorrow. He is still therapeutic with Vancomycin. No need for antibiotics at the time of discharge. 06/25: Eliquis remains on hold due to kidney function and will be resumed at [facility] once kidney function is normalized. Osborne catheter was removed yesterday. Patient has been able to void on his own and diaper. Patient does not require any further IV antibiotics. Vancomycin level was 15 today. BUN 27 and creatinine 3.46. Potassium 3.4 and will be replaced. Discharge Diagnoses: 1 acute kidney injury with chronic kidney disease stage II: Most likely ATN, this is most likely caused by the vancomycin and underlying infection 2 chronic wound on the right foot post a great toe amputation with residual dry gangrene on the second toe 3 chronic A. fib: 4 COPD: Stable no exacerbation 5 advance ischemic cardiomyopathy post AICD has been stable. 6 severe PAD 7 BPH 8 diabetes type 2 9 vascular dementia Discharge plan: Return to [facility] under Dr. Honeycutt Impression and plan of care have been directed as dictated by the signing physician. Felisha Hernandez nurse practitioner acting as scribe for signing physician. Patient Condition at Discharge: Good Plan - Discharge Summary New Discharge Prescriptions: ALPRAZolam [Xanax] 0.25 mg PO TID PRN #90 tab PRN Reason: Anxiety Mirtazapine [Remeron] 15 mg PO HS #30 tab Discharge Medication List Tamsulosin [Flomax] 0.4 mg PO HS 10/04/15 [History] Albuterol Inhaler [Ventolin Hfa Inhaler] 2 puff INHALATION RT-Q4H PRN 11/15/15 [ History] Digoxin [Digitek] 125 mcg PO DAILY 11/15/15 [History] Memantine [Namenda] 5 mg PO DAILY 02/10/16 [History] Atorvastatin [Lipitor] 40 mg PO HS 05/07/16 [History] Clopidogrel [Plavix] 75 mg PO DAILY 05/07/16 [History] Insuln Asp Prt/Insulin Aspart [NovoLOG MIX 70-30 VIAL] 10 unit SQ BID 05/07/16 [ History] Metoprolol Tartrate [Lopressor] 25 mg PO HS tab 05/10/16 [Rx] Metoprolol Tartrate [Lopressor] 50 mg PO DAILY tab 05/10/16 [Rx] Acetaminophen Tab [Tylenol] 650 mg PO Q4H PRN 06/04/16 [History] Collagenase [Santyl] 1 applic TOPICAL HS 06/04/16 [History] Montelukast Sodium [Singulair] 10 mg PO HS 06/15/16 [History] Dimethicone/Zinc Oxide [Inzo Zinc Oxide Barrier Cream] 1 applic TOPICAL DAILY [History] ALPRAZolam [Xanax] 0.25 mg PO TID PRN #90 tab 06/25/16 [Rx] Apixaban [Eliquis] 5 mg PO BID@0900,2100 #0 06/25/16 [Rx] Mirtazapine [Remeron] 15 mg PO HS #30 tab 06/25/16 [Rx] Sodium Bicarbonate Tab 650 mg PO BID tab 06/25/16 [Rx] Follow up Appointment(s)/Referral(s): Jacques Honeycutt MD [Primary Care Provider] - 1 Week Patient Instructions/Handouts: Heart Failure (DC), Acute Kidney Injury (DC), Cellulitis (DC) Activity/Diet/Wound Care/Special Instructions: [facility] on discharge Fall precautions Cardiac, diabetic diet. Diabetic folder given to pt. Discharge Disposition: TRANSFER TO SNF/ECF
[2016-06-25] MEDS: ALPRAZolam 0.25 MG TAB PO PRN (16:39)
[2016-06-25 17:18] LABS: Glucose,Whole Blood 124 mg/dL (75-99)
== END 2016-06-25 17:33 | DRG 682 ==
LOC: EC 18:00 → 4MS4W 20:02
PROVIDERS: ADMIT Internal Medicine Geriatric Medicine; ATTEND Internal Medicine Geriatric Medicine
DX: N17.0 Acute kidney failure with tubular necrosis (principal); A41.9 Sepsis, unspecified organism; E87.0 Hyperosmolality and hypernatremia; E87.2 Acidosis; E11.52 Type 2 diabetes mellitus with diabetic peripheral angiopathy with gangrene; I13.0 Hypertensive heart and chronic kidney disease with heart failure and stage 1 through stage 4 chronic kidney disease, or unspecified chronic kidney disease; E11.22 Type 2 diabetes mellitus with diabetic chronic kidney disease; I48.2 Chronic atrial fibrillation; I50.9 Heart failure, unspecified; E86.9 Volume depletion, unspecified; T81.4XXA Infection following a procedure, initial encounter; E11.40 Type 2 diabetes mellitus with diabetic neuropathy, unspecified; T36.8X5A Adverse effect of other systemic antibiotics, initial encounter; E78.5 Hyperlipidemia, unspecified; E87.6 Hypokalemia; F01.50 Vascular dementia, unspecified severity, without behavioral disturbance, psychotic disturbance, mood disturbance, and anxiety; F32.9 Major depressive disorder, single episode, unspecified; G47.33 Obstructive sleep apnea (adult) (pediatric); H83.09 Labyrinthitis, unspecified ear; I25.10 Atherosclerotic heart disease of native coronary artery without angina pectoris; I25.2 Old myocardial infarction; I25.5 Ischemic cardiomyopathy; J44.9 Chronic obstructive pulmonary disease, unspecified; J45.909 Unspecified asthma, uncomplicated; N18.2 Chronic kidney disease, stage 2 (mild); N40.1 Benign prostatic hyperplasia with lower urinary tract symptoms; R33.8 Other retention of urine; M19.90 Unspecified osteoarthritis, unspecified site; K57.90 Diverticulosis of intestine, part unspecified, without perforation or abscess without bleeding; D50.9 Iron deficiency anemia, unspecified; Z89.411 Acquired absence of right great toe; Z79.4 Long term (current) use of insulin; Z79.01 Long term (current) use of anticoagulants; Z79.02 Long term (current) use of antithrombotics/antiplatelets; Z79.899 Other long term (current) drug therapy; Z86.14 Personal history of Methicillin resistant Staphylococcus aureus infection; Z95.1 Presence of aortocoronary bypass graft; Z95.810 Presence of automatic (implantable) cardiac defibrillator; Z82.49 Family history of ischemic heart disease and other diseases of the circulatory system; Y92.009 Unspecified place in unspecified non-institutional (private) residence as the place of occurrence of the external cause
CPT/HCPCS: 36415; 71020; 76770; 80048; 80053; 80162; 80202; 81001; 82565; 82728; 83540; 83550; 84520; 85025; 85610; 85730; 87040; 87086; 87205; 94760; 96360; 96361; 99285

== ENCOUNTER → 2016-07-03 | Outpatient (CLI) | payer MEDICARE, OTHER ==
--- NOTE | 2016-07-03 11:16 | FL ---
EXAMINATION TYPE: FL barium swallow w video DATE OF EXAM ORDERED: 07/03/2016 11:10 AM HISTORY: Aspiration. COMPARISON: None. FINDINGS: The patient had transient penetration with thin liquids and honey thick liquids. There was one episode of deep penetration with nectar thick liquids. The remaining foodstuffs were handled wit h ease. IMPRESSION: THIS PATIENT IS AT INCREASED RISK FOR ASPIRATION WITH THIN LIQUIDS, HONEY THICK LIQUIDS AND NECTAR TH ICK LIQUIDS.
== END | disposition home or self-care (01) ==
LOC: RADFLMAIN 10:13
PROVIDERS: ATTEND Internal Medicine
DX: R13.10 Dysphagia, unspecified (principal)
CPT/HCPCS: 74230

== ENCOUNTER 2016-07-16 22:27 | Emergency (ER) | payer MEDICARE ==
[2016-07-16 23:31] LABS: Basophils % (A) 1 %; CH 30.6; CHCM 33.3; Eosinophils # (A) 0.2 k/uL (0-0.7); Eosinophils % (A) 4 %; HCT 27.1 % (39.0-53.0); HDW 3.02; Luc % (Auto) 2; Lymphocytes # (A) 1.4 k/uL (1.0-4.8); Lymphocytes % (A) 29 %; MCH 30.5 pg (25.0-35.0); MCV 92.4 fL (80.0-100.0); Mean Platelet Volume 7.7; Monocytes # (A) 0.3 k/uL (0-1.0); Monocytes % (A) 7 %; Neutrophils # (A) 2.6 k/uL (1.3-7.7); Neutrophils % (A) 57 %; RBC 2.93 m/uL (4.30-5.90); RDW 14.6 % (11.5-15.5); WBC 4.7 k/uL (3.8-10.6); WBC (Perox) 4.39
--- NOTE | 2016-07-16 23:40 | CT ---
EXAMINATION TYPE: CT brain wo con DATE OF EXAM: 07/16/2016 11:33 PM COMPARISON: 05/07/2016 HISTORY: AMS CT DLP: 892.10 mGycm Automated exposure control for dose reduction was used. FINDINGS: There is cerebral cortical atrophy. There is moderate patchy hypodensity in the periventricular white matter. There is no mass effect nor midline shift. There is no sign of intracranial hemorrhage. Ther e is mild prominence of the ventricles. The calvarium is intact. IMPRESSION: Cerebral atrophy and chronic small vessel ischemia. Mild normal pressure type hydrocephalus. No stewart e.
[2016-07-16 23:43] LABS: HGB 8.9 gm/dL (13.0-17.5)
--- NOTE | 2016-07-16 23:43 | XR ---
EXAMINATION TYPE: XR chest 1V portable DATE OF EXAM: 07/16/2016 11:34 PM COMPARISON: 06/16/2016 HISTORY: Altered mental status. COPD. TECHNIQUE: Single frontal view of the chest is obtained. FINDINGS: There is no heart failure nor confluent pneumonic infiltrate. There is a left axillary pac emaker with the lead tip in the right ventricle. Thoracic aorta is atheromatous. There is no definite pleural effusion. There are chest leads. IMPRESSION: Inspiration is worse than last exam. No gross heart failure.
[2016-07-16 23:44] LABS: Calcium 7.9 mg/dL (8.4-10.2); Potassium 3.8 mmol/L (3.5-5.1); Total Bilirubin 0.3 mg/dL (0.2-1.3)
[2016-07-16 23:49] LABS: Ammonia <9 umol/L (<30)
[2016-07-17 00:04] LABS: Amorphous Sediment,Urine Rare /hpf; Appearance,Urine Clear (Clear); Bilirubin,Urine Negative (Negative); Glucose,Urine (UA) Negative (Negative); Ketones,Urine Negative (Negative); Leukocyte Esterase,Urine Negative (Negative); Nitrite,Urine Negative (Negative); Particle Count 1647; Protein,Urine 1+ (Negative); RBC,Urine 1 /hpf (0-5); Specific Gravity,Urine 1.007 (1.001-1.035); UA Billing (MACRO vs. MICRO) MICRO; Urobilinogen,Urine <2.0 mg/dL (<2.0); WBC,Urine 3 /hpf (0-5)
[2016-07-17] MEDS ORDERED: ALPRAZolam 0.25 MG TAB PO STA (00:41)
[2016-07-17 00:43] VITALS: RESP 16
[2016-07-17] MEDS ORDERED: SODIUM CHLORIDE 0.9% 1,000 ML IV ONE ×2 (00:46→00:55)
[2016-07-17] MEDS ORDERED: ACETAMINOPHEN TAB 325 MG TAB PO STA (02:16)
--- NOTE | 2016-07-17 02:51 | ED ---
General Adult HPI - General Chief complaint: Recheck/Abnormal Lab/Rx Stated complaint: Dementia Time Seen by Provider: 07/16/16 22:33 Source: EMS Mode of arrival: EMS Limitations: altered mental status - History of Present Illness Initial comments: This patient is 76-year-old man brought by family to be evaluated as he is having some mental status changes. The patient has been less active than normal and not behaving his usual self. He does have underlying history of dementia. The patient's family states that the last time he was behaving like this he was diagnosed with having MRSA on a blood culture. The patient has not been having overt signs of infection such as cough, dyspnea, changes in urination or bowel movements. No vomiting. No fever. Onset/Timin -: days(s) Associated Symptoms: confusion, loss of appetite - Related Data Home Medications Medication Instructions Recorded Confirmed Tamsulosin [Flomax] 0.4 mg PO HS 10/04/15 09/18/16 Memantine [Namenda] 5 mg PO HS 02/10/16 09/18/16 Atorvastatin [Lipitor] 40 mg PO HS 05/07/16 09/18/16 Clopidogrel [Plavix] 75 mg PO DAILY 05/07/16 09/18/16 Acetaminophen Tab [Tylenol] 650 mg PO Q4H PRN 06/04/16 09/18/16 Montelukast Sodium [Singulair] 10 mg PO HS 06/15/16 09/18/16 Apixaban [Eliquis] 2.5 mg PO BID 07/19/16 09/18/16 Cyanocobalamin [Vitamin B-12] 500 mcg PO DAILY 07/27/16 09/18/16 QUEtiapine [SEROquel] 50 mg PO HS 07/27/16 09/18/16 Furosemide [Lasix] 40 mg PO DAILY 08/10/16 09/18/16 Potassium Chloride ER [K-Dur 20] 20 meq PO DAILY 08/10/16 09/18/16 Ferrous Sulfate [Feosol] 325 mg PO DAILY 08/31/16 09/18/16 Mirtazapine [Remeron] 15 mg PO HS 08/31/16 09/18/16 Budesonide-Formot 160-4.5 Mcg 2 puff INHALATION RT-BID 09/14/16 09/18/16 [Symbicort 160-4.5 Mcg Inhaler] Ciprofloxacin HCl [Cipro] 500 mg PO Q12HR 09/14/16 09/18/16 Ipratropium-Albuterol Nebulize 3 ml INHALATION RT-QID 09/14/16 09/18/16 [Duoneb 0.5 mg-3 mg/3 ml Soln] ALPRAZolam [Xanax] 0.5 mg PO TID PRN 09/18/16 09/18/16 Anti-Fungal Powder 1 applic TOPICAL BID 09/18/16 09/18/16 Bisacodyl [Dulcolax] 10 mg RECTAL DAILY PRN 09/18/16 09/18/16 HYDROcodone/APAP 5-325MG [[place] 1 tab PO TID PRN 09/18/16 09/18/16 5-325] Insulin Glargine,Hum.rec.anlog 21 unit SQ HS 09/18/16 09/18/16 [Basaglar Kwikpen U-100] Insulin Lispro [humaLOG Kwikpen] 7 unit SQ AC-TID 09/18/16 09/18/16 Lactose-Reduced Food [Ensure Plus] 1 can PO TID 09/18/16 09/18/16 Magnesium Hydroxide [Milk of 2,400 mg PO DAILY PRN 09/18/16 09/18/16 Magnesia] Na Phos,M-B/Na Phos,Di-Ba [Fleet 133 ml RECTAL DAILY PRN 09/18/16 09/18/16 Adult] Sodium Bicarbonate Tab 650 mg PO BID 09/18/16 09/18/16 Previous Rx's Medication Instructions Recorded Metoprolol Tartrate [Lopressor] 25 mg PO HS tab 05/10/16 Metoprolol Tartrate [Lopressor] 50 mg PO DAILY tab 05/10/16 Albuterol Nebulized [Ventolin 2.5 mg INHALATION RT-Q4H PRN #0 07/22/16 Nebulized] nebu Allergies Allergy/AdvReac Type Severity Reaction Status Date / Time No Known Allergies Allergy Verified 09/18/16 14:15 Review of Systems ROS Statement: Those systems with pertinent positive or pertinent negative responses have been documented in the HPI. ROS Other: All systems not noted in ROS Statement are negative. Limitations: ROS unobtainable due to patients medical condition Constitutional: Denies: fever Respiratory: Denies: cough, dyspnea Cardiovascular: Denies: chest pain Gastrointestinal: Denies: abdominal pain, vomiting, diarrhea Skin: Denies: rash Neurological: Denies: headache Past Medical History Past Medical History: Atrial Fibrillation, Asthma, Coronary Artery Disease (CAD) , Heart Failure, COPD, Dementia, Diabetes Mellitus, Deep Vein Thrombosis (DVT), Hyperlipidemia, Hypertension, Myocardial Infarction (NM), Osteoarthritis (OA), Renal Disease, Respiratory Disorder, Sleep Apnea/CPAP/BIPAP, Vascular Disorder Additional Past Medical History / Comment(s): metabolic encephalopathy, DVT L leg 2008, PAD, bronchitis, MAY no device, neuropathy bilateral feet, BPH, Chronic kidney disease diverticulosis. Last Myocardial Infarction Date:: unknown History of Any Multi-Drug Resistant Organisms: MRSA Date of last positivie culture/infection: 06/04/16 MDRO Source:: Blood Past Surgical History: Coronary Bypass/CABG, Heart Catheterization, Orthopedic Surgery, Pacemaker Additional Past Surgical History / Comment(s): AICD 2007, DFT 2014, CABG-2 vessel 2000, L wrist surgery, R foot hammer toe repair, bilateral great toenails removed, bunionectomies bilateral feet, arch/aortagram, L femoral artery thromboendartectomy, Ccaths x possible 2, cataract removal bilaterally, colonoscopy, circumcism. R great toe amputation Past Anesthesia/Blood Transfusion Reactions: No Reported Reaction Type of Cardiac Device: AICD Device Placement Date:: 2007 Past Psychological History: Depression Additional Psychological History / Comment(s): Pt resides with his spouse. She has a walker that he uses if he is going to walk far. 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 He is a . He has memory problems. Smoking Status: Never smoker Past Alcohol Use History: None Reported Additional Past Alcohol Use History / Comment(s): Pt smoked cigars starting in 1962 and quit in 1999. Past Drug Use History: None Reported - Past Family History Mother Family Medical History: Myocardial Infarction (NM) Additional Family Medical History / Comment(s): Mother of a NM in her 50's Brother(s) Family Medical History: Deep Vein Thrombosis (DVT) Additional Family Medical History / Comment(s): POSS DVT. Father Family Medical History: CVA/TIA Additional Family Medical History / Comment(s): Father of a CVA at unknown age. General Exam Limitations: no limitations General appearance: alert, in no apparent distress Head exam: Present: atraumatic, normocephalic Eye exam: Present: normal appearance. Absent: scleral icterus, conjunctival injection ENT exam: Present: mucous membranes dry Neck exam: Present: normal inspection, full ROM. Absent: meningismus Respiratory exam: Present: normal lung sounds bilaterally. Absent: respiratory distress, wheezes, rales, rhonchi, stridor Cardiovascular Exam: Present: regular rate, normal rhythm, normal heart sounds GI/Abdominal exam: Present: soft. Absent: distended, tenderness, guarding, rebound Extremities exam: Present: normal inspection, normal capillary refill. Absent: pedal edema, calf tenderness Back exam: Absent: CVA tenderness (R), CVA tenderness (L) Neurological exam: Present: alert. Absent: oriented X3 (Patient is oriented to person only), motor sensory deficit Skin exam: Present: warm, dry, intact, normal color. Absent: rash Course Vital Signs 07/16/16 07/17/16 07/17/16 22:31 00:42 03:17 Temperature 97.2 F L 97.6 F Pulse Rate 66 63 77 Respiratory 20 16 16 Rate Blood Pressure 124/63 142/76 124/56 O2 Sat by Pulse 95 99 96 Oximetry EKG Findings - EKG Results: EKG: interpreted by PETAR, normal axis, normal QRS, normal ST/T EKG shows: atrial fibrillation (Rate approximately 80 some beats per minute) Medical Decision Making - Medical Decision Making Patient is a 76-year-old man with history of dementia brought to be evaluated for mental status change. He is found to be a bit dehydrated and does have lactic acid 3.5. Patient is given fluid bolus and the lactic acid did correct down to 1.7 following this. Discussed the patient's results with family and also was anticipating admitting the patient pending the culture results, but they would like to take him home given the milieu affect. Discussed return parameters, they will return should there be any worsening or any new symptoms develop. They will follow up for the culture results. - Lab Data Result diagrams: 07/16/16 22:40 07/16/16 22:40 Lab Results 07/16/16 07/16/16 07/16/16 Range/Units 22:40 22:40 22:40 WBC 4.7 (3.8-10.6) k/uL RBC 2.93 L (4.30-5.90) m/uL Hgb 8.9 L D (13.0-17.5) gm/dL Hct 27.1 L (39.0-53.0) % MCV 92.4 (80.0-100.0) fL MCH 30.5 (25.0-35.0) pg MCHC 33.0 (31.0-37.0) g/dL RDW 14.6 (11.5-15.5) % Plt Count 130 L D (150-450) k/uL Neutrophils % 57 % Lymphocytes % 29 % Monocytes % 7 % Eosinophils % 4 % Basophils % 1 % Neutrophils # 2.6 (1.3-7.7) k/uL Lymphocytes # 1.4 (1.0-4.8) k/uL Monocytes # 0.3 (0-1.0) k/uL Eosinophils # 0.2 (0-0.7) k/uL Basophils # 0.0 (0-0.2) k/uL Sodium 141 (137-145) mmol/L Potassium 3.8 (3.5-5.1) mmol/L Chloride 99 (98-107) mmol/L Carbon Dioxide 28 (22-30) mmol/L Anion Gap 14 mmol/L BUN 17 (9-20) mg/dL Creatinine 1.60 H (0.66-1.25) mg/dL Est GFR (MDRD) Af Amer 51 (>60 ml/min/1.73 sqM) Est GFR (MDRD) Non-Af 42 (>60 ml/min/1.73 sqM) Glucose 221 H (74-99) mg/dL Plasma Lactic Acid Amol 3.5 H* (0.7-2.0) mmol/L Calcium 7.9 L (8.4-10.2) mg/dL Total Bilirubin 0.3 (0.2-1.3) mg/dL AST 17 (17-59) U/L ALT 19 L (21-72) U/L Alkaline Phosphatase 80 (38-126) U/L Ammonia <9 (<30) umol/L Troponin I (0.000-0.034) ng/mL Total Protein 6.0 L (6.3-8.2) g/dL Albumin 3.3 L (3.5-5.0) g/dL Urine Color Urine Appearance (Clear) Urine pH (5.0-8.0) Ur Specific [place] (1.001-1.035) Urine Protein (Negative) Urine Glucose (UA) (Negative) Urine Ketones (Negative) Urine Blood (Negative) Urine Nitrate (Negative) Urine Bilirubin (Negative) Urine Urobilinogen (<2.0) mg/dL Ur Leukocyte Esterase (Negative) Urine RBC (0-5) /hpf Urine WBC (0-5) /hpf Amorphous Sediment (None) /hpf Hyaline Casts (0-2) /lpf 07/16/16 07/16/16 07/17/16 Range/Units 22:40 23:42 02:15 WBC (3.8-10.6) k/uL RBC (4.30-5.90) m/uL Hgb (13.0-17.5) gm/dL Hct (39.0-53.0) % MCV (80.0-100.0) fL MCH (25.0-35.0) pg MCHC (31.0-37.0) g/dL RDW (11.5-15.5) % Plt Count (150-450) k/uL Neutrophils % % Lymphocytes % % Monocytes % % Eosinophils % % Basophils % % Neutrophils # (1.3-7.7) k/uL Lymphocytes # (1.0-4.8) k/uL Monocytes # (0-1.0) k/uL Eosinophils # (0-0.7) k/uL Basophils # (0-0.2) k/uL Sodium (137-145) mmol/L Potassium (3.5-5.1) mmol/L Chloride (98-107) mmol/L Carbon Dioxide (22-30) mmol/L Anion Gap mmol/L BUN (9-20) mg/dL Creatinine (0.66-1.25) mg/dL Est GFR (MDRD) Af Amer (>60 ml/min/1.73 sqM) Est GFR (MDRD) Non-Af (>60 ml/min/1.73 sqM) Glucose (74-99) mg/dL Plasma Lactic Acid Amol 1.7 (0.7-2.0) mmol/L Calcium (8.4-10.2) mg/dL Total Bilirubin (0.2-1.3) mg/dL AST (17-59) U/L ALT (21-72) U/L Alkaline Phosphatase (38-126) U/L Ammonia (<30) umol/L Troponin I 0.023 (0.000-0.034) ng/mL Total Protein (6.3-8.2) g/dL Albumin (3.5-5.0) g/dL Urine Color Yellow Urine Appearance Clear (Clear) Urine pH 8.0 (5.0-8.0) Ur Specific [place] 1.007 (1.001-1.035) Urine Protein 1+ H (Negative) Urine Glucose (UA) Negative (Negative) Urine Ketones Negative (Negative) Urine Blood Negative (Negative) Urine Nitrate Negative (Negative) Urine Bilirubin Negative (Negative) Urine Urobilinogen <2.0 (<2.0) mg/dL Ur Leukocyte Esterase Negative (Negative) Urine RBC 1 (0-5) /hpf Urine WBC 3 (0-5) /hpf Amorphous Sediment Rare H (None) /hpf Hyaline Casts 7 H (0-2) /lpf Disposition Clinical Impression: Hyperglycemia, Anemia, Dehydration Disposition: HOME SELF-CARE Condition: Fair Instructions: Dehydration (ED) Referrals: Sheila Treviño MD [Primary Care Provider] - 1-2 days
[2016-07-17 03:18] VITALS: BP 124/56; PULSE 77; TEMP 97.6
--- NOTE | 2016-07-22 09:07 | CDI ---
Gutierrez Berger, Can you document your HPI on this ER record so I may code this account accurately? Would so appreciate it! Thank you! Lucie Davila, [facility] PLEASE RESPOND TO THE QUESTION WITH AN ADDENDUM OR NEW DICTATION OF PROGRESS NOTE FOR THE ER RECORD. RAFI
== END 2016-07-17 03:17 | disposition home or self-care (01) ==
LOC: EC 22:27
DX: E86.0 Dehydration (principal); E11.65 Type 2 diabetes mellitus with hyperglycemia; D64.9 Anemia, unspecified; I13.0 Hypertensive heart and chronic kidney disease with heart failure and stage 1 through stage 4 chronic kidney disease, or unspecified chronic kidney disease; N18.9 Chronic kidney disease, unspecified; I50.9 Heart failure, unspecified; E11.22 Type 2 diabetes mellitus with diabetic chronic kidney disease; F32.9 Major depressive disorder, single episode, unspecified; F03.90 Unspecified dementia, unspecified severity, without behavioral disturbance, psychotic disturbance, mood disturbance, and anxiety; J44.9 Chronic obstructive pulmonary disease, unspecified; J45.909 Unspecified asthma, uncomplicated; I48.91 Unspecified atrial fibrillation; I25.10 Atherosclerotic heart disease of native coronary artery without angina pectoris; G47.33 Obstructive sleep apnea (adult) (pediatric); E78.5 Hyperlipidemia, unspecified; Z95.1 Presence of aortocoronary bypass graft; Z95.810 Presence of automatic (implantable) cardiac defibrillator; Z79.01 Long term (current) use of anticoagulants; Z79.02 Long term (current) use of antithrombotics/antiplatelets; Z79.51 Long term (current) use of inhaled steroids; Z79.899 Other long term (current) drug therapy; M19.90 Unspecified osteoarthritis, unspecified site; Z79.4 Long term (current) use of insulin; Z86.718 Personal history of other venous thrombosis and embolism; Z87.891 Personal history of nicotine dependence; Z86.14 Personal history of Methicillin resistant Staphylococcus aureus infection
CPT/HCPCS: 36415; 70450; 71010; 80053; 81001; 82140; 83605; 84484; 85025; 93005; 96360; 99285

== ENCOUNTER 2016-07-19 10:50 | Inpatient (IN) | payer MEDICARE ==
[2016-07-19] MEDS ORDERED: SODIUM CHLORIDE 0.9% 1,000 ML IV ONE (11:13)
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
[2016-07-19 12:17] LABS: Basophils % (A) 1 %; CH 30.8; CHCM 32.7; Eosinophils # (A) 0.2 k/uL (0-0.7); Eosinophils % (A) 4 %; HCT 32.7 % (39.0-53.0); HDW 2.98; HGB 10.3 gm/dL (13.0-17.5); Luc # (Auto) 0.05; Luc % (Auto) 1; Lymphocytes # (A) 1.2 k/uL (1.0-4.8); Lymphocytes % (A) 23 %; MCH 30.1 pg (25.0-35.0); MCHC 31.6 g/dL (31.0-37.0); MCV 95.1 fL (80.0-100.0); Mean Platelet Volume 7.9; Monocytes # (A) 0.2 k/uL (0-1.0); Monocytes % (A) 5 %; Neutrophils # (A) 3.5 k/uL (1.3-7.7); Neutrophils % (A) 67 %; RBC 3.44 m/uL (4.30-5.90); RDW 14.5 % (11.5-15.5); WBC 5.2 k/uL (3.8-10.6); WBC (Perox) 5.51
[2016-07-19 12:26] LABS: Calcium 8.1 mg/dL (8.4-10.2); Potassium 4.6 mmol/L (3.5-5.1); Total Bilirubin 0.5 mg/dL (0.2-1.3); Total Protein 6.4 g/dL (6.3-8.2)
[2016-07-19 12:49] LABS: INR 1.1 (<1.1); Partial Thromboplastin Time 24.8 sec (22.0-30.0); Prothrombin Time 11.3 sec (9.0-12.0)
--- NOTE | 2016-07-19 12:49 | XR ---
CHEST , 2 Views INDICATION: Altered mental status COMPARISON: Chest x-ray dated 07/16/16 FINDINGS: 2 views of the chest are obtained. Left chest wall pacemaker with leads in place. Status post median sternotomy. Increased pulmonary vascular markings. Suggestion of small right pleural effusion. Bony elements are within normal limits. IMPRESSION: Increased pulmonary vascular markings. Suggestion of small right pleural effusion.
[2016-07-19 12:55] LABS: Creatine Kinase MB 1.8 ng/mL (0.0-2.4); Troponin I 0.03 ng/mL (0.000-0.034)
[2016-07-19 13:17] LABS: Appearance,Urine Clear (Clear); Bilirubin,Urine Negative (Negative); Glucose,Urine (UA) Negative (Negative); Ketones,Urine Negative (Negative); Leukocyte Esterase,Urine Negative (Negative); Nitrite,Urine Negative (Negative); PH, Urine 7.5 (5.0-8.0); Particle Count 1509; Protein,Urine Trace (Negative); RBC,Urine 9 /hpf (0-5); Specific Gravity,Urine 1.005 (1.001-1.035); UA Billing (MACRO vs. MICRO) MICRO; Urobilinogen,Urine <2.0 mg/dL (<2.0); WBC,Urine 3 /hpf (0-5)
[2016-07-19 13:24] LABS: Glucose,Whole Blood 116 mg/dL (75-99)
[2016-07-19] MEDS ORDERED: NALOXONE 0.4 MG/ML 1 ML VIAL IV PRN (13:34)
[2016-07-19] MEDS ORDERED: ALBUTEROL NEBULIZED 2.5 MG/3 ML INHALATION PRN (13:38)
[2016-07-19] MEDS ORDERED: ACETAMINOPHEN TAB 325 MG TAB PO PRN (13:38)
[2016-07-19] MEDS ORDERED: FUROSEMIDE 10 MG/ML 4 ML VIAL IV ONE (13:45)
[2016-07-19 16:44] LABS: Glucose,Whole Blood 101 mg/dL (75-99)
[2016-07-19] MEDS: ALPRAZolam 0.25 MG TAB PO PRN (20:06)
[2016-07-19] MEDS: ATORVASTATIN 40 MG TAB PO SCH (20:07)
[2016-07-19] MEDS: APIXABAN 2.5 MG TABLET PO SCH (20:07)
[2016-07-19] MEDS: SODIUM BICARBONATE TAB 650 MG TAB PO SCH (20:07)
[2016-07-19] MEDS: MEMANTINE 5 MG TAB PO SCH (20:07)
[2016-07-19] MEDS: METOPROLOL TARTRATE 25 MG TAB PO SCH (20:07)
[2016-07-19] MEDS: MONTELUKAST 10 MG TAB PO SCH (20:07)
[2016-07-19] MEDS: TAMSULOSIN 0.4 MG CAP.ER.24H PO SCH (20:07)
[2016-07-19 20:37] LABS: Glucose,Whole Blood 157 mg/dL (75-99)
[2016-07-19] MEDS ORDERED: MIRTAZAPINE 15 MG TAB PO SCH (21:00)
[2016-07-20] MEDS: ALPRAZolam 0.25 MG TAB PO PRN ×2 (02:55→10:41)
[2016-07-20 06:53] LABS: Glucose,Whole Blood 93 mg/dL (75-99)
[2016-07-20] MEDS: SODIUM BICARBONATE TAB 650 MG TAB PO SCH ×2 (08:55→20:56)
[2016-07-20] MEDS: METOPROLOL TARTRATE 50 MG TAB PO SCH (08:55)
[2016-07-20] MEDS: COLLAGENASE 250 UNIT/GM OINTMENT 30 GM TUBE TOPICAL SCH (08:55)
[2016-07-20] MEDS: CLOPIDOGREL 75 MG TAB PO SCH (08:55)
[2016-07-20] MEDS: APIXABAN 2.5 MG TABLET PO SCH ×2 (08:55→20:55)
[2016-07-20] MEDS: ZINC OXIDE 20% OINT 28.4 GM TUBE TOPICAL SCH (08:55)
[2016-07-20] MEDS: FUROSEMIDE 10 MG/ML 4 ML VIAL IV SCH (08:56)
[2016-07-20] MEDS ORDERED: QUEtiapine 25 MG TAB PO PRN (09:56)
[2016-07-20] MEDS ORDERED: ZIPRASIDONE 20 MG VIAL IM PRN (10:19)
[2016-07-20 11:08] VITALS: BMI 27.3
[2016-07-20 11:58] LABS: Glucose,Whole Blood 117 mg/dL (75-99)
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
[2016-07-20 12:23] LABS: Basophils % (A) 1 %; CH 30.4; CHCM 31.9; Eosinophils # (A) 0.2 k/uL (0-0.7); Eosinophils % (A) 6 %; HCT 26.7 % (39.0-53.0); HDW 2.91; Hypochromasia Slight; Luc # (Auto) 0.09; Luc % (Auto) 3; Lymphocytes # (A) 0.8 k/uL (1.0-4.8); Lymphocytes % (A) 23 %; MCH 31.3 pg (25.0-35.0); MCHC 32.6 g/dL (31.0-37.0); MCV 95.9 fL (80.0-100.0); Monocytes # (A) 0.2 k/uL (0-1.0); Monocytes % (A) 7 %; Neutrophils # (A) 2.2 k/uL (1.3-7.7); Neutrophils % (A) 62 %; RBC 2.79 m/uL (4.30-5.90); RDW 14.3 % (11.5-15.5); WBC 3.6 k/uL (3.8-10.6); WBC (Perox) 3.55
[2016-07-20 12:26] LABS: HGB 8.7 gm/dL (13.0-17.5)
[2016-07-20 12:33] LABS: Calcium 8.1 mg/dL (8.4-10.2); Potassium 3.9 mmol/L (3.5-5.1)
[2016-07-20 16:39] LABS: Glucose,Whole Blood 140 mg/dL (75-99)
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
[2016-07-20] MEDS: METOPROLOL TARTRATE 25 MG TAB PO SCH (20:55)
[2016-07-20] MEDS: MONTELUKAST 10 MG TAB PO SCH (20:55)
[2016-07-20] MEDS: TAMSULOSIN 0.4 MG CAP.ER.24H PO SCH (20:55)
[2016-07-20] MEDS: MEMANTINE 5 MG TAB PO SCH (20:55)
[2016-07-20] MEDS: ATORVASTATIN 40 MG TAB PO SCH (20:55)
[2016-07-20] MEDS ORDERED: QUEtiapine 50 MG TAB PO SCH (21:00)
[2016-07-20 21:08] LABS: Glucose,Whole Blood 120 mg/dL (75-99)
[2016-07-21 07:57] LABS: Glucose,Whole Blood 84 mg/dL (75-99)
[2016-07-21 08:14] LABS: Basophils % (A) 1 %; CH 30.5; CHCM 32.4; Eosinophils # (A) 0.2 k/uL (0-0.7); Eosinophils % (A) 6 %; HCT 27.1 % (39.0-53.0); HDW 2.96; HGB 8.8 gm/dL (13.0-17.5); Luc # (Auto) 0.08; Luc % (Auto) 3; Lymphocytes # (A) 1.1 k/uL (1.0-4.8); Lymphocytes % (A) 31 %; MCH 30.9 pg (25.0-35.0); MCHC 32.6 g/dL (31.0-37.0); MCV 94.7 fL (80.0-100.0); Mean Platelet Volume 6.7; Monocytes # (A) 0.2 k/uL (0-1.0); Monocytes % (A) 6 %; Neutrophils # (A) 1.9 k/uL (1.3-7.7); Neutrophils % (A) 55 %; RBC 2.86 m/uL (4.30-5.90); RDW 14.4 % (11.5-15.5); WBC 3.4 k/uL (3.8-10.6); WBC (Perox) 3.59
[2016-07-21 08:31] LABS: Anion Gap 9 mmol/L; Blood Urea Nitrogen 19 mg/dL (9-20); Calcium 8.3 mg/dL (8.4-10.2); Carbon Dioxide 30 mmol/L (22-30); Chloride 106 mmol/L (98-107); Glucose 83 mg/dL (74-99); Non-African American GFR(MDRD) 51 (>60 ml/min/1.73 sqM); Potassium 3.6 mmol/L (3.5-5.1); Sodium 145 mmol/L (137-145)
[2016-07-21] MEDS: CLOPIDOGREL 75 MG TAB PO SCH (08:52)
[2016-07-21] MEDS: APIXABAN 2.5 MG TABLET PO SCH ×2 (08:52→20:51)
[2016-07-21] MEDS: FUROSEMIDE 10 MG/ML 4 ML VIAL IV SCH (08:52)
[2016-07-21] MEDS: ZINC OXIDE 20% OINT 28.4 GM TUBE TOPICAL SCH (08:53)
[2016-07-21] MEDS: COLLAGENASE 250 UNIT/GM OINTMENT 30 GM TUBE TOPICAL SCH (08:53)
[2016-07-21] MEDS: METOPROLOL TARTRATE 50 MG TAB PO SCH (08:53)
[2016-07-21] MEDS: SODIUM BICARBONATE TAB 650 MG TAB PO SCH ×2 (08:53→20:51)
--- NOTE | 2016-07-21 12:19 | P.PN ---
Progress Note - Text Interval history:Patient was seen for psychiatric follow-up and I discussed his case with his nursing staff ,patient did not sleep last night ,was agitated yesterday and required PRN Xanax ,also 25 mg Seroquel ,patient kept asking me where is his ,confused ,disoriented ,no aggressive behavior Mental status exam: Patient is alert ,voice is loud ,irritable . He provides brief answers to questions,insight and judgment impaired ASSESSMENT:Dementia with behavior disturbance Plan: Change Regular Seroquel to XR ,will continue to follow-up,if medically cleared ,please discharge to nursing facility as is not able to be his day care attendant in his late stage of dementia
[2016-07-21 12:20] LABS: Vitamin B12 258 pg/mL
[2016-07-21 12:31] LABS: Glucose,Whole Blood 109 mg/dL (75-99)
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
[2016-07-21 16:43] LABS: Glucose,Whole Blood 125 mg/dL (75-99)
[2016-07-21] MEDS: ALPRAZolam 0.25 MG TAB PO PRN (20:51)
[2016-07-21] MEDS: TAMSULOSIN 0.4 MG CAP.ER.24H PO SCH (20:51)
[2016-07-21] MEDS: METOPROLOL TARTRATE 25 MG TAB PO SCH (20:51)
[2016-07-21] MEDS: MEMANTINE 5 MG TAB PO SCH (20:51)
[2016-07-21] MEDS: MONTELUKAST 10 MG TAB PO SCH (20:51)
[2016-07-21] MEDS: ATORVASTATIN 40 MG TAB PO SCH (20:52)
[2016-07-21 21:23] LABS: Glucose,Whole Blood 110 mg/dL (75-99)
[2016-07-22 07:27] LABS: Glucose,Whole Blood 85 mg/dL (75-99)
[2016-07-22] MEDS: CLOPIDOGREL 75 MG TAB PO SCH (10:30)
[2016-07-22] MEDS: COLLAGENASE 250 UNIT/GM OINTMENT 30 GM TUBE TOPICAL SCH (10:30)
[2016-07-22] MEDS: SODIUM BICARBONATE TAB 650 MG TAB PO SCH ×2 (10:30→21:53)
[2016-07-22] MEDS: APIXABAN 2.5 MG TABLET PO SCH ×2 (10:30→21:52)
[2016-07-22] MEDS: ZINC OXIDE 20% OINT 28.4 GM TUBE TOPICAL SCH (10:30)
[2016-07-22] MEDS: FUROSEMIDE 10 MG/ML 4 ML VIAL IV SCH (10:31)
[2016-07-22] MEDS: METOPROLOL TARTRATE 50 MG TAB PO SCH (10:31)
[2016-07-22 11:29] LABS: Glucose,Whole Blood 126 mg/dL (75-99)
--- NOTE | 2016-07-22 13:43 | P.PN ---
Progress Note - Text Interval history:Patient was seen for psychiatric follow-up ,was sitting in his bed saying "I want to see a Doctor ,I want to go home ,my is waiting for me ", was outside room discussing post discharge placement with SW, repetitive ,perseveration and disoriented.Slept better last night ,no combative or aggressive behavior Mental status exam: Patient is alert ,less irritable than yesterday. He provides brief answers to questions,insight and judgment impaired ASSESSMENT:Dementia with behavior disturbance Plan: Continue current medications ,will follow-up as long as he is on medical unit ,waiting for placement
[2016-07-22] MEDS: ALPRAZolam 0.25 MG TAB PO PRN (13:44)
[2016-07-22 17:22] LABS: Glucose,Whole Blood 123 mg/dL (75-99)
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
[2016-07-22 20:54] LABS: Glucose,Whole Blood 186 mg/dL (75-99)
[2016-07-22] MEDS: ATORVASTATIN 40 MG TAB PO SCH (21:52)
[2016-07-22] MEDS: MEMANTINE 5 MG TAB PO SCH (21:52)
[2016-07-22] MEDS: METOPROLOL TARTRATE 25 MG TAB PO SCH (21:52)
[2016-07-22] MEDS: MONTELUKAST 10 MG TAB PO SCH (21:53)
[2016-07-22] MEDS: TAMSULOSIN 0.4 MG CAP.ER.24H PO SCH (21:53)
[2016-07-23 07:01] LABS: Glucose,Whole Blood 133 mg/dL (75-99)
[2016-07-23] MEDS: CLOPIDOGREL 75 MG TAB PO SCH (07:36)
[2016-07-23] MEDS: ALPRAZolam 0.25 MG TAB PO PRN (07:36)
[2016-07-23] MEDS: SODIUM BICARBONATE TAB 650 MG TAB PO SCH (07:36)
[2016-07-23] MEDS: APIXABAN 2.5 MG TABLET PO SCH (07:36)
[2016-07-23] MEDS: COLLAGENASE 250 UNIT/GM OINTMENT 30 GM TUBE TOPICAL SCH (07:37)
[2016-07-23] MEDS: METOPROLOL TARTRATE 50 MG TAB PO SCH (07:37)
[2016-07-23] MEDS: ZINC OXIDE 20% OINT 28.4 GM TUBE TOPICAL SCH (07:37)
[2016-07-23] MEDS: FUROSEMIDE 10 MG/ML 4 ML VIAL IV SCH (07:37)
[2016-07-23 07:42] VITALS: BP 109/61; PULSE 64; RESP 20; TEMP 98.4
[2016-07-23] MEDS ORDERED: CYANOCOBALAMIN 500 MCG TAB PO SCH (12:00)
== END 2016-07-23 11:09 | DRG 884 ==
LOC: EC 10:50 → 4MS4W 13:35 → OBSVTOIN 07-20 15:15
PROVIDERS: ADMIT Family Medicine; ATTEND Family Medicine
DX: F01.51 Vascular dementia, unspecified severity, with behavioral disturbance (principal); E11.52 Type 2 diabetes mellitus with diabetic peripheral angiopathy with gangrene; I13.0 Hypertensive heart and chronic kidney disease with heart failure and stage 1 through stage 4 chronic kidney disease, or unspecified chronic kidney disease; M86.671 Other chronic osteomyelitis, right ankle and foot; I48.2 Chronic atrial fibrillation; I50.9 Heart failure, unspecified; E11.40 Type 2 diabetes mellitus with diabetic neuropathy, unspecified; E11.69 Type 2 diabetes mellitus with other specified complication; J44.9 Chronic obstructive pulmonary disease, unspecified; S91.301A Unspecified open wound, right foot, initial encounter; I25.5 Ischemic cardiomyopathy; N18.3 Chronic kidney disease, stage 3 (moderate); I25.10 Atherosclerotic heart disease of native coronary artery without angina pectoris; J45.909 Unspecified asthma, uncomplicated; E78.5 Hyperlipidemia, unspecified; I25.2 Old myocardial infarction; M19.90 Unspecified osteoarthritis, unspecified site; G47.33 Obstructive sleep apnea (adult) (pediatric); F32.9 Major depressive disorder, single episode, unspecified; N40.0 Benign prostatic hyperplasia without lower urinary tract symptoms; I73.00 Raynaud's syndrome without gangrene; Z86.718 Personal history of other venous thrombosis and embolism; Z89.411 Acquired absence of right great toe; Z86.14 Personal history of Methicillin resistant Staphylococcus aureus infection; Z95.1 Presence of aortocoronary bypass graft; Z95.810 Presence of automatic (implantable) cardiac defibrillator; Z98.49 Cataract extraction status, unspecified eye; Z79.01 Long term (current) use of anticoagulants; Z79.02 Long term (current) use of antithrombotics/antiplatelets; Z79.4 Long term (current) use of insulin; Z79.899 Other long term (current) drug therapy; Z82.3 Family history of stroke
CPT/HCPCS: 36415; 71020; 80048; 80053; 80306; 81001; 82550; 82553; 82607; 83605; 84443; 84484; 85025; 85610; 85730; 93005; 96360; 96376; 99285

== ENCOUNTER 2016-09-18 13:13 | Inpatient (IN) | payer MEDICARE, OTHER ==
[2016-09-18] MEDS ORDERED: SODIUM CHLORIDE 0.9% 1,000 ML IV STA (13:30)
[2016-09-18] MEDS ORDERED: DILTIAZEM 5 MG/ML 5 ML VIAL IVP STA (13:32)
--- NOTE | 2016-09-18 13:34 | ED ---
General Adult HPI - General Chief complaint: Chest Pain Stated complaint: DIFIBULATOR FIRING Time Seen by Provider: 09/18/16 13:29 Source: patient, RN notes reviewed, old records reviewed Mode of arrival: EMS Limitations: altered mental status - History of Present Illness Initial comments: This is a 76-year-old male out of the ER for evaluation. Patient presents today for evaluation of chest pain. Patient is sedated at the fibular continues to fight outpatient in by EMS in distress secondary to pain. He states patient's the fever has been firing throughout entire hospital or EMS transport. Patient states he does complain of chest pain, is taking all medications as prescribed, no recent diarrheal illness nausea vomiting. - Related Data Home Medications Medication Instructions Recorded Confirmed Tamsulosin [Flomax] 0.4 mg PO HS 10/04/15 09/14/16 Memantine [Namenda] 5 mg PO HS 02/10/16 09/14/16 Atorvastatin [Lipitor] 40 mg PO HS 05/07/16 09/14/16 Clopidogrel [Plavix] 75 mg PO DAILY 05/07/16 09/14/16 Acetaminophen Tab [Tylenol] 650 mg PO Q4H PRN 06/04/16 09/14/16 Collagenase [Santyl] 1 applic TOPICAL HS 06/04/16 09/14/16 Montelukast Sodium [Singulair] 10 mg PO HS 06/15/16 09/14/16 Apixaban [Eliquis] 2.5 mg PO BID 07/19/16 09/14/16 Cyanocobalamin [Vitamin B-12] 500 mg PO DAILY 07/27/16 09/14/16 Insulin Aspart Protam & Aspart 7 units SQ BID 07/27/16 09/14/16 [NovoLOG MIX 70-30 Flexpen] QUEtiapine [SEROquel] 50 mg PO HS 07/27/16 09/14/16 Furosemide [Lasix] 40 mg PO DAILY 08/10/16 09/14/16 Potassium Chloride ER [K-Dur 20] 20 meq PO DAILY 08/10/16 09/14/16 Ferrous Sulfate [Feosol] 325 mg PO DAILY 08/31/16 09/14/16 Mirtazapine [Remeron] 15 mg PO HS 08/31/16 09/14/16 Budesonide-Formot 160-4.5 Mcg 2 puff INHALATION BID 09/14/16 09/14/16 [Symbicort 160-4.5 Mcg Inhaler] Ciprofloxacin HCl [Cipro] 500 mg PO Q12HR 09/14/16 09/14/16 Ipratropium-Albuterol Nebulize 3 ml INHALATION QID 09/14/16 09/14/16 [Duoneb 0.5 mg-3 mg/3 ml Soln] Previous Rx's Medication Instructions Recorded Metoprolol Tartrate [Lopressor] 25 mg PO HS tab 05/10/16 Metoprolol Tartrate [Lopressor] 50 mg PO DAILY tab 05/10/16 ALPRAZolam [Xanax] 0.25 mg PO TID PRN #90 tab 06/25/16 Albuterol Nebulized [Ventolin 2.5 mg INHALATION RT-Q4H PRN #0 07/22/16 Nebulized] nebu Zinc Oxide 20% Oint 1 applic TOPICAL DAILY applic 07/22/16 Allergies Allergy/AdvReac Type Severity Reaction Status Date / Time No Known Allergies Allergy Verified 09/18/16 14:15 Review of Systems ROS Statement: Those systems with pertinent positive or pertinent negative responses have been documented in the HPI. ROS Other: All systems not noted in ROS Statement are negative. Past Medical History Past Medical History: Atrial Fibrillation, Asthma, Coronary Artery Disease (CAD) , Heart Failure, COPD, Dementia, Diabetes Mellitus, Deep Vein Thrombosis (DVT), Hyperlipidemia, Hypertension, Myocardial Infarction (NM), Osteoarthritis (OA), Renal Disease, Respiratory Disorder, Sleep Apnea/CPAP/BIPAP, Vascular Disorder Additional Past Medical History / Comment(s): metabolic encephalopathy, DVT L leg 2007, PAD, bronchitis, MAY no device, neuropathy bilateral feet, BPH, Chronic kidney disease diverticulosis. Last Myocardial Infarction Date:: unknown History of Any Multi-Drug Resistant Organisms: MRSA Date of last positivie culture/infection: 06/04/16 MDRO Source:: Blood Past Surgical History: Coronary Bypass/CABG, Heart Catheterization, Orthopedic Surgery, Pacemaker Additional Past Surgical History / Comment(s): AICD 2007, DFT 2014, CABG-2 vessel 2000, L wrist surgery, R foot hammer toe repair, bilateral great toenails removed, bunionectomies bilateral feet, arch/aortagram, L femoral artery thromboendartectomy, Ccaths x possible 2, cataract removal bilaterally, colonoscopy, circumcism. R great toe amputation Past Anesthesia/Blood Transfusion Reactions: No Reported Reaction Type of Cardiac Device: AICD Device Placement Date:: 2007 Past Psychological History: Depression Additional Psychological History / Comment(s): Pt resides with his spouse. She has a walker that he uses if he is going to walk far. 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 He is a . He has memory problems. Smoking Status: Never smoker Past Alcohol Use History: None Reported Additional Past Alcohol Use History / Comment(s): Pt smoked cigars starting in 1962 and quit in 1999. Past Drug Use History: None Reported - Past Family History Mother Family Medical History: Myocardial Infarction (NM) Additional Family Medical History / Comment(s): Mother of a NM in her 50's Brother(s) Family Medical History: Deep Vein Thrombosis (DVT) Additional Family Medical History / Comment(s): POSS DVT. Father Family Medical History: CVA/TIA Additional Family Medical History / Comment(s): Father of a CVA at unknown age. General Exam Limitations: altered mental status General appearance: alert, in no apparent distress Head exam: Present: atraumatic, normocephalic, normal inspection Eye exam: Present: normal appearance, PERRL, EOMI. Absent: scleral icterus, conjunctival injection, periorbital swelling ENT exam: Present: normal exam, mucous membranes moist Neck exam: Present: normal inspection. Absent: tenderness, meningismus, lymphadenopathy Respiratory exam: Present: normal lung sounds bilaterally. Absent: respiratory distress, wheezes, rales, rhonchi, stridor Cardiovascular Exam: Present: tachycardia, irregular rhythm, normal heart sounds. Absent: systolic murmur, diastolic murmur, rubs, gallop, clicks GI/Abdominal exam: Present: soft, normal bowel sounds. Absent: distended, tenderness, guarding, rebound, rigid Extremities exam: Present: normal inspection, full ROM, normal capillary refill. Absent: tenderness, pedal edema, joint swelling, calf tenderness Back exam: Present: normal inspection Neurological exam: Present: alert, oriented X3, CN II-XII intact Psychiatric exam: Present: normal affect, normal mood Skin exam: Present: warm, dry, intact, normal color. Absent: rash Course Vital Signs 09/18/16 09/18/16 09/18/16 13:21 13:30 14:03 Temperature 98.1 F Pulse Rate 65 92 Pulse Rate [ 93 Database Admin ] Respiratory 16 20 18 Rate Blood Pressure 121/72 121/72 O2 Sat by Pulse 90 L 93 L Oximetry 09/18/16 14:06 Temperature Pulse Rate Pulse Rate [ Database Admin ] Respiratory 18 Rate Blood Pressure O2 Sat by Pulse Oximetry - Reevaluation(s) Reevaluation #1: 09/18/16 14:20 Patient does have rate control despite no medication given at this time. EKG Findings - EKG Comments: EKG Findings:: EKG shows A. fib with RVR rate 124, QRS 100, QTC 410 Medical Decision Making - Medical Decision Making 70 formality here for evaluation. Patient presents today for evaluation of the fibular flaring, patient states he feels he is going to . Patient is having chest pain. Patient noted to be in A. fib with RVR, this time it is controlled. Patient be admitted for pacemaker interrogation cardiology observation telemetry. - Lab Data Result diagrams: 09/18/16 13:30 09/18/16 13:30 Lab Results 09/18/16 09/18/16 Range/Units 13:30 13:30 WBC 6.9 (3.8-10.6) k/uL RBC 2.59 L (4.30-5.90) m/uL Hgb 7.9 L (13.0-17.5) gm/dL Hct 23.6 L (39.0-53.0) % MCV 91.3 (80.0-100.0) fL MCH 30.4 (25.0-35.0) pg MCHC 33.3 (31.0-37.0) g/dL RDW 12.4 (11.5-15.5) % Plt Count 172 D (150-450) k/uL Neutrophils % 86 % Lymphocytes % 8 % Monocytes % 4 % Eosinophils % 0 % Basophils % 0 % Neutrophils # 5.9 (1.3-7.7) k/uL Lymphocytes # 0.6 L (1.0-4.8) k/uL Monocytes # 0.3 (0-1.0) k/uL Eosinophils # 0.0 (0-0.7) k/uL Basophils # 0.0 (0-0.2) k/uL Sodium 138 (137-145) mmol/L Potassium 4.2 (3.5-5.1) mmol/L Chloride 105 (98-107) mmol/L Carbon Dioxide 20 L (22-30) mmol/L Anion Gap 13 mmol/L BUN 30 H (9-20) mg/dL Creatinine 1.34 H (0.66-1.25) mg/dL Est GFR (MDRD) Af Amer >60 (>60 ml/min/1.73 sqM) Est GFR (MDRD) Non-Af 52 (>60 ml/min/1.73 sqM) Glucose 261 H (74-99) mg/dL Calcium 8.4 (8.4-10.2) mg/dL Phosphorus 4.2 (2.5-4.5) mg/dL Magnesium 2.1 (1.6-2.3) mg/dL Total Bilirubin 0.6 (0.2-1.3) mg/dL AST 22 (17-59) U/L ALT 18 L (21-72) U/L Alkaline Phosphatase 95 (38-126) U/L Total Protein 6.5 (6.3-8.2) g/dL Albumin 2.9 L (3.5-5.0) g/dL Critical Care Time Critical Care Time: Yes Total Critical Care Time: 31 Disposition Clinical Impression: Defibrillator discharge, Atrial fibrillation with RVR Disposition: ADMITTED IP TO THIS HOSP Condition: Fair Referrals: Jacques Honeycutt MD [Primary Care Provider] - 1-2 days
[2016-09-18] MEDS ORDERED: MORPHINE SULFATE 4 MG/ML SYRINGE IVP STA (13:42)
[2016-09-18] MEDS ORDERED: DILTIAZEM 125 MG in SODIUM CHLORIDE 0.9% 100 ML IV ONE (13:45)
[2016-09-18 13:59] LABS: ALT 18 U/L (21-72); AST 22 U/L (17-59); Alkaline Phosphatase 95 U/L (38-126); Anion Gap 13 mmol/L; Blood Urea Nitrogen 30 mg/dL (9-20); Calcium 8.4 mg/dL (8.4-10.2); Carbon Dioxide 20 mmol/L (22-30); Chloride 105 mmol/L (98-107); Glucose 261 mg/dL (74-99); Magnesium 2.1 mg/dL (1.6-2.3); Non-African American GFR(MDRD) 52 (>60 ml/min/1.73 sqM); Phosphorous 4.2 mg/dL (2.5-4.5); Potassium 4.2 mmol/L (3.5-5.1); Sodium 138 mmol/L (137-145); Total Bilirubin 0.6 mg/dL (0.2-1.3); Total Protein 6.5 g/dL (6.3-8.2)
[2016-09-18 14:06] LABS: INR 1.4 (<1.1); Prothrombin Time 13.5 sec (9.0-12.0)
[2016-09-18 14:08] LABS: Basophils % (A) 0 %; CH 30.1; CHCM 33.1; Eosinophils % (A) 0 %; HCT 23.6 % (39.0-53.0); HDW 2.97; HGB 7.9 gm/dL (13.0-17.5); Luc % (Auto) 1; Lymphocytes # (A) 0.6 k/uL (1.0-4.8); Lymphocytes % (A) 8 %; MCH 30.4 pg (25.0-35.0); MCHC 33.3 g/dL (31.0-37.0); MCV 91.3 fL (80.0-100.0); Mean Platelet Volume 6.8; Monocytes # (A) 0.3 k/uL (0-1.0); Monocytes % (A) 4 %; Neutrophils # (A) 5.9 k/uL (1.3-7.7); Neutrophils % (A) 86 %; RBC 2.59 m/uL (4.30-5.90); RDW 12.4 % (11.5-15.5); WBC 6.9 k/uL (3.8-10.6); WBC (Perox) 6.97
[2016-09-18] MEDS ORDERED: NITROGLYCERIN SL TABS 0.4 MG TAB SUBLINGUAL PRN (14:15)
[2016-09-18] MEDS ORDERED: ASPIRIN 81 MG CHEW PO STA (14:15)
[2016-09-18] MEDS ORDERED: MORPHINE SULFATE 4 MG/ML SYRINGE IV PRN (14:15)
[2016-09-18 14:25] LABS: Partial Thromboplastin Time 28.4 sec (22.0-30.0)
[2016-09-18 14:38] LABS: Creatine Kinase MB 4.7 ng/mL (0.0-2.4)
[2016-09-18 14:39] LABS: Troponin I 0.439 ng/mL (0.000-0.034)
[2016-09-18] MEDS ORDERED: IV VANCOMYCIN PER PHARMACY 1 EACH MISC MISCELLANE PRN (14:50)
[2016-09-18] MEDS ORDERED: MORPHINE SULFATE 4 MG/ML SYRINGE IVP PRN (14:50)
[2016-09-18] MEDS ORDERED: LORazepam 2 MG/ML SYRINGE IV STA (14:50)
[2016-09-18] MEDS ORDERED: PIPERACILLIN-TAZOBACTAM 3.375 GM in DEXTROSE/WATER 1 50ML.BAG IVPB STA (14:50)
[2016-09-18] MEDS ORDERED: BISACODYL 10 MG SUPP RECTAL PRN (15:40)
[2016-09-18] MEDS ORDERED: HYDROcodone/APAP 5-325MG 1 EACH TAB PO PRN (15:40)
[2016-09-18] MEDS ORDERED: ACETAMINOPHEN TAB 325 MG TAB PO PRN (15:40)
[2016-09-18] MEDS ORDERED: ALPRAZolam 0.5 MG TAB PO PRN (15:40)
[2016-09-18] MEDS ORDERED: MAGNESIUM HYDROXIDE 2,400 MG/10 ML CUP PO PRN (15:40)
[2016-09-18] MEDS ORDERED: ALBUTEROL NEBULIZED 2.5 MG/3 ML INHALATION PRN (15:40)
--- NOTE | 2016-09-18 15:40 | P.HPIM ---
History of Present Illness H&P Date: 09/18/16 Chief Complaint: Defibrillator discharged/multiple gangrenous toes in both feet This is a 76-year-old male patient of our office with medical history significant for coronary artery disease status post coronary artery bypass graft for 2 vessels in 1999 with ischemic cardiomyopathy status post AICD, chronic atrial fibrillation, chronic kidney disease stage II, benign prostatic hypertrophy, diabetes mellitus type 2 insulin requiring, hypertension and hypertensive cardiovascular disease, hyperlipidemia, vascular dementia, history of DVT in the past, history of PAD, infection to the right groin following heart catheterization for which he was treated at [facility] in 2015, osteomyelitis of the right great toe status post amputation in October [address] Simon. He has had frequent admissions for sepsis, wound infections, metabolic encephalopathy. Patient was supposed to be admitted to [facility] next Wednesday for amputation of gangrenous toes that got worse over the last few weeks, patient has been under the care of the wound healing Center, and last week was seen by Dr. Simon and he was recommended by him to admitted to the hospital on next Wednesday for toes amputations, patient has been more agitated and confused recently has been hitting his both feet with the ground trying to we' ll himself around and the patient was today at the nursing station when his defibrillator fired, EMS was called immediately and the patient was transported to the emergency department at [facility] where he was admitted to the hospital because of the gangrenous toes and because of defibrillator discharge. Review of Systems Constitutional: Reports anorexia, Reports chronic pain, Reports fatigue, Reports malaise, Reports weakness, Reports weight loss Eyes: bilateral blurred vision, bilateral decreased vision, denies bulging eye Ears: bilateral: decreased hearing Ears, nose, mouth and throat: Denies dysphagia, Denies neck lump, Denies sore throat, Denies vertigo Cardiovascular: Reports chest pain, Reports decreased exercise tolerance, Reports dyspnea on exertion, Reports high blood pressure, Reports irregular heart beat, Reports rapid heart beat, Reports shortness of breath, Denies phlebitis, Denies syncope Respiratory: Reports congestion, Reports cough, Reports cough with sputum, Reports dyspnea, Denies sleep apnea, Denies wheezing Gastrointestinal: Denies abdominal pain, Denies bloating, Denies BRBPR, Denies diarrhea, Denies heartburn, Denies hematemesis, Denies hematochezia, Denies melena, Denies nausea, Denies vomiting Genitourinary: Reports nocturia, Denies dysuria Musculoskeletal: Reports frequent falls, Reports gait dysfunction Musculoskeletal: bilateral: ankle pain, ankle stiffness, ankle swelling, foot pain, foot stiffness, foot swelling, absent: elbow pain, elbow stiffness, elbow swelling, hand pain, hand stiffness, hand swelling, hip pain, hip stiffness, hip swelling, knee pain, knee stiffness, knee swelling, shoulder pain, shoulder stiffness, shoulder swelling, wrist pain, wrist stiffness, wrist swelling Integumentary: Reports darkening of skin (Multiple gangrenous toes including the left big toe and the third beaked toe and the right second third and fourth toes), Reports foot/leg ulcers Neurological: Reports balance difficulties, Reports change in mentation, Reports confusion, Reports gait dysfunction, Reports headaches, Reports memory loss, Reports paresthesias, Reports weakness Psychiatric: Reports anxiety, Reports depression, Reports irritability, Reports memory loss, Reports sadness/tearfulness, Reports sleep disturbances Endocrine: Denies fatigue, Denies weight change Past Medical History Past Medical History: Atrial Fibrillation, Asthma, Coronary Artery Disease (CAD) , Heart Failure, COPD, Dementia, Diabetes Mellitus, Deep Vein Thrombosis (DVT), Hyperlipidemia, Hypertension, Myocardial Infarction (MO), Osteoarthritis (OA), Renal Disease, Respiratory Disorder, Sleep Apnea/CPAP/BIPAP, Vascular Disorder Additional Past Medical History / Comment(s): metabolic encephalopathy, DVT L leg 2007, PAD, bronchitis, MAY no device, neuropathy bilateral feet, BPH, Chronic kidney disease diverticulosis. Last Myocardial Infarction Date:: unknown History of Any Multi-Drug Resistant Organisms: MRSA Date of last positivie culture/infection: 06/04/16 MDRO Source:: Blood Past Surgical History: Coronary Bypass/CABG, Heart Catheterization, Orthopedic Surgery, Pacemaker Additional Past Surgical History / Comment(s): AICD 2007, DFT 2015, CABG-2 vessel 2000, L wrist surgery, R foot hammer toe repair, bilateral great toenails removed, bunionectomies bilateral feet, arch/aortagram, L femoral artery thromboendartectomy, Ccaths x possible 2, cataract removal bilaterally, colonoscopy, circumcism. R great toe amputation Past Anesthesia/Blood Transfusion Reactions: No Reported Reaction Type of Cardiac Device: AICD Device Placement Date:: 2007 Past Psychological History: Depression Additional Psychological History / Comment(s): Pt resides with his spouse. She has a walker that he uses if he is going to walk far. 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 He is a . He has memory problems. Smoking Status: Never smoker Past Alcohol Use History: None Reported Additional Past Alcohol Use History / Comment(s): Pt smoked cigars starting in 1962 and quit in 1999. Past Drug Use History: None Reported - Past Family History Mother Family Medical History: Myocardial Infarction (MO) Additional Family Medical History / Comment(s): Mother of a MO in her 50's Brother(s) Family Medical History: Deep Vein Thrombosis (DVT) Additional Family Medical History / Comment(s): POSS DVT. Father Family Medical History: CVA/TIA Additional Family Medical History / Comment(s): Father of a CVA at unknown age. Medications and Allergies Home Medications Medication Instructions Recorded Confirmed Type Tamsulosin [Flomax] 0.4 mg PO HS 10/04/15 09/18/16 History Memantine [Namenda] 5 mg PO HS 02/10/16 09/18/16 History Atorvastatin [Lipitor] 40 mg PO HS 05/07/16 09/18/16 History Clopidogrel [Plavix] 75 mg PO DAILY 05/07/16 09/18/16 History Acetaminophen Tab [Tylenol] 650 mg PO Q4H PRN 06/04/16 09/18/16 History Montelukast Sodium [Singulair] 10 mg PO HS 06/15/16 09/18/16 History Apixaban [Eliquis] 2.5 mg PO BID 07/19/16 09/18/16 History Cyanocobalamin [Vitamin B-12] 500 mg PO DAILY 07/27/16 09/18/16 History QUEtiapine [SEROquel] 50 mg PO HS 07/27/16 09/18/16 History Furosemide [Lasix] 40 mg PO DAILY 08/10/16 09/18/16 History Potassium Chloride ER [K-Dur 20] 20 meq PO DAILY 08/10/16 09/18/16 History Ferrous Sulfate [Feosol] 325 mg PO DAILY 08/31/16 09/18/16 History Mirtazapine [Remeron] 15 mg PO HS 08/31/16 09/18/16 History Budesonide-Formot 160-4.5 Mcg 2 puff INHALATION RT-BID 09/14/16 09/18/16 History [Symbicort 160-4.5 Mcg Inhaler] Ciprofloxacin HCl [Cipro] 500 mg PO Q12HR 09/14/16 09/18/16 History Ipratropium-Albuterol Nebulize 3 ml INHALATION RT-QID 09/14/16 09/18/16 History [Duoneb 0.5 mg-3 mg/3 ml Soln] ALPRAZolam [Xanax] 0.5 mg PO TID PRN 09/18/16 09/18/16 History Anti-Funga Powder 1 applic TOPICAL BID 09/18/16 09/18/16 History Bisacodyl [Dulcolax] 10 mg RECTAL DAILY PRN 09/18/16 09/18/16 History HYDROcodone/APAP 5-325MG [[place] 1 tab PO TID PRN 09/18/16 09/18/16 History 5-325] Insulin Glargine,Hum.rec.anlog 21 unit SQ HS 09/18/16 09/18/16 History [Basaglar Kwikpen U-100] Insulin Lispro [humaLOG Kwikpen] 7 unit SQ AC-TID 09/18/16 09/18/16 History Lactose-Reduced Food [Ensure Plus] 1 can PO TID 09/18/16 09/18/16 History Magnesium Hydroxide [Milk of 2,400 mg PO DAILY PRN 09/18/16 09/18/16 History Magnesia] Na Phos,M-B/Na Phos,Di-Ba [Fleet 133 ml RECTAL DAILY PRN 09/18/16 09/18/16 History Adult] Sodium Bicarbonate Tab 650 mg PO BID 09/18/16 09/18/16 History Allergies Allergy/AdvReac Type Severity Reaction Status Date / Time No Known Allergies Allergy Verified 09/18/16 14:15 Physical Exam Vitals: Vital Signs Temp Pulse Resp BP Pulse Ox 09/18/16 15:00 97.8 F 96 20 127/63 96 - Constitutional General appearance: average body habitus, mild distress - EENT Eyes: anicteric sclerae, EOMI, PERRLA, no ptosis, no scleral icterus, normal appearance ENT: hard of hearing, NA/AT, normal oropharynx, no thrush, no tonsillar exudates Ears: bilateral: normal - Neck Neck: no lymphadenopathy, normal ROM, no rigidity, no stridor, no thyromegaly Carotids: bilateral: upstroke delayed Thyroid: bilateral: normal size - Respiratory Respiratory: bilateral: diminished, rhonchi, wheezing, prolonged expiration, negative: dullness, rales - Cardiovascular Rhythm: irregularly irregular Heart sounds: normal: S1, S2 Abnormal Heart Sounds: systolic murmur, no rub, no click - Gastrointestinal General gastrointestinal: normal bowel sounds, soft, no splenomegaly, no tenderness, no umbilical hernia, no ventral hernia - Integumentary Integumentary: ulcer (There is multiple gangrenous toes including the left big toe and the third toe and the right second third and fourth toes, there is an evidence of right big toe amputation. ) - Neurologic Neurologic: CNII-XII intact - Musculoskeletal Musculoskeletal: generalized weakness, strength equal bilaterally - Psychiatric Psychiatric: no A&O x's 3, no appropriate affect, no intact judgment & insight Results CBC & Chem 7: 09/18/16 13:30 09/18/16 13:30 Thrombosis Risk Factor Assmnt - DVT/VTE Prophylaxis DVT/VTE Prophylaxis: Pharmacologic Prophylaxis ordered, Mechanical Prophylaxis ordered Assessment and Plan Plan: Assessment and plan: 1. Defibrillator discharge. Patient will be admitted to the hospital, the device will be interrogated, cardiology consultation was obtained, cardiac enzymes were done, slightly elevated troponin could be related to the discharge , the patient to telemetry unit. 2. Severe PAD with multiple gangrenous toes involving the left big toe and the third toe and right second third and fourth toes. Consult Dr. Simon for amputation, discontinue Cipro and start the patient on vancomycin and Zosyn, blood cultures 2 every 15 minutes. 3. Chronic A. fib. With episode of A. fib with RVR. Continue Cardizem drip at 5 mg an hour, continue Eliquis 2.5 mg orally twice every day. 4. COPD, stable without exacerbation: Continue Symbicort 160/4.5 g 2 puff inhalation twice every day, continue DuoNeb 3 malnutrition 4 times every day. 5. Advanced ischemic cardiomyopathy post AICD. Continue Lipitor 40 mg orally once every day, Plavix 75 mg orally once every day. 6. Severe PAD status post right great toe amputation with history of MRSA. Patient will be seen in consultation by Dr. Simon for amputation. 7. BPH. Continue tamsulosin 0.4 mg daily. 8. Hyperlipidemia. Continue Lipitor 40 mg daily. 9. Diabetes mellitus type II, insulin requiring. Continue Lantus 22 units of bedtime along with the Humalog 7 units before each meal 3 times every day. 10. Vascular dementia. Continue Namenda 5 and gram of bedtime, Seroquel 50 minute gram of the time. 11. Chronic kidney disease stage III with history of acute kidney injury. Monitor the patient CMP magnesium or phosphorus in the next 24 hours. 12. GI prophylaxis. Continue patient on Protonix 40 mg orally once every day. 13. DVT prophylaxis. Patient is on Eliquis. 14. Patient is DO NOT RESUSCITATE. 15. Admit to inpatient. Estimate a length of stay 2 midnights.
[2016-09-18] MEDS ORDERED: NON-FORMULARY DRUG (Lactose-Reduced Food [Ensure Plus] 1 CAN) PO SCH (16:00)
[2016-09-18 17:42] VITALS: BMI 25.0
[2016-09-18] MEDS: IPRATROPIUM-ALBUTEROL 3 ML NEB INHALATION SCH ×2 (17:55→19:47)
[2016-09-18] MEDS ORDERED: DEXTROSE 5% IN WATER 100 ML with AMIODARONE 150 MG IV ONE (18:33)
[2016-09-18] MEDS: VANCOMYCIN 1,250 MG in SODIUM CHLORIDE 0.9% 250 ML IVPB SCH (18:35)
[2016-09-18] MEDS: INSULIN LISPRO (humaLOG) 300 UNIT/3 ML VIAL SQ SCH (18:38)
[2016-09-18] MEDS: SYMBICORT 160-4.5 MCG INHALER INHALATION SCH ×2 (19:46→19:50)
[2016-09-18] MEDS: AMIODARONE 450 MG in DEXTROSE 5% IN WATER 250 ML IV SCH ×2 (20:13)
[2016-09-18] MEDS ORDERED: [UNRECOGNIZED DRUG - OTHER] TOPICAL SCH (21:00)
[2016-09-18] MEDS: LORazepam 2 MG/ML SYRINGE IV PRN (21:02)
[2016-09-18 21:13] LABS: Glucose,Whole Blood 225 mg/dL (75-99)
[2016-09-18] MEDS: MEMANTINE 5 MG TAB PO SCH (21:17)
[2016-09-18] MEDS: APIXABAN 2.5 MG TABLET PO SCH (21:17)
[2016-09-18] MEDS: MIRTAZAPINE 15 MG TAB PO SCH (21:17)
[2016-09-18] MEDS: ATORVASTATIN 40 MG TAB PO SCH (21:17)
[2016-09-18] MEDS: SODIUM BICARBONATE TAB 650 MG TAB PO SCH (21:18)
[2016-09-18] MEDS: TAMSULOSIN 0.4 MG CAP.ER.24H PO SCH (21:18)
[2016-09-18] MEDS: MONTELUKAST 10 MG TAB PO SCH (21:18)
[2016-09-18] MEDS: METOPROLOL TARTRATE 25 MG TAB PO SCH (21:18)
[2016-09-18] MEDS: QUEtiapine 50 MG TAB PO SCH (21:18)
[2016-09-19] MEDS: INSULIN GLARGINE 100 UNIT/ML 10 ML VIAL SQ SCH (00:16)
[2016-09-19] MEDS: PIPERACILLIN-TAZOBACTAM 3.375 GM in DEXTROSE/WATER 1 50ML.BAG IVPB SCH ×4 (00:16→23:39)
[2016-09-19 01:43] LABS: Creatine Kinase MB 6.3 ng/mL (0.0-2.4); Troponin I 1.43 ng/mL (0.000-0.034)
[2016-09-19] MEDS: AMIODARONE 450 MG in DEXTROSE 5% IN WATER 250 ML IV SCH ×6 (03:45→18:08)
[2016-09-19] MEDS: LORazepam 2 MG/ML SYRINGE IV PRN (05:13)
[2016-09-19 06:49] LABS: Glucose,Whole Blood 230 mg/dL (75-99)
[2016-09-19 06:51] LABS: Basophils % (A) 0 %; CH 29.6; CHCM 31.1; Eosinophils # (A) 0.1 k/uL (0-0.7); Eosinophils % (A) 1 %; HCT 23.4 % (39.0-53.0); HDW 2.89; HGB 7.5 gm/dL (13.0-17.5); Hypochromasia Moderate; Luc # (Auto) 0.08; Luc % (Auto) 1; Lymphocytes # (A) 0.5 k/uL (1.0-4.8); Lymphocytes % (A) 7 %; MCH 30.4 pg (25.0-35.0); MCHC 31.9 g/dL (31.0-37.0); MCV 95.3 fL (80.0-100.0); Mean Platelet Volume 7.3; Monocytes # (A) 0.2 k/uL (0-1.0); Monocytes % (A) 3 %; Neutrophils # (A) 6.4 k/uL (1.3-7.7); Neutrophils % (A) 88 %; RBC 2.45 m/uL (4.30-5.90); RDW 12.4 % (11.5-15.5); WBC 7.3 k/uL (3.8-10.6); WBC (Perox) 7.23
[2016-09-19 07:01] LABS: ALT 31 U/L (21-72); AST 51 U/L (17-59); Alkaline Phosphatase 95 U/L (38-126); Anion Gap 13 mmol/L; Blood Urea Nitrogen 31 mg/dL (9-20); Calcium 8.2 mg/dL (8.4-10.2); Carbon Dioxide 20 mmol/L (22-30); Chloride 106 mmol/L (98-107); Cholesterol 81 mg/dL (<200); Glucose 208 mg/dL (74-99); HDL Cholesterol 25 mg/dL (40-60); Magnesium 2.1 mg/dL (1.6-2.3); Non-African American GFR(MDRD) 59 (>60 ml/min/1.73 sqM); Phosphorous 4.6 mg/dL (2.5-4.5); Potassium 4.1 mmol/L (3.5-5.1); Sodium 139 mmol/L (137-145); Total Bilirubin 0.6 mg/dL (0.2-1.3); Total Protein 6.3 g/dL (6.3-8.2); Triglycerides 84 mg/dL (<150)
[2016-09-19] MEDS: INSULIN LISPRO (humaLOG) 300 UNIT/3 ML VIAL SQ SCH ×3 (07:15→17:29)
[2016-09-19] MEDS: IPRATROPIUM-ALBUTEROL 3 ML NEB INHALATION SCH ×4 (07:59→20:46)
[2016-09-19] MEDS: SYMBICORT 160-4.5 MCG INHALER INHALATION SCH ×2 (08:03→20:46)
[2016-09-19] MEDS: SODIUM BICARBONATE TAB 650 MG TAB PO SCH ×2 (08:09→23:39)
[2016-09-19] MEDS: CLOPIDOGREL 75 MG TAB PO SCH ×2 (08:09→08:30)
[2016-09-19] MEDS: ASPIRIN 325 MG TAB PO SCH ×2 (08:09→08:30)
[2016-09-19] MEDS: METOPROLOL TARTRATE 50 MG TAB PO SCH ×2 (08:09→08:30)
[2016-09-19] MEDS: CYANOCOBALAMIN 500 MCG TAB PO SCH ×2 (08:09→12:02)
[2016-09-19] MEDS: FERROUS SULFATE 325 MG TAB PO SCH ×2 (08:10→12:02)
[2016-09-19] MEDS: APIXABAN 2.5 MG TABLET PO SCH ×2 (08:10→08:30)
[2016-09-19] MEDS ORDERED: ENOXAPARIN 40 MG/0.4 ML SYRINGE SQ SCH (09:00)
--- NOTE | 2016-09-19 09:09 | P.CRDCN ---
History of Present Illness Consult date: 09/19/16 History of present illness: This is a 76-year-old gentleman with an extensive past medical history was brought by ambulance after he started experiencing an ICD shocks. The patient is known to have coronary artery disease, severe ischemic cardiomyopathy, status post AICD, chronic atrial fibrillation, as well as severe underlying peripheral arterial disease. The patient was experiencing yesterday recurrent ICD shocks. He was brought by ambulance to the emergency room. He was started on amiodarone IV and since then he has been not receiving any shocks. The ICD was interrogated and showed multiple episodes of VT reported using ATP. The patient has severe underlying dementia and his poor historian. Currently he denies having any chest pain or discomfort or any difficulty in breathing. He continues to be on amiodarone IV at this point. He has severe underlying PAD and he supposed to be admitted to the hospital to undergo amputation by Dr. Simon. He continues to be in atrial fibrillation with controlled heart rates. He is on anticoagulation. Past Medical History Past Medical History: Atrial Fibrillation, Asthma, Coronary Artery Disease (CAD) , Heart Failure, COPD, Dementia, Diabetes Mellitus, Deep Vein Thrombosis (DVT), Hyperlipidemia, Hypertension, Myocardial Infarction ([place]), Osteoarthritis (OA), Renal Disease, Respiratory Disorder, Sleep Apnea/CPAP/BIPAP, Vascular Disorder Additional Past Medical History / Comment(s): metabolic encephalopathy, DVT L leg 2008, PAD, bronchitis, MAY no device, neuropathy bilateral feet, BPH, Chronic kidney disease diverticulosis. Last Myocardial Infarction Date:: unknown History of Any Multi-Drug Resistant Organisms: MRSA Date of last positivie culture/infection: 06/04/16 MDRO Source:: Blood Past Surgical History: Coronary Bypass/CABG, Heart Catheterization, Orthopedic Surgery, Pacemaker Additional Past Surgical History / Comment(s): AICD 2007, DFT 2014, CABG-2 vessel 2000, L wrist surgery, R foot hammer toe repair, bilateral great toenails removed, bunionectomies bilateral feet, arch/aortagram, L femoral artery thromboendartectomy, Ccaths x possible 2, cataract removal bilaterally, colonoscopy, circumcism. R great toe amputation Past Anesthesia/Blood Transfusion Reactions: No Reported Reaction Type of Cardiac Device: AICD Device Placement Date:: 2007 Past Psychological History: Depression Additional Psychological History / Comment(s): Pt resides with his spouse. She has a walker that he uses if he is going to walk far. He does not drive-his spouse is his rn diabetes and she drives him. He is a . He has memory problems. Smoking Status: Never smoker Past Alcohol Use History: None Reported Additional Past Alcohol Use History / Comment(s): Pt smoked cigars starting in 196 and quit in 1999. Past Drug Use History: None Reported - Past Family History Mother Family Medical History: Myocardial Infarction ([place]) Additional Family Medical History / Comment(s): Mother of a [place] in her 50's Brother(s) Family Medical History: Deep Vein Thrombosis (DVT) Additional Family Medical History / Comment(s): POSS DVT. Father Family Medical History: CVA/TIA Additional Family Medical History / Comment(s): Father of a CVA at unknown age. Medications and Allergies Home Medications Medication Instructions Recorded Confirmed Type Tamsulosin [Flomax] 0.4 mg PO HS 10/04/15 09/18/16 History Memantine [Namenda] 5 mg PO HS 02/10/16 09/18/16 History Atorvastatin [Lipitor] 40 mg PO HS 05/07/16 09/18/16 History Clopidogrel [Plavix] 75 mg PO DAILY 05/07/16 09/18/16 History Acetaminophen Tab [Tylenol] 650 mg PO Q4H PRN 06/04/16 09/18/16 History Montelukast Sodium [Singulair] 10 mg PO HS 06/15/16 09/18/16 History Apixaban [Eliquis] 2.5 mg PO BID 07/19/16 09/18/16 History Cyanocobalamin [Vitamin B-12] 500 mcg PO DAILY 07/27/16 09/18/16 History QUEtiapine [SEROquel] 50 mg PO HS 07/27/16 09/18/16 History Furosemide [Lasix] 40 mg PO DAILY 08/10/16 09/18/16 History Potassium Chloride ER [K-Dur 20] 20 meq PO DAILY 08/10/16 09/18/16 History Ferrous Sulfate [Feosol] 325 mg PO DAILY 08/31/16 09/18/16 History Mirtazapine [Remeron] 15 mg PO HS 08/31/16 09/18/16 History Budesonide-Formot 160-4.5 Mcg 2 puff INHALATION RT-BID 09/14/16 09/18/16 History [Symbicort 160-4.5 Mcg Inhaler] Ciprofloxacin HCl [Cipro] 500 mg PO Q12HR 09/14/16 09/18/16 History Ipratropium-Albuterol Nebulize 3 ml INHALATION RT-QID 09/14/16 09/18/16 History [Duoneb 0.5 mg-3 mg/3 ml Soln] ALPRAZolam [Xanax] 0.5 mg PO TID PRN 09/18/16 09/18/16 History Anti-Fungal Powder 1 applic TOPICAL BID 09/18/16 09/18/16 History Bisacodyl [Dulcolax] 10 mg RECTAL DAILY PRN 09/18/16 09/18/16 History HYDROcodone/APAP 5-325MG [[place] 1 tab PO TID PRN 09/18/16 09/18/16 History 5-325] Insulin Glargine,Hum.rec.anlog 21 unit SQ HS 09/18/16 09/18/16 History [Basaglar Kwikpen U-100] Insulin Lispro [humaLOG Kwikpen] 7 unit SQ AC-TID 09/18/16 09/18/16 History Lactose-Reduced Food [Ensure Plus] 1 can PO TID 09/18/16 09/18/16 History Magnesium Hydroxide [Milk of 2,400 mg PO DAILY PRN 09/18/16 09/18/16 History Magnesia] Na Phos,M-B/Na Phos,Di-Ba [Fleet 133 ml RECTAL DAILY PRN 09/18/16 09/18/16 History Adult] Sodium Bicarbonate Tab 650 mg PO BID 09/18/16 09/18/16 History Allergies Allergy/AdvReac Type Severity Reaction Status Date / Time No Known Allergies Allergy Verified 09/18/16 14:15 Physical Exam Vitals: Vital Signs Temp Pulse Pulse Pulse Resp BP BP 09/19/16 08:10 84 09/19/16 08:00 98.8 F 77 18 92/59 09/19/16 07:59 84 09/19/16 04:00 97.8 F 82 18 128/58 09/19/16 00:00 97.0 F L 73 18 91/43 09/18/16 20:00 97.1 F L 77 18 124/79 09/18/16 19:51 80 09/18/16 19:41 80 09/18/16 16:57 98.0 F 101 H 18 112/53 09/18/16 15:00 97.8 F 96 20 127/63 Pulse Ox 09/19/16 08:10 09/19/16 08:00 96 09/19/16 07:59 09/19/16 04:00 99 09/19/16 00:00 99 09/18/16 20:00 94 L 09/18/16 19:51 09/18/16 19:41 09/18/16 16:57 100 09/18/16 15:00 96 Intake and Output 09/18/16 09/19/16 09/19/16 22:59 06:59 14:59 Intake Total 250 1251 76.807 Balance 250 1251 76.807 Intake: IV 992 Amiodarone 450 mg In 242 Dextrose 5% in Water 250 ml @ 1 MG/MIN 34.53 mls/ hr IV .Q7H31M [facility] Rx#: [id number] Piperacillin-Tazobactam 3 50 .375 gm In Dextrose/Water 1 50ml.bag @ 12.5 mls/hr IVPB Q8HR [facility] Rx#: [id number] Sodium Chloride 0.9% 1, 700 000 ml @ 100 mls/hr IV . Q10H [facility] Rx#:[id number] Amount of Fluid Infused ( 200 ml) Intake, IV Titration 50 259 76.807 Amount Amiodarone 450 mg In 259 76.807 Dextrose 5% in Water 250 ml @ 1 MG/MIN 34.53 mls/ hr IV .Q7H31M [facility] Rx#: [id number] Piperacillin-Tazobactam 3 50 .375 gm In Dextrose/Water 1 50ml.bag @ 12.5 mls/hr IVPB Q8HR [facility] Rx#: [id number] Other: Voiding Method Diaper Diaper Incontinent # Voids 1 Weight 72.6 kg 64.5 kg - Constitutional General appearance: no acute distress - Respiratory Respiratory: bilateral: CTA - Cardiovascular Rhythm: irregularly irregular Heart sounds: normal: S1, S2 Abnormal Heart Sounds: systolic murmur Results 09/19/16 05:54 09/19/16 05:54 Cardiac Enzymes 09/19/16 09/19/16 Range/Units 00:41 05:54 AST 51 (17-59) U/L CK-MB (CK-2) 6.3 H* (0.0-2.4) ng/mL Troponin I 1.430 H* (0.000-0.034) ng/mL Lipids 09/19/16 Range/Units 05:54 Triglycerides 84 (<150) mg/dL Cholesterol 81 (<200) mg/dL HDL Cholesterol 25 L (40-60) mg/dL CBC 09/19/16 Range/Units 05:54 WBC 7.3 (3.8-10.6) k/uL RBC 2.45 L (4.30-5.90) m/uL Hgb 7.5 L (13.0-17.5) gm/dL Hct 23.4 L (39.0-53.0) % Plt Count 184 (150-450) k/uL Comprehensive Metabolic Panel 09/19/16 Range/Units 05:54 Sodium 139 (137-145) mmol/L Potassium 4.1 (3.5-5.1) mmol/L Chloride 106 (98-107) mmol/L Carbon Dioxide 20 L (22-30) mmol/L BUN 31 H (9-20) mg/dL Creatinine 1.20 (0.66-1.25) mg/dL Glucose 208 H (74-99) mg/dL Calcium 8.2 L (8.4-10.2) mg/dL AST 51 (17-59) U/L ALT 31 (21-72) U/L Alkaline Phosphatase 95 (38-126) U/L Total Protein 6.3 (6.3-8.2) g/dL Albumin 2.8 L (3.5-5.0) g/dL Current Medications Generic Name Dose Route Start Last Admin Trade Name Freq PRN Reason Stop Dose Admin Acetaminophen 650 mg 09/18/16 15:40 Tylenol Tab PO Q4H PRN Pain Hydrocodone Bitart/Acetaminophen 1 each 09/18/16 15:40 [place] 5-325 PO TID PRN Pain Albuterol Sulfate 2.5 mg 09/18/16 15:40 Ventolin Nebulized INHALATION RT-Q4H PRN Shortness Of Breath Albuterol/Ipratropium 3 ml 09/18/16 16:00 09/19/16 07:59 Duoneb 0.5 Mg-3 Mg/3 Ml Soln INHALATION 3 ml RT-QID [facility] Administration Alprazolam 0.5 mg 09/18/16 15:40 Xanax PO TID PRN Anxiety Apixaban 2.5 mg 09/18/16 21:00 09/19/16 08:30 Eliquis PO Not Given BID [facility] Aspirin 325 mg 09/19/16 09:00 09/19/16 08:30 Aspirin PO Not Given DAILY [facility] Atorvastatin Calcium 40 mg 09/18/16 21:00 09/18/16 21:17 Lipitor PO 40 mg HS [facility] Administration Bisacodyl 10 mg 09/18/16 15:40 Dulcolax RECTAL DAILY PRN Constipation Budesonide/Formoterol Fumarate 2 puff 09/18/16 20:00 09/19/16 08:03 Symbicort 160-4.5 Mcg Inhaler INHALATION Not Given RT-BID [facility] Clopidogrel Bisulfate 75 mg 09/19/16 09:00 09/19/16 08:30 Plavix PO Not Given DAILY [facility] Cyanocobalamin 500 mcg 09/19/16 12:00 Vitamin B-12 PO 1200 [facility] Ferrous Sulfate 325 mg 09/19/16 12:00 Feosol PO 1200 [facility] Piperacillin/Tazobactam/ 50 mls @ 12.5 mls/hr 09/19/16 00:00 09/19/16 08:05 Dextrose 3.375 gm/ IV Solution IVPB 12.5 mls/hr Q8HR [facility] Administration Vancomycin HCl 1,250 mg/ 250 mls @ 125 mls/hr 09/18/16 16:00 09/18/16 18:35 Sodium Chloride IVPB 125 mls/hr DAILY@1200 [facility] Administration Amiodarone HCl 450 mg/ 259 mls @ 34.53 mls/hr 09/18/16 18:45 09/19/16 08:12 Dextrose/Water IV 09/19/16 18:33 0.5 mg/min .Q7H31M [facility] 17.26 mls/hr Protocol Administration 1 MG/MIN Insulin Glargine 21 unit 09/18/16 21:00 09/19/16 00:16 Lantus SQ Not Given [facility] Insulin Human Lispro 7 unit 09/18/16 17:30 09/19/16 07:15 Humalog SQ 7 unit AC-TID [facility] Administration Lorazepam 1 mg 09/18/16 14:50 09/19/16 05:13 Ativan IV 1 mg Q6HR PRN Administration Anxiety Magnesium Hydroxide 2,400 mg 09/18/16 15:40 Milk Of Magnesia PO DAILY PRN Constipation Memantine 5 mg 09/18/16 21:00 09/18/16 21:17 Namenda PO 5 mg HS [facility] Administration Metoprolol Tartrate 25 mg 09/18/16 21:00 09/18/16 21:18 Lopressor PO 25 mg HS [facility] Administration Metoprolol Tartrate 50 mg 09/19/16 09:00 09/19/16 08:30 Lopressor PO Not Given DAILY [facility] Mirtazapine 15 mg 09/18/16 21:00 09/18/16 21:17 Remeron PO 15 mg HS [facility] Administration Montelukast Sodium 10 mg 09/18/16 21:00 09/18/16 21:18 Singulair PO 10 mg HS [facility] Administration Morphine Sulfate 4 mg 09/18/16 14:15 Morphine Sulfate (Inj) IV Q4HR PRN Chest Pain Morphine Sulfate 4 mg 09/18/16 14:50 Morphine Sulfate (Inj) IVP Q4HR PRN Severe Pain Nitroglycerin 0.4 mg 09/18/16 14:15 Nitrostat SUBLINGUAL Q5M PRN Chest Pain Quetiapine Fumarate 50 mg 09/18/16 21:00 09/18/16 21:18 Seroquel PO 50 mg HS [facility] Administration Sodium Bicarbonate 650 mg 09/18/16 21:00 09/19/16 08:09 Sodium Bicarbonate Tab PO 650 mg BID [facility] Administration Tamsulosin HCl 0.4 mg 09/18/16 21:00 09/18/16 21:18 Flomax PO 0.4 mg HS [facility] Administration Intake and Output 09/18/16 09/19/16 09/19/16 22:59 06:59 14:59 Intake Total 250 1251 76.807 Balance 250 1251 76.807 Intake: IV 992 Amiodarone 450 mg In 242 Dextrose 5% in Water 250 ml @ 1 MG/MIN 34.53 mls/ hr IV .Q7H31M [facility] Rx#: [id number] Piperacillin-Tazobactam 3 50 .375 gm In Dextrose/Water 1 50ml.bag @ 12.5 mls/hr IVPB Q8HR [facility] Rx#: [id number] Sodium Chloride 0.9% 1, 700 000 ml @ 100 mls/hr IV . Q10H [facility] Rx#:[id number] Amount of Fluid Infused ( 200 ml) Intake, IV Titration 50 259 76.807 Amount Amiodarone 450 mg In 259 76.807 Dextrose 5% in Water 250 ml @ 1 MG/MIN 34.53 mls/ hr IV .Q7H31M [facility] Rx#: [id number] Piperacillin-Tazobactam 3 50 .375 gm In Dextrose/Water 1 50ml.bag @ 12.5 mls/hr IVPB Q8HR [facility] Rx#: [id number] Other: Voiding Method Diaper Diaper Incontinent # Voids 1 Weight 72.6 kg 64.5 kg 09/19/16 05:54 09/19/16 05:54 Assessment and Plan Plan: Assessment Recurrent ICD shocks Severe underlying CAD Severity ischemic cardiomyopathy Chronic atrial fibrillation was controlled heart rate Underlying dementia Severe underlying PAD Multiple comorbid conditions Plan Continue the amiodarone IV Continue the beta henny as well He is on anticoagulation regarding the atrial fibrillation The ICD was interrogated as I mentioned above Monitor the electrolytes including the magnesium Follow-up with the patient
--- NOTE | 2016-09-19 10:44 | P.GSCN ---
History of Present Illness History of present illness: 76-year-old male known to me from the past patient has history of peripheral vascular disease, history of diabetes, history of atrial fibrillation, patient to has a gangrene of the right foot second and third toe patient to the wound clinic in regular basis we have planning to do the toe amputation he came with the some heart issues has been admitted Surgical history patient had a right big toe vision in the past and also she she had some atherectomy done in the p examination patient was seen in his room he has vascular dementia Chest is clear Abdomen soft nontender vascular examination femorals 1+ patient has a 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 plan is we will use a medihoney gel for the wound and we'll follow with you and he may need a amputation of the second and third toe thank you very much Past Medical History Past Medical History: Atrial Fibrillation, Asthma, Coronary Artery Disease (CAD) , Heart Failure, COPD, Dementia, Diabetes Mellitus, Deep Vein Thrombosis (DVT), Hyperlipidemia, Hypertension, Myocardial Infarction ([place]), Osteoarthritis ([place]), Renal Disease, Respiratory Disorder, Sleep Apnea/CPAP/BIPAP, Vascular Disorder Additional Past Medical History / Comment(s): metabolic encephalopathy, DVT L leg 2007, PAD, bronchitis, MAY no device, neuropathy bilateral feet, BPH, Chronic kidney disease diverticulosis. Last Myocardial Infarction Date:: unknown History of Any Multi-Drug Resistant Organisms: MRSA Year Discovered:: 06/04/16 MDRO Source:: Blood Past Surgical History: Coronary Bypass/CABG, Heart Catheterization, Orthopedic Surgery, Pacemaker Additional Past Surgical History / Comment(s): AICD 2007, DFT 2015, CABG-2 vessel 2000, L wrist surgery, R foot hammer toe repair, bilateral great toenails removed, bunionectomies bilateral feet, arch/aortagram, L femoral artery thromboendartectomy, Ccaths x possible 2, cataract removal bilaterally, colonoscopy, circumcism. R great toe amputation Past Anesthesia/Blood Transfusion Reactions: No Reported Reaction Type of Cardiac Device: AICD Device Placement Date:: 2007 Past Psychological History: Depression Additional Psychological History / Comment(s): Pt resides with his spouse. She has a walker that he uses if he is going to walk far. He does not drive-his spouse is his breakfast hostess and she drives him. He is a . He has memory problems. Smoking Status: Never smoker Past Alcohol Use History: None Reported Additional Past Alcohol Use History / Comment(s): Pt smoked cigars starting in 1962 and quit in 1999. Past Drug Use History: None Reported - Past Family History Mother Family Medical History: Myocardial Infarction ([place]) Additional Family Medical History / Comment(s): Mother of a [place] in her 50's Brother(s) Family Medical History: Deep Vein Thrombosis (DVT) Additional Family Medical History / Comment(s): POSS DVT. Father Family Medical History: CVA/TIA Additional Family Medical History / Comment(s): Father of a CVA at unknown age. Medications and Allergies Home Medications Medication Instructions Recorded Confirmed Type Tamsulosin [Flomax] 0.4 mg PO HS 10/04/15 09/18/16 History Memantine [Namenda] 5 mg PO HS 02/10/16 09/18/16 History Atorvastatin [Lipitor] 40 mg PO HS 05/07/16 09/18/16 History Clopidogrel [Plavix] 75 mg PO DAILY 05/07/16 09/18/16 History Acetaminophen Tab [Tylenol] 650 mg PO Q4H PRN 06/04/16 09/18/16 History Montelukast Sodium [Singulair] 10 mg PO HS 06/15/16 09/18/16 History Apixaban [Eliquis] 2.5 mg PO BID 07/19/16 09/18/16 History Cyanocobalamin [Vitamin B-12] 500 mcg PO DAILY 07/27/16 09/18/16 History QUEtiapine [SEROquel] 50 mg PO HS 07/27/16 09/18/16 History Furosemide [Lasix] 40 mg PO DAILY 08/10/16 09/18/16 History Potassium Chloride ER [K-Dur 20] 20 meq PO DAILY 08/10/16 09/18/16 History Ferrous Sulfate [Feosol] 325 mg PO DAILY 08/31/16 09/18/16 History Mirtazapine [Remeron] 15 mg PO HS 08/31/16 09/18/16 History Budesonide-Formot 160-4.5 Mcg 2 puff INHALATION RT-BID 09/14/16 09/18/16 History [Symbicort 160-4.5 Mcg Inhaler] Ciprofloxacin HCl [Cipro] 500 mg PO Q12HR 09/14/16 09/18/16 History Ipratropium-Albuterol Nebulize 3 ml INHALATION RT-QID 09/14/16 09/18/16 History [Duoneb 0.5 mg-3 mg/3 ml Soln] ALPRAZolam [Xanax] 0.5 mg PO TID PRN 09/18/16 09/18/16 History Anti-Fungal Powder 1 applic TOPICAL BID 09/18/16 09/18/16 History Bisacodyl [Dulcolax] 10 mg RECTAL DAILY PRN 09/18/16 09/18/16 History HYDROcodone/APAP 5-325MG [[place] 1 tab PO TID PRN 09/18/16 09/18/16 History 5-325] Insulin Glargine,Hum.rec.anlog 21 unit SQ HS 09/18/16 09/18/16 History [Basaglar Kwikpen U-100] Insulin Lispro [humaLOG Kwikpen] 7 unit SQ AC-TID 09/18/16 09/18/16 History Lactose-Reduced Food [Ensure Plus] 1 can PO TID 09/18/16 09/18/16 History Magnesium Hydroxide [Milk of 2,400 mg PO DAILY PRN 09/18/16 09/18/16 History Magnesia] Na Phos,M-B/Na Phos,Di-Ba [Fleet 133 ml RECTAL DAILY PRN 09/18/16 09/18/16 History Adult] Sodium Bicarbonate Tab 650 mg PO BID 09/18/16 09/18/16 History Allergies Allergy/AdvReac Type Severity Reaction Status Date / Time No Known Allergies Allergy Verified 09/18/16 14:15 Surgical - Exam Vital Signs Temp Pulse Resp BP Pulse Ox 98.1 F 65 16 121/72 90 L 09/18/16 13:21 09/18/16 13:21 09/18/16 13:21 09/18/16 13:21 09/18/16 13:21 Results - Labs 09/19/16 05:54 09/19/16 05:54 Abnormal Lab Results - Last 24 Hours (Table) 09/18/16 09/19/16 09/19/16 Range/Units 21:02 00:41 05:54 RBC (4.30-5.90) m/uL Hgb (13.0-17.5) gm/dL Hct (39.0-53.0) % Lymphocytes # (1.0-4.8) k/uL Carbon Dioxide 20 L (22-30) mmol/L BUN 31 H (9-20) mg/dL Glucose 208 H (74-99) mg/dL POC Glucose (mg/dL) 225 H (75-99) mg/dL Calcium 8.2 L (8.4-10.2) mg/dL Phosphorus 4.6 H (2.5-4.5) mg/dL Total Creatine Kinase 414 H (55-170) U/L CK-MB (CK-2) 6.3 H* (0.0-2.4) ng/mL Troponin I 1.430 H* (0.000-0.034) ng/mL Albumin 2.8 L (3.5-5.0) g/dL HDL Cholesterol 25 L (40-60) mg/dL 09/19/16 09/19/16 Range/Units 05:54 06:36 RBC 2.45 L (4.30-5.90) m/uL Hgb 7.5 L (13.0-17.5) gm/dL Hct 23.4 L (39.0-53.0) % Lymphocytes # 0.5 L (1.0-4.8) k/uL Carbon Dioxide (22-30) mmol/L BUN (9-20) mg/dL Glucose (74-99) mg/dL POC Glucose (mg/dL) 230 H (75-99) mg/dL Calcium (8.4-10.2) mg/dL Phosphorus (2.5-4.5) mg/dL Total Creatine Kinase (55-170) U/L CK-MB (CK-2) (0.0-2.4) ng/mL Troponin I (0.000-0.034) ng/mL Albumin (3.5-5.0) g/dL HDL Cholesterol (40-60) mg/dL Diabetes panel 09/19/16 Range/Units 05:54 Sodium 139 (137-145) mmol/L Potassium 4.1 (3.5-5.1) mmol/L Chloride 106 (98-107) mmol/L Carbon Dioxide 20 L (22-30) mmol/L BUN 31 H (9-20) mg/dL Creatinine 1.20 (0.66-1.25) mg/dL Glucose 208 H (74-99) mg/dL Calcium 8.2 L (8.4-10.2) mg/dL AST 51 (17-59) U/L ALT 31 (21-72) U/L Alkaline Phosphatase 95 (38-126) U/L Total Protein 6.3 (6.3-8.2) g/dL Albumin 2.8 L (3.5-5.0) g/dL Triglycerides 84 (<150) mg/dL HDL Cholesterol 25 L (40-60) mg/dL Calcium panel 09/19/16 Range/Units 05:54 Calcium 8.2 L (8.4-10.2) mg/dL Phosphorus 4.6 H (2.5-4.5) mg/dL Albumin 2.8 L (3.5-5.0) g/dL Pituitary panel 09/19/16 Range/Units 05:54 Sodium 139 (137-145) mmol/L Potassium 4.1 (3.5-5.1) mmol/L Chloride 106 (98-107) mmol/L Carbon Dioxide 20 L (22-30) mmol/L BUN 31 H (9-20) mg/dL Creatinine 1.20 (0.66-1.25) mg/dL Glucose 208 H (74-99) mg/dL Calcium 8.2 L (8.4-10.2) mg/dL Adrenal panel 09/19/16 Range/Units 05:54 Sodium 139 (137-145) mmol/L Potassium 4.1 (3.5-5.1) mmol/L Chloride 106 (98-107) mmol/L Carbon Dioxide 20 L (22-30) mmol/L BUN 31 H (9-20) mg/dL Creatinine 1.20 (0.66-1.25) mg/dL Glucose 208 H (74-99) mg/dL Calcium 8.2 L (8.4-10.2) mg/dL Total Bilirubin 0.6 (0.2-1.3) mg/dL AST 51 (17-59) U/L ALT 31 (21-72) U/L Alkaline Phosphatase 95 (38-126) U/L Total Protein 6.3 (6.3-8.2) g/dL Albumin 2.8 L (3.5-5.0) g/dL
[2016-09-19 12:01] LABS: Glucose,Whole Blood 101 mg/dL (75-99)
[2016-09-19] MEDS: VANCOMYCIN 1,250 MG in SODIUM CHLORIDE 0.9% 250 ML IVPB SCH (12:24)
--- NOTE | 2016-09-19 14:21 | P.PN ---
Subjective Principal diagnosis: ICD discharge This is a 76-year-old male patient of our office with medical history significant for coronary artery disease status post coronary artery bypass graft for 2 vessels in 1999 with ischemic cardiomyopathy status post AICD, chronic atrial fibrillation, chronic kidney disease stage II, benign prostatic hypertrophy, diabetes mellitus type 2 insulin requiring, hypertension and hypertensive cardiovascular disease, hyperlipidemia, vascular dementia, history of DVT in the past, history of PAD, infection to the right groin following heart catheterization for which he was treated at [facility] in 2015, osteomyelitis of the right great toe status post amputation in October [address] Simon. He has had frequent admissions for sepsis, wound infections, metabolic encephalopathy. Patient was supposed to be admitted to [facility] next Wednesday for amputation of gangrenous toes that got worse over the last few weeks, patient has been under the care of the wound healing Center, and last week was seen by Dr. Simon and he was recommended by him to admitted to the hospital on next Wednesday for toes amputations, patient has been more agitated and confused recently has been hitting his both feet with the ground trying to we' ll himself around and the patient was today at the nursing station when his defibrillator fired, EMS was called immediately and the patient was transported to the emergency department at [facility] where he was admitted to the hospital because of the gangrenous toes and because of defibrillator discharge. 09/19: Patient is calm today slightly lethargic, no verbal, medication from him during my visit, discussed plans with Dr. Simon and Dr. Lua, with the elevated troponin is most likely secondary to AICD discharge, the device was interrogated and showed multiple episodes of DVT reported using ATP no further shocks while in the hospital patient is on amiodarone IV. Per cardiology, surgery for right second toe and third toe amputation can proceed during this hospitalization Objective - Vital Signs Vital signs: Vital Signs Temp 98.8 F 09/19/16 08:00 Pulse 82 09/19/16 12:00 Resp 18 09/19/16 12:00 BP 89/58 09/19/16 12:00 Pulse Ox 98 09/19/16 12:00 Intake & Output 09/18/16 09/19/16 09/19/16 18:59 06:59 18:59 Intake Total 250 1251 556.807 Output Total 0 Balance 250 1251 556.807 Weight 72.6 kg 64.5 kg Intake: IV 992 Amiodarone 450 mg In 242 Dextrose 5% in Water 250 ml @ 1 MG/MIN 34.53 mls/ hr IV .Q7H31M [facility] Rx#: [id number] Piperacillin-Tazobactam 3 50 .375 gm In Dextrose/Water 1 50ml.bag @ 12.5 mls/hr IVPB Q8HR [facility] Rx#: [id number] Sodium Chloride 0.9% 1, 700 000 ml @ 100 mls/hr IV . Q10H [facility] Rx#:[id number] Amount of Fluid Infused ( 200 ml) Intake, IV Titration 50 259 76.807 Amount Amiodarone 450 mg In 259 76.807 Dextrose 5% in Water 250 ml @ 1 MG/MIN 34.53 mls/ hr IV .Q7H31M [facility] Rx#: [id number] Piperacillin-Tazobactam 3 50 .375 gm In Dextrose/Water 1 50ml.bag @ 12.5 mls/hr IVPB Q8HR [facility] Rx#: [id number] Oral 480 Output: Urine 0 Other: Voiding Method Diaper Diaper Incontinent # Voids 1 0 # Bowel Movements 0 - Constitutional General appearance: Present: average body habitus, cooperative, no acute distress - EENT Eyes: Present: anicteric sclerae, poor dentition, normal appearance ENT: Present: hard of hearing, NA/AT, normal oropharynx - Neck Neck: Present: normal ROM - Respiratory Respiratory: bilateral: CTA - Cardiovascular Rhythm: irregularly irregular Abnormal Heart Sounds: Absent: systolic murmur, diastolic murmur, rub, S3 Gallop , S4 Gallop, click, other - Gastrointestinal General gastrointestinal: Present: soft - Integumentary Integumentary: Present: normal - Neurologic Neurologic Comment(s): Limited secondary to mental status - Musculoskeletal Musculoskeletal: Present: strength equal bilaterally - Labs CBC & Chem 7: 09/19/16 05:54 09/19/16 05:54 Labs: Abnormal Lab Results - Last 24 Hours (Table) 09/18/16 09/19/16 09/19/16 Range/Units 21:02 00:41 05:54 RBC (4.30-5.90) m/uL Hgb (13.0-17.5) gm/dL Hct (39.0-53.0) % Lymphocytes # (1.0-4.8) k/uL Carbon Dioxide 20 L (22-30) mmol/L BUN 31 H (9-20) mg/dL Glucose 208 H (74-99) mg/dL POC Glucose (mg/dL) 225 H (75-99) mg/dL Calcium 8.2 L (8.4-10.2) mg/dL Phosphorus 4.6 H (2.5-4.5) mg/dL Total Creatine Kinase 414 H (55-170) U/L CK-MB (CK-2) 6.3 H* (0.0-2.4) ng/mL Troponin I 1.430 H* (0.000-0.034) ng/mL Albumin 2.8 L (3.5-5.0) g/dL HDL Cholesterol 25 L (40-60) mg/dL 09/19/16 09/19/16 09/19/16 Range/Units 05:54 06:36 11:59 RBC 2.45 L (4.30-5.90) m/uL Hgb 7.5 L (13.0-17.5) gm/dL Hct 23.4 L (39.0-53.0) % Lymphocytes # 0.5 L (1.0-4.8) k/uL Carbon Dioxide (22-30) mmol/L BUN (9-20) mg/dL Glucose (74-99) mg/dL POC Glucose (mg/dL) 230 H 101 H (75-99) mg/dL Calcium (8.4-10.2) mg/dL Phosphorus (2.5-4.5) mg/dL Total Creatine Kinase (55-170) U/L CK-MB (CK-2) (0.0-2.4) ng/mL Troponin I (0.000-0.034) ng/mL Albumin (3.5-5.0) g/dL HDL Cholesterol (40-60) mg/dL Assessment and Plan Plan: 1. Defibrillator discharge. Patient will be admitted to the hospital, the device will be interrogated, cardiology consultation was obtained, cardiac enzymes were done, slightly elevated troponin could be related to the discharge , the patient to telemetry unit. 2. Severe PAD with multiple gangrenous toes involving the left big toe and the third toe and right second third and fourth toes. Consult Dr. Simon for amputation, discontinue Cipro and start the patient on vancomycin and Zosyn, blood cultures 2 every [address] Scruggs for antibiotic management 3. Elevated troponin most likely secondary to AICD discharges, patient currently is on amiodarone for episodes of ventricular tachycardia, continue eliquis which would be placed temporarily on hold for the planned amputation of the toe, continue aspirin also this would be temporarily on hold. 3. Chronic A. fib. With episode of A. fib with RVR. Continue Cardizem drip at 5 mg an hour, continue Eliquis 2.5 mg orally twice every day. eliquis is to be discontinued 3 days prior to surgery earliest surgery date would be September 22 . we would switch to IV heparin 4. COPD, stable without exacerbation: Continue Symbicort 160/4.5 g 2 puff inhalation twice every day, continue DuoNeb 3 malnutrition 4 times every day. incentive spirometry started 5. Advanced ischemic cardiomyopathy post AICD. Continue Lipitor 40 mg orally once every day, Plavix 75 mg orally once every day. 6. Severe PAD status post right great toe amputation with history of MRSA. Patient will be seen in consultation by Dr. Simon for amputation. 7. BPH. Continue tamsulosin 0.4 mg daily. 8. Hyperlipidemia. Continue Lipitor 40 mg daily. 9. Diabetes mellitus type II, insulin requiring. Continue Lantus 22 units of bedtime along with the Humalog 7 units before each meal 3 times every day. 10. Vascular dementia. Continue Namenda 5 and gram of bedtime, Seroquel 50 minute gram of the time. 11. Chronic kidney disease stage III with history of acute kidney injury. Monitor the patient CMP magnesium or phosphorus in the next 24 hours. 12. GI prophylaxis. Continue patient on Protonix 40 mg orally once every day. 13. DVT prophylaxis. Patient is on Eliquis. 14. Patient is DO NOT RESUSCITATE. 15. Admit to inpatient. Estimate a length of stay 2 midnights.
[2016-09-19 16:21] LABS: Glucose,Whole Blood 137 mg/dL (75-99)
[2016-09-19] MEDS ORDERED: HEPARIN SODIUM,PORCINE/D5W PMX 25,000 UNIT in DEXTROSE/WATER 1 500ML.BAG IV SCH (18:00)
[2016-09-19] MEDS: ATORVASTATIN 40 MG TAB PO SCH (23:38)
[2016-09-19] MEDS: MEMANTINE 5 MG TAB PO SCH (23:38)
[2016-09-19] MEDS: MONTELUKAST 10 MG TAB PO SCH (23:39)
[2016-09-19] MEDS: MIRTAZAPINE 15 MG TAB PO SCH (23:39)
[2016-09-19] MEDS: QUEtiapine 50 MG TAB PO SCH (23:39)
[2016-09-19] MEDS: TAMSULOSIN 0.4 MG CAP.ER.24H PO SCH (23:39)
[2016-09-19] MEDS: METOPROLOL TARTRATE 25 MG TAB PO SCH (23:39)
[2016-09-19] MEDS: LORazepam 2 MG/ML SYRINGE IM PRN (23:42)
[2016-09-20 00:01] LABS: Glucose,Whole Blood 184 mg/dL (75-99)
[2016-09-20] MEDS: INSULIN GLARGINE 100 UNIT/ML 10 ML VIAL SQ SCH (00:40)
[2016-09-20] MEDS ORDERED: HEPARIN SODIUM,PORCINE 5,000 UNIT/ML 1 ML VIAL IV PRN (03:43)
[2016-09-20 05:59] LABS: Glucose,Whole Blood 178 mg/dL (75-99)
[2016-09-20 07:07] LABS: Basophils % (A) 1 %; CH 29.7; Eosinophils # (A) 0.1 k/uL (0-0.7); Eosinophils % (A) 2 %; HCT 24.1 % (39.0-53.0); HDW 3.28; Hypochromasia Slight; Luc # (Auto) 0.06; Luc % (Auto) 1; Lymphocytes # (A) 0.7 k/uL (1.0-4.8); Lymphocytes % (A) 12 %; MCH 30.9 pg (25.0-35.0); MCHC 33.2 g/dL (31.0-37.0); MCV 93.3 fL (80.0-100.0); Mean Platelet Volume 7.6; Monocytes # (A) 0.3 k/uL (0-1.0); Monocytes % (A) 5 %; Neutrophils # (A) 4.4 k/uL (1.3-7.7); Neutrophils % (A) 79 %; RBC 2.59 m/uL (4.30-5.90); RDW 12.8 % (11.5-15.5); WBC 5.6 k/uL (3.8-10.6)
[2016-09-20] MEDS: INSULIN LISPRO (humaLOG) 300 UNIT/3 ML VIAL SQ SCH ×3 (07:11→17:27)
[2016-09-20 07:16] LABS: ALT 32 U/L (21-72); AST 58 U/L (17-59); Alkaline Phosphatase 100 U/L (38-126); Anion Gap 13 mmol/L; Blood Urea Nitrogen 27 mg/dL (9-20); Carbon Dioxide 17 mmol/L (22-30); Chloride 110 mmol/L (98-107); Glucose 172 mg/dL (74-99); Non-African American GFR(MDRD) >60 (>60 ml/min/1.73 sqM); Potassium 4.1 mmol/L (3.5-5.1); Sodium 140 mmol/L (137-145); Total Bilirubin 0.8 mg/dL (0.2-1.3); Total Protein 6.2 g/dL (6.3-8.2)
[2016-09-20] MEDS: ASPIRIN 325 MG TAB PO SCH (08:09)
[2016-09-20] MEDS: PIPERACILLIN-TAZOBACTAM 3.375 GM in DEXTROSE/WATER 1 50ML.BAG IVPB SCH ×2 (08:09→15:59)
[2016-09-20] MEDS: CLOPIDOGREL 75 MG TAB PO SCH ×2 (08:09→14:36)
[2016-09-20] MEDS: METOPROLOL TARTRATE 50 MG TAB PO SCH (08:09)
[2016-09-20] MEDS: SODIUM BICARBONATE TAB 650 MG TAB PO SCH ×2 (08:10→20:38)
[2016-09-20] MEDS: IPRATROPIUM-ALBUTEROL 3 ML NEB INHALATION SCH ×4 (09:37→20:37)
[2016-09-20] MEDS: SYMBICORT 160-4.5 MCG INHALER INHALATION SCH ×2 (09:38→20:37)
--- NOTE | 2016-09-20 10:56 | P.PN ---
Progress Note - Text 76 old white male, patient came with history of A. fib and also patient has a gangrene changes involving the both lower extremities right and left foot toes patient had a big toe amputation in the past patient also had a atherectomy in the past patient has history of peripheral vascular disease diabetes summation today there is no redness or discharge noted from the right and foot toes patient has a gangrene dry gangrene I have discuss with Dr. Treviño patient is stable from cardiac point of view can be sent back to the [facility]. Following the wound clinic on Wednesday
[2016-09-20] MEDS: FERROUS SULFATE 325 MG TAB PO SCH (11:05)
[2016-09-20] MEDS: CYANOCOBALAMIN 500 MCG TAB PO SCH (11:05)
[2016-09-20] MEDS: VANCOMYCIN 1,250 MG in SODIUM CHLORIDE 0.9% 250 ML IVPB SCH (11:05)
[2016-09-20 11:26] LABS: Glucose,Whole Blood 100 mg/dL (75-99)
--- NOTE | 2016-09-20 13:29 | P.PN ---
Progress Note - Text This is a 76-year-old gentleman with an extensive past medical history was brought by ambulance after he started experiencing an ICD shocks. The patient is known to have coronary artery disease, severe ischemic cardiomyopathy, status post AICD, chronic atrial fibrillation, as well as severe underlying peripheral arterial disease. The patient was experiencing yesterday recurrent ICD shocks. He was brought by ambulance to the emergency room. He was started on amiodarone IV and since then he has been not receiving any shocks. The ICD was interrogated and showed multiple episodes of VT reported using ATP. The patient has severe underlying dementia and his poor historian. Currently he denies having any chest pain or discomfort or any difficulty in breathing. He continues to be on amiodarone IV at this point. He has severe underlying PAD and he supposed to be admitted to the hospital to undergo amputation by Dr. Simon. He continues to be in atrial fibrillation with controlled heart rates. He is on anticoagulation. On follow-up with him today, he continues to be lethargic. He has been throwing nonsustained VT but he was not receiving any amiodarone after the amiodarone IV was stopped. I am going to add amiodarone by mouth at 400 mg by mouth twice a day.
[2016-09-20] MEDS: AMIODARONE 200 MG TAB PO SCH ×2 (14:35→20:33)
[2016-09-20] MEDS: APIXABAN 2.5 MG TABLET PO SCH (14:36)
[2016-09-20] MEDS: DRY MOUTH SPRAY 44.3 SPRAY/44.3 ML SPRAY MUCOUS MEM SCH ×2 (14:37→17:28)
--- NOTE | 2016-09-20 14:39 | XR ---
EXAMINATION TYPE: XR chest 2V DATE OF EXAM: 09/20/2016 2:15 PM COMPARISON: 07/19/2016 HISTORY: 76-year-old male with cough, possible aspiration TECHNIQUE: Frontal and lateral views FINDINGS: Heart is mildly enlarged. Left anterior chest wall ICD generator with right ventricular lead. Median sternotomy wires are present. Calcified left hilar lymph nodes. There trace pleural effusions with patchy right greater than left bibasilar opacities. IMPRESSION: Trace pleural effusions with patchy right greater than left bibasilar opacities. Aspiration pneumonit is is possible. Correlate to exclude CHF.
--- NOTE | 2016-09-20 14:52 | P.PN ---
Subjective Principal diagnosis: ICD discharge This is a 76-year-old male patient of our office with medical history significant for coronary artery disease status post coronary artery bypass graft for 2 vessels in 1999 with ischemic cardiomyopathy status post AICD, chronic atrial fibrillation, chronic kidney disease stage II, benign prostatic hypertrophy, diabetes mellitus type 2 insulin requiring, hypertension and hypertensive cardiovascular disease, hyperlipidemia, vascular dementia, history of DVT in the past, history of PAD, infection to the right groin following heart catheterization for which he was treated at [facility] in 2015, osteomyelitis of the right great toe status post amputation in October [address] Simon. He has had frequent admissions for sepsis, wound infections, metabolic encephalopathy. Patient was supposed to be admitted to [facility] next Wednesday for amputation of gangrenous toes that got worse over the last few weeks, patient has been under the care of the wound healing Center, and last week was seen by Dr. Simon and he was recommended by him to admitted to the hospital on next Wednesday for toes amputations, patient has been more agitated and confused recently has been hitting his both feet with the ground trying to we' ll himself around and the patient was today at the nursing station when his defibrillator fired, EMS was called immediately and the patient was transported to the emergency department at [facility] where he was admitted to the hospital because of the gangrenous toes and because of defibrillator discharge. 09/19: Patient is calm today slightly lethargic, no verbal, medication from him during my visit, discussed plans with Dr. Simon and Dr. Lua, with the elevated troponin is most likely secondary to AICD discharge, the device was interrogated and showed multiple episodes of DVT reported using ATP no further shocks while in the hospital patient is on amiodarone IV. Per cardiology, surgery for right second toe and third toe amputation can proceed during this hospitalization 09/20: Patient is confused as baseline, however he is not eating, not drinking, patient has a cough chest x-ray requested, patient does not have any chest pain no dysuria, we've spoken with Dr. Simon vascular no plans for extremity amputation during this admission, he will be seeing him at the wound clinic next following Wednesday Objective - Vital Signs Vital signs: Vital Signs Temp 97.1 F L 09/20/16 08:00 Pulse 71 09/20/16 12:00 Resp 18 09/20/16 12:00 BP 108/56 09/20/16 12:00 Pulse Ox 96 09/20/16 12:00 Intake & Output 09/19/16 09/20/16 09/20/16 18:59 06:59 18:59 Intake Total 1590.256 319.77 91.268 Output Total 0 0 Balance 1590.256 319.77 91.268 Weight 72 kg Intake: IV 862 174 Amiodarone 450 mg In 112 Dextrose 5% in Water 250 ml @ 1 MG/MIN 34.53 mls/ hr IV .Q7H31M [facility] Rx#: [id number] Heparin Sodium,Porcine/ 124 D5w Pmx 25,000 unit In Dextrose/Water 1 500ml. bag @ 12 UNITS/KG/HR 15. 48 mls/hr IV .Q24H [facility] Rx #:[id number] Piperacillin-Tazobactam 3 50 50 .375 gm In Dextrose/Water 1 50ml.bag @ 12.5 mls/hr IVPB Q8HR [facility] Rx#: [id number] Sodium Chloride 0.9% 1, 700 000 ml @ 100 mls/hr IV . Q10H [facility] Rx#:[id number] Intake, IV Titration 248.256 145.77 91.268 Amount Amiodarone 450 mg In 248.256 Dextrose 5% in Water 250 ml @ 1 MG/MIN 34.53 mls/ hr IV .Q7H31M [facility] Rx#: [id number] Heparin Sodium,Porcine/ 145.77 91.268 D5w Pmx 25,000 unit In Dextrose/Water 1 500ml. bag @ 12 UNITS/KG/HR 15. 48 mls/hr IV .Q24H [facility] Rx #:[id number] Oral 480 Output: Urine 0 0 Other: Voiding Method Diaper Diaper Diaper # Voids 2 1 0 # Bowel Movements 0 0 - Constitutional General appearance: Present: cooperative, no acute distress - EENT Eyes: Present: anicteric sclerae, EOMI, PERRLA, dentition normal, normal appearance ENT: Present: hard of hearing, NA/AT, normal oropharynx (Dry) - Neck Neck: Present: normal ROM - Respiratory Respiratory: bilateral: CTA, negative: diminished, dullness, rales, rhonchi, wheezing, prolonged expiration, prolonged inspiration - Cardiovascular Rhythm: regular Heart sounds: normal: S1, S2 Abnormal Heart Sounds: Absent: systolic murmur, diastolic murmur, rub, S3 Gallop , S4 Gallop, click, other - Gastrointestinal General gastrointestinal: Present: normal bowel sounds, soft - Integumentary Integumentary: Present: normal, normal turgor - Musculoskeletal Musculoskeletal: Present: generalized weakness, strength equal bilaterally - Psychiatric Psychiatric: Present: appropriate affect - Labs CBC & Chem 7: 09/20/16 06:00 09/20/16 06:00 Labs: Abnormal Lab Results - Last 24 Hours (Table) 09/19/16 09/19/16 09/19/16 Range/Units 05:54 16:19 23:59 RBC (4.30-5.90) m/uL Hgb (13.0-17.5) gm/dL Hct (39.0-53.0) % Lymphocytes # (1.0-4.8) k/uL APTT (22.0-30.0) sec Chloride (98-107) mmol/L Carbon Dioxide (22-30) mmol/L BUN (9-20) mg/dL Glucose (74-99) mg/dL POC Glucose (mg/dL) 137 H 184 H (75-99) mg/dL Calcium (8.4-10.2) mg/dL Total Protein (6.3-8.2) g/dL Albumin (3.5-5.0) g/dL TSH 5.540 H (0.465-4.680) mIU/L 09/20/16 09/20/16 09/20/16 Range/Units 00:21 05:58 06:00 RBC (4.30-5.90) m/uL Hgb (13.0-17.5) gm/dL Hct (39.0-53.0) % Lymphocytes # (1.0-4.8) k/uL APTT 33.2 H (22.0-30.0) sec Chloride 110 H (98-107) mmol/L Carbon Dioxide 17 L (22-30) mmol/L BUN 27 H (9-20) mg/dL Glucose 172 H (74-99) mg/dL POC Glucose (mg/dL) 178 H (75-99) mg/dL Calcium 8.0 L (8.4-10.2) mg/dL Total Protein 6.2 L (6.3-8.2) g/dL Albumin 2.6 L (3.5-5.0) g/dL TSH (0.465-4.680) mIU/L 09/20/16 09/20/16 Range/Units 06:00 11:24 RBC 2.59 L (4.30-5.90) m/uL Hgb 8.0 L (13.0-17.5) gm/dL Hct 24.1 L (39.0-53.0) % Lymphocytes # 0.7 L (1.0-4.8) k/uL APTT (22.0-30.0) sec Chloride (98-107) mmol/L Carbon Dioxide (22-30) mmol/L BUN (9-20) mg/dL Glucose (74-99) mg/dL POC Glucose (mg/dL) 100 H (75-99) mg/dL Calcium (8.4-10.2) mg/dL Total Protein (6.3-8.2) g/dL Albumin (3.5-5.0) g/dL TSH (0.465-4.680) mIU/L Assessment and Plan Plan: 1. Defibrillator discharge. Patient will be admitted to the hospital, the device will be interrogated, cardiology consultation was obtained, cardiac enzymes were done, slightly elevated troponin could be related to the discharge , the patient to telemetry unit. 2. Severe PAD with multiple gangrenous toes involving the left big toe and the third toe and right second third and fourth toes. Consult Dr. Simon for amputation, discontinue Cipro and start the patient on vancomycin and Zosyn, blood cultures 2 every [address] Scruggs for antibiotic management 3. Elevated troponin most likely secondary to AICD discharges, patient currently is on amiodarone for episodes of ventricular tachycardia, continue eliquis which would be placed temporarily on hold for the planned amputation of the toe, continue aspirin also this would be temporarily on hold. 3. Chronic A. fib. With episode of A. fib with RVR. Continue Cardizem drip at 5 mg an hour, continue Eliquis 2.5 mg orally twice every day. eliquis is to be discontinued 3 days prior to surgery earliest surgery date would be September 22 . we would switch to IV heparin 4. Acute Tracheobronchitis COPD, stable without exacerbation: Continue Symbicort 160/4.5 g 2 puff inhalation twice every day, continue DuoNeb 3 malnutrition 4 times every day. incentive spirometry started incontinence on antibiotic, obtain chest x-ray and modified barium swallow eval, mucosa is membranes are extremely dry, mouthkote started 5. Advanced ischemic cardiomyopathy post AICD. Continue Lipitor 40 mg orally once every day, Plavix 75 mg orally once every day. 6. Severe PAD status post right great toe amputation with history of MRSA. Patient will be seen in consultation by Dr. Simon for amputation. 7. BPH. Continue tamsulosin 0.4 mg daily. 8. Hyperlipidemia. Continue Lipitor 40 mg daily. 9. Diabetes mellitus type II, insulin requiring. Continue Lantus 22 units of bedtime along with the Humalog 7 units before each meal 3 times every day. 10. Vascular dementia. Continue Namenda 5 and gram of bedtime, Seroquel 50 minute gram of the time. 11. Chronic kidney disease stage III with history of acute kidney injury. Monitor the patient CMP magnesium or phosphorus in the next 24 hours. 12. GI prophylaxis. Continue patient on Protonix 40 mg orally once every day. 13. DVT prophylaxis. Patient is on Eliquis. 14. Patient is DO NOT RESUSCITATE. 15. Admit to inpatient. Estimate a length of stay 2 midnights.
[2016-09-20] MEDS: LORazepam 2 MG/ML SYRINGE IM PRN (15:59)
[2016-09-20 16:36] LABS: Glucose,Whole Blood 116 mg/dL (75-99)
[2016-09-20] MEDS: MEMANTINE 5 MG TAB PO SCH (20:37)
[2016-09-20] MEDS: METOPROLOL TARTRATE 25 MG TAB PO SCH (20:37)
[2016-09-20] MEDS: ATORVASTATIN 40 MG TAB PO SCH (20:37)
[2016-09-20] MEDS: QUEtiapine 50 MG TAB PO SCH (20:37)
[2016-09-20] MEDS: MONTELUKAST 10 MG TAB PO SCH (20:37)
[2016-09-20] MEDS: MIRTAZAPINE 15 MG TAB PO SCH (20:37)
[2016-09-20] MEDS: TAMSULOSIN 0.4 MG CAP.ER.24H PO SCH (20:38)
[2016-09-20] MEDS ORDERED: AMIODARONE 200 MG TAB PO SCH (21:00)
[2016-09-20 21:45] LABS: Glucose,Whole Blood 108 mg/dL (75-99)
[2016-09-21] MEDS: DRY MOUTH SPRAY 44.3 SPRAY/44.3 ML SPRAY MUCOUS MEM SCH ×5 (00:50→21:05)
[2016-09-21] MEDS: INSULIN GLARGINE 100 UNIT/ML 10 ML VIAL SQ SCH ×2 (00:50→21:03)
[2016-09-21] MEDS: APIXABAN 2.5 MG TABLET PO SCH ×3 (00:54→20:45)
[2016-09-21] MEDS: PIPERACILLIN-TAZOBACTAM 3.375 GM in DEXTROSE/WATER 1 50ML.BAG IVPB SCH ×3 (00:55→15:58)
[2016-09-21 06:11] LABS: Glucose,Whole Blood 93 mg/dL (75-99)
[2016-09-21] MEDS: INSULIN LISPRO (humaLOG) 300 UNIT/3 ML VIAL SQ SCH ×3 (06:53→17:51)
[2016-09-21 07:56] LABS: ALT 31 U/L (21-72); AST 39 U/L (17-59); Alkaline Phosphatase 73 U/L (38-126); Anion Gap 10 mmol/L; Blood Urea Nitrogen 24 mg/dL (9-20); Calcium 7.9 mg/dL (8.4-10.2); Carbon Dioxide 20 mmol/L (22-30); Chloride 113 mmol/L (98-107); Glucose 86 mg/dL (74-99); Non-African American GFR(MDRD) >60 (>60 ml/min/1.73 sqM); Sodium 143 mmol/L (137-145); Total Bilirubin 0.8 mg/dL (0.2-1.3); Total Protein 5.7 g/dL (6.3-8.2)
[2016-09-21 07:58] LABS: Potassium 4.2 mmol/L (3.5-5.1)
[2016-09-21] MEDS ORDERED: VANCOMYCIN TROUGH DUE 1 EACH MISC MISCELLANE ONE (11:00)
[2016-09-21] MEDS: SODIUM BICARBONATE TAB 650 MG TAB PO SCH ×2 (11:16→21:03)
[2016-09-21] MEDS: AMIODARONE 200 MG TAB PO SCH ×2 (11:16→20:45)
[2016-09-21] MEDS: METOPROLOL TARTRATE 50 MG TAB PO SCH (11:17)
[2016-09-21] MEDS: ASPIRIN 325 MG TAB PO SCH (11:17)
[2016-09-21] MEDS: CLOPIDOGREL 75 MG TAB PO SCH (11:17)
[2016-09-21] MEDS: IPRATROPIUM-ALBUTEROL 3 ML NEB INHALATION SCH ×2 (11:24→11:28)
[2016-09-21] MEDS: SYMBICORT 160-4.5 MCG INHALER INHALATION SCH ×2 (11:24→20:36)
[2016-09-21 11:47] LABS: Glucose,Whole Blood 111 mg/dL (75-99)
--- NOTE | 2016-09-21 12:28 | P.PN ---
Subjective Principal diagnosis: ICD discharge This is a 76-year-old gentleman with an extensive past medical history who was initially brought to the hospital after he started experiencing shocks from his AICD. He has a known history of coronary artery disease, severe ischemic cardiomyopathy, chronic persistent atrial fibrillation, peripheral arterial disease, hypertension, hyperlipidemia. Patient was initiated on IV amiodarone here and is currently on by mouth amiodarone. He is having much less ventricular arrhythmias. Chest x-ray performed yesterday revealed trace pleural effusions. Possible aspiration pneumonitis. Blood pressure 124/70 with a heart rate in the 60s. Potassium 4.2. Objective - Vital Signs Vital signs: Vital Signs Temp 96.6 F L 09/21/16 08:00 Pulse 61 09/21/16 08:00 Resp 18 09/21/16 08:00 BP 124/74 09/21/16 08:00 Pulse Ox 99 09/21/16 08:00 Intake & Output 09/20/16 09/21/16 09/21/16 18:59 06:59 18:59 Intake Total 491.268 250 0 Output Total 0 0 Balance 491.268 250 0 Weight 64.5 kg Intake: IV 150 250 Heparin Sodium,Porcine/ 100 D5w Pmx 25,000 unit In Dextrose/Water 1 500ml. bag @ 12 UNITS/KG/HR 15. 48 mls/hr IV .Q24H [facility] Rx #:[id number] Piperacillin-Tazobactam 3 50 50 .375 gm In Dextrose/Water 1 50ml.bag @ 12.5 mls/hr IVPB Q8HR [facility] Rx#: [id number] Saline 200 Intake, IV Titration 341.268 Amount Heparin Sodium,Porcine/ 91.268 D5w Pmx 25,000 unit In Dextrose/Water 1 500ml. bag @ 12 UNITS/KG/HR 15. 48 mls/hr IV .Q24H [facility] Rx #:[id number] Vancomycin 1,250 mg In 250 Sodium Chloride 0.9% 250 ml @ 125 mls/hr IVPB DAILY@1200 [facility] Rx#: [id number] Oral 0 Output: Urine 0 0 Other: Voiding Method Diaper Diaper Diaper # Voids 1 1 1 # Bowel Movements 0 - Exam PHYSICAL EXAMINATION: HEENT: Head is atraumatic, normocephalic. Pupils equal, round. Neck is supple. There is no elevated jugular venous pressure. HEART EXAMINATION: Heart S1 and S2 irregularly irregular CHEST EXAMINATION:'s reveal diminished air entry to bilateral bases. ABDOMEN: Soft, nontender. Bowel sounds are heard. No organomegaly noted. EXTREMITIES: 2+ peripheral pulses with no evidence of peripheral edema and no calf tenderness noted. NEUROLOGIC [patient is awake, alert confused. . - Labs CBC & Chem 7: 09/20/16 06:00 09/21/16 05:38 Labs: Abnormal Lab Results - Last 24 Hours (Table) 09/20/16 09/20/16 09/21/16 Range/Units 16:34 21:41 05:38 Chloride 113 H (98-107) mmol/L Carbon Dioxide 20 L (22-30) mmol/L BUN 24 H (9-20) mg/dL POC Glucose (mg/dL) 116 H 108 H (75-99) mg/dL Calcium 7.9 L (8.4-10.2) mg/dL Total Protein 5.7 L (6.3-8.2) g/dL Albumin 2.4 L (3.5-5.0) g/dL 09/21/16 Range/Units 11:46 Chloride (98-107) mmol/L Carbon Dioxide (22-30) mmol/L BUN (9-20) mg/dL POC Glucose (mg/dL) 111 H (75-99) mg/dL Calcium (8.4-10.2) mg/dL Total Protein (6.3-8.2) g/dL Albumin (3.5-5.0) g/dL Assessment and Plan (1) Chronic a-fib Status: Acute (2) PAD (peripheral artery disease) Status: Acute (3) Ischemic cardiomyopathy Status: Acute (4) COPD (chronic obstructive pulmonary disease) Status: Acute (5) Dementia Status: Acute (6) Hyperlipemia Status: Acute (7) Diabetes Status: Acute (8) Chronic kidney disease Status: Acute (9) Defibrillator discharge Status: Acute (10) Hx of CABG Status: Acute Plan: Cardiology's perspective, we'll continue the amiodarone 400 mg one tablet by mouth twice a day for one week, then decrease to 200 mg by mouth 3 times a day. Continue other medications. DNP note has been reviewed, I agree with a documented findings and plan of care. Patient was seen and examined.
[2016-09-21] MEDS: FERROUS SULFATE 325 MG TAB PO SCH (12:38)
[2016-09-21] MEDS: CYANOCOBALAMIN 500 MCG TAB PO SCH (12:38)
[2016-09-21] MEDS: VANCOMYCIN 1,250 MG in SODIUM CHLORIDE 0.9% 250 ML IVPB SCH (12:38)
--- NOTE | 2016-09-21 13:24 | P.PN ---
Subjective This is a 76-year-old male patient of our office with medical history significant for coronary artery disease status post coronary artery bypass graft for 2 vessels in 1999 with ischemic cardiomyopathy status post AICD, chronic atrial fibrillation, chronic kidney disease stage II, benign prostatic hypertrophy, diabetes mellitus type 2 insulin requiring, hypertension and hypertensive cardiovascular disease, hyperlipidemia, vascular dementia, history of DVT in the past, history of PAD, infection to the right groin following heart catheterization for which he was treated at [facility] in 2015, osteomyelitis of the right great toe status post amputation in October [address] Simon. He has had frequent admissions for sepsis, wound infections, metabolic encephalopathy. Patient was supposed to be admitted to [facility] next Wednesday for amputation of gangrenous toes that got worse over the last few weeks, patient has been under the care of the wound healing Center, and last week was seen by Dr. Simon and he was recommended by him to admitted to the hospital on next Wednesday for toes amputations, patient has been more agitated and confused recently has been hitting his both feet with the ground trying to we' ll himself around and the patient was today at the nursing station when his defibrillator fired, EMS was called immediately and the patient was transported to the emergency department at [facility] where he was admitted to the hospital because of the gangrenous toes and because of defibrillator discharge. 09/19: Patient is calm today slightly lethargic, no verbal, medication from him during my visit, discussed plans with Dr. Simon and Dr. Lua, with the elevated troponin is most likely secondary to AICD discharge, the device was interrogated and showed multiple episodes of DVT reported using ATP no further shocks while in the hospital patient is on amiodarone IV. Per cardiology, surgery for right second toe and third toe amputation can proceed during this hospitalization 09/20: Patient is confused as baseline, however he is not eating, not drinking, patient has a cough chest x-ray requested, patient does not have any chest pain no dysuria, we've spoken with Dr. Simon vascular no plans for extremity amputation during this admission, he will be seeing him at the wound clinic next following Thursday 09/21: He is followed by Dr. Miller and has been having episodes of nonsustained V. tach for which he is on amiodarone IV and now switched to oral with plan for tapering dose. Repeat chest x-ray shows trace pleural effusions with patchy right greater than left basilar opacities. Aspiration pneumonitis is possible. Consults added with Drs. Johnson and Kael. He is currently on antibiotics in form of Zosyn and vancomycin. Dr. Simon has cleared the patient for discharge back to the intermediate with no plan for surgical intervention and follow-up in the Wound Healing Center. Objective - Vital Signs Vital signs: Vital Signs Temp 97.2 F L 09/21/16 00:00 Pulse 86 09/21/16 00:00 Resp 18 09/21/16 00:00 BP 126/62 09/21/16 00:00 Pulse Ox 93 L 09/21/16 00:00 Intake & Output 09/20/16 09/21/16 09/21/16 18:59 06:59 18:59 Intake Total 491.268 250 Output Total 0 0 Balance 491.268 250 Weight 64.5 kg Intake: IV 150 250 Heparin Sodium,Porcine/ 100 D5w Pmx 25,000 unit In Dextrose/Water 1 500ml. bag @ 12 UNITS/KG/HR 15. 48 mls/hr IV .Q24H [facility] Rx #:[id number] Piperacillin-Tazobactam 3 50 50 .375 gm In Dextrose/Water 1 50ml.bag @ 12.5 mls/hr IVPB Q8HR [facility] Rx#: [id number] Saline 200 Intake, IV Titration 341.268 Amount Heparin Sodium,Porcine/ 91.268 D5w Pmx 25,000 unit In Dextrose/Water 1 500ml. bag @ 12 UNITS/KG/HR 15. 48 mls/hr IV .Q24H [facility] Rx #:[id number] Vancomycin 1,250 mg In 250 Sodium Chloride 0.9% 250 ml @ 125 mls/hr IVPB DAILY@1200 [facility] Rx#: [id number] Output: Urine 0 0 Other: Voiding Method Diaper Diaper # Voids 1 1 # Bowel Movements 0 - Exam General appearance: Present: cooperative, no acute distress - EENT Eyes: Present: anicteric sclerae, EOMI, PERRLA, dentition normal, normal appearance ENT: Present: hard of hearing, NA/AT, normal oropharynx (Dry) - Neck Neck: Present: normal ROM - Respiratory Respiratory: bilateral: CTA, negative: diminished, dullness, rales, rhonchi, wheezing, prolonged expiration, prolonged inspiration - Cardiovascular Rhythm: regular Heart sounds: normal: S1, S2 Abnormal Heart Sounds: Absent: systolic murmur, diastolic murmur, rub, S3 Gallop , S4 Gallop, click, other - Gastrointestinal General gastrointestinal: Present: normal bowel sounds, soft - Integumentary Integumentary: Present: normal, normal turgor - Musculoskeletal Musculoskeletal: Present: generalized weakness, strength equal bilaterally - Psychiatric Psychiatric: Present: appropriate affect - Labs CBC & Chem 7: 09/20/16 06:00 09/21/16 05:38 Labs: Abnormal Lab Results - Last 24 Hours (Table) 09/19/16 09/20/16 09/20/16 Range/Units 05:54 11:24 16:34 POC Glucose (mg/dL) 100 H 116 H (75-99) mg/dL TSH 5.540 H (0.465-4.680) mIU/L 09/20/16 Range/Units 21:41 POC Glucose (mg/dL) 108 H (75-99) mg/dL TSH (0.465-4.680) mIU/L Assessment and Plan Plan: 1. Defibrillator discharge. Patient will be admitted to the hospital, the device will be interrogated, cardiology consultation was obtained, cardiac enzymes were done, slightly elevated troponin could be related to the discharge , the patient to telemetry unit. 2. Severe PAD with multiple gangrenous toes involving the left big toe and the third toe and right second third and fourth toes. Consult Dr. Simon for amputation, discontinue Cipro and start the patient on vancomycin and Zosyn, blood cultures 2 every [address] Scruggs for antibiotic management 3. Elevated troponin most likely secondary to AICD discharges, patient currently is on amiodarone for episodes of ventricular tachycardia, continue eliquis which would be placed temporarily on hold for the planned amputation of the toe, continue aspirin also this would be temporarily on hold. 3. Chronic A. fib. With episode of A. fib with RVR. Continue Cardizem drip at 5 mg an hour, continue Eliquis 2.5 mg orally twice every day. eliquis is to be discontinued 3 days prior to surgery earliest surgery date would be May 2 . we would switch to IV heparin 4. Acute Tracheobronchitis COPD, stable without exacerbation with aspiration pneumonia: Continue Symbicort 160/4.5 g 2 puff inhalation twice every day, continue DuoNeb 3 malnutrition 4 times every day. incentive spirometry started continue Zosyn and vancomycin, obtain chest x-ray and modified barium swallow eval, mucosa is membranes are extremely dry, mouthkote started. Consults with Dr. Johnson and Dr. Scruggs. Sputum culture to be obtained 5. Advanced ischemic cardiomyopathy post AICD. Continue Lipitor 40 mg orally once every day, Plavix 75 mg orally once every day. 6. Severe PAD status post right great toe amputation with history of MRSA. Patient will be seen in consultation by Dr. Simon for amputation. 7. BPH. Continue tamsulosin 0.4 mg daily. 8. Hyperlipidemia. Continue Lipitor 40 mg daily. 9. Diabetes mellitus type II, insulin requiring. Continue Lantus 22 units of bedtime along with the Humalog 7 units before each meal 3 times every day. 10. Vascular dementia. Continue Namenda 5 and gram of bedtime, Seroquel 50 minute gram of the time. 11. Chronic kidney disease stage III with history of acute kidney injury. Monitor the patient CMP magnesium or phosphorus in the next 24 hours. 12. GI prophylaxis. Continue patient on Protonix 40 mg orally once every day. 13. DVT prophylaxis. Patient is on Eliquis. 14. Patient is DO NOT RESUSCITATE. Discharge plan: Impression and plan of care have been directed as dictated by the signing physician. Felisha Hernandez nurse practitioner acting as scribe for signing physician. Time with Patient: Greater than 30
--- NOTE | 2016-09-21 13:49 | P.CONS ---
History of Present Illness - Reason for Consult Consult date: 09/21/16 Aspiration pneumonia, gangrene - History of Present Illness 76-year-old male known to infectious disease. Earlier last year he has significant difficulty with his right groin area. He had undergone cardiac catheterization and developed a significant infection to his right groin. He required transfer to outside hospital for further surgical intervention with concerns to a necrotizing infection. Fortunately he improved. He continued to have severe peripheral vascular disease. On November 17, Dr. Simon performed the right great toe amputation. Since that time it's been an ongoing ulceration was followed in the wound healing center with Dr. Simon. He has been treated in May of this year for bacteremia with MRSA, alphahemolytic strep and diphtheroids species and was placed on vancomycin for 2 week course. He subsequently was admitted for acute kidney injury and vancomycin was discontinued. There was a planned amputation for gangrenous toes at [facility] on Wednesday of this week which has subsequently been canceled. He is currently residing at [facility] with plan to return there at the time of discharge. Patient presented to [facility] emergency center for defibrillator firing. EMS was called and he was brought into [facility] emergency center for evaluation. Patient has been followed by cardiology and amiodarone dosing has been adjusted. He has been seen by Dr. Simon with plan for follow-up in the Wound Healing Center in no amputation at this time. Chest x-ray showed patchy right greater than left basilar [place]' s. Aspiration pneumonitis is possible. Consult was placed regarding aspiration pneumonia and gangrene. Consult also added for Dr. Johnson. Review of Systems ROS unobtainable: due to mental status All systems: negative Constitutional: Reports fatigue, Reports malaise, Denies chills, Denies fever Eyes: denies blurred vision, denies pain Ears, nose, mouth and throat: Denies headache, Denies sore throat Cardiovascular: Denies chest pain, Denies shortness of breath Respiratory: Denies cough Gastrointestinal: Denies abdominal pain, Denies diarrhea, Denies nausea, Denies vomiting Musculoskeletal: Denies myalgias Integumentary: Denies pruritus, Denies rash Neurological: Denies numbness, Denies weakness Psychiatric: Denies anxiety, Denies depression Endocrine: Denies fatigue, Denies weight change Past Medical History Past Medical History: Atrial Fibrillation, Asthma, Coronary Artery Disease (CAD) , Heart Failure, COPD, Dementia, Diabetes Mellitus, Deep Vein Thrombosis (DVT), Hyperlipidemia, Hypertension, Myocardial Infarction (SC), Osteoarthritis (OA), Renal Disease, Respiratory Disorder, Sleep Apnea/CPAP/BIPAP, Vascular Disorder Additional Past Medical History / Comment(s): metabolic encephalopathy, DVT L leg 2007, PAD, bronchitis, MAY no device, neuropathy bilateral feet, BPH, Chronic kidney disease diverticulosis. Last Myocardial Infarction Date:: unknown History of Any Multi-Drug Resistant Organisms: MRSA Year Discovered:: 06/04/16 MDRO Source:: Blood Past Surgical History: Coronary Bypass/CABG, Heart Catheterization, Orthopedic Surgery, Pacemaker Additional Past Surgical History / Comment(s): AICD 2007, DFT 2014, CABG-2 vessel 2000, L wrist surgery, R foot hammer toe repair, bilateral great toenails removed, bunionectomies bilateral feet, arch/aortagram, L femoral artery thromboendartectomy, Ccaths x possible 2, cataract removal bilaterally, colonoscopy, circumcism. R great toe amputation Past Anesthesia/Blood Transfusion Reactions: No Reported Reaction Type of Cardiac Device: AICD Device Placement Date:: 2007 Past Psychological History: Depression Additional Psychological History / Comment(s): Pt resides with his spouse. She has a walker that he uses if he is going to walk far. He does not drive-his spouse is his rail engineer and she drives him. He is a . He has memory problems. Smoking Status: Never smoker Past Alcohol Use History: None Reported Additional Past Alcohol Use History / Comment(s): Pt smoked cigars starting in 1961 and quit in 1999. Past Drug Use History: None Reported - Past Family History Mother Family Medical History: Myocardial Infarction (SC) Additional Family Medical History / Comment(s): Mother of a SC in her 50's Brother(s) Family Medical History: Deep Vein Thrombosis (DVT) Additional Family Medical History / Comment(s): POSS DVT. Father Family Medical History: CVA/TIA Additional Family Medical History / Comment(s): Father of a CVA at unknown age. Medications and Allergies Home Medications Medication Instructions Recorded Confirmed Type RX: Tamsulosin [Flomax] 0.4 mg PO HS 10/04/15 09/18/16 History RX: Memantine [Namenda] 5 mg PO HS 02/10/16 09/18/16 History RX: Atorvastatin [Lipitor] 40 mg PO HS 05/07/16 09/18/16 History RX: Clopidogrel [Plavix] 75 mg PO DAILY 05/07/16 09/18/16 History RX: Acetaminophen Tab [Tylenol] 650 mg PO Q4H PRN 06/04/16 09/18/16 History RX: Montelukast Sodium [Singulair] 10 mg PO HS 06/15/16 09/18/16 History RX: Apixaban [Eliquis] 2.5 mg PO BID 07/19/16 09/18/16 History QUEtiapine [SEROquel] 50 mg PO HS 07/27/16 09/18/16 History RX: Cyanocobalamin [Vitamin B-12] 500 mcg PO DAILY 07/27/16 09/18/16 History Furosemide [Lasix] 40 mg PO DAILY 08/10/16 09/18/16 History Potassium Chloride ER [K-Dur 20] 20 meq PO DAILY 08/10/16 09/18/16 History Ferrous Sulfate [Feosol] 325 mg PO DAILY 08/31/16 09/18/16 History Mirtazapine [Remeron] 15 mg PO HS 08/31/16 09/18/16 History Budesonide-Formot 160-4.5 Mcg 2 puff INHALATION RT-BID 09/14/16 09/18/16 History [Symbicort 160-4.5 Mcg Inhaler] Ciprofloxacin HCl [Cipro] 500 mg PO Q12HR 09/14/16 09/18/16 History Ipratropium-Albuterol Nebulize 3 ml INHALATION RT-QID 09/14/16 09/18/16 History [Duoneb 0.5 mg-3 mg/3 ml Soln] ALPRAZolam [Xanax] 0.5 mg PO TID PRN 09/18/16 09/18/16 History Anti-Fungal Powder 1 applic TOPICAL BID 09/18/16 09/18/16 History Bisacodyl [Dulcolax] 10 mg RECTAL DAILY PRN 09/18/16 09/18/16 History HYDROcodone/APAP 5-325MG [[place] 1 tab PO TID PRN 09/18/16 09/18/16 History 5-325] Insulin Glargine,Hum.rec.anlog 21 unit SQ HS 09/18/16 09/18/16 History [Basaglar Kwikpen U-100] Insulin Lispro [humaLOG Kwikpen] 7 unit SQ AC-TID 09/18/16 09/18/16 History Lactose-Reduced Food [Ensure Plus] 1 can PO TID 09/18/16 09/18/16 History Magnesium Hydroxide [Milk of 2,400 mg PO DAILY PRN 09/18/16 09/18/16 History Magnesia] Na Phos,M-B/Na Phos,Di-Ba [Fleet 133 ml RECTAL DAILY PRN 09/18/16 09/18/16 History Adult] RX: Sodium Bicarbonate Tab 650 mg PO BID 09/18/16 09/18/16 History Allergies Allergy/AdvReac Type Severity Reaction Status Date / Time No Known Allergies Allergy Verified 09/18/16 14:15 Physical Exam Vitals: Vital Signs Temp Pulse Resp BP Pulse Ox 09/21/16 08:00 96.6 F L 61 18 124/74 99 09/21/16 00:00 97.2 F L 86 18 126/62 93 L 09/20/16 20:00 97.0 F L 88 18 131/70 94 L 09/20/16 16:00 97.1 F L 106 H 17 113/76 96 Intake and Output 09/20/16 09/21/16 09/21/16 22:59 06:59 14:59 Intake Total 90 160 0 Output Total 0 Balance 90 160 0 Intake: IV 90 160 Piperacillin-Tazobactam 3 50 .375 gm In Dextrose/Water 1 50ml.bag @ 12.5 mls/hr IVPB Q8HR [facility] Rx#: [id number] Saline 40 160 Oral 0 Output: Urine 0 Other: Voiding Method Diaper Diaper Diaper # Voids 1 1 Weight 64.5 kg General appearance: average body habitus, cooperative, no acute distress - EENT Eyes: Reports anicteric sclerae, Reports EOMI, Reports PERRLA, Reports dentition normal ENT: Reports hearing grossly normal, Reports NA/AT, Reports normal oropharynx - Neck Neck: Reports normal ROM, Denies lymphadenopathy, Denies other, Denies rigidity , Denies stridor, Denies thyromegaly Thyroid: bilateral: normal size - Respiratory Respiratory: bilateral: CTA, diminished - Cardiovascular Rhythm: irregular Heart sounds: normal: S1, S2, systolic murmur - Gastrointestinal General gastrointestinal: Reports normal bowel sounds, Reports soft - Integumentary Integumentary: Reports normal, Reports normal turgor - Neurologic Neurologic: CNII-XII intact - Musculoskeletal Musculoskeletal: Reports strength equal bilaterally. Right great toe amputation , no significant erythema, drainage, swelling. Gangrenous changes to the bilateral toes - Psychiatric Psychiatric: Reports A&O x's1, Reports appropriate affect, Denies intact judgment & insight (Short-term memory loss) Results Results: Laboratory Results WBC 5.6 k/uL (3.8-10.6) 09/20/16 06:00 RBC 2.59 m/uL (4.30-5.90) L 09/20/16 06:00 Hgb 8.0 gm/dL (13.0-17.5) L 09/20/16 06:00 Hct 24.1 % (39.0-53.0) L 09/20/16 06:00 MCV 93.3 fL (80.0-100.0) 09/20/16 06:00 MCH 30.9 pg (25.0-35.0) 09/20/16 06:00 MCHC 33.2 g/dL (31.0-37.0) 09/20/16 06:00 RDW 12.8 % (11.5-15.5) 09/20/16 06:00 Plt Count 184 k/uL (150-450) 09/20/16 06:00 Neutrophils % 79 % 09/20/16 06:00 Lymphocytes % 12 % 09/20/16 06:00 Monocytes % 5 % 09/20/16 06:00 Eosinophils % 2 % 09/20/16 06:00 Basophils % 1 % 09/20/16 06:00 Neutrophils # 4.4 k/uL (1.3-7.7) 09/20/16 06:00 Lymphocytes # 0.7 k/uL (1.0-4.8) L 09/20/16 06:00 Monocytes # 0.3 k/uL (0-1.0) 09/20/16 06:00 Eosinophils # 0.1 k/uL (0-0.7) 09/20/16 06:00 Basophils # 0.0 k/uL (0-0.2) 09/20/16 06:00 Hypochromasia Slight 09/20/16 06:00 PT 13.5 sec (9.0-12.0) H 09/18/16 13:30 INR 1.4 (<1.1) 09/18/16 13:30 APTT 28.2 sec (22.0-30.0) 09/20/16 06:00 Sodium 143 mmol/L (137-145) 09/21/16 05:38 Potassium 4.2 mmol/L (3.5-5.1) 09/21/16 05:38 Chloride 113 mmol/L (98-107) H 09/21/16 05:38 Carbon Dioxide 20 mmol/L (22-30) L 09/21/16 05:38 Anion Gap 10 mmol/L 09/21/16 05:38 BUN 24 mg/dL (9-20) H 09/21/16 05:38 Creatinine 1.17 mg/dL (0.66-1.25) 09/21/16 05:38 Est GFR (MDRD) Af Amer >60 (>60 ml/min/1.73 sqM) 09/21/16 05:38 Est GFR (MDRD) Non-Af >60 (>60 ml/min/1.73 sqM) 09/21/16 05:38 Glucose 86 mg/dL (74-99) 09/21/16 05:38 POC Glucose (mg/dL) 111 mg/dL (75-99) H 09/21/16 11:46 POC Glu Account Leader ID Yassine Hernández 09/21/16 11:46 Plasma Lactic Acid Amol 1.9 mmol/L (0.7-2.0) 09/18/16 16:21 Calcium 7.9 mg/dL (8.4-10.2) L 09/21/16 05:38 Phosphorus 4.6 mg/dL (2.5-4.5) H 09/19/16 05:54 Magnesium 2.1 mg/dL (1.6-2.3) 09/19/16 05:54 Total Bilirubin 0.8 mg/dL (0.2-1.3) 09/21/16 05:38 AST 39 U/L (17-59) 09/21/16 05:38 ALT 31 U/L (21-72) 09/21/16 05:38 Alkaline Phosphatase 73 U/L (38-126) 09/21/16 05:38 Total Creatine Kinase 414 U/L (55-170) H 09/19/16 00:41 CK-MB (CK-2) 6.3 ng/mL (0.0-2.4) H* 09/19/16 00:41 CK-MB (CK-2) Rel Index 1.5 09/19/16 00:41 Troponin I 1.430 ng/mL (0.000-0.034) H* 09/19/16 00:41 Total Protein 5.7 g/dL (6.3-8.2) L 09/21/16 05:38 Albumin 2.4 g/dL (3.5-5.0) L 09/21/16 05:38 Triglycerides 84 mg/dL (<150) 09/19/16 05:54 Cholesterol 81 mg/dL (<200) 09/19/16 05:54 LDL Cholesterol, Calc 39 mg/dL (0-99) 09/19/16 05:54 HDL Cholesterol 25 mg/dL (40-60) L 09/19/16 05:54 TSH 5.540 mIU/L (0.465-4.680) H 09/19/16 05:54 Free T4 1.00 ng/dL (0.78-2.19) 09/19/16 05:54 Vancomycin Trough 16.6 ug/mL 09/21/16 11:04 CBC & Chem 7: 09/20/16 06:00 09/21/16 05:38 Labs: Abnormal Lab Results - Last 24 Hours (Table) 09/20/16 09/20/16 09/21/16 Range/Units 16:34 21:41 05:38 Chloride 113 H (98-107) mmol/L Carbon Dioxide 20 L (22-30) mmol/L BUN 24 H (9-20) mg/dL POC Glucose (mg/dL) 116 H 108 H (75-99) mg/dL Calcium 7.9 L (8.4-10.2) mg/dL Total Protein 5.7 L (6.3-8.2) g/dL Albumin 2.4 L (3.5-5.0) g/dL 09/21/16 Range/Units 11:46 Chloride (98-107) mmol/L Carbon Dioxide (22-30) mmol/L BUN (9-20) mg/dL POC Glucose (mg/dL) 111 H (75-99) mg/dL Calcium (8.4-10.2) mg/dL Total Protein (6.3-8.2) g/dL Albumin (3.5-5.0) g/dL Assessment and Plan Plan: This is a 76-year-old male was [facility] because his defibrillator fired. He is followed by cardiology for this. Patient is also found to have possible aspiration pneumonia. Sputum culture to be obtained. Dr. Johnson is also on consult from pulmonary medicine. He is on antibiotics in the form of Zosyn and vancomycin. Patient is also known to have severe peripheral vascular disease with gangrenous changes to the bilateral toes with previous right great toe amputation. Continue local wound care. Continue supportive care. Further recommendations as patient progresses. The above dictated assessment and findings were discussed with Dr. Scruggs. The impression and plan of care have been directed as dictated. Felisha Hernandez nurse practitioner acting as scribe for Dr. Scruggs. Time with Patient: Greater than 30
[2016-09-21] MEDS: LEVALBUTEROL NEB 1.25 MG/3 ML AMP INHALATION SCH ×3 (15:38→20:36)
[2016-09-21] MEDS: IPRATROPIUM 0.5 MG/2.5 ML NEBU INHALATION SCH ×3 (15:38→20:36)
[2016-09-21 16:48] LABS: Glucose,Whole Blood 140 mg/dL (75-99)
[2016-09-21] MEDS: LORazepam 2 MG/ML SYRINGE IM PRN (17:09)
--- NOTE | 2016-09-21 20:09 | P.CON ---
Consult Note - . Consult date: 09/21/16 Assessment/Plan:: 76-year-old male known to infectious disease. Earlier last year he has significant difficulty with his right groin area. He had undergone cardiac catheterization and developed a significant infection to his right groin. He required transfer to outside hospital for further surgical intervention with concerns to a necrotizing infection. Fortunately he improved. He continued to have severe peripheral vascular disease. On November 17, Dr. Simon performed the right great toe amputation. Since that time it's been an ongoing ulceration was followed in the wound healing center with Dr. Simon. He has been treated in May of this year for bacteremia with MRSA, alphahemolytic strep and diphtheroids species and was placed on vancomycin for 2 week course. He subsequently was admitted for acute kidney injury and vancomycin was discontinued. There was a planned amputation for gangrenous toes at [facility] on Wednesday of this week which has subsequently been canceled. He is currently residing at [facility] with plan to return there at the time of discharge. Patient presented to [facility] emergency center for defibrillator firing. EMS was called and he was brought into [facility] emergency center for evaluation. Patient has been followed by cardiology and amiodarone dosing has been adjusted. He has been seen by Dr. Simon with plan for follow-up in the Wound Healing Center in no amputation at this time. Chest x-ray showed patchy right greater than left basilar infiltrate. Aspiration pneumonitis is possible. Consult was placed regarding aspiration pneumonia and gangrene. Consult also added for Dr. Johnson. Please see consult as dictated by nurse practitioner Mrs. Felisha Hernandez. Patient has is progressive dementia. Is noted was to have amputations. Will be scheduled an outpatient. It is noted he had acute cardiac event at admission with his AICD firing multiple times. Patient relates to no notable history at this time. His dementia has worsened is wants to go home although he does not know where home is. Is aware that he is not at home while he is here though he does not know where he is at. 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 Zosyn for now while cultures and workup is in process. It appears he will have outpatient interventions in the near future which would be of amputations. It may be possible for him to be transferred back to the extended care facility on a combination of Augmentin and doxycycline to complete a course of therapy for his current pneumonia. This should also give us some coverage of the toes pending the surgical intervention. I agree with evaluation, assessment and plan as dictated by nurse practitioner Mrs. Baeza.
[2016-09-21 20:39] LABS: Glucose,Whole Blood 109 mg/dL (75-99)
[2016-09-21] MEDS: ATORVASTATIN 40 MG TAB PO SCH (20:45)
[2016-09-21] MEDS: QUEtiapine 50 MG TAB PO SCH (20:50)
[2016-09-21] MEDS: TAMSULOSIN 0.4 MG CAP.ER.24H PO SCH (20:50)
[2016-09-21] MEDS: MIRTAZAPINE 15 MG TAB PO SCH (20:50)
[2016-09-21] MEDS: MEMANTINE 5 MG TAB PO SCH (20:50)
[2016-09-21] MEDS: MONTELUKAST 10 MG TAB PO SCH (20:50)
[2016-09-21] MEDS: METOPROLOL TARTRATE 25 MG TAB PO SCH (21:01)
[2016-09-21 21:39] VITALS: TEMP 96.3
[2016-09-21] MEDS ORDERED: DAPTOmycin 500 MG in SODIUM CHLORIDE 0.9% 50 ML IV SCH (22:00)
[2016-09-22] MEDS: PIPERACILLIN-TAZOBACTAM 3.375 GM in DEXTROSE/WATER 1 50ML.BAG IVPB SCH ×3 (00:08→16:03)
[2016-09-22] MEDS: LORazepam 2 MG/ML SYRINGE IM PRN (05:37)
[2016-09-22 05:47] LABS: Glucose,Whole Blood 64 mg/dL (75-99)
[2016-09-22 06:18] VITALS: BP 107/85; PULSE 81; RESP 18
[2016-09-22] MEDS: INSULIN LISPRO (humaLOG) 300 UNIT/3 ML VIAL SQ SCH ×2 (07:01→13:01)
[2016-09-22] MEDS ORDERED: DEXTROSE 50%-WATER 50 ML SYRINGE IVP ONE (07:05)
[2016-09-22 07:24] LABS: Glucose,Whole Blood 175 mg/dL (75-99)
[2016-09-22 07:32] LABS: Anion Gap 10 mmol/L; Blood Urea Nitrogen 20 mg/dL (9-20); Calcium 8.2 mg/dL (8.4-10.2); Carbon Dioxide 21 mmol/L (22-30); Chloride 113 mmol/L (98-107); Glucose 65 mg/dL (74-99); Non-African American GFR(MDRD) >60 (>60 ml/min/1.73 sqM); Sodium 144 mmol/L (137-145)
[2016-09-22 07:53] LABS: Potassium 3.5 mmol/L (3.5-5.1)
[2016-09-22] MEDS: SYMBICORT 160-4.5 MCG INHALER INHALATION SCH (07:59)
[2016-09-22] MEDS: IPRATROPIUM 0.5 MG/2.5 ML NEBU INHALATION SCH ×3 (07:59→14:58)
[2016-09-22] MEDS: LEVALBUTEROL NEB 1.25 MG/3 ML AMP INHALATION SCH ×2 (10:47→14:59)
--- NOTE | 2016-09-22 10:55 | P.CNPUL ---
History of Present Illness Consult date: 09/22/16 Requesting physician: Jacques Honeycutt Reason for consult: pneumonia Chief complaint: Shortness of breath History of present illness: This is a 76-year-old male patient who is being evaluated and examined today on the sixth floor. This patient was supposed to be admitted to [facility] next Wednesday for amputation of gangrenous toes that had been getting worse over the last few. The patient has been seen in the wound center and last week was seen by Dr. Simon who is going to do the toe amputations. The patient has been more agitated and confused and has been hitting his feet on the ground trying to wheel himself around. The patient was at the nursing station when his defibrillator went off EMS was called immediately and the patient was transported to the emergency room at [facility] where he was admitted for gangrenous toes and defibrillator discharge. She is also being seen by cardiology. Patient is to have his second and third right toe amputated during this hospitalization. Upon examination the patient has lethargic, and is using supplemental oxygen. Patient has had some coughing which is nonproductive at this time. Review of Systems 14 point review of systems was completed and is negative other than what is noted in the HPI. Past Medical History Past Medical History: Atrial Fibrillation, Asthma, Coronary Artery Disease (CAD) , Heart Failure, COPD, Dementia, Diabetes Mellitus, Deep Vein Thrombosis (DVT), Hyperlipidemia, Hypertension, Myocardial Infarction ([place]), Osteoarthritis (OA), Renal Disease, Respiratory Disorder, Sleep Apnea/CPAP/BIPAP, Vascular Disorder Additional Past Medical History / Comment(s): metabolic encephalopathy, DVT L leg 2007, PAD, bronchitis, MAY no device, neuropathy bilateral feet, BPH, Chronic kidney disease diverticulosis. Last Myocardial Infarction Date:: unknown History of Any Multi-Drug Resistant Organisms: MRSA Date of last positivie culture/infection: 06/04/16 MDRO Source:: Blood Past Surgical History: Coronary Bypass/CABG, Heart Catheterization, Orthopedic Surgery, Pacemaker Additional Past Surgical History / Comment(s): AICD 2007, DFT 2014, CABG-2 vessel 2000, L wrist surgery, R foot hammer toe repair, bilateral great toenails removed, bunionectomies bilateral feet, arch/aortagram, L femoral artery thromboendartectomy, Ccaths x possible 2, cataract removal bilaterally, colonoscopy, circumcism. R great toe amputation Past Anesthesia/Blood Transfusion Reactions: No Reported Reaction Type of Cardiac Device: AICD Device Placement Date:: 2007 Past Psychological History: Depression Additional Psychological History / Comment(s): Pt resides with his spouse. She has a walker that he uses if he is going to walk far. 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 He is a . He has memory problems. Smoking Status: Never smoker Past Alcohol Use History: None Reported Additional Past Alcohol Use History / Comment(s): Pt smoked cigars starting in 1962 and quit in 1999. Past Drug Use History: None Reported - Past Family History Mother Family Medical History: Myocardial Infarction ([place]) Additional Family Medical History / Comment(s): Mother of a [place] in her 50's Brother(s) Family Medical History: Deep Vein Thrombosis (DVT) Additional Family Medical History / Comment(s): POSS DVT. Father Family Medical History: CVA/TIA Additional Family Medical History / Comment(s): Father of a CVA at unknown age. Medications and Allergies Home Medications Medication Instructions Recorded Confirmed Type Tamsulosin [Flomax] 0.4 mg PO HS 10/04/15 09/18/16 History Memantine [Namenda] 5 mg PO HS 02/10/16 09/18/16 History Atorvastatin [Lipitor] 40 mg PO HS 05/07/16 09/18/16 History Clopidogrel [Plavix] 75 mg PO DAILY 05/07/16 09/18/16 History Acetaminophen Tab [Tylenol] 650 mg PO Q4H PRN 06/04/16 09/18/16 History Montelukast Sodium [Singulair] 10 mg PO HS 06/15/16 09/18/16 History Apixaban [Eliquis] 2.5 mg PO BID 07/19/16 09/18/16 History Cyanocobalamin [Vitamin B-12] 500 mcg PO DAILY 07/27/16 09/18/16 History QUEtiapine [SEROquel] 50 mg PO HS 07/27/16 09/18/16 History Furosemide [Lasix] 40 mg PO DAILY 08/10/16 09/18/16 History Potassium Chloride ER [K-Dur 20] 20 meq PO DAILY 08/10/16 09/18/16 History Ferrous Sulfate [Feosol] 325 mg PO DAILY 08/31/16 09/18/16 History Mirtazapine [Remeron] 15 mg PO HS 08/31/16 09/18/16 History Budesonide-Formot 160-4.5 Mcg 2 puff INHALATION RT-BID 09/14/16 09/18/16 History [Symbicort 160-4.5 Mcg Inhaler] Ciprofloxacin HCl [Cipro] 500 mg PO Q12HR 09/14/16 09/18/16 History Ipratropium-Albuterol Nebulize 3 ml INHALATION RT-QID 09/14/16 09/18/16 History [Duoneb 0.5 mg-3 mg/3 ml Soln] ALPRAZolam [Xanax] 0.5 mg PO TID PRN 09/18/16 09/18/16 History Anti-Fungal Powder 1 applic TOPICAL BID 09/18/16 09/18/16 History Bisacodyl [Dulcolax] 10 mg RECTAL DAILY PRN 09/18/16 09/18/16 History HYDROcodone/APAP 5-325MG [[place] 1 tab PO TID PRN 09/18/16 09/18/16 History 5-325] Insulin Glargine,Hum.rec.anlog 21 unit SQ HS 09/18/16 09/18/16 History [Basaglar Kwikpen U-100] Insulin Lispro [humaLOG Kwikpen] 7 unit SQ AC-TID 09/18/16 09/18/16 History Lactose-Reduced Food [Ensure Plus] 1 can PO TID 09/18/16 09/18/16 History Magnesium Hydroxide [Milk of 2,400 mg PO DAILY PRN 09/18/16 09/18/16 History Magnesia] Na Phos,M-B/Na Phos,Di-Ba [Fleet 133 ml RECTAL DAILY PRN 09/18/16 09/18/16 History Adult] Sodium Bicarbonate Tab 650 mg PO BID 09/18/16 09/18/16 History Allergies Allergy/AdvReac Type Severity Reaction Status Date / Time vancomycin AdvReac Severe Unknown Verified 09/22/16 08:26 Physical Exam Vitals: Vital Signs Temp Pulse Resp BP BP Pulse Ox 09/22/16 06:17 81 18 107/85 99 09/22/16 00:00 96.3 F L 58 L 16 139/80 97 09/21/16 20:00 96.3 F L 71 16 137/66 97 09/21/16 16:00 96.5 F L 66 18 120/54 99 09/21/16 12:00 96.6 F L 72 18 125/65 98 Intake and Output 09/21/16 09/22/16 09/22/16 22:59 06:59 14:59 Intake Total 0 50 Balance 0 50 Intake: Intake, IV Titration 50 Amount DAPTOmycin 500 mg In 50 Sodium Chloride 0.9% 50 ml @ 100 mls/hr IV Q24H [facility] Rx#:[id number] Oral 0 Other: Voiding Method Diaper Diaper Incontinent Incontinent # Voids 0 2 # Bowel Movements 1 GENERAL EXAM: Lethargic, comfortable in no apparent distress. HEAD: Normocephalic. EYES: Normal reaction of pupils, equal size. NOSE: Clear with pink turbinates. THROAT: No erythema or exudates. NECK: No masses, no JVD. CHEST: No chest wall deformity. LUNGS: Equal air entry with few faint rhonchi bilaterally. CVS: S1 and S2 normal with no audible mumurs, irregular rhythm. ABDOMEN: No hepatosplenomegaly, normal bowel sounds, no guarding or rigidity. EXTREMITIES: No edema noted, bilateral feet are wrapped with a dressing dry and intact. SKIN: No rashes CENTRAL NERVOUS SYSTEM: No focal deficits, tone is normal in all 4 extremities. Results - Laboratory Findings CBC and BMP: 09/20/16 06:00 09/22/16 06:40 PT/INR, D-dimer PT 13.5 sec (9.0-12.0) H 09/18/16 13:30 INR 1.4 (<1.1) 09/18/16 13:30 Abnormal lab findings: Abnormal Labs 09/18/16 09/19/16 09/19/16 21:02 00:41 05:54 RBC Hgb Hct Lymphocytes # APTT Chloride Carbon Dioxide 20 L BUN 31 H Glucose 208 H POC Glucose (mg/dL) 225 H Calcium 8.2 L Phosphorus 4.6 H Total Creatine Kinase 414 H CK-MB (CK-2) 6.3 H* Troponin I 1.430 H* Total Protein Albumin 2.8 L HDL Cholesterol 25 L TSH 0409/19/16 09/19/16 05:54 05:54 06:36 RBC 2.45 L Hgb 7.5 L Hct 23.4 L Lymphocytes # 0.5 L APTT Chloride Carbon Dioxide BUN Glucose POC Glucose (mg/dL) 230 H Calcium Phosphorus Total Creatine Kinase CK-MB (CK-2) Troponin I Total Protein Albumin HDL Cholesterol TSH 5.540 H 09/19/16 09/19/16 09/19/16 11:59 16:19 23:59 RBC Hgb Hct Lymphocytes # APTT Chloride Carbon Dioxide BUN Glucose POC Glucose (mg/dL) 101 H 137 H 184 H Calcium Phosphorus Total Creatine Kinase CK-MB (CK-2) Troponin I Total Protein Albumin HDL Cholesterol TSH 09/20/16 09/20/16 09/20/16 00:21 05:58 06:00 RBC Hgb Hct Lymphocytes # APTT 33.2 H Chloride 110 H Carbon Dioxide 17 L BUN 27 H Glucose 172 H POC Glucose (mg/dL) 178 H Calcium 8.0 L Phosphorus Total Creatine Kinase CK-MB (CK-2) Troponin I Total Protein 6.2 L Albumin 2.6 L HDL Cholesterol TSH 09/20/16 09/20/16 09/20/16 06:00 11:24 16:34 RBC 2.59 L Hgb 8.0 L Hct 24.1 L Lymphocytes # 0.7 L APTT Chloride Carbon Dioxide BUN Glucose POC Glucose (mg/dL) 100 H 116 H Calcium Phosphorus Total Creatine Kinase CK-MB (CK-2) Troponin I Total Protein Albumin HDL Cholesterol TSH 09/20/16 09/21/16 09/21/16 21:41 05:38 11:46 RBC Hgb Hct Lymphocytes # APTT Chloride 113 H Carbon Dioxide 20 L BUN 24 H Glucose POC Glucose (mg/dL) 108 H 111 H Calcium 7.9 L Phosphorus Total Creatine Kinase CK-MB (CK-2) Troponin I Total Protein 5.7 L Albumin 2.4 L HDL Cholesterol TSH 09/21/16 09/21/16 09/22/16 16:45 20:38 05:46 RBC Hgb Hct Lymphocytes # APTT Chloride Carbon Dioxide BUN Glucose POC Glucose (mg/dL) 140 H 109 H 64 L Calcium Phosphorus Total Creatine Kinase CK-MB (CK-2) Troponin I Total Protein Albumin HDL Cholesterol TSH 05/02/17 05/02/17 06:40 07:19 RBC Hgb Hct Lymphocytes # APTT Chloride 113 H Carbon Dioxide 21 L BUN Glucose 65 L POC Glucose (mg/dL) 175 H Calcium 8.2 L Phosphorus Total Creatine Kinase CK-MB (CK-2) Troponin I Total Protein Albumin HDL Cholesterol TSH Assessment and Plan Plan: Assessment Aspiration pneumonia Trace bilateral pleural effusions COPD Defibrillator discharge Severe peripheral arterial disease with multiple gangrenous toes Elevated troponins likely due to AICD discharge Chronic atrial fibrillation Advanced ischemic cardiomyopathy Diabetes mellitus type 2 BPH Hyperlipidemia Vascular dementia Chronic kidney disease stage III Plan Medications have been reviewed and will be continued. Into new with Xopenex and Atrovent as well as Singulair. Continue with antibiotics. Incentive spirometer initiated and encouraged. Patient cleared for surgery to gangrenous toes. Continue with supplemental oxygen, pulmonary hygiene and supportive care. We will repeat chest x-ray tomorrow. We will continue to monitor labs/ results and adjust treatment as necessary.
[2016-09-22 12:00] LABS: Glucose,Whole Blood 79 mg/dL (75-99)
--- NOTE | 2016-09-22 12:42 | P.DS ---
Providers Date of admission: 09/18/16 14:15 Expected date of discharge: 09/22/16 Attending physician: Jacques Honeycutt Consults: 09/18/16 14:50 Consult Physician Routine Consulting Provider: Cresencio Simon Consult Reason/Comments: known Do you want consulting provider notified?: Yes 09/21/16 11:42 Consult Physician Routine Consulting Provider: [place] Consult Reason/Comments: aspiration pneumonia Do you want consulting provider notified?: Yes 09/21/16 11:43 Consult Physician Routine Consulting Provider: Neville Scruggs Consult Reason/Comments: aspiration pneumonia and gangrene Do you want consulting provider notified?: Yes Primary care physician: Jacques Honeycutt [facility] Course: This is a 76-year-old male patient of Dr. Honeycutt with medical history significant for coronary artery disease status post coronary artery bypass graft for 2 vessels in 1999 with ischemic cardiomyopathy status post AICD, chronic atrial fibrillation, chronic kidney disease stage II, benign prostatic hypertrophy, diabetes mellitus type 2 insulin requiring, hypertension and hypertensive cardiovascular disease, hyperlipidemia, vascular dementia, history of DVT in the past, history of PAD, infection to the right groin following heart catheterization for which he was treated at [facility] in 2015, osteomyelitis of the right great toe status post amputation in October [address] Simon. He has had frequent admissions for sepsis, wound infections, metabolic encephalopathy. Patient was supposed to be admitted to [facility] next Wednesday for amputation of gangrenous toes that got worse over the last few weeks, patient has been under the care of the wound healing Center, and last week was seen by Dr. Simon and he was recommended by him to admitted to the hospital on next Wednesday for toes amputations, patient has been more agitated and confused recently has been hitting his both feet with the ground trying to we' ll himself around and the patient was today at the nursing station when his defibrillator fired, EMS was called immediately and the patient was transported to the emergency department at [facility] where he was admitted to the hospital because of the gangrenous toes and because of defibrillator discharge. 09/19: Patient is calm today slightly lethargic, no verbal, medication from him during my visit, discussed plans with Dr. Simon and Dr. Lua, with the elevated troponin is most likely secondary to AICD discharge, the device was interrogated and showed multiple episodes of DVT reported using ATP no further shocks while in the hospital patient is on amiodarone IV. Per cardiology, surgery for right second toe and third toe amputation can proceed during this hospitalization 09/20: Patient is confused as baseline, however he is not eating, not drinking, patient has a cough chest x-ray requested, patient does not have any chest pain no dysuria, we've spoken with Dr. Simon vascular no plans for extremity amputation during this admission, he will be seeing him at the wound clinic next following Thursday 09/21: He is followed by Dr. Miller and has been having episodes of nonsustained V. tach for which he is on amiodarone IV and now switched to oral with plan for tapering dose. Repeat chest x-ray shows trace pleural effusions with patchy right greater than left basilar opacities. Aspiration pneumonitis is possible. Consults added with Drs. Johnson and Kael. He is currently on antibiotics in form of Zosyn and vancomycin. Dr. Simon has cleared the patient for discharge back to the retirement with no plan for surgical intervention and follow-up in the Wound Healing Center. 09/22: Patient has been seen by Dr. Scruggs with recommendations to change vancomycin to daptomycin due to his history of renal failure from vancomycin in the past. Zosyn is continued while cultures are in process. Anticipating going to the retirement on Augmentin and doxycycline. Today, GFR is greater than 60. He has been afebrile. Cardiology has recommended amiodarone 400 mg twice a day for one week then decrease to 200 mg 3 times a day and continue other medications. Patient has been seen by speech therapy with recommendations for dysphagia diet and aspiration precautions with supervision. Patient will follow-up with Dr. Simon in the [facility]ound Healing Center on Wednesday. Patient's is at the bedside and discussed in detail the patient would be a candidate for palliative care. She knows that he does not have much longer to live and his quality of life is poor but she is not ready yet to make that decision. Patient will be discharged back to [facility] today in stable condition. Discharge diagnoses: 1. Defibrillator discharge. 2. Severe PAD with multiple gangrenous toes involving the left big toe and the third toe and right second third and fourth toes. 3. Elevated troponin most likely secondary to AICD discharges 3. Chronic A. fib. With episode of A. fib with RVR. 4. Acute Tracheobronchitis COPD, stable without exacerbation with aspiration pneumonia 5. Advanced ischemic cardiomyopathy post AICD. 6. Severe PAD status post right great toe amputation with history of MRSA. 7. BPH. 8. Hyperlipidemia. 9. Diabetes mellitus type II, insulin requiring. 10. Vascular dementia. 11. Chronic kidney disease stage III with history of acute kidney injury. Discharge plan: Return to [facility] Impression and plan of care have been directed as dictated by the signing physician. Felisha Hernandez nurse practitioner acting as scribe for signing physician. Patient Condition at Discharge: Fair Plan - Discharge Summary New Discharge Prescriptions: ALPRAZolam [Xanax] 0.5 mg PO TID PRN #90 tab PRN Reason: Anxiety Amiodarone [Cordarone] 400 mg PO BID #60 tab Amoxicillin/Potassium Clav [Augmentin 875-125 Tablet] 1 each PO Q12HR #14 tab Doxycycline Hyclate 100 mg PO BID #14 tab HYDROcodone/APAP 5-325MG [[place] 5-325] 1 tab PO TID PRN #90 tab PRN Reason: Pain Discharge Medication List Tamsulosin [Flomax] 0.4 mg PO HS 10/04/15 [History] Memantine [Namenda] 5 mg PO HS 02/10/16 [History] Atorvastatin [Lipitor] 40 mg PO HS 05/07/16 [History] Clopidogrel [Plavix] 75 mg PO DAILY 05/07/16 [History] Metoprolol Tartrate [Lopressor] 25 mg PO HS tab 05/10/16 [Rx] Metoprolol Tartrate [Lopressor] 50 mg PO DAILY tab 05/10/16 [Rx] Acetaminophen Tab [Tylenol] 650 mg PO Q4H PRN 06/04/16 [History] Montelukast Sodium [Singulair] 10 mg PO HS 06/15/16 [History] Apixaban [Eliquis] 2.5 mg PO BID 07/19/16 [History] Cyanocobalamin [Vitamin B-12] 500 mcg PO DAILY 07/27/16 [History] QUEtiapine [SEROquel] 50 mg PO HS 07/27/16 [History] Potassium Chloride ER [K-Dur 20] 20 meq PO DAILY 08/10/16 [History] Ferrous Sulfate [Iron (65 MG Elemental)] 325 mg PO DAILY 08/31/16 [History] Mirtazapine [Remeron] 15 mg PO HS 08/31/16 [History] Budesonide-Formot 160-4.5 Mcg [Symbicort 160-4.5 Mcg Inhaler] 2 puff INHALATION RT-BID 09/14/16 [History] Anti-Fungal Powder 1 applic TOPICAL BID 09/18/16 [History] Bisacodyl [Dulcolax] 10 mg RECTAL DAILY PRN 09/18/16 [History] Insulin Glargine,Hum.rec.anlog [Basaglar Kwikpen U-100] 21 unit SQ HS 09/18/16 [ History] Insulin Lispro [humaLOG Kwikpen] 7 unit SQ AC-TID 09/18/16 [History] Lactose-Reduced Food [Ensure Plus] 1 can PO TID 09/18/16 [History] Magnesium Hydroxide [Milk of Magnesia] 2,400 mg PO DAILY PRN 09/18/16 [History] Na Phos,M-B/Na Phos,Di-Ba [Fleet Adult] 133 ml RECTAL DAILY PRN 09/18/16 [ History] Sodium Bicarbonate Tab 650 mg PO BID 09/18/16 [History] ALPRAZolam [Xanax] 0.5 mg PO TID PRN #90 tab 09/22/16 [Rx] Amiodarone [Cordarone] 400 mg PO BID #60 tab 09/22/16 [Rx] Amoxicillin/Potassium Clav [Augmentin 875-125 Tablet] 1 each PO Q12HR #14 tab [Rx] Doxycycline Hyclate 100 mg PO BID #14 tab 09/22/16 [Rx] Furosemide [Lasix] 40 mg PO DAILY #0 09/22/16 [Rx] HYDROcodone/APAP 5-325MG [[place] 5-325] 1 tab PO TID PRN #90 tab 09/22/16 [Rx] Ipratropium Nebulized [Atrovent Nebulized] 0.5 mg INHALATION RT-QID nebu [Rx] Levalbuterol Nebulized [Xopenex Nebulized] 1.25 mg INHALATION RT-QID nebule 07/10 [Rx] Follow up Appointment(s)/Referral(s): Jacques Honeycutt MD [Primary Care Provider] - 1 Week (at [facility]) Cresencio Simon MD [STAFF PHYSICIAN] - 1 Week (Wednesday at [facility]) Discharge Disposition: TRANSFER TO SNF/ECF
[2016-09-22] MEDS: CYANOCOBALAMIN 500 MCG TAB PO SCH (13:01)
[2016-09-22] MEDS: CLOPIDOGREL 75 MG TAB PO SCH (13:01)
[2016-09-22] MEDS: SODIUM BICARBONATE TAB 650 MG TAB PO SCH (13:01)
[2016-09-22] MEDS: FERROUS SULFATE 325 MG TAB PO SCH (13:01)
[2016-09-22] MEDS: AMIODARONE 200 MG TAB PO SCH (13:02)
[2016-09-22] MEDS: METOPROLOL TARTRATE 50 MG TAB PO SCH (13:02)
[2016-09-22] MEDS: APIXABAN 2.5 MG TABLET PO SCH (13:02)
[2016-09-22] MEDS: ASPIRIN 325 MG TAB PO SCH (13:02)
[2016-09-22] MEDS: DRY MOUTH SPRAY 44.3 SPRAY/44.3 ML SPRAY MUCOUS MEM SCH (13:03)
[2016-09-22] MEDS: POTASSIUM CHLORIDE ER 20 MEQ TAB.ER PO SCH (13:10)
--- NOTE | 2016-09-22 14:25 | P.PN ---
Subjective Principal diagnosis: ICD discharge This is a 76-year-old gentleman with an extensive past medical history who was initially brought to the hospital after he started experiencing shocks from his AICD. He has a known history of coronary artery disease, severe ischemic cardiomyopathy, chronic persistent atrial fibrillation, peripheral arterial disease, hypertension, hyperlipidemia. Patient was initiated on IV amiodarone here and is currently on by mouth amiodarone. He is not having ventricular arrhythmias. Objective - Vital Signs Vital signs: Vital Signs Temp 96.3 F L 09/22/16 00:00 Pulse 81 09/22/16 06:17 Resp 18 09/22/16 06:17 BP 107/85 09/22/16 06:17 Pulse Ox 99 09/22/16 06:17 Intake & Output 09/21/16 09/22/16 09/22/16 18:59 06:59 18:59 Intake Total 300 50 Output Total 0 Balance 300 50 Weight 64.5 kg Intake: IV 50 Piperacillin-Tazobactam 3 50 .375 gm In Dextrose/Water 1 50ml.bag @ 12.5 mls/hr IVPB Q8HR [facility] Rx#: [id number] Intake, IV Titration 250 50 Amount DAPTOmycin 500 mg In 50 Sodium Chloride 0.9% 50 ml @ 100 mls/hr IV Q24H [facility] Rx#:[id number] Vancomycin 1,250 mg In 250 Sodium Chloride 0.9% 250 ml @ 125 mls/hr IVPB DAILY@1200 [facility] Rx#: [id number] Oral 0 0 Output: Urine 0 Other: Voiding Method Diaper Diaper Diaper Incontinent Incontinent Incontinent # Voids 0 2 # Bowel Movements 0 1 - Exam PHYSICAL EXAMINATION: HEENT: Head is atraumatic, normocephalic. Pupils equal, round. Neck is supple. There is no elevated jugular venous pressure. HEART EXAMINATION: Heart S1 and S2 irregularly irregular CHEST EXAMINATION:'s reveal diminished air entry to bilateral bases. ABDOMEN: Soft, nontender. Bowel sounds are heard. No organomegaly noted. EXTREMITIES: 2+ peripheral pulses with no evidence of peripheral edema and no calf tenderness noted. NEUROLOGIC [patient is awake, alert confused. . - Labs CBC & Chem 7: 09/20/16 06:00 09/22/16 06:40 Labs: Abnormal Lab Results - Last 24 Hours (Table) 09/21/16 09/21/16 09/22/16 Range/Units 16:45 20:38 05:46 Chloride (98-107) mmol/L Carbon Dioxide (22-30) mmol/L Glucose (74-99) mg/dL POC Glucose (mg/dL) 140 H 109 H 64 L (75-99) mg/dL Calcium (8.4-10.2) mg/dL 09/22/16 09/22/16 Range/Units 06:40 07:19 Chloride 113 H (98-107) mmol/L Carbon Dioxide 21 L (22-30) mmol/L Glucose 65 L (74-99) mg/dL POC Glucose (mg/dL) 175 H (75-99) mg/dL Calcium 8.2 L (8.4-10.2) mg/dL Assessment and Plan (1) Chronic a-fib Status: Acute (2) PAD (peripheral artery disease) Status: Acute (3) Ischemic cardiomyopathy Status: Acute (4) COPD (chronic obstructive pulmonary disease) Status: Acute (5) Dementia Status: Acute (6) Hyperlipemia Status: Acute (7) Diabetes Status: Acute (8) Chronic kidney disease Status: Acute (9) Defibrillator discharge Status: Acute (10) Hx of CABG Status: Acute Plan: Cardiology's perspective, we'll continue the amiodarone 400 mg one tablet by mouth twice a day for one week, then decrease to 200 mg by mouth 3 times a day. Continue other medications. We will follow this patient with you now on an as -needed basis only, please don't hesitate to call with any questions. DNP note has been reviewed, I agree with a documented findings and plan of care. Patient was seen and examined.
== END 2016-09-22 16:14 | DRG 308 ==
LOC: EC 13:13 → 6SEL 14:15
PROVIDERS: ADMIT Internal Medicine; ATTEND Internal Medicine
DX: I47.2 Ventricular tachycardia (principal); J69.0 Pneumonitis due to inhalation of food and vomit; J90 Pleural effusion, not elsewhere classified; E11.52 Type 2 diabetes mellitus with diabetic peripheral angiopathy with gangrene; I13.0 Hypertensive heart and chronic kidney disease with heart failure and stage 1 through stage 4 chronic kidney disease, or unspecified chronic kidney disease; J44.0 Chronic obstructive pulmonary disease with (acute) lower respiratory infection; I48.1 Persistent atrial fibrillation; I50.9 Heart failure, unspecified; I48.2 Chronic atrial fibrillation; E11.22 Type 2 diabetes mellitus with diabetic chronic kidney disease; E78.5 Hyperlipidemia, unspecified; F01.50 Vascular dementia, unspecified severity, without behavioral disturbance, psychotic disturbance, mood disturbance, and anxiety; F32.9 Major depressive disorder, single episode, unspecified; G47.33 Obstructive sleep apnea (adult) (pediatric); I25.10 Atherosclerotic heart disease of native coronary artery without angina pectoris; I25.2 Old myocardial infarction; I25.5 Ischemic cardiomyopathy; J20.9 Acute bronchitis, unspecified; N18.3 Chronic kidney disease, stage 3 (moderate); N40.0 Benign prostatic hyperplasia without lower urinary tract symptoms; M19.90 Unspecified osteoarthritis, unspecified site; J45.909 Unspecified asthma, uncomplicated; K57.90 Diverticulosis of intestine, part unspecified, without perforation or abscess without bleeding; R32 Unspecified urinary incontinence; Z66 Do not resuscitate; Z79.01 Long term (current) use of anticoagulants; Z79.02 Long term (current) use of antithrombotics/antiplatelets; Z79.4 Long term (current) use of insulin; Z79.899 Other long term (current) drug therapy; Z86.14 Personal history of Methicillin resistant Staphylococcus aureus infection; Z87.891 Personal history of nicotine dependence; Z89.411 Acquired absence of right great toe; Z95.1 Presence of aortocoronary bypass graft; Z95.810 Presence of automatic (implantable) cardiac defibrillator; Z82.49 Family history of ischemic heart disease and other diseases of the circulatory system
CPT/HCPCS: 36415; 71020; 80048; 80053; 80061; 80202; 82550; 82553; 83605; 83735; 84100; 84439; 84443; 84484; 85025; 85610; 85730; 93005; 94640; 96361; 96365; 96375; 99291